=== PATIENT | female | born 1965 | race Caucasian/White ===

== ENCOUNTER → 2019-12-30 12:51 | Outpatient (BNVA) | payer MEDICAID, SELFPAY | PROVIDERS: Family Provider Family Medicine; Visit Provider Nurse Practitioner | DX: F41.1 Generalized anxiety disorder (principal) | CPT/HCPCS: 99213 ==

== ENCOUNTER → 2020-03-01 09:53 | Outpatient (BNVA) | payer MEDICAID, SELFPAY | PROVIDERS: Family Provider Family Medicine; Visit Provider Family Medicine | DX: I10 Essential (primary) hypertension (principal); E11.9 Type 2 diabetes mellitus without complications; E03.9 Hypothyroidism, unspecified; G62.9 Polyneuropathy, unspecified; R23.2 Flushing; R60.9 Edema, unspecified | CPT/HCPCS: 80053; 80061; 82044; 82607; 84443; 85025 ==

== ENCOUNTER → 2020-03-31 07:42 | Outpatient (BNVA) | payer MEDICAID, SELFPAY | PROVIDERS: Family Provider Family Medicine; Visit Provider Nurse Practitioner | DX: F41.1 Generalized anxiety disorder (principal) | CPT/HCPCS: 99213 ==

== ENCOUNTER → 2020-04-29 11:54 | Outpatient (BNVA) | payer MEDICAID, SELFPAY | PROVIDERS: Family Provider Family Medicine; PCP Family Medicine; Visit Provider Family Medicine | DX: E78.5 Hyperlipidemia, unspecified (principal); Z79.899 Other long term (current) drug therapy | CPT/HCPCS: 80053 ==

== ENCOUNTER → 2020-06-16 14:11 | Outpatient (BNVA) | payer MEDICAID, SELFPAY | PROVIDERS: Family Provider Family Medicine; PCP Family Medicine; Visit Provider Family Medicine | DX: Z13.6 Encounter for screening for cardiovascular disorders (principal); E78.5 Hyperlipidemia, unspecified; R60.9 Edema, unspecified | CPT/HCPCS: 80053; 80061 ==

== ENCOUNTER → 2020-07-12 08:29 | Outpatient (BNVA) | payer MEDICAID, SELFPAY | PROVIDERS: Family Provider Family Medicine; PCP Family Medicine; Visit Provider Nurse Practitioner | DX: F41.1 Generalized anxiety disorder (principal) | CPT/HCPCS: 99214 ==

== ENCOUNTER → 2020-09-27 13:19 | Outpatient (BNVA) | payer MEDICAID, SELFPAY | PROVIDERS: Family Provider Family Medicine; PCP Family Medicine; Visit Provider Family Medicine | DX: E03.9 Hypothyroidism, unspecified (principal) | CPT/HCPCS: 84443 ==

== ENCOUNTER → 2020-09-29 07:41 | Outpatient (BNVA) | payer MEDICAID, SELFPAY | PROVIDERS: Family Provider Family Medicine; PCP Family Medicine; Visit Provider Nurse Practitioner | DX: F41.1 Generalized anxiety disorder (principal) | CPT/HCPCS: 99213 ==

== ENCOUNTER → 2020-11-02 07:48 | Outpatient (BNVA) | payer MEDICAID, SELFPAY | PROVIDERS: Family Provider Family Medicine; PCP Family Medicine; Visit Provider Nurse Practitioner | DX: F41.1 Generalized anxiety disorder (principal) | CPT/HCPCS: 99213 ==

== ENCOUNTER → 2020-12-27 08:17 | Outpatient (BNVA) | payer MEDICAID, SELFPAY | PROVIDERS: Family Provider Family Medicine; PCP Family Medicine; Visit Provider Nurse Practitioner | DX: F41.1 Generalized anxiety disorder (principal); G47.00 Insomnia, unspecified | CPT/HCPCS: 99214 ==

== ENCOUNTER 2021-01-24 13:13 | Outpatient (CLI) | payer MEDICAID, SELFPAY ==
--- NOTE | 2021-01-24 13:21 | MM_ITS ---
WS: [id number] BILATERAL SCREENING DIGITAL MAMMOGRAM WITH CAD HISTORY: SCREENING COMPARISON: 07/07/2019 and 06/10/2018 Bilateral CC and MLO views submitted. Computer aided detection analyzed. Breast composition: There are scattered areas of fibroglandular density. No suspicious masses, microc alcifications or architectural distortion. Benign calcifications in each breast. MM/[place] [id number] IMPRESSION: BI-RADS: 2-Benign FOLLOW UP: 1 Year Follow-up
== END 2021-01-24 13:14 | disposition home or self-care (01) ==
LOC: RADSHAW 13:15
PROVIDERS: PCP Family Medicine; Visit Provider Family Medicine
DX: Z12.31 Encounter for screening mammogram for malignant neoplasm of breast (principal)
CPT/HCPCS: 77067

== ENCOUNTER → 2021-01-31 13:12 | Outpatient (BNVA) | payer MEDICAID, SELFPAY | PROVIDERS: PCP Family Medicine; Visit Provider Family Medicine | DX: I10 Essential (primary) hypertension (principal) | CPT/HCPCS: 80053 ==

== ENCOUNTER → 2021-02-28 08:59 | Outpatient (BNVA) | payer MEDICAID, SELFPAY | PROVIDERS: Family Provider Family Medicine; PCP Family Medicine; Visit Provider Nurse Practitioner | DX: F41.1 Generalized anxiety disorder (principal); G47.00 Insomnia, unspecified; F17.290 Nicotine dependence, other tobacco product, uncomplicated | CPT/HCPCS: 99214 ==

== ENCOUNTER → 2021-05-16 07:17 | Outpatient (BNVA) | payer MEDICAID, SELFPAY | PROVIDERS: Family Provider Family Medicine; PCP Family Medicine; Visit Provider Nurse Practitioner | DX: F41.1 Generalized anxiety disorder (principal); G47.00 Insomnia, unspecified; F17.290 Nicotine dependence, other tobacco product, uncomplicated | CPT/HCPCS: 99214 ==

== ENCOUNTER → 2021-06-20 15:14 | Outpatient (BNVA) | payer MEDICAID, SELFPAY | PROVIDERS: Family Provider Family Medicine; PCP Family Medicine; Visit Provider Family Medicine | DX: E03.9 Hypothyroidism, unspecified (principal) | CPT/HCPCS: 84439; 84443 ==

== ENCOUNTER → 2021-07-20 07:25 | Outpatient (BNVA) | payer MEDICAID, SELFPAY | PROVIDERS: Family Provider Family Medicine; PCP Family Medicine; Visit Provider Nurse Practitioner | DX: F41.1 Generalized anxiety disorder (principal); G47.00 Insomnia, unspecified; F17.290 Nicotine dependence, other tobacco product, uncomplicated | CPT/HCPCS: 99214 ==

== ENCOUNTER → 2021-09-28 08:12 | Outpatient (BNVA) | payer MEDICAID, SELFPAY | PROVIDERS: Family Provider Family Medicine; PCP Family Medicine; Visit Provider Nurse Practitioner | DX: F41.1 Generalized anxiety disorder (principal); G47.00 Insomnia, unspecified; F17.290 Nicotine dependence, other tobacco product, uncomplicated | CPT/HCPCS: 99214 ==

== ENCOUNTER → 2021-12-14 07:36 | Outpatient (BNVA) | payer MEDICAID, SELFPAY | PROVIDERS: Family Provider Family Medicine; PCP Family Medicine; Visit Provider Nurse Practitioner | DX: F41.1 Generalized anxiety disorder (principal); G47.00 Insomnia, unspecified; F17.290 Nicotine dependence, other tobacco product, uncomplicated | CPT/HCPCS: 99214 ==

== ENCOUNTER → 2021-12-16 13:46 | Outpatient (BNVA) | payer MEDICAID, SELFPAY | PROVIDERS: Family Provider Family Medicine; PCP Family Medicine; Visit Provider Family Medicine | DX: I10 Essential (primary) hypertension (principal); E78.5 Hyperlipidemia, unspecified; E03.9 Hypothyroidism, unspecified | CPT/HCPCS: 80053; 80061; 82043; 84443; 85025 ==

== ENCOUNTER → 2022-02-28 07:28 | Outpatient (BNVA) | payer MEDICAID, SELFPAY | PROVIDERS: Family Provider Family Medicine; PCP Family Medicine; Visit Provider Nurse Practitioner | DX: F41.1 Generalized anxiety disorder (principal); G47.00 Insomnia, unspecified; F17.290 Nicotine dependence, other tobacco product, uncomplicated | CPT/HCPCS: 99214 ==

== ENCOUNTER 2022-03-16 11:41 | Outpatient (CLI) | payer MEDICAID, SELFPAY ==
--- NOTE | 2022-03-16 11:46 | MM_ITS ---
WS: [id number] BILATERAL SCREENING DIGITAL BREAST TOMOSYNTHESIS MAMMOGRAM WITH CAD HISTORY: SCREENING COMPARISON: 01/24/2021 and 07/07/2019 Bilateral CC and MLO views with tomosynthesis and synthetic mammography submitted. Computer aided det ection analyzed. Breast composition: There are scattered areas of fibroglandular density. No suspicious masses, microc alcifications or architectural distortion. Bilateral calcifications in each breast are benign. MM/[place] [id number] IMPRESSION: BI-RADS: 2-Benign FOLLOW UP: 1 Year Follow-up
== END 2022-03-16 11:42 | disposition home or self-care (01) ==
PROVIDERS: Family Provider Family Medicine; PCP Family Medicine; Visit Provider Family Medicine
DX: Z12.31 Encounter for screening mammogram for malignant neoplasm of breast (principal)
CPT/HCPCS: 77063; 77067

== ENCOUNTER → 2022-08-07 12:13 | Outpatient (BNVA) | payer MEDICAID, SELFPAY | PROVIDERS: Family Provider Family Medicine; PCP Family Medicine; Visit Provider Family Medicine | DX: Z23 Encounter for immunization (principal); E03.9 Hypothyroidism, unspecified; F09 Unspecified mental disorder due to known physiological condition | CPT/HCPCS: 82607; 84443 ==

== ENCOUNTER 2022-09-26 11:47 | Outpatient (CLI) | payer MEDICAID, SELFPAY ==
--- NOTE | 2022-09-26 12:00 | CT_ITS ---
WS: [id number] CT HEAD TECHNIQUE: Noncontrast CT of the head obtained from the skullbase to the vertex. CLINICAL INFORMATION: cognitive dysfunction COMPARISON: None. DLP: 1005.[address] scans at [facility] use at least one of these dose optimization techniques: automated e xposure control; mA and/or kV adjustment per patient size (includes targeted exams where dose is matc hed to clinical indication); or iterative reconstruction. FINDINGS: No evidence of intracranial hemorrhage or mass effect. Ventricular system and basal cisterns are frazier nt. Minimal small vessel changes with mild parenchymal volume loss. No extra-axial fluid collections. No evidence of mass or mass effect. Paranasal sinuses and mastoid air cells are well aerated. .Normal visualized soft tissues. CT/CT head wo con* [id number] IMPRESSION: 1. No evidence of intracranial hemorrhage or mass effect. 2. Minimal small vessel changes. Mild parenchymal volume loss. 3. No acute intracranial findings.
== END 2022-09-26 11:48 | disposition home or self-care (01) ==
LOC: RAD 11:47
PROVIDERS: PCP Family Medicine; Visit Provider Family Medicine
DX: F09 Unspecified mental disorder due to known physiological condition (principal)
CPT/HCPCS: 70450

== ENCOUNTER → 2022-10-09 13:11 | Outpatient (BNVA) | payer MEDICAID, SELFPAY | PROVIDERS: PCP Family Medicine; Visit Provider Podiatrist Foot & Ankle Surgery | DX: M79.671 Pain in right foot (principal); M79.89 Other specified soft tissue disorders | CPT/HCPCS: 73600; 73630; 99214 ==

== ENCOUNTER 2022-11-09 12:54 | Outpatient (CLI) | payer MEDICAID, SELFPAY ==
--- NOTE | 2022-11-09 13:00 | MR_ITS ---
WS: [id number] MRI RIGHT ANKLE without CONTRAST. COMPARISON: Radiographs 10/09/2022 Multiplanar, multisequence imaging is performed without contrast. There are extensive fluid collections noted surrounding the ankle. Fluid collections surround the ten dons and within the tendon sheaths of the ankle including the extensor and flexor tendon sheaths and the peroneus tendon sheath. Lobulated fluid collection extends over a length of 6.2 cm along the exte nsor tendon sheath predominantly surrounding the extensor digitorum tendons. Abrupt termination of th e fluid at the level of the cuneiforms. There is a more complex fluid collection along the medial ankle surrounding the flexor hallucis longu s muscle and tendon sheath. This is contiguous along the medial ankle with a smaller amount of fluid extending along the tibialis posterior tendon and the flexor digitorum longus tendon. Small amount of fluid within the peroneus tendon sheath. Subchondral cystic changes are noted along the subtalar joint involving both the talus and the calcan eus. Bone infarct in the distal tibia measures 1.4 x 2.2 cm. Small amount of edema involving the fat pad superficial to the calcaneus. MR/MR ankle RT wo con* [id number] IMPRESSION: 1. There are extensive fluid collections within the tendon sheath surrounding the ankle including the extensor and flexor tendon sheaths and also the peroneu s tendon sheath. Some of these rapidly terminate and some are complex fluid col lections. Most likely due to stenosing tenosynovitis. Etiology may be due to pr ior trauma or infection, synovial chondromatosis or rheumatoid arthritis. 2. Edema and degenerative subchondral cystic changes involving the subtalar joanne int. 3. Distal tibial bone infarct.
--- NOTE | 2022-11-09 13:45 | MR_ITS ---
WS: [id number] MRI RIGHT FOOT without CONTRAST. COMPARISON: Radiographs 10/09/2022 Multiplanar, multisequence imaging is performed without contrast. There is a large amount of fluid within the extensor tendon sheath at the level of the ankle extendin g into the midfoot. Fluid is distending the extensor sheath with the tendons being displaced into the posterior fluid. This collection is incompletely visualized as the ankle is not included in this exa mination. There is a separate fluid collection which may be contiguous with the larger fluid collecti on into the extensor tendon sheath. The tendons most likely involved include extensor digitorum longu s tendons. There is a small amount of fluid surrounding the flexor hallucis and flexor digitorum longus tendons along the plantar surface of the foot at the level of the cuneiforms. Fluid terminates at the level o f the proximal metatarsals. No fractures or marrow edema. No tendon tears or retraction. MR/MR foot RT wo con* [id number] IMPRESSION: 1. Incompletely visualized fluid within the extensor tendon sheath at the leve l of the ankle. Most consistent with stenosing tenosynovitis. For additional in formation please see the MRI ankle report. 2. Additional small amount of fluid surrounding the flexor hallucis and flexor digitorum longus tendons along the plantar surface of the foot at the level of the cuneiforms. Also consistent with tenosynovitis. 3. Consider posttraumatic, post infectious, synovial chondromatosis or rheumat oid arthritis as possible etiologies.
== END 2022-11-09 12:55 | disposition home or self-care (01) ==
LOC: RAD 12:56
PROVIDERS: PCP Family Medicine; Visit Provider Podiatrist Foot & Ankle Surgery
DX: M79.89 Other specified soft tissue disorders (principal)
CPT/HCPCS: 73718; 73721

== ENCOUNTER 2022-12-11 15:36 | Outpatient (CLI) | payer MEDICAID, SELFPAY | END 2022-12-11 15:37 | disposition home or self-care (01) | LOC: SPT 15:36 | PROVIDERS: PCP Family Medicine; Visit Provider Podiatrist Foot & Ankle Surgery | DX: Z46.89 Encounter for fitting and adjustment of other specified devices (principal); M79.89 Other specified soft tissue disorders; M76.821 Posterior tibial tendinitis, right leg | CPT/HCPCS: 97760; 99214; L1902 ==

== ENCOUNTER → 2023-01-11 14:57 | Outpatient (BNVA) | payer MEDICAID, SELFPAY | PROVIDERS: PCP Family Medicine; Visit Provider Family Medicine | DX: I10 Essential (primary) hypertension (principal); E03.9 Hypothyroidism, unspecified; Z01.89 Encounter for other specified special examinations | CPT/HCPCS: 80053; 80061; 82043; 83036; 83880; 84443; 85025 ==

== ENCOUNTER → 2023-01-22 13:43 | Outpatient (BNVA) | payer MEDICAID, SELFPAY | PROVIDERS: PCP Family Medicine; Visit Provider Podiatrist Foot & Ankle Surgery | DX: M79.89 Other specified soft tissue disorders (principal); M76.821 Posterior tibial tendinitis, right leg; L60.3 Nail dystrophy | CPT/HCPCS: 99213 ==

== ENCOUNTER → 2023-03-15 13:26 | Outpatient (BNVA) | payer MEDICAID, SELFPAY | PROVIDERS: PCP Family Medicine; Visit Provider Family Medicine | DX: E03.9 Hypothyroidism, unspecified (principal); R60.0 Localized edema | CPT/HCPCS: 80048; 84436; 84443; 84480 ==

== ENCOUNTER 2023-04-24 11:47 | Outpatient (CLI) | payer MEDICAID, SELFPAY ==
--- NOTE | 2023-04-24 11:52 | MM_ITS ---
WS: [id number] BILATERAL 3D TOMOSYNTHESIS DIGITAL SCREENING MAMMOGRAPHY WITH CAD CLINICAL INFORMATION: SCREENING HISTORY: Screening mammogram. No current complaints. COMPARISON: 2021 TECHNIQUE: Bilateral CC and MLO views. FINDINGS: Scattered fibroglandular densities bilaterally. No suspicious focal mass, asymmetry, calcifications, or architectural distortion. No evidence of malignancy. Incidental punctate and lucent centered calci fications. MM/[place] [id number] IMPRESSION: BI-RADS: 2-Benign FOLLOW UP: 1 Year Follow-up Recommend return to annual screening mammography.
== END 2023-04-24 11:48 | disposition home or self-care (01) ==
LOC: RAD 11:49
PROVIDERS: PCP Family Medicine; Visit Provider Family Medicine
DX: Z12.31 Encounter for screening mammogram for malignant neoplasm of breast (principal); M76.821 Posterior tibial tendinitis, right leg; M79.89 Other specified soft tissue disorders; L60.3 Nail dystrophy
CPT/HCPCS: 77063; 77067; 99213

== ENCOUNTER → 2023-05-15 09:26 | Outpatient (BNVA) | payer MEDICAID, SELFPAY | PROVIDERS: PCP Family Medicine; Visit Provider Family Medicine | DX: R79.89 Other specified abnormal findings of blood chemistry (principal) | CPT/HCPCS: 80048; 84146; 84439; 84443; 84480 ==

== ENCOUNTER 2023-09-17 10:38 | Observation (INO) | payer MEDICAID, SELFPAY ==
[2023-09-17] VITALS (7 sets, daily range): BP systolic 163–176; BP diastolic 68–98; PULSE 80–89; RESP 16; TEMP 36.5; O2SAT 94–97; BMI 35.4
--- NOTE | 2023-09-17 10:50 | W.ED.BACK ---
Documented by User: SHERYL Valdez 09/18/23 09:07 HPI - Back Pain/Injury General: Chief Complaint: Back Pain/Injury Stated Complaint: lower back pain Time Seen by Provider: 09/17/23 10:39 Source: patient Mode of arrival: wheelchair Limitations: no limitations History of Present Illness: Patient is a 57-year-old female who presents to the ED today with a complaint of back pain and weakness. Patient states she has a history of sciatica but that this is completely different . She also has a history of some pathology regarding her right foot and ankle that she sees Dr. Griffin for. She states sometimes it will swell after being on her feet for too long. She also reports a history of fibromyalgia. She states on Sunday they were in [place] and did a fair amount of walking. She states by Sunday she noticed profound weakness in her arms and legs (describes them as heavy and tired) and was having pain at the bottom of her neck/upper back. She describes the pain in her neck/back as [id number] . She states that she was not able to carry her luggage out to her car and family had to help her. She states she is having to walk with a walker as she gets pain down both of her legs to about her knee and feels like they are going to buckle. Patient denies any numbness, tingling, loss of sensation to the extremities. Patient's sister is here with her and she has had to help care for her since Sunday MD elicited complaint: back pain Associated symptoms: Reports difficulty walking; Deny abdominal pain, chills, dysuria, fatigue, fever(s), nausea, syncope or vomiting Review of Systems Const: Denies: fever(s), chills, body aches, fatigue or malaise Eyes: Denies: change in vision, blurry vision, photophobia, floaters or seeing flashes Card: Denies: chest pain, palpitations, irregular heart rhythm, lightheadedness, syncope or dyspnea on exertion Resp: Denies: dyspnea, productive cough or pain on inspiration GI: Denies: abdominal pain, nausea, vomiting, heartburn or diarrhea : Denies: dysuria Musc: Reports: neck pain, back pain, joint swelling (R ankle/foot-chronic) and muscle weakness; Denies: extremity pain, extremity swelling, joint pain, joint redness, joint warmth or limited range of motion Skin/Breast: Denies: rash Neuro: Reports: weakness in extremities and difficulty walking; Denies: headache(s), numbness in extremities or sensory changes PFSH ED PFSH: Medical History Bipolar 2 disorder Essential hypertension Fibromyalgia Generalized anxiety disorder Hypothyroid Insomnia Psychiatric care Surgical History H/O tubal ligation H/O: hysterectomy History of back surgery History of foot surgery Family History Other CAD (coronary artery disease) Diabetes Hyperlipidemia Hypertension Social History Smoking and tobacco/nicotine status: current every day tobacco/nicotine user (e cigarette) e-cigarettes E-Cigarette Details: vaporizer device 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 Physical Exam Const: COMMON NORMALS: no acute distress, average body habitus, patient oriented x3, no limitations, healthy appearing, alert and well nourished GENERAL APPEARANCE: cooperative ORIENTATION/CONSCIOUSNESS: Yes awake, Yes oriented to person, Yes oriented to place and Yes oriented to time HENMT: COMMON NORMALS: normocephalic and atraumatic HEAD & SCALP: normal to inspection, normocephalic and atraumatic FACE & SINUS: other (chronic R Schumacher's Palsy residual deficits) Eye: COMMON NORMALS: Equal, round and reactive pupils present GENERAL EYE: appearance normal, both eyes and all related structures and normal light reflex PUPIL: Yes Equal, round and reactive pupils present DIRECT OPHTHALMOSCOPY: Yes normal light reflex OTHER: some slight R lid lag which she states is chronic from a Schumacher's Palsy Neck/C-Spine: COMMON NORMALS: full ROM and no lymphadenopathy GENERAL: Yes normal visual inspection CERVICAL SPINE: Yes cervical ROM normal and No step off deformity OTHER: reports pain with forward flexion of her neck-states this causes a pinching sensation and pins and needles to the base of her neck and upper thoracic spine Chest: COMMONS NORMALS: normal inspection of the chest Resp: COMMON NORMALS: normal respiratory effort and clear to auscultation bilaterally AUSCULTATION: clear to auscultation bilaterally Cardio: COMMON NORMALS: regular rate and regular rhythm RATE: regular rate RHYTHM: regular rhythm Back/Pelvis: THORACIC SPINE/UPPER BACK: No thoracic spinal tenderness LUMBAR SPINE/LOWER BACK: No lumbar spinal tenderness and Yes straight leg raise negative bilaterally PELVIS: Yes buttocks normal OTHER: reports certain positions cause pins and needle sensations down her back starting at her lower neck/upper thoracic spine; no bony tenderness palpated Extremity: COMMON NORMALS: full ROM, capillary refill normal and no calf tenderness NARRATIVE EXTREMITY EXAM: bilateral DP/PT pulses felt GENERAL: Yes normal exam except as noted RIGHT LOWER EXTREMITY: Yes foot & digits (chronic swelling around her R ankle/foot) Neuro: ANNE COMA SCALE: document GCS findings [place] coma scale eye opening: Spontaneous Anne coma scale verbal response: Orientated Anne coma scale motor response: Obey commands [place] coma scale total score: 15 COMMON NORMALS: patient oriented x3, moves all extremities and no sensory deficits noted SENSORIUM/ORIENTATION: Yes alert, Yes oriented to person, Yes oriented to place and Yes oriented to time GAIT: Yes Unable to assess gait MOTOR EXAM: Abnormal motor strength present (weakness noted to bilateral UE C6/C7 elbow flexion/extension) DEEP TENDON REFLEXES: Right patellar reflex intensity grade: 2+ and Left patellar reflex intensity grade: 2+ OTHER: patient has weakness to bilateral elbow flexion/extension-this was later re-assessed and seemed to improve; reflexes to upper extremities were difficult to elicit although patient couldn't seem to relax her extremities enough to conduct these-I had to tell her repeatedly to just relax her arm as they felt stiff Skin: COMMON NORMALS: no rashes or lesions noted GENERAL SKIN EXAM: no rashes or lesions noted Course Vital Signs: Vital signs: Vital Signs Temperature 97.7 F 09/17/23 10:46 Pulse Rate 83 09/17/23 17:42 Respiratory Rate 16 09/17/23 10:46 Blood Pressure 174/96 09/17/23 17:42 Pulse Oximetry 94 09/17/23 17:42 Oxygen Delivery Me thod Room Air 09/17/23 16:00 MDM - Back Pain/Injury Medical Decision Making Patient here with a complaint of pain to her neck/back and bilateral upper and lower extremity weakness. She states weakness has limited her from carrying things and ambulating normally. She states she is having to ambulate with a walker as she feels her upper legs (to about her knees) feel weak and feel like they are going to buckle. Patient describes [id number] sensations to her lower neck/upper thoracic spine. She initially had C6/C7 myotome weakness although this seems improved during repeat examination. Patient overall seems very dismissive of her symptoms stating she feels like she just overdid it . Sister that accompanies her seems more worried as she she states her symptoms do not sound like her normal fibromyalgia or sciatica pain. Labs including CRP and CPK are normal. Clinically this doesn't sound like a radiculopathy. No suspicion for ALS/Guillain-Ignacio?/demyelinating process. I spoke to Dr. Barakat regarding patient and my differential including possible transverse myelitis. He went and spoke/assessed patient and agrees she probably will require admission for MR imaging. He will speak to hospitalist and possibly neurology for admission. Medical Records I reviewed the patient's medical records. Labs I reviewed the patient's lab results. 09/17/23 11:24 09/17/23 11:24 Laboratory Results WBC 9.92 10^3/uL (3.29-11.43) 09/17/23 11:24 RBC 4.74 10^6/uL (3.85-5.65) 09/17/23 11:24 Hgb 15.40 g/dL (11.27-16.99) 09/17/23 11:24 Hct 46.8 % (36-47) 09/17/23 11:24 MCV 98.7 fl (85-98) H 09/17/23 11:24 MCH 32.5 pg (27-33) 09/17/23 11:24 MCHC 32.9 g/dL (30-55) 09/17/23 11:24 RDW 13.5 % (12.1-15.1) 09/17/23 11:24 Plt Count 270 10^3/cmm (157-399) 09/17/23 11:24 MPV 8.4 fL (7.4-10.4) 09/17/23 11:24 Neut % (Auto) 59.6 % 09/17/23 11:24 Lymph % (Auto) 24.2 % 09/17/23 11:24 [place] % (Auto) 12.0 % 09/17/23 11:24 Eos % (Auto) 2.3 % 09/17/23 11:24 Baso % (Auto) 1.2 % 09/17/23 11:24 Neut # (Auto) 5.91 10^3/uL (1.8-7.7) 09/17/23 11:24 Lymph # (Auto) 2.4 10^3/uL (0.8-4.8) 09/17/23 11:24 [place] # (Auto) 1.2 10^3/uL (0.2-0.9) H 09/17/23 11:24 Eos # (Auto) 0.2 10^3/uL (0.0-0.8) 09/17/23 11:24 Baso # (Auto) 0.1 10^3/uL (0.0-0.1) 09/17/23 11:24 Nucleated RBC % (auto) 0 % 09/17/23 11:24 Nucleated RBCs # 0.0 /100WBC 09/17/23 11:24 Sodium 138 mmol/L (136-145) 09/17/23 11:24 Potassium 3.9 mmol/L (3.5-5.1) 09/17/23 11:24 Chloride 101 mmol/L (98-107) 09/17/23 11:24 Carbon Dioxide 29 mmol/L (22-29) 09/17/23 11:24 Anion Gap 11.9 (5-19) 09/17/23 11:24 BUN 19 mg/dL (6-20) 09/17/23 11:24 Creatinine 0.6 mg/dL (0.5-0.9) 09/17/23 11:24 GFR Calculation 102.7 mL/min (90-130) 09/17/23 11:24 Glucose 93 mg/dL (65-115) 09/17/23 11:24 Calculated Osmolality 288 mOsm/kg (285-295) 09/17/23 11:24 Calcium 10.6 mg/dL (8.5-10.5) H 09/17/23 11:24 Total Bilirubin 0.2 mg/dL (0.15-1.2) 09/17/23 11:24 AST 24 U/L (0-32) 09/17/23 11:24 ALT 36 U/L (0-33) H 09/17/23 11:24 Alkaline Phosphatase 101 U/L (35-105) 09/17/23 11:24 Creatine Kinase 128 U/L (26-192) 09/17/23 11:24 C-Reactive Protein 3.0 mg/L (0.0-4.9) 09/17/23 11:24 Total Protein 7.2 g/dL (6.6-8.7) 09/17/23 11:24 Albumin 4.5 g/dL (3.5-5.2) 09/17/23 11:24 Globulin 2.7 g/dL (1.3-4.6) 09/17/23 11:24 No radiology studies performed this visit Discharge Plan Discharge Patient Disposition: Placed in Observation Admit Provider: Yoana Hawkins Clinical Impression: Upper back pain, Weakness of both lower extremities, Fibromyalgia Discharge Diet: Usual diet Discharge Activity: Increase activity as tolerated Coding Level of Care Code ED Civil Celebrant for Chg Fwd Documented by User: Venkata Barakat MD 09/22/23 19:42 HPI - Back Pain/Injury General: Chief Complaint: Back Pain/Injury Stated Complaint: lower back pain Time Seen by Provider: 09/17/23 10:39 PFSH ED PFSH: Medical History Bipolar 2 disorder Essential hypertension Fibromyalgia Generalized anxiety disorder Hypothyroid Insomnia Psychiatric care Surgical History H/O tubal ligation H/O: hysterectomy History of back surgery History of foot surgery Family History Other CAD (coronary artery disease) Diabetes Hyperlipidemia Hypertension Social History Smoking and tobacco/nicotine status: current every day tobacco/nicotine user (e cigarette) e-cigarettes E-Cigarette Details: vaporizer device 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 Physical Exam Neuro: ANNE COMA SCALE: document GCS findings [place] coma scale total score: 15 Course Vital Signs: Vital signs: Vital Signs Temperature 97.7 F 09/17/23 10:46 Pulse Rate 83 09/17/23 17:42 Respiratory Rate 16 09/17/23 10:46 Blood Pressure 174/96 09/17/23 17:42 Pulse Oximetry 94 09/17/23 17:42 Oxygen Delivery Me thod Room Air 09/17/23 16:00 MDM - Back Pain/Injury Labs 09/17/23 11:24 09/17/23 11:24 Laboratory Results WBC 9.92 10^3/uL (3.29-11.43) 09/17/23 11:24 RBC 4.74 10^6/uL (3.85-5.65) 09/17/23 11:24 Hgb 15.40 g/dL (11.27-16.99) 09/17/23 11:24 Hct 46.8 % (36-47) 09/17/23 11:24 MCV 98.7 fl (85-98) H 09/17/23 11:24 MCH 32.5 pg (27-33) 09/17/23 11:24 MCHC 32.9 g/dL (30-55) 09/17/23 11:24 RDW 13.5 % (12.1-15.1) 09/17/23 11:24 Plt Count 270 10^3/cmm (157-399) 09/17/23 11:24 MPV 8.4 fL (7.4-10.4) 09/17/23 11:24 Neut % (Auto) 59.6 % 09/17/23 11:24 Lymph % (Auto) 24.2 % 09/17/23 11:24 [place] % (Auto) 12.0 % 09/17/23 11:24 Eos % (Auto) 2.3 % 09/17/23 11:24 Baso % (Auto) 1.2 % 09/17/23 11:24 Neut # (Auto) 5.91 10^3/uL (1.8-7.7) 09/17/23 11:24 Lymph # (Auto) 2.4 10^3/uL (0.8-4.8) 09/17/23 11:24 [place] # (Auto) 1.2 10^3/uL (0.2-0.9) H 09/17/23 11:24 Eos # (Auto) 0.2 10^3/uL (0.0-0.8) 09/17/23 11:24 Baso # (Auto) 0.1 10^3/uL (0.0-0.1) 09/17/23 11:24 Nucleated RBC % (auto) 0 % 09/17/23 11:24 Nucleated RBCs # 0.0 /100WBC 09/17/23 11:24 Sodium 138 mmol/L (136-145) 09/17/23 11:24 Potassium 3.9 mmol/L (3.5-5.1) 09/17/23 11:24 Chloride 101 mmol/L (98-107) 09/17/23 11:24 Carbon Dioxide 29 mmol/L (22-29) 09/17/23 11:24 Anion Gap 11.9 (5-19) 09/17/23 11:24 BUN 19 mg/dL (6-20) 09/17/23 11:24 Creatinine 0.6 mg/dL (0.5-0.9) 09/17/23 11:24 GFR Calculation 102.7 mL/min (90-130) 09/17/23 11:24 Glucose 93 mg/dL (65-115) 09/17/23 11:24 Calculated Osmolality 288 mOsm/kg (285-295) 09/17/23 11:24 Calcium 10.6 mg/dL (8.5-10.5) H 09/17/23 11:24 Total Bilirubin 0.2 mg/dL (0.15-1.2) 09/17/23 11:24 AST 24 U/L (0-32) 09/17/23 11:24 ALT 36 U/L (0-33) H 09/17/23 11:24 Alkaline Phosphatase 101 U/L (35-105) 09/17/23 11:24 Creatine Kinase 128 U/L (26-192) 09/17/23 11:24 C-Reactive Protein 3.0 mg/L (0.0-4.9) 09/17/23 11:24 Total Protein 7.2 g/dL (6.6-8.7) 09/17/23 11:24 Albumin 4.5 g/dL (3.5-5.2) 09/17/23 11:24 Globulin 2.7 g/dL (1.3-4.6) 09/17/23 11:24 Discharge Plan Discharge Patient Disposition: Placed in Observation Admit Provider: Yoana Hawkins Clinical Impression: Upper back pain, Weakness of both lower extremities, Fibromyalgia Discharge Diet: Usual diet Discharge Activity: Increase activity as tolerated Coding Level of Care Code ED Civil Celebrant for [place]
[2023-09-17 11:52] LABS: Basophils # 0.1 10^3/uL (0.0-0.1); Basophils % 1.2 %; Eosinophils # 0.2 10^3/uL (0.0-0.8); Eosinophils % 2.3 %; Hematocrit 46.8 % (36-47); Lymphocytes # 2.4 10^3/uL (0.8-4.8); Lymphocytes % 24.2 %; Mean Corpuscular HGB Conc 32.9 g/dL (30-55); Mean Corpuscular Hemoglobin 32.5 pg (27-33); Mean Corpuscular Volume 98.7 fl (85-98); Mean Platelet Volume 8.4 fL (7.4-10.4); Monocytes # 1.2 10^3/uL (0.2-0.9); Neutrophils # 5.91 10^3/uL (1.8-7.7); Neutrophils % 59.6 %; Nucleated Red Blood Cells % 0 %; Platelet Count 270 10^3/cmm (157-399); Red Blood Count 4.74 10^6/uL (3.85-5.65); Red Cell Distribution Width 13.5 % (12.1-15.1); White Blood Count 9.92 10^3/uL (3.29-11.43)
[2023-09-17] MEDS: dexamethasone 4 mg/mL INJ 8 MG IVP (11:52)
[2023-09-17] MEDS: orphenadrine 30 mg/mL Inj 2 mL 60 MG IVP (11:52)
[2023-09-17] MEDS: ketorolac 30 mg/mL INJ IVP (11:52)
[2023-09-17 12:05] LABS: Alanine Aminotransferase 36 U/L (0-33); Albumin Level 4.5 g/dL (3.5-5.2); Alkaline Phosphatase 101 U/L (35-105); Anion Gap 11.9 (5-19); Aspartate Amino Transferase 24 U/L (0-32); Blood Urea Nitrogen 19 mg/dL (6-20); Calcium 10.6 mg/dL (8.5-10.5); Carbon Dioxide 29 mmol/L (22-29); Chloride 101 mmol/L (98-107); Creatine Phosphokinase 128 U/L (26-192); Creatinine Clr Calc Pharmacy 109.2728; Globulin 2.7 g/dL (1.3-4.6); Glomerular Filtration Rate 102.7 mL/min (90-130); Glucose 93 mg/dL (65-115); Osmolality Calculated 288 mOsm/kg (285-295); Potassium 3.9 mmol/L (3.5-5.1); Sodium 138 mmol/L (136-145); Total Bilirubin 0.2 mg/dL (0.15-1.2); Total Protein 7.2 g/dL (6.6-8.7)
--- NOTE | 2023-09-17 15:25 | PM.HP ---
Providers/Chief Complaint Admitting Physician: Yoana Hawkins MD Primary Care Provider: Jory Ortiz DO Chief Complaint: lower back pain History of Present Illness Guera Clement is a 57 year old female Review of Systems General: Reports: Other (ROS as per HPI or as otherwise noted here) Medications/Allergies Home Medications Medication Instructions Recorded Confirmed Last Taken Type cholecalciferol (vitamin D3) 250 10,000 unit PO DAILY 12/30/19 09/17/23 09/16/23 History mcg (10,000 unit) capsule Supinator to the right foot #1 ea 12/11/22 09/17/23 Unknown Rx Spectrum AFO to right #1 ea 01/22/23 09/17/23 Unknown Rx atenolol 25 mg tablet 25 mg PO DAILY #90 tabs 08/06/23 09/17/23 09/16/23 Rx donepezil 5 mg tablet (Aricept) 5 mg PO DAILY #90 tabs 08/06/23 09/17/23 09/16/23 Rx furosemide 20 mg tablet (Lasix) 20 mg PO DAILY #90 tabs 08/06/23 09/17/23 09/16/23 Rx hydrochlorothiazide 25 mg tablet 25 mg PO QAM #90 tabs 08/06/23 09/17/23 09/16/23 Rx alprazolam 1 mg tablet 1 mg PO TID PRN anxiety 30 days 08/17/23 09/17/23 Unknown Rx #90 tabs amitriptyline 100 mg tablet 200 mg PO DAILY #60 tabs 08/17/23 09/17/23 09/16/23 Rx lamotrigine 200 mg tablet 400 mg PO .HS #60 tabs 08/17/23 09/17/23 09/16/23 Rx venlafaxine 150 mg 150 mg PO DAILY #30 caps 08/17/23 09/17/23 09/16/23 Rx capsule,extended release 24 hr (Effexor XR) ziprasidone HCl 60 mg capsule 60 mg PO BID #60 caps 08/17/23 09/17/23 09/16/23 Rx (Geodon) atorvastatin 10 mg tablet 10 mg PO DAILY 09/17/23 09/17/23 09/16/23 History docusate sodium 100 mg capsule 100 mg PO DAILY 09/17/23 09/17/23 09/17/23 History (Stool Softener) estradiol 0.5 mg tablet 0.5 mg PO DAILY 09/17/23 09/17/23 09/16/23 History psyllium husk 0.4 gram capsule 0.4 g PO DAILY 09/17/23 09/17/23 09/17/23 History (Metamucil) Allergies Allergy/AdvReac Type Severity Reaction Status Date / Time Penicillins Allergy Severe ADR-Diarrhe Verified 09/17/23 12:19 a PFSH Acute PFSH: Medical History (Updated 09/17/23 @ 15:29 by Yoana Hawkins MD) Bipolar 2 disorder Essential hypertension Fibromyalgia Generalized anxiety disorder Hypothyroid Insomnia Psychiatric care Surgical History H/O tubal ligation H/O: hysterectomy History of back surgery History of foot surgery Family History Other CAD (coronary artery disease) Diabetes Hyperlipidemia Hypertension Social History Smoking and tobacco/nicotine status: current every day tobacco/nicotine user (e cigarette) e-cigarettes E-Cigarette Details: vaporizer device 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 Coding Level of Care Code Acute Code for Chg Fwd Diagnoses
--- NOTE | 2023-09-17 15:51 | P.CONIM_ITS ---
Providers/Reason For Consult Consulting Physician/Specialty*: dr. Powers, ED Reason for Consult*: weakness in limbs Primary Care Provider: Jory Ortiz DO History of Present Illness History of Present Illness Guera Clement is a 57 year old female who was getting groceries today when she developed weakness of all 4 extremities. She was complaining of pain in her back. She has a history of fibromyalgia and she is on a lot of psychotropics including 3 mg of alprazolam, 200 mg of amitriptyline, 400 mg of lamotrigine and 150 mg of venlafaxine. She is normally sedentary. 2 days ago on Sunday she went to an amusement facility with her family and spent all day on her feet. There was rarely an opportunity for her to sit down and she was exhausted. They were out for the full day more than 8 hours and she felt sore all over when she got home. Yesterday she was pretty much bedbound and all of her muscles hurt. She struggles with fibromyalgia anyway and her muscle pain was much more worse. Her back hurt. By today she was feeling weak all over to the point that she could not carry her groceries and her guest services associate persuaded her to come to the ER and was adamant that she needed to be admitted. She is feeling a lot better than she did when she came in earlier today. She got a shot of Decadron after arrival and either the Decadron or the IV fluids and rest have accomplished what she was seeking which was to feel better. Her sister is with her now and they very much want for her to go back home. She is convinced that she just overdid it and that she is already on the mend. She does not have any focal weakness nor did she ever. She has been clearheaded throughout. No focal numbness. Review of Systems Const: Denies: fever(s), change in weight or fatigue Eyes: Denies: change in vision, blurry vision, blind spots, photophobia, eye discomfort, seeing flashes or other (Glaucoma) ENMT: Denies: odynophagia, hoarseness, change in hearing, tinnitus, sinus pain or other (Loss of taste/smell) Card: Denies: chest pain, palpitations, syncope or other (Calf cramps) Resp: Denies: dyspnea, non-productive cough, wheezing or hemoptysis GI: Denies: abdominal pain, nausea, heartburn, diarrhea, constipation or hematochezia : Denies: urinary frequency or urinary incontinence Musc: Denies: neck pain, muscle weakness or other (Muscle pain) Skin/Breast: Denies: rash, new lesions or breast mass Neuro: Reports: numbness in extremities, weakness in extremities, sensory changes, lack of coordination, difficulty walking and other (Sleep Apnea); Denies: headache(s), Slurred speech present or seizure-like activity Psych: Denies: depression, irritability, memory loss, difficulty concentrating or other (Personality changes) Endo: Denies: polyuria, polydipsia, excessive sweating or change in body appearance Enrique/Lymph: Denies: easy bruising, easy bleeding or enlarged lymph nodes Medications/Allergies Home Medications Medication Instructions Recorded Confirmed Last Taken Type cholecalciferol (vitamin D3) 250 10,000 unit PO DAILY 12/30/19 09/17/23 09/16/23 History mcg (10,000 unit) capsule Supinator to the right foot #1 ea 12/11/22 09/17/23 Unknown Rx Spectrum AFO to right #1 ea 01/22/23 09/17/23 Unknown Rx atenolol 25 mg tablet 25 mg PO DAILY #90 tabs 08/06/23 09/17/23 09/16/23 Rx donepezil 5 mg tablet (Aricept) 5 mg PO DAILY #90 tabs 08/06/23 09/17/23 09/16/23 Rx furosemide 20 mg tablet (Lasix) 20 mg PO DAILY #90 tabs 08/06/23 09/17/23 09/16/23 Rx hydrochlorothiazide 25 mg tablet 25 mg PO QAM #90 tabs 08/06/23 09/17/23 09/16/23 Rx alprazolam 1 mg tablet 1 mg PO TID PRN anxiety 30 days 08/17/23 09/17/23 Unknown Rx #90 tabs amitriptyline 100 mg tablet 200 mg PO DAILY #60 tabs 08/17/23 09/17/23 09/16/23 Rx lamotrigine 200 mg tablet 400 mg PO .HS #60 tabs 08/17/23 09/17/23 09/16/23 Rx venlafaxine 150 mg 150 mg PO DAILY #30 caps 08/17/23 09/17/23 09/16/23 Rx capsule,extended release 24 hr (Effexor XR) ziprasidone HCl 60 mg capsule 60 mg PO BID #60 caps 08/17/23 09/17/23 09/16/23 Rx (Geodon) atorvastatin 10 mg tablet 10 mg PO DAILY 09/17/23 09/17/23 09/16/23 History docusate sodium 100 mg capsule 100 mg PO DAILY 09/17/23 09/17/23 09/17/23 History (Stool Softener) estradiol 0.5 mg tablet 0.5 mg PO DAILY 09/17/23 09/17/23 09/16/23 History methylprednisolone 4 mg tablets in See Rx Instructions PO .COMPLEX 09/17/23 Unknown Rx a dose pack (Methylpred DP) #21 ea psyllium husk 0.4 gram capsule 0.4 g PO DAILY 09/17/23 09/17/23 09/17/23 History (Metamucil) Allergies Allergy/AdvReac Type Severity Reaction Status Date / Time Penicillins Allergy Severe ADR-Diarrhe Verified 09/17/23 12:19 a Reviewed with the patient PFSH Acute PFSH: Medical History Bipolar 2 disorder Essential hypertension Fibromyalgia Generalized anxiety disorder Hypothyroid Insomnia Psychiatric care Surgical History H/O tubal ligation H/O: hysterectomy History of back surgery History of foot surgery Family History Other CAD (coronary artery disease) Diabetes Hyperlipidemia Hypertension Social History Smoking and tobacco/nicotine status: current every day tobacco/nicotine user (e cigarette) e-cigarettes E-Cigarette Details: vaporizer device 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 MENTAL STATUS: Orientation was full to 10 of 10 questions of orientation. Speech was fluent without word hesitation. No difficulty following a complex command. The affect was euthymic. She is desperate to go home as it is the first Thanksgiving that she will be with all of her family. Her sister is at the bedside. CRANIAL NERVES: Visual acuity was intact to reading small print. Visual pack were full to confrontation, direct and consensual. Extraocular movements were full without nystagmus. Both slow pursuit and saccadic eye movements were normal. PERRLA. Face was symmetric at rest and with grimace. Facial sensation was intact in all three distributions of the fifth cranial nerve bilaterally to touch. Hearing was intact to soft spoken voice. Tongue and palate were midline at rest and with protrusion of the tongue and elevation of the palate. Shoulders were symmetric at rest and with shoulder shrug. MOTOR: She gave reasonable effort throughout. She is weak in both psoas muscles but describes that she has to pick her legs up to get her socks on because this is a chronic problem. SENSATION: Pin, touch, vibration intact in the four extremities distally. COORDINATION: No tremor. She cannot walk a straight line. [id number] was limited by proximal leg weakness. DEEP TENDON REFLEXES: 2/4 throughout including the ankle jerks. GAIT: The patient was able to walk 10 feet around in the room and turn around and go back. She takes little short steps but she says that she always does that because of her foot problem. HEENT: Normocephalic without dysmorphic features. Conjunctivae were not injected and sclerae were nonicteric. NECK: Carotid upstroke was strong bilaterally without bruits. The thyroid was not enlarged and there were no palpable lymph nodes. CHEST: Clear to auscultation. CARDIOVASCULAR: The heart sounds were normal without murmur or gallop. Regular rate and rhythm. EXTREMITIES: She has a chronically sedentary appearance. Data 09/17/23 11:24 09/17/23 11:24 A&P Assessment and plan (1) Myopathy: Is a very pleasant woman with baseline of fibromyalgia, chronically poorly fitted because of deconditioning owing to her muscle pain who now presents with severe muscle pain and low back pain. She was so weak on arrival that Dr. Barakat was concerned about a neuropathic process. She has improved with fluids and a small dose of steroids and she is passionately interested in going home. Her sister promises to watch over her and bring her back if she gets worse. I think that is a reasonable alternative and I talked with Dr. Barakat and Dr. Briseida wheeler. I will be glad to see the patient if needed in the future but she is well managed by her current physicians. (2) Weakness of both lower extremities: (3) Fibromyalgia: (4) Generalized anxiety disorder: Consult Attestations Medical Necessity Statement: Patient with severe muscle pain and weakness. Time Spent in Patient Care: 60 minutes Coding Level of Care Code Acute Code for [facility] Fwd Diagnoses Myopathy G72.9 Weakness of both lower extremities R29.898 Fibromyalgia M79.7 Generalized anxiety disorder F41.1
--- NOTE | 2023-09-17 16:54 | P.SS_ITS ---
Short Stay Summary Providers Date of Admit/Discharge: 09/17/23 Attending Provider: Yoana Hawkins MD Consults: Dr. Li with neurology Primary Care Provider: Jory Ortiz DO Chief Complaint: lower back pain HPI History of Present Illness Guera Clement is a 57 year old female who presented to the emergency room with chief complaint of inability to get out of bed and weakness. She had spent part of the weekend in [place] and walked more than she is accustomed to. She had started using a walker that she had at home to help her get around because she was so weak. She does have a history of fibromyalgia and also has posterior tibial tendon dysfunction that has been followed by Dr. Griffin. When she went to try to get out of bed today she was unable to walk. She called her sister to bring her to the emergency room because of this as well as pain in her back. She had some tingling paresthesias in her arms and her legs. In the emergency room there was concern for transverse myelitis and request was made for admission for further monitoring and evaluation. She did receive Toradol and dexamethasone in the ER. Neurology was consulted to evaluate. She has not had any recent fevers, acute infection that she is aware of, new skin findings, other similar episodes. No complaint of new GI or symptoms. She has had back pain and neck pain off and on for years, and reports prior surgery. Has had other joint and muscular pains and is known to have fibromyalgia making it difficult to ascertain what might be completely new though feels like the symptoms today were different than what she is experienced before. No recent vision changes. No reported loss of bowel or bladder function. No recent weight loss. Review of Systems Card: Denies: chest pain Resp: Denies: dyspnea Neuro: Denies: dizziness Psych: Reports: memory loss, difficulty concentrating and other (Pt & sister indicates cognitive functioning better after start of aricept) Home Meds/Allergies Home Medications and Allergies Home Medications Medication Instructions Recorded Confirmed Type cholecalciferol (vitamin D3) 250 10,000 unit PO DAILY 12/30/19 09/17/23 History mcg (10,000 unit) capsule atorvastatin 10 mg tablet 10 mg PO DAILY 09/17/23 09/17/23 History docusate sodium 100 mg capsule 100 mg PO DAILY 09/17/23 09/17/23 History (Stool Softener) estradiol 0.5 mg tablet 0.5 mg PO DAILY 09/17/23 09/17/23 History psyllium husk 0.4 gram capsule 0.4 g PO DAILY 09/17/23 09/17/23 History (Metamucil) Allergies Allergy/AdvReac Type Severity Reaction Status Date / Time Penicillins Allergy Severe ADR-Diarrhe Verified 09/17/23 12:19 a PFSH Acute PFSH: Medical History Bipolar 2 disorder Essential hypertension Fibromyalgia Generalized anxiety disorder Hypothyroid Insomnia Psychiatric care Surgical History H/O tubal ligation H/O: hysterectomy History of back surgery History of foot surgery Family History Other CAD (coronary artery disease) Diabetes Hyperlipidemia Hypertension Social History Smoking and tobacco/nicotine status: current every day tobacco/nicotine user (e cigarette) e-cigarettes E-Cigarette Details: vaporizer device 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 Speech is clear. Face symmetric. Somewhat flat affect. Regular rhythm. No tachypnea. Moving all extremities. Strength is equal in the upper extremities. Right ankle is weaker than left but this is not a new finding for her from history available. Reviewed with her several times history and concerns from the ER. Answers to questions were consistent on repeated questioning. Hospital Course Admission Diagnoses Same as above Hospital Course Mrs. Clement was admitted to observation status under hospitalist service with plan for further evaluation including neurology consultation and possible MRI along with autoimmune or infectious work-up as indicated. She had received Toradol and dexamethasone in the emergency room and by the time I saw her she was feeling significantly better and wishing to be discharged home. She had been seen by neurology as well, who had an opportunity to see her walk. Recommendation at this time was Medrol Dosepak, checking a lithium level and outpatient follow-up to primary care provider. Patient is to return to the emergency room should she have recurrent symptoms. Explained that potential spinal cord issues, such as with the emergency room was concerned with, are serious and that earlier identification of problem and treatment can yield better outcomes. Her opinion is that she overdid it this weekend and her inability to get around today was secondary to this. She does not wish to have any further work-up at this time or be monitored overnight in the hospital. Sister was in the room with her and will stay with her today. Both were given an opportunity to ask questions. Patient's CK level was normal as was her CRP. She had minimally elevated ALT only and a calcium [address] above normal range. She already has follow-up appointment scheduled on October 15 with her primary care provider and Dr. Griffin. Recommend that she follow-up with her PCP sooner given need to present to the emergency room/hospital today. Blood pressures were suboptimally controlled in the emergency room but she had not had all of her usual medications today. She has previously tolerated steroids in the past. SSS Data Data Completed and Pending: Laboratory Results WBC 9.92 10^3/uL (3.2 9-11.43) 09/17/23 11:24 RBC 4.74 10^6/uL (3.8 5-5.65) 09/17/23 11:24 Hgb 15.40 g/dL (11.27 -16.99) 09/17/23 11:24 Hct 46.8 % (36-47) 09/17/23 11:24 MCV 98.7 fl (85-98) H 09/17/23 11:24 MCH 32.5 pg (27-33) 09/17/23 11:24 MCHC 32.9 g/dL (30-55) 09/17/23 11:24 RDW 13.5 % (12.1-15.1 ) 09/17/23 11:24 Plt Count 270 10^3/cmm (157 -399) 09/17/23 11:24 MPV 8.4 fL (7.4-10.4) 09/17/23 11:24 Neut % (Auto) 59.6 % 09/17/23 11:24 Lymph % (Auto) 24.2 % 09/17/23 11:24 [place] % (Auto) 12.0 % 09/17/23 11:24 Eos % (Auto) 2.3 % 09/17/23 11:24 Baso % (Auto) 1.2 % 09/17/23 11:24 Neut # (Auto) 5.91 10^3/uL (1.8 -7.7) 09/17/23 11:24 Lymph # (Auto) 2.4 10^3/uL (0.8- 4.8) 09/17/23 11:24 [place] # (Auto) 1.2 10^3/uL (0.2- 0.9) H 09/17/23 11:24 Eos # (Auto) 0.2 10^3/uL (0.0- 0.8) 09/17/23 11:24 Baso # (Auto) 0.1 10^3/uL (0.0- 0.1) 09/17/23 11:24 Nucleated RBC % (a uto) 0 % 09/17/23 11:24 Nucleated RBCs # 0.0 /100WBC 09/17/23 11:24 Sodium 138 mmol/L (136-1 45) 09/17/23 11:24 Potassium 3.9 mmol/L (3.5-5 .1) 09/17/23 11:24 Chloride 101 mmol/L (98-10 7) 09/17/23 11:24 Carbon Dioxide 29 mmol/L (22-29) 09/17/23 11:24 Anion Gap 11.9 (5-19) 09/17/23 11:24 BUN 19 mg/dL (6-20) 09/17/23 11:24 Creatinine 0.6 mg/dL (0.5-0. 9) 09/17/23 11:24 GFR Calculation 102.7 mL/min (90- 130) 09/17/23 11:24 Glucose 93 mg/dL (65-115) 09/17/23 11:24 Calculated Osmolal ity 288 mOsm/kg (285- 295) 09/17/23 11:24 Calcium 10.6 mg/dL (8.5-1 0.5) H 11/20/23 11:24 Total Bilirubin 0.2 mg/dL (0.15-1 .2) 09/17/23 11:24 AST 24 U/L (0-32) 09/17/23 11:24 ALT 36 U/L (0-33) H 09/17/23 11:24 Alkaline Phosphata se 101 U/L (35-105) 09/17/23 11:24 Creatine Kinase 128 U/L (26-192) 09/17/23 11:24 C-Reactive Protein 3.0 mg/L (0.0-4.9 ) 09/17/23 11:24 Total Protein 7.2 g/dL (6.6-8.7 ) 09/17/23 11:24 Albumin 4.5 g/dL (3.5-5.2 ) 09/17/23 11:24 Globulin 2.7 g/dL (1.3-4.6 ) 09/17/23 11:24 Pending at discharge Category Date Time Status Lamotrigine (Lami ctal) Level Timed Lab 09/17/23 16:19 Ordered Diagnoses at Discharge Discharge Diagnosis (1) Weakness of both lower extremities: Status: Acute (2) Upper back pain: Status: Acute (3) Paresthesias: Status: Acute (4) Posterior tibial tendon dysfunction: Status: Chronic Permanent problem details: followed by Dr Griffin, has AFO (5) Fibromyalgia: Status: Chronic (6) Neuropathy: Status: Acute (7) Essential hypertension: Status: Chronic (8) Dyslipidemia: Status: Chronic (9) Generalized anxiety disorder: Status: Chronic (10) Bipolar 2 disorder: Status: Chronic (11) Cognitive dysfunction: Status: Acute Discharge Plan Discharge Patient Disposition: Home Condition: Stable Prescriptions: New methylprednisolone [Methylpred DP] 4 mg tablets,dose pack See Rx Instructions .ROUTE .COMPLEX Qty: 21 0RF Rx Instructions: take by mouth as per package directions until complete Continued cholecalciferol (vitamin D3) 10,000 unit capsule 10,000 unit PO DAILY (DME) Spectrum AFO to right See Rx Instructions .Route .MEDSUPPLY Qty: 1 0RF Rx Instructions: As directed by JAKE&O alprazolam 1 mg tablet 1 mg PO TID PRN (Reason: anxiety) 30 Days Qty: 90 2RF ziprasidone HCl [Geodon] 60 mg capsule 60 mg PO BID Qty: 60 2RF Rx Instructions: give with food (meal/snack) lamotrigine 200 mg tablet 400 mg PO .HS Qty: 60 2RF venlafaxine [Effexor XR] 150 mg capsule,extended release 24hr 150 mg PO DAILY Qty: 30 2RF amitriptyline 100 mg tablet 200 mg PO DAILY Qty: 60 2RF (DME) Supinator to the right foot See Rx Instructions .Route .MEDSUPPLY Qty: 1 0RF Rx Instructions: As directed atenolol 25 mg tablet 25 mg PO DAILY Qty: 90 1RF donepezil [Aricept] 5 mg tablet 5 mg PO DAILY Qty: 90 1RF furosemide [Lasix] 20 mg tablet 20 mg PO DAILY Qty: 90 1RF Rx Instructions: Take at noon hydrochlorothiazide 25 mg tablet 25 mg PO QAM Qty: 90 0RF atorvastatin 10 mg tablet 10 mg PO DAILY estradiol 0.5 mg tablet 0.5 mg PO DAILY Stool Softener 100 mg Capsule 100 mg PO DAILY Metamucil 0.4 gram Capsule 0.4 g PO DAILY Discharge Orders: Discharge Order (Routine); Ordered 09/17/23 Ordered By: Yoana Hawkins Referrals: Lukas Griffin DPM [Physician] - 10/15/23 1:00 pm (already scheduled) Jory Ortiz DO [Primary Care Provider] - 7-10 days (has apt scheduled on 10/15 already; this is for ER/hospital followup) Discharge Diet: Usual diet Discharge Activity: Increase activity as tolerated Patient Instructions: Weakness (GEN), Opioid Safety Assessment: Weakness bilateral upper and lower extremities with parasthesias Concern from ED was for possible transverse myelitis Patient feeling better and declines further evaluation Plan of Treatment: Medrol dose michael prescribed Follow up with PCP To return if symptoms recur Lamictal level ordered and pending at discharge as per recommendation from Dr Li Goals: Return Home Attestations Medical Necessity Statement*: Anticipated stay less than 2 midnights had patient opted to continue evaluation in the hospital setting Time Spent in Patient Care*: greater than 30 min (80 minutes in one encounter) Quality Metrics Clinical Quality Measures: [ No reported AMI, CVA or VTE this stay ] and Moderate Time for a total of 70 minutes, includes reviewing past or interval history, examining/interviewing patient, placing orders, counseling patient/family/other support, communicating with other healthcare providers and documenting encounter Diagnoses Weakness of both lower extremities R29.898 Upper back pain M54.9 Paresthesias R20.2 Posterior tibial tendon dysfunction M76.829 Fibromyalgia M79.7 Neuropathy G62.9 Essential hypertension I10 Dyslipidemia E78.5 Generalized anxiety disorder F41.1 Bipolar 2 disorder F31.81 Cognitive dysfunction F09
[2023-09-22 22:04] LABS: Lamotrigine (Lamictal) Level 7.5 mcg/mL (2.5-15.0)
== END 2023-09-17 17:46 | disposition home or self-care (01) ==
LOC: ER 15:05 → MEDSURG 16:41 → ER IP 17:31
PROVIDERS: Admitting Provider Hospitalist; Emergency Provider Physician Assistant; PCP Family Medicine; Visit Provider Hospitalist
DX: R29.898 Other symptoms and signs involving the musculoskeletal system (principal); M54.9 Dorsalgia, unspecified; R20.2 Paresthesia of skin; M76.829 Posterior tibial tendinitis, unspecified leg; M79.7 Fibromyalgia; G62.9 Polyneuropathy, unspecified; I10 Essential (primary) hypertension; E78.5 Hyperlipidemia, unspecified; F41.1 Generalized anxiety disorder; F31.81 Bipolar II disorder; F09 Unspecified mental disorder due to known physiological condition; F17.290 Nicotine dependence, other tobacco product, uncomplicated; E03.9 Hypothyroidism, unspecified
CPT/HCPCS: 80053; 80175; 82550; 85025; 86140; 96374; 96375; 99285; G0378; J1100; J1885; J2360

== ENCOUNTER → 2023-09-24 10:24 | Outpatient (BNVA) | payer MEDICAID, SELFPAY | PROVIDERS: PCP Family Medicine; Visit Provider Family Medicine | DX: E03.9 Hypothyroidism, unspecified (principal) | CPT/HCPCS: 84443 ==

== ENCOUNTER 2023-10-05 13:29 | Inpatient (IN) | payer MEDICAID, SELFPAY ==
[2023-10-05 13:31] VITALS: BP 128/80; PULSE 68; RESP 16; TEMP 36.4; O2SAT 95; BMI 35.9
--- NOTE | 2023-10-05 13:52 | ED_ITS ---
HPI - Back Pain/Injury General: Chief Complaint: Back Pain/Injury Stated Complaint: abd pain/lower back Time Seen by Provider: 10/05/23 13:36 Source: patient Mode of arrival: wheelchair Limitations: no limitations History of Present Illness: Patient is a 57-year-old female presents to ED today with a complaint of lower back pain as well as bilateral lower extremity weakness. Patient was seen here in the emergency department on 09/17 by myself along with Dr. Barakat. She had similar symptoms at that time but also had some upper extremity/upper back/neck involvement. There was some concern based on her history for transverse myelitis. Patient during her emergency department stay had significant improvement and was even consulted on by Dr. Li as well as hospitalist Dr. Hawkins. She was subsequently discharged. Patient states she was ambulatory without difficulty at that time. Patient states she followed up with her primary care provider Dr. Ortiz on 09/24 who ordered her an outpatient MRI of her lumbar spine. This is scheduled for 10/23. Patient states over the past 3 days she has noticed significant worsening to the weakness of her legs causing her to fall and not be able to ambulate even with the help of her walker. She reports that she feels like her bilateral legs are going to go to sleep . She has not noticed any color/temp changes to the extremities. No swelling/calf pains. Denies bowel/bladder incontinence/retention. MD elicited complaint: back pain Onset (ago): day(s) Severity: moderate Similar Symptoms Previously: Yes Location: lumbar spine Radiation: left upper leg, right upper leg, left leg below the knee and right leg below the knee Exacerbating factors: walking Relieving factors: none Associated symptoms: Reports difficulty walking; Deny chills, fatigue or fever(s) Work related injury: No Review of Systems Const: Denies: fever(s), chills, body aches, fatigue or malaise Card: Denies: chest pain Resp: Denies: dyspnea Musc: Reports: back pain and muscle weakness; Denies: neck pain, extremity pain, extremity swelling, joint pain, joint swelling, joint redness, joint warmth or limited range of motion Neuro: Reports: weakness in extremities (bilateral LEs), sensory changes and difficulty walking; Denies: headache(s) PFSH ED PFSH: Medical History Bipolar 2 disorder Psychiatric care Insomnia Hypothyroid Essential hypertension Fibromyalgia Generalized anxiety disorder Surgical History History of back surgery H/O: hysterectomy H/O tubal ligation History of foot surgery Family History Other CAD (coronary artery disease) Diabetes Hyperlipidemia Hypertension Social History Smoking and tobacco/nicotine status: current every day tobacco/nicotine user (e cigarette) e-cigarettes E-Cigarette Details: vaporizer device 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 Physical Exam Const: COMMON NORMALS: no acute distress, patient oriented x3, no limitations, alert and well nourished GENERAL APPEARANCE: cooperative ORIENTATION/CONSCIOUSNESS: Yes awake, Yes oriented to person, Yes oriented to place and Yes oriented to time HENMT: COMMON NORMALS: normocephalic and atraumatic HEAD & SCALP: normal to inspection, normocephalic and atraumatic Neck/C-Spine: COMMON NORMALS: full ROM, no lymphadenopathy, supple and no meningeal signs GENERAL: Yes normal visual inspection CERVICAL SPINE: Yes cervical ROM normal, No pain with cervical ROM, No Cervical spine tenderness and No Paracervical muscle tenderness GI: COMMON NORMALS: non-tender and no masses Back/Pelvis: COMMON NORMALS: thoracic and lumbar spine normal to inspection and thoraco-lumbar ROM normal LUMBAR SPINE/LOWER BACK: Yes straight leg raise negative bilaterally PELVIS: Yes buttocks normal and No sciatic notch tenderness SACRUM: no tenderness COCCYX: no tenderness Extremity: COMMON NORMALS: normal to inspection, full ROM, capillary refill normal, no joint enlargement, no clubbing, cyanosis or edema, no calf tenderness and no pedal edema Neuro: COMMON NORMALS: patient oriented x3 and moves all extremities SENSORIUM/ORIENTATION: Yes alert, Yes oriented to person, Yes oriented to place and Yes oriented to time MENINGEAL SIGNS: Yes no meningeal signs GAIT: Yes Unable to assess gait MOTOR EXAM: Abnormal motor strength present (bilateral LEs with decreased strength to hip flexion/extension) bilateral proximal 4 / 5 flexion and extension Skin: COMMON NORMALS: no rashes or lesions noted GENERAL SKIN EXAM: no rashes or lesions noted Course Consultations: Consultation #1: Dr. Do-recommends MRI imaging, he will admit-hospitalist to consult for medical management, plan will be (based on MRI results) for possible OR Sunday Consultation #2: Dr. Crook-graciously will consult on patient while in hospital Vital Signs: Vital signs: Vital Signs Temperature 97.6 F 10/05/23 13:31 Pulse Rate 68 10/05/23 13:31 Respiratory Rate 16 10/05/23 13:31 Blood Pressure 128/80 10/05/23 13:31 Pulse Oximetry 95 10/05/23 13:31 MDM - Back Pain/Injury Medical Decision Making Patient here with complaints of lower extremity bilateral weakness associated with lower back pain. She states weakness has caused her to fall multiple times at home-once she falls she cannot get up on her own. She states she cannot even ambulate with the help of her walker any longer. On exam she has weakness to bilateral hip flexion/extension but remainder of myotomes are normal. On her CT scan she has significant anterolisthesis by 7.4 mm as well as disc unroofing at L3/L4 with disc encroachment on the ventral thecal sac/subarticular recess. She also has pedicle screw migration that now extends through the superior endplate of the disc space. Given her symptoms and CT findings I discussed with Dr. Do who recommends MRI imaging of lumbar spine w/o contrast and recommends admission to hospitalist and he will consult. Surprisingly enough during her ambulation trial later in her visit after steroids/toradol she was able to ambulate here. Family still concerned as she lives alone and again has fallen several times related to this. Medical Records I reviewed the patient's medical records. All radiology interpretation(s) finalized by discharge ED provider radiology interpretation(s): IMPRESSION: 1. Status post posterior lumbar fusion at L4-5. 2. New severe degenerative disc disease and loss of height at L3-4 with L3 anterolisthesis by 7.4 mm. 3. Change in orientation of the L4 pedicle screws. The LEFT pedicle screw now extends through the superior endplate into the disc space. 4. Severe LEFT foraminal stenosis due to combination of disc, facet and osteophyte disease at L3-4. Anterolisthesis of L3 is also contributing to the stenosis. 5. L3-4: Moderate central and bilateral subarticular recess stenosis. 6. L2-3: Mild central, bilateral subarticular recess and moderate LEFT foraminal stenosis. 7. Large prior laminectomy defect at L4-5. 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
--- NOTE | 2023-10-05 14:08 | CT_ITS ---
WS: [id number] CT LUMBAR SPINE, noncontrast. HISTORY: bilateral leg weakness/falls TECHNIQUE: Contiguous 2.0 mm axial imaging are performed. Sagittal and coronal reformats are submitte d and reviewed. All CT scans at [facility] use at least one of these dose optimization techni ques: automated exposure control; mA and/or kV adjustment per patient size (includes targeted exams w here dose is matched to clinical indication); or iterative reconstruction. IV contrast: None DLP: 1177.51 mGy.cm COMPARISON: Radiograph lumbar spine 02/08/2017 Prior posterior lumbar fusion at L4-5. The most recent radiograph for comparison is dated 02/08/2017. Since that examination there has been progression of the anterolisthesis of L3 by 7.4 mm. Loss of the disc space height with subsidence at L3-4. Marked sclerosis and loss of the normal endplates of L3 a nd L4. 2 mm anterolisthesis of L4. Interbody spacer at L4-5 is maintained. There has been a change in position of the pedicle screws at L4. The LEFT pedicular screw now extends through the superior endplate into the disc. L1-2: Very mild annular disc bulging encroaching upon the ventral thecal sac. L2-3: Diffuse annular disc bulging encroaching upon the ventral thecal sac. Shallow LEFT foraminal di sc protrusion. Mild central, bilateral subarticular recess and moderate LEFT foraminal stenosis. L3-4: Unroofing of the disc. Disc encroachment upon the ventral thecal sac and the subarticular reces ses. Greater encroachment on the LEFT. Severe LEFT and mild RIGHT foraminal stenosis. Moderate centra l and bilateral subarticular recess stenosis. Marked facet joint arthritis. L4-5: Large posterior laminectomy defect. Central disc protrusion with no significant stenosis. L5-S1: Mild disc bulging. No stenosis. Hyperdense cortical nodules are noted within each renal cortex. These may be small hemorrhagic cyst. IMPRESSION: 1. Status post posterior lumbar fusion at L4-5. 2. New severe degenerative disc disease and loss of height at L3-4 with L3 anterolisthesis by 7.4 mm. 3. Change in orientation of the L4 pedicle screws. The LEFT pedicle screw now extends through the sup erior endplate into the disc space. 4. Severe LEFT foraminal stenosis due to combination of disc, facet and osteophyte disease at L3-4. A nterolisthesis of L3 is also contributing to the stenosis. 5. L3-4: Moderate central and bilateral subarticular recess stenosis. 6. L2-3: Mild central, bilateral subarticular recess and moderate LEFT foraminal stenosis. 7. Large prior laminectomy defect at L4-5.
[2023-10-05] MEDS: dexamethasone 10 mg/mL INJ 8 MG IV (15:43)
[2023-10-05] MEDS: ketorolac 60 mg/2 mL INJ 30 MG IVP (15:45)
--- NOTE | 2023-10-05 16:38 | P.CONIM_ITS ---
Providers/Reason For Consult Consulting Physician/Specialty*: orthopedic spine Reason for Consult*: back pain Primary Care Provider: Jory Ortiz DO History of Present Illness History of Present Illness Guera Clement is a 57 year old female with a past medical history of low back pain, history of low back surgery, history of fibromyalgia, history of obesity, who presents to [facility] for acute on chronic low back pain, difficulty ambulating. Patient tells me that roughly 15 years ago, she had bilateral lower extremity sciatica, with lower extremity pain and difficulty at times ambulating, she had low back surgery since then she has been doing okay. She lives at home by herself, no recent falls, recent injuries, no recent car accidents. She tells me that roughly on the 17 of September, she was with family in [facility], she came home and she unloaded her groceries, the very next day, she started noticing severe low back pain, back pain radiating to bilateral knees, with pain in both her thighs, a burning sensation, at times of numbness sensation, the pain did not really go past the knees, but she had weakness in bilateral thighs, extension flexion, difficulty ambulating, she presented here to [facility], there was concerns for myopathy, seen by neurology, thought to be more musculoskeletal in nature, she was sent home after steroid treatments, pain control, she tells me that she is supposed to have an MRI sometime next week, but she continues to have trouble ambulating, she is now using a wheeled walker, she really does not complain of any pain or any weakness in her feet or in her calves, the pain and the numbness primarily starts in the lower back, roughly L4-L5 level, radiates to by both thighs, with a burning and numbness sensation in the weakness in both eyes she tells me, her family at bedside does tell me that she is fallen about 3 times in the last few weeks, no significant trauma no loss of consciousness no head trauma, denies any fevers, chills, no urinary continence no bowel incontinence no saddle anesthesia no perianal anesthesia, no focal weakness, no spinal tenderness she has had neck problems in the past, she tells me that she has had chiropractic adjustments, and at times sometimes she gets neck pain that radiates to both shoulders down both arms, in the emergency room she was able to ambulate to the bathroom, she is currently sitting up in the gurney, she tells that she prefers to sit up, when she lies down she has worsening of her low back pain Review of Systems Const: Denies: fever(s) or chills Eyes: Denies: change in vision Card: Denies: chest pain Resp: Denies: dyspnea GI: Denies: abdominal pain : Denies: flank pain, difficulty voiding or dysuria Musc: Reports: back pain, extremity pain and joint pain Skin/Breast: Denies: rash or pruritus Neuro: Reports: weakness in extremities, sensory changes, difficulty walking and frequent falls; Denies: headache(s), dizziness, vertigo, confusion, Slurred speech present or restless legs Psych: Denies: anxiety Endo: Denies: polyuria Enrique/Lymph: Denies: easy bruising Medications/Allergies Home Medications Medication Instructions Recorded Confirmed Last Taken Type cholecalciferol (vitamin D3) 250 10,000 unit PO DAILY 12/30/19 10/05/23 10/05/23 History mcg (10,000 unit) capsule Supinator to the right foot #1 ea 12/11/22 10/05/23 Unknown Rx Spectrum AFO to right #1 ea 01/22/23 10/05/23 Unknown Rx atenolol 25 mg tablet 25 mg PO DAILY #90 tabs 08/06/23 10/05/23 10/05/23 Rx donepezil 5 mg tablet (Aricept) 5 mg PO DAILY #90 tabs 08/06/23 10/05/23 10/05/23 Rx hydrochlorothiazide 25 mg tablet 25 mg PO QAM #90 tabs 08/06/23 10/05/23 10/05/23 Rx alprazolam 1 mg tablet 1 mg PO TID PRN anxiety 30 days 08/17/23 10/05/23 10/05/23 Rx #90 tabs amitriptyline 100 mg tablet 200 mg (2 x 100 mg) PO DAILY #60 08/17/23 10/05/23 10/05/23 Rx tabs venlafaxine 150 mg 150 mg PO DAILY #30 caps 08/17/23 10/05/23 10/04/23 Rx capsule,extended release 24 hr (Effexor XR) ziprasidone HCl 60 mg capsule 60 mg PO BID #60 caps 08/17/23 10/05/23 10/05/23 Rx (Geodon) atorvastatin 10 mg tablet 10 mg PO DAILY 09/17/23 10/05/23 10/05/23 History docusate sodium 100 mg capsule 100 mg PO DAILY 09/17/23 10/05/23 10/05/23 History (Stool Softener) estradiol 0.5 mg tablet 0.5 mg PO DAILY 09/17/23 10/05/23 10/05/23 History psyllium husk 0.4 gram capsule 0.4 g PO DAILY 09/17/23 10/05/23 10/05/23 History (Metamucil) baclofen 10 mg tablet 10 mg PO Q6H PRN Muscle Spasm 10/05/23 10/05/23 Unknown History furosemide 20 mg tablet (Lasix) 20 mg PO DAILY 10/05/23 10/05/23 10/05/23 History lamotrigine 200 mg tablet 400 mg PO BEDTIME 10/05/23 10/05/23 10/04/23 History Allergies Allergy/AdvReac Type Severity Reaction Status Date / Time Penicillins Allergy Severe ADR-Diarrhe Verified 09/24/23 09:32 a PFSH Acute PFSH: Medical History Bipolar 2 disorder Psychiatric care Insomnia Hypothyroid Essential hypertension Fibromyalgia Generalized anxiety disorder Surgical History History of back surgery H/O: hysterectomy H/O tubal ligation History of foot surgery Family History Other CAD (coronary artery disease) Diabetes Hyperlipidemia Hypertension Social History Smoking and tobacco/nicotine status: current every day tobacco/nicotine user (e cigarette) e-cigarettes E-Cigarette Details: vaporizer device 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 Vitals/I&O/Wt Last Vital Signs Temp 97.6 F 10/05/23 13:31 Pulse 68 10/05/23 13:31 Resp 16 10/05/23 13:31 BP 128/80 10/05/23 13:31 Pulse Ox 95 10/05/23 13:31 Weight last 48 hrs Weight 92.079 kg Physical Exam Const: COMMON NORMALS: no acute distress and patient oriented x3 HENMT: COMMON NORMALS: normocephalic HEAD & SCALP: normocephalic Eye: COMMON NORMALS: Equal, round and reactive pupils present and EOMs intact bilaterally PUPIL: Yes Equal, round and reactive pupils present Neck/C-Spine: COMMON NORMALS: no JVD Lymph: LYMPHATIC: no lymphadenopathy noted Resp: COMMON NORMALS: normal respiratory effort, No retractions, No use of accessory muscles and clear to auscultation bilaterally AUSCULTATION: clear to auscultation bilaterally Cardio: COMMON NORMALS: no JVD, regular rate, regular rhythm, S1 normal heart sound present and S2 normal heart sound present RATE: regular rate RHYTHM: regular rhythm HEART SOUNDS: S1 normal heart sound present and S2 normal heart sound present GI: COMMON NORMALS: Normal to inspection, nondistended, normoactive bowel sounds present and non-tender Extremity: COMMON NORMALS: no calf tenderness and no pedal edema Neuro: COMMON NORMALS: patient oriented x3, CN's II-XII intact bilaterally, moves all extremities and no sensory deficits noted OTHER: Bilateral foot: strength 5/5, good flexion and extension, inversion and eversion Bilateral lower extremity calf:strength 5/5, good flexion and extension bilateral lower extremity hip:4/5, good flexion and extension, sensation bilateral lower extemity -bilateral knee reflex , present diminis hed -bilateral ankle jerk, present, diminish ed Psych: COMMON NORMALS: mental status grossly normal A&P Assessment and plan (1) Anterolisthesis of lumbar spine: (2) 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 Status post posterior lumbar fusion at L4-5. 2. New severe degenerative disc disease and loss of height at L3-4 with L3 anterolisthesis by 7.4 mm. 3. Change in orientation of the L4 pedicle screws. The LEFT pedicle screw now extends through the superior endplate into the disc space. 4. Severe LEFT foraminal stenosis due to combination of disc, facet and osteophyte disease at L3-4. Anterolisthesis of L3 is also contributing to the stenosis. 5. L3-4: Moderate central and bilateral subarticular recess stenosis. 6. L2-3: Mild central, bilateral subarticular recess and moderate LEFT foraminal stenosis. 7. Large prior laminectomy defect at L4-5. Plan, ? MRI of the back ordered, ? Dr. Do primary, ? Dilaudid IV push 0.5 mg every 4 hours as needed for back pain, ? PT OT, ? Decadron 6 mg IV push every 24 hours?ESR, CRP, Pro-Maynor, ? Will await surgical evaluation, ? Check TSH, -Continue psychotropic medications, Prozac, Elavil, Aricept, Lamictal, Effexor, Geodon ? Check hemoglobin A1c ,?monitor blood pressures, ? Full code, ? 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
[2023-10-05 17:13] LABS: Basophils # 0.1 10^3/uL (0.0-0.1); Eosinophils # 0.3 10^3/uL (0.0-0.8); Eosinophils % 2.9 %; Hematocrit 41.9 % (36-47); Lymphocytes # 2.1 10^3/uL (0.8-4.8); Lymphocytes % 21.2 %; Mean Corpuscular HGB Conc 32.7 g/dL (30-55); Mean Corpuscular Hemoglobin 32.3 pg (27-33); Mean Corpuscular Volume 98.8 fl (85-98); Mean Platelet Volume 8.8 fL (7.4-10.4); Monocytes # 0.8 10^3/uL (0.2-0.9); Monocytes % 8.2 %; Neutrophils # 6.59 10^3/uL (1.8-7.7); Neutrophils % 65.4 %; Nucleated Red Blood Cells % 0 %; Platelet Count 275 10^3/cmm (157-399); Red Blood Count 4.24 10^6/uL (3.85-5.65); Red Cell Distribution Width 14.2 % (12.1-15.1); White Blood Count 10.07 10^3/uL (3.29-11.43)
[2023-10-05 17:17] LABS: Erythrocyte Sedimentation Rate 4 mm/hr (0-15)
[2023-10-05 17:28] LABS: Alanine Aminotransferase 33 U/L (0-33); Albumin Level 3.9 g/dL (3.5-5.2); Alkaline Phosphatase 86 U/L (35-105); Anion Gap 15.7 (5-19); Aspartate Amino Transferase 22 U/L (0-32); Blood Urea Nitrogen 29 mg/dL (6-20); C Reactive Protein 4.5 mg/L (0.0-4.9); Calcium 9.8 mg/dL (8.5-10.5); Carbon Dioxide 25 mmol/L (22-29); Chloride 99 mmol/L (98-107); Globulin 2.4 g/dL (1.3-4.6); Glomerular Filtration Rate 85.9 mL/min (90-130); Glucose 122 mg/dL (65-115); Osmolality Calculated 289 mOsm/kg (285-295); Potassium 3.7 mmol/L (3.5-5.1); Sodium 136 mmol/L (136-145); Total Bilirubin 0.2 mg/dL (0.15-1.2); Total Protein 6.3 g/dL (6.6-8.7)
[2023-10-05 17:35] LABS: Procalcitonin 0.02 ng/mL (0-0.5)
[2023-10-05 17:54] VITALS: BMI 35.9
[2023-10-05 18:16] VITALS: BP 126/81; PULSE 75; RESP 18; TEMP 36.6; O2SAT 95
--- NOTE | 2023-10-05 19:35 | PC.NURSE ---
This nurse walks in patient during rounding, and the room is filled with smoke and a sweet smelling odor. This nurse asks patient if she has vapes, and she confirms that she does. Two vape pens locked in Pyxis under home medications.
[2023-10-05 20:00] VITALS: BP 125/83; PULSE 75; RESP 18; TEMP 36.6; O2SAT 95
[2023-10-05 21:00] LABS: Estmated Average Glucose 123; Hemoglobin A1C 5.9 % (4.0-6.0)
[2023-10-05] MEDS: pantoprazole 40 mg SDV IVP (21:45)
[2023-10-05 21:48] VITALS: RESP 18
[2023-10-05] MEDS: HYDROmorphone 1 mg/mL INJ 1 mL 0.5 MG IVP (21:48)
[2023-10-05 22:22] LABS: Add Urine Microscopic? NO; Charge for UA Resulting for Rev
[2023-10-05 22:29] LABS: Bilirubin Urine Neg (Negative); Blood Urine Neg (Negative); Glucose Urine UA Norm (Normal); Ketones Urine Negative (Negative); Leukocyte Esterase Urine Negative (Negative); Nitrate Urine Negative (Negative); Protein Urine Neg (Negative); Specific Gravity, Urine 1.015 (1.005-1.030); Urine Appearance Clear (CLEAR); Urine Color Yellow (Yellow); Urobilinogen Urine Norm (Negative); pH Urine 6 (5-7)
[2023-10-05] MEDS: lamoTRIgine 100 mg Tablet 400 MG PO (22:48)
[2023-10-05] MEDS: atorvastatin 40 mg Tablet PO (22:48)
[2023-10-05] MEDS: ziprasidone hcl 20 mg Capsule 60 MG PO (23:31)
[2023-10-05] MEDS: baclofen 10 mg Tablet PO (23:32)
[2023-10-05] MEDS: nicotine 21 mg Patch 1 PATCH TRANSDERMA (23:32)
[2023-10-05] MEDS: amitriptyline 25 mg Tablet 200 MG PO (23:32)
[2023-10-06] VITALS (13 sets, daily range): BP systolic 117–138; BP diastolic 66–84; PULSE 63–85; RESP 15–18; TEMP 36.4–36.9; O2SAT 91–96
[2023-10-06] MEDS: HYDROmorphone 1 mg/mL INJ 1 mL 0.5 MG IVP ×2 (02:20→08:18)
[2023-10-06] MEDS: ALPRAZolam 0.5 mg Tablet 1 MG PO ×2 (02:21→17:49)
[2023-10-06 06:18] LABS: Basophils # 0.1 10^3/uL (0.0-0.1); Basophils % 0.4 %; Eosinophils # 0.1 10^3/uL (0.0-0.8); Eosinophils % 0.8 %; Hematocrit 41.9 % (36-47); Lymphocytes # 1.8 10^3/uL (0.8-4.8); Lymphocytes % 11.9 %; Mean Corpuscular HGB Conc 33.4 g/dL (30-55); Mean Corpuscular Hemoglobin 32.3 pg (27-33); Mean Corpuscular Volume 96.8 fl (85-98); Mean Platelet Volume 9.9 fL (7.4-10.4); Monocytes # 0.9 10^3/uL (0.2-0.9); Monocytes % 5.9 %; Neutrophils % 79.9 %; Nucleated Red Blood Cells % 0 %; Platelet Count 264 10^3/cmm (157-399); Red Blood Count 4.33 10^6/uL (3.85-5.65); Red Cell Distribution Width 13.9 % (12.1-15.1); White Blood Count 15.01 10^3/uL (3.29-11.43)
[2023-10-06] MEDS: hydroCHLOROthiazide 25 mg Tablet PO (06:20)
[2023-10-06 06:53] LABS: Alanine Aminotransferase 34 U/L (0-33); Albumin Level 4.1 g/dL (3.5-5.2); Alkaline Phosphatase 88 U/L (35-105); Anion Gap 17.3 (5-19); Aspartate Amino Transferase 21 U/L (0-32); Blood Urea Nitrogen 23 mg/dL (6-20); Calcium 10.1 mg/dL (8.5-10.5); Carbon Dioxide 25 mmol/L (22-29); Chloride 99 mmol/L (98-107); Globulin 2.5 g/dL (1.3-4.6); Glomerular Filtration Rate 102.7 mL/min (90-130); Glucose 120 mg/dL (65-115); Magnesium 2.2 mg/dL (1.7-2.3); Osmolality Calculated 289 mOsm/kg (285-295); Phosphorus 2.9 mg/dL (2.5-4.5); Potassium 4.3 mmol/L (3.5-5.1); Sodium 137 mmol/L (136-145); Total Bilirubin 0.2 mg/dL (0.15-1.2); Total Protein 6.6 g/dL (6.6-8.7)
--- NOTE | 2023-10-06 07:00 | MRR_ITS ---
PROCEDURE INFORMATION: Exam: MR Lumbar Spine Without Contrast Exam date and time: 10/06/2023 8:53 AM Age: 57 years old Clinical indication: Weakness; Prior surgery; Surgery date: 6+ months; Surgery type: L4-5 fusion; Additional info: Abnormal CT; Bilateral leg weakness, cannot ambulate TECHNIQUE: Imaging protocol: Magnetic resonance imaging of the lumbar spine without contrast. COMPARISON: CT lumbar spine wo con* [id number] 10/05/2023 2:15 PM FINDINGS: Bones/joints: On the survey images there is grade 1 to grade 2 anterolisthesis of C7 on T1 with a superimposed central disc protrusion abutting the anterior cord. There is grade 1 to grade 2 anterolisthesis of L3 on L4. There is a mild to moderate chronic appearing L4 compression deformity. The patient is status post posterior spinal fusion at L4 and L5. Bilateral transpedicular screws are seen at L4 and L5. There is advanced degenerative disc disease at L3-L4 and mild additional multilevel degenerative disc disease. Spinal cord: Visualized cord, conus medullaris and cauda equina are unremarkable without compression. L1-L2: There is mild diffuse disc bulging without significant spinal canal or neural foraminal stenosis. L2-L3: There is a small broad-based central disc protrusion which partially effaces the anterior thecal sac. There is mild spinal canal stenosis secondary to the disc protrusion, ligamentum flavum hypertrophy, and prominent posterior epidural fat. The right neural foramen appears patent. There is mild left neural foraminal stenosis secondary to foraminal disc bulging and facet hypertrophy. L3-L4: There is moderate to severe spinal canal stenosis secondary to anterolisthesis of L3 on L4 as well as diffuse disc osteophyte bulging and ligamentum flavum/facet hypertrophy. There is moderate bilateral neural foraminal stenosis secondary to foraminal disc bulging and facet hypertrophy. L4-L5: There is no significant spinal canal or neural foraminal stenosis. L5-S1: There is mild diffuse disc bulging without significant spinal canal stenosis. The left neural foramen appears patent. There is mild right neural foraminal stenosis secondary to foraminal disc bulging and facet hypertrophy. Soft tissues: Unremarkable. MR/MR lumbar spine wo con* [id number] IMPRESSION: 1. Status post posterior spinal fusion at L4-L5. 2. Grade 1 to grade 2 anterolisthesis of L3 on L4. There is moderate to severe spinal canal stenosis at L3-L4. Please see above for specific findings at each level. 3. Chronic appearing L4 compression deformity. 4. Grade 1 to grade 2 anterolisthesis of C7 on T1 noted on the survey images with a superimposed C7-T1 central disc protrusion abutting the anterior cord. Dedicated cervical spine imaging should be considered if not done previously.
[2023-10-06] MEDS: dexamethasone 10 mg/mL INJ 6 MG IVP (08:19)
[2023-10-06] MEDS: venlafaxine ER (24HR) 150 mg Capsule PO (09:35)
[2023-10-06] MEDS: ziprasidone hcl 20 mg Capsule 60 MG PO ×2 (09:35→18:06)
[2023-10-06] MEDS: atenolol 50 mg Tablet 25 MG PO (09:36)
[2023-10-06] MEDS: donepezil 5 MG Tablet PO (09:36)
[2023-10-06] MEDS: FUROsemide 20 mg Tablet PO (09:36)
[2023-10-06] MEDS: docusate sodium 100 mg Capsule PO (09:36)
[2023-10-06] MEDS: nicotine 21 mg Patch 1 PATCH TRANSDERMA (09:37)
[2023-10-06] MEDS: cholecalciferol (vitamin D3) 5,000 unit Tablet 10000 UNIT PO (09:37)
--- NOTE | 2023-10-06 12:58 | PC.NURSE ---
Pt caught vaping. Vape taken and put with patient's belongings in Pyxis.
[2023-10-06] MEDS: HYDROmorphone 1 mg/mL INJ 1 mL IVP ×3 (13:04→22:46)
--- NOTE | 2023-10-06 13:38 | P.PN_ITS ---
Subjective 2 Subjective: Patient was seen this morning, she sitting up in a chair, she tells me that she continues to have low back pain, that Dilaudid seems to help, but the medication seems to wear off Vitals/I&O/Wt Last Vital Signs Temp 97.8 F 10/06/23 12:00 Pulse 68 10/06/23 12:00 Resp 18 10/06/23 13:04 BP 122/68 10/06/23 12:00 Pulse Ox 95 10/06/23 13:04 O2 Del Method Room Air 10/06/23 04:00 10/05/23 10/06/23 10/06/23 22:59 06:59 14:59 Intake Total 1380 / 1380 Output Total 900 / 900 Balance -900 / -900 1380 / 1380 Weight last 48 hrs Weight 97.551 kg Weight 92.079 kg Weight 92.079 kg Physical Exam 2 Const: COMMON NORMALS: no acute distress and patient oriented x3 Resp: COMMON NORMALS: normal respiratory effort, No retractions, No use of accessory muscles and clear to auscultation bilaterally AUSCULTATION: clear to auscultation bilaterally Cardio: COMMON NORMALS: regular rate, regular rhythm, S1 normal heart sound present and S2 normal heart sound present RATE: regular rate RHYTHM: r egular rhythm HEART SOUNDS: S1 normal heart sound present and S2 normal heart sound present GI: COMMON NORMALS: Normal to inspection, nondistended, normoactive bowel sounds present and non-tender Extremity: COMMON NORMALS: no pedal edema Neuro: COMMON NORMALS: patient oriented x3 Psych: COMMON NORMALS: mental status grossly normal Data 10/06/23 05:19 10/06/23 05:19 A&P Assessment and plan (1) Anterolisthesis of lumbar spine: (2) 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 Status post posterior spinal fusion at L4-L5. 2. Grade 1 to grade 2 anterolisthesis of L3 on L4. There is moderate to severe spinal canal stenosis at L3-L4. Please see above for specific findings at each level. 3. Chronic appearing L4 compression deformity. 4. Grade 1 to grade 2 anterolisthesis of C7 on T1 noted on the survey images with a superimposed C7-T1 central disc protrusion abutting the anterior cord. Dedicated cervical spine imaging should be considered if not done previously. IMPRESSION: 1. Status post posterior lumbar fusion at L4-5. 2. New severe degenerative disc disease and loss of height at L3-4 with L3 anterolisthesis by 7.4 mm. 3. Change in orientation of the L4 pedicle screws. The LEFT pedicle screw now extends through the superior endplate into the disc space. 4. Severe LEFT foraminal stenosis due to combination of disc, facet and osteophyte disease at L3-4. Anterolisthesis of L3 is also contributing to the stenosis. 5. L3-4: Moderate central and bilateral subarticular recess stenosis. 6. L2-3: Mild central, bilateral subarticular recess and moderate LEFT foraminal stenosis. 7. Large prior laminectomy defect at L4-5. Plan, ? Dr. Do primary, ? Dilaudid IV push 1 mg every 4 hours as needed for back pain, ? PT OT, ? Decadron 6 mg IV push every 24 hours ?ESR, CRP, Pro-Maynor WNL ? Will await surgical evaluation, ? Check TSH, -Continue psychotropic medications, Prozac, Elavil, Aricept, Lamictal, Effexor, Geodon ? Check hemoglobin A1c 5.9 ,?monitor blood pressures, ? Full code, ? 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
[2023-10-06] MEDS: enoxaparin 40 mg/0.4 mL Syringe SUBCUT (18:06)
[2023-10-06] MEDS: lamoTRIgine 100 mg Tablet 400 MG PO (21:08)
[2023-10-06] MEDS: atorvastatin 40 mg Tablet PO (21:08)
[2023-10-06] MEDS: amitriptyline 25 mg Tablet 200 MG PO (21:08)
[2023-10-06] MEDS: pantoprazole 40 mg SDV IVP (21:08)
[2023-10-06] MEDS: baclofen 10 mg Tablet PO (21:19)
[2023-10-07] VITALS (22 sets, daily range): BP systolic 108–157; BP diastolic 65–97; PULSE 67–81; RESP 15–221; TEMP 36.2–36.6; O2SAT 84–98
--- NOTE | 2023-10-07 | XR_ITS ---
WS: [id number] Exam: XR lumbar spine 2-3V* [id number] Date/Time of Exam: 10/07/2023 12:00 AM Reason For Exam: JASSON PICS AP and lateral C-arm images of the lumbar spine demonstrate posterior fusion hardware extending from L2-S1. A spacer noted at L4-5. Screws bridge the bilateral SI joints. Images obtained for intraoperat felicitas purposes.
[2023-10-07 03:18] LABS: Basophils # 0.1 10^3/uL (0.0-0.1); Basophils % 0.4 %; Eosinophils # 0.1 10^3/uL (0.0-0.8); Eosinophils % 0.4 %; Hematocrit 42.5 % (36-47); Lymphocytes # 2.5 10^3/uL (0.8-4.8); Lymphocytes % 15.7 %; Mean Corpuscular HGB Conc 33.4 g/dL (30-55); Mean Corpuscular Hemoglobin 32.7 pg (27-33); Mean Corpuscular Volume 97.9 fl (85-98); Mean Platelet Volume 8.9 fL (7.4-10.4); Monocytes # 1.7 10^3/uL (0.2-0.9); Monocytes % 10.5 %; Neutrophils # 11.58 10^3/uL (1.8-7.7); Neutrophils % 72.1 %; Nucleated Red Blood Cells % 0 %; Platelet Count 285 10^3/cmm (157-399); Red Blood Count 4.34 10^6/uL (3.85-5.65); White Blood Count 16.06 10^3/uL (3.29-11.43)
[2023-10-07] MEDS: HYDROmorphone 1 mg/mL INJ 1 mL IVP ×3 (03:35→19:38)
[2023-10-07 03:45] LABS: Alanine Aminotransferase 37 U/L (0-33); Albumin Level 4.3 g/dL (3.5-5.2); Alkaline Phosphatase 91 U/L (35-105); Aspartate Amino Transferase 23 U/L (0-32); Blood Urea Nitrogen 22 mg/dL (6-20); Calcium 10.5 mg/dL (8.5-10.5); Carbon Dioxide 27 mmol/L (22-29); Chloride 97 mmol/L (98-107); Globulin 2.7 g/dL (1.3-4.6); Glomerular Filtration Rate 85.9 mL/min (90-130); Glucose 93 mg/dL (65-115); Osmolality Calculated 281 mOsm/kg (285-295); Phosphorus 2.3 mg/dL (2.5-4.5); Sodium 134 mmol/L (136-145); Total Bilirubin 0.2 mg/dL (0.15-1.2)
[2023-10-07] MEDS: hydroCHLOROthiazide 25 mg Tablet PO (05:10)
--- NOTE | 2023-10-07 06:56 | W.PM.OPSUD ---
Surgery/Procedure H&P Update DATE OF PROCEDURE: October 07, 2023 DATE H&P PERFORMED: 10/06/23 H&P UPDATE INFORMATION: I have reviewed H&P completed within last 30 days, I have examined patient prior to procedure and No changes to prior documentation PREOP DIAGNOSIS: Lumbar stenosis with neurogenic claudication; L3-4 spondylolisthesis PLANNED PROCEDURE: Operation Date: 10/07/23 07:30 Proposed Procedures p L2-pelvis(Not Applicable) - Nehemias Do DO
[2023-10-07] MEDS: sodium chloride 0.9% 1,000 ML 30 ML IV (06:57)
--- NOTE | 2023-10-07 07:04 | ANES.PREANE2 ---
Pre-Anesthetic Assessment Height/Weight: Height 1.6 m Weight 95.209 kg Temp Pulse Resp BP Pulse Ox O2 Del Method 97.4 F L 69 18 120/71 95 Room Air 10/07/23 06:29 10/07/23 06:29 10/07/23 06:29 10/07/23 06:29 10/07/23 06:29 10/07/23 06:29 Preop Diagnosis: Lumbar stenosis with neurogenic claudication; L3-4 spondylolisthesis Operation Date: 10/07/23 07:30 Proposed Procedures p L2-pelvis(Not Applicable) - Nehemias Do, Familial anesthetic complications: none Was Beta Gigi taken within 24 hours: Yes Was Clonidine taken within 24 hours: N/A Last intake: Intake Last Liquid Date 10/06/23 Last Liquid Time 23:30 Last Solid Date 10/06/23 Last Solid Time 21:00 Social No alcohol and No tobacco Exam alert, oriented x 3, clear to auscultation bilaterally and regular rate & rhythm Airway Submandibular: within normal limits Cervical ROM: within normal limits Mallampati: Class II Dentition: chipped CV/HEM Hypertension Metabolic Hyperlipidemia, Morbid Obesity and Thyroid Disease [facility] [place] Fibromyalgia, Lower Back Pain and Osteoarthritis/DJD Neuropsych Anxiety, Depression and Neuropathy Anesthetic Plan ASA status: 3E Anesthesia: General Other: A.line and blood transfusion discussed Medications/Allergies Home Medications Medication Instructions Recorded Confirmed Last Taken Type cholecalciferol (vitamin D3) 250 10,000 unit PO DAILY 12/30/19 10/05/23 10/05/23 History mcg (10,000 unit) capsule Supinator to the right foot #1 ea 12/11/22 10/05/23 Unknown Rx Spectrum AFO to right #1 ea 01/22/23 10/05/23 Unknown Rx atenolol 25 mg tablet 25 mg PO DAILY #90 tabs 08/06/23 10/05/23 10/05/23 Rx donepezil 5 mg tablet (Aricept) 5 mg PO DAILY #90 tabs 08/06/23 10/05/23 10/05/23 Rx hydrochlorothiazide 25 mg tablet 25 mg PO QAM #90 tabs 08/06/23 10/05/23 10/05/23 Rx alprazolam 1 mg tablet 1 mg PO TID PRN anxiety 30 days 08/17/23 10/05/2310/05/23 Rx #90 tabs amitriptyline 100 mg tablet 200 mg (2 x 100 mg) PO DAILY #60 08/17/23 10/05/23 10/05/23 Rx tabs venlafaxine 150 mg 150 mg PO DAILY #30 caps 08/17/23 10/05/23 10/04/23 Rx capsule,extended release 24 hr (Effexor XR) ziprasidone HCl 60 mg capsule 60 mg PO BID #60 caps 08/17/23 10/05/23 10/05/23 Rx (Geodon) atorvastatin 10 mg tablet 10 mg PO DAILY 09/17/23 10/05/23 10/05/23 History docusate sodium 100 mg capsule 100 mg PO DAILY 09/17/23 10/05/23 10/05/23 History (Stool Softener) estradiol 0.5 mg tablet 0.5 mg PO DAILY 09/17/23 10/05/23 10/05/23 History psyllium husk 0.4 gram capsule 0.4 g PO DAILY 09/17/23 10/05/23 10/05/23 History (Metamucil) baclofen 10 mg tablet 10 mg PO Q6H PRN Muscle Spasm 10/05/23 10/05/23 Unknown History furosemide 20 mg tablet (Lasix) 20 mg PO DAILY 10/05/23 10/05/23 10/05/23 History lamotrigine 200 mg tablet 400 mg PO BEDTIME 10/05/23 10/05/23 10/04/23 History Allergies Allergy/AdvReac Type Severity Reaction Status Date / Time Penicillins Allergy Severe ADR-Diarrhe Verified 09/24/23 09:32 a Current Medications Generic Name Dose Route Start Last Admin Trade Name Freq PRN Reason Stop Dose Admin Alprazolam 1 mg 10/05/23 18:00 10/06/23 17:49 Alprazolam 0.5 Mg Tablet PO 1 mg TID PRN Administration anxiety Amitriptyline HCl 200 mg 10/05/23 23:00 10/06/23 21:08 Amitriptyline 25 Mg Tablet PO 200 mg BEDTIME MOSES Administration Atenolol 25 mg 10/06/23 09:00 10/06/23 09:36 Atenolol 50 Mg Tablet PO 25 mg DAILY MOSES Administration Atorvastatin Calcium 40 mg 10/05/23 21:00 10/06/23 21:08 Atorvastatin 40 Mg Tablet PO 40 mg BEDTIME MOSES Administration Baclofen 10 mg 10/05/23 17:55 10/06/23 21:19 Baclofen 10 Mg Tablet PO 10 mg Q6H PRN Administration Muscle Spasm Dexamethasone 6 mg 10/06/23 08:00 10/06/23 08:19 Dexamethasone 10 Mg/Ml Inj IVP 6 mg Q24H MOSES Administration Docusate Sodium 100 mg 10/06/23 09:00 10/06/23 09:36 Docusate Sodium 100 Mg Capsule PO 100 mg DAILY MOSES Administration Donepezil HCl 5 mg 10/06/23 09:00 10/06/23 09:36 Donepezil 5 Mg Tablet PO 5 mg DAILY MOSES Administration Enoxaparin Sodium 40 mg 10/05/23 17:55 10/06/23 18:06 Enoxaparin 40 Mg/0.4 Ml Syringe SUBCUT 40 mg Q24H MOSES Administration Furosemide 20 mg 10/06/23 09:00 10/06/23 09:36 Furosemide 20 Mg Tablet PO 20 mg DAILY MOSES Administration Hydrochlorothiazide 25 mg 10/06/23 06:00 10/07/23 05:10 Hydrochlorothiazide 25 Mg Tablet PO 25 mg QAM MOSES Administration Hydromorphone HCl 1 mg 10/06/23 12:34 10/07/23 03:35 Hydromorphone 1 Mg/Ml Inj 1 Ml IVP 1 mg Q4H PRN Administration PAIN Sodium Chloride 1,000 mls @ 30 mls/hr 10/07/23 06:45 10/07/23 06:57 Sodium Chloride 0.9% IV 10/08/23 06:44 30 mls/hr .Q24H MOSES Administration Lamotrigine 400 mg 10/05/23 21:00 10/06/23 21:08 Lamotrigine 100 Mg Tablet PO 400 mg BEDTIME MOSES Administration Nicotine 1 patch 10/05/23 22:27 10/06/23 09:37 Nicotine 21 Mg Patch TRANSDERMA 1 patch DAILY MOSES Administration Pantoprazole Sodium 40 mg 10/05/23 17:55 10/06/23 21:08 Pantoprazole 40 Mg Sdv IVP 40 mg Q24H MOSES Administration Venlafaxine HCl 150 mg 10/06/23 09:00 12/09/23 09:35 Venlafaxine Er (24hr) 150 Mg Capsule PO 150 mg DAILY MOSES Administration Vitamin D 10,000 unit 10/06/23 09:00 10/06/23 09:37 Cholecalciferol (Vitamin D3) 5,000 Unit Tablet PO 10,000 unit DAILY MOSES Administration Ziprasidone 60 mg 10/05/23 23:00 10/06/23 18:06 Ziprasidone Hcl 20 Mg Capsule PO 60 mg BID MOSES Administration PFSH Anesthesia Medical History Bipolar 2 disorder Psychiatric care Insomnia Hypothyroid Essential hypertension Fibromyalgia Generalized anxiety disorder Surgical History History of back surgery H/O: hysterectomy H/O tubal ligation History of foot surgery Family History Other CAD (coronary artery disease) Diabetes Hyperlipidemia Hypertension Social History Smoking and tobacco/nicotine status: current every day tobacco/nicotine user (e cigarette) e-cigarettes E-Cigarette Details: vaporizer device 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 Data Anesthesia 10/07/23 02:40 10/07/23 02:40 Short CBC 10/05/23 10/06/23 10/07/23 Range/Units 16:47 05:19 02:40 WBC 10.07 15.01 H 16.06 H (3.29-11.43) 10^3/uL Hgb 13.70 14.00 14.20 (11.27-16.99) g/dL Hct 41.9 41.9 42.5 (36-47) % MCV 98.8 H 96.8 97.9 (85-98) fl Plt Count 275 264 285 (157-399) 10^3/cmm Neut % (Auto) 65.4 79.9 72.1 % Neut # (Auto) 6.59 12.00 H 11.58 H (1.8-7.7) 10^3/uL BMP 10/05/23 10/06/23 10/07/23 16:47 05:19 02:40 Sodium 136 137 134 L Potassium 3.7 4.3 4.0 Chloride 99 99 97 L Carbon Dioxide 25 25 27 BUN 29 H 23 H 22 H Creatinine 0.7 0.6 0.7 Glucose 122 H 120 H 93 Calcium 9.8 10.1 10.5 Liver Function 10/05/23 10/06/23 10/07/23 Range/Units 16:47 05:19 02:40 Total Bilirubin 0.2 0.2 0.2 (0.15-1.2) mg/dL AST 22 21 23 (0-32) U/L ALT 33 34 H 37 H (0-33) U/L Alkaline Phosphatase 86 88 91 (35-105) U/L Albumin 3.9 4.1 4.3 (3.5-5.2) g/dL Urine 10/05/23 Range/Units 22:06 Urine Color Yellow (Yellow) Urine Appearance Clear (CLEAR) Urine pH 6 (5-7) Ur Specific [place] 1.015 (1.005-1.030) Urine Protein Neg (Negative) Urine Glucose (UA) Norm (Normal) Urine Ketones Negative (Negative) Urine Nitrate Negative (Negative) Urine Bilirubin Neg (Negative) Ur Leukocyte Esterase Negative (Negative) Coags 10/05/23 16:47 ESR 4 C-Reactive Protein 4.5 Cardiac Studies: No Data to Display
[2023-10-07] MEDS: ceFAZolin 2,000 MG in sodium chloride 0.9% (plus) 50 ML 100 MG IV ×3 (07:09→22:24)
[2023-10-07] MEDS: vancomycin 1,000 MG SDV 1000 MG XX (10:42)
[2023-10-07] MEDS: lidocaine-epi 1% 20 mL INJ 10 ML INJECTION (10:45)
[2023-10-07] MEDS: heparin, porcine 1,000 unit/mL INJ 10 mL 10000 UNIT HE (10:49)
--- NOTE | 2023-10-07 10:51 | PC.OT ---
Patient is in surgery this morning so no treatment provided on today's date.
--- NOTE | 2023-10-07 11:23 | PM.OP ---
Operative Report Date of procedure: October 07, 2023 Pre-op diagnosis: L3-4 spondylolisthesis; lumbar stenosis with neurogenic claudication Post-op diagnosis: same Procedure done: 1.? Posterior fusion L2-pelvis 3.? Instrumentation L2-S1 4.? Lumbopelvic instrumentation 5. open right Sacral iliac fusion 6. open left sacral iliac fusion 7. L2/3 laminectomy with partial facetectomies and diskectomy 8. L3/4 laminectomy with partial facetectomies 9. removal of deep hardware from the spine 10. use of computer navigation / stereotactic spine 11. use of autograft from same incision 12. allograft 13. Bone marrow aspirate from right iliac crest Surgeon: Nehemias Do, Estimated blood loss (mL): 300 Procedure: 1.? Posterior fusion L2-pelvis 3.? Instrumentation L2-S1 4.? Lumbopelvic instrumentation 5. open right Sacral iliac fusion 6. open left sacral iliac fusion 7. L2/3 laminectomy with partial facetectomies and diskectomy 8. L3/4 laminectomy with partial facetectomies 9. removal of deep hardware from the spine 10. use of computer navigation / stereotactic spine 11. use of autograft from same incision 12. allograft 13. Bone marrow aspirate from right iliac crest Patient is brought to the operative suite.? After undergoing anesthesia, the patient had neuro monitoring attached.? Patient was then placed in the prone position on the Duglas table.? All areas of impingement were well-padded.? Patient was then prepped and draped in the normal sterile fashion.? Skin incision was then made over the L2 to the sacrum.? Subperiosteal dissection was made out to the transverse processes ofL2 bilaterally? L3 bilaterally L4 bilaterally L5 bilaterally and sacral ala bilaterally.? The previous hardware is at L4-5 the screws were identified. The caps were removed and then the rods were removed. I did remove 1 screw on the left side. However the remaining screws were left in. The [employer]-OP bone marrow aspirate kit was used to aspirate bone marrow aspirate.? This was done by using the sharp probe to open up the bone.? Aspiration was performed and then the blunt probe was then used to dissect down to through the bone tunnel.? An aspirating well drawn back a millimeter approximately 10 cc of bone marrow aspirate was used.? Admixed with the allograft and autograft bone that will be used. Next tension was brought to placing the fiducial for the computer navigation.? 2 pins were placed into the right iliac crest.? The fiducial was attached.? The C-arm was brought in and information from the C arm was then linked to the computer used for placing the screws.? Next attention was brought to placing the pedicle screws.? This was done by using the gearshift probe.? The probe was used to identify the pedicle.? Then the pedicle feeler was used followed by placement of screw.? This was done atL2 bilaterally L3 bilaterally L4 bilaterally, L5 bilaterally and S1 bilaterally. Next attension was brought to placing the iliac screws.? This was done using the sacral ala iliac technique.? The gearshift probe linked to computer navigation was then placed through the sacral ala into the sacroiliac joint into the iliac crest.? Next the pedicle feeler was used followed by the computer navigated tap.? And then the screw was passed a 80 mm screw was placed on the right side and a 60 mm screw was placed on the left side.? Both the screws were 9.5 mm in diameter. Next attension was brought to performing the open and sacral iliac fusion.? This was done by again using the gearshift probe linked to computer navigation.? Followed by pedicle feeler followed by placing a wire and then the drill drilled over the wire and then bone graft was packed into the sacroiliac joint and into the drill hole.? And the sacroiliac screw was then placed.? This technique was done on both the right and left side. Next attention was brought to performing the laminectomy of L2.? This was done using the high-speed bur Kerrisons and curettes.? Once the lamina was removed and then attention was brought to performing a partial facetectomy on the contralateral side.? This was done again using the high-speed bur curettes and Kerrisons.? The ligamentum flavum was taken down bilaterally from L2 to L3.? Attention was then brought to the facet on the ipsilateral side.? The facet was taken down.? The L3 nerve was decompressed as it passed around the L3 pedicle.? The laminectomy was done for purposes of decompressing the nerve.? The L2 nerve was identified as it traversed through the L2/3 foramen.? The L3 nerve was traced around the L3 pedicles bilateral.? The scar tissue was pulled off the dura.? There was found to be in good repair. Next attention was brought to performing the laminectomy of L3.? This was done using the high-speed bur Kerrisons and curettes.? Once the lamina was removed and then attention was brought to performing a partial facetectomy on the contralateral side.? This was done again using the high-speed bur curettes and Kerrisons.? The ligamentum flavum was taken down bilaterally from L3 to L4.? Attention was then brought to the facet on the ipsilateral side.? The facet was taken down.? The L4 nerve was decompressed as it passed around the L4 pedicle the best it could be done up until scar tissue..? The laminectomy was done for purposes of decompressing the nerve.? The L3 nerve was identified as it traversed through the L3/4 foramen.? The facet joint joints were taken down completely bilaterally. In order to improve space for the nerve for the reduction. The L4 nerve was traced around the L4 pedicles bilateral.? The scar tissue was pulled off the dura.? There was found to be in good repair. Attention was then brought to attaching the rods to the screws placed in theL 2 bilaterally?L3 bilaterally L4 bilaterally L5 bilaterally and S1 bilaterally.? This was then attached to the sacroiliac screw providing the lumbopelvic fixation.? The L3-4 and L4-5 levels were reduced and distracted. Caps were torqued into position. Locking the construct in place. Wound was copiously irrigated and then attention was brought to decorticating the facets and transverse processes laterally.? Bone that was taken down from the lamina was used along with osteoamp fibers and sponges were packed into the lateral gutters along the facet joints.? This was done bilaterally. Wound was then closed in a layered fashion starting with the thoracolumbar fascia.? 0-vicryl was used the sub cutaneous tissue was closed with 2-0 vicryl and skin with 4-0 monocryl.? Glue was then used to seal the skin and a steril dressing was applied.? Patient was then placed in the supine position. The endotracheal tube was removed and patient was transferred to the PACU in stable condition.
--- NOTE | 2023-10-07 13:08 | PC.NURSE ---
patient returned to room on patient bed from surgery.
[2023-10-07] MEDS: oxyCODONE-APAP 5-325 mg Tablet PO ×3 (13:23→22:23)
[2023-10-07] MEDS: cholecalciferol (vitamin D3) 5,000 unit Tablet 10000 UNIT PO (13:55)
[2023-10-07] MEDS: dexamethasone 10 mg/mL INJ 6 MG IVP (13:55)
[2023-10-07] MEDS: ALPRAZolam 0.5 mg Tablet 1 MG PO ×2 (13:55→22:03)
[2023-10-07] MEDS: donepezil 5 MG Tablet PO (13:55)
[2023-10-07] MEDS: venlafaxine ER (24HR) 150 mg Capsule PO (13:55)
[2023-10-07] MEDS: docusate sodium 100 mg Capsule PO ×2 (13:56→17:24)
[2023-10-07] MEDS: FUROsemide 20 mg Tablet PO (13:56)
[2023-10-07] MEDS: atenolol 50 mg Tablet 25 MG PO (13:56)
[2023-10-07] MEDS: lactated ringers 1,000 ML 90 ML IV (13:57)
--- NOTE | 2023-10-07 14:58 | P.PN_ITS ---
Subjective 2 Subjective: Patient was seen this morning, seen postoperatively, is in pain, is awaiting on her Dilaudid, wondering if she can have anything to eat no acute events overnight Vitals/I&O/Wt Last Vital Signs Temp 97.2 F L 10/07/23 12:35 Pulse 72 10/07/23 13:50 Resp 18 10/07/23 14:28 BP 127/79 10/07/23 13:50 Pulse Ox 95 10/07/23 13:50 O2 Del Method Room Air 10/07/23 13:50 O2 Flow Rate 6 10/07/23 12:15 10/06/23 10/07/23 10/07/23 22:59 06:59 14:59 Intake Total 480 / 1860 2150 / 2150 Output Total 355 / 355 Balance 480 / 1860 1795 / 1795 Weight last 48 hrs Weight 95.209 kg Weight 97.551 kg Weight 92.079 kg Physical Exam 2 Const: COMMON NORMALS: no acute distress and patient oriented x3 Resp: COMMON NORMALS: normal respiratory effort, No retractions, No use of accessory muscles and clear to auscultation bilaterally AUSCULTATION: clear to auscultation bilaterally Cardio: COMMON NORMALS: regular rate, regular rhythm, S1 normal heart sound present and S2 normal heart sound present RATE: regular rate RHYTHM: r egular rhythm HEART SOUNDS: S1 normal heart sound present and S2 normal heart sound present GI: COMMON NORMALS: Normal to inspection, nondistended, normoactive bowel sounds present and non-tender Extremity: COMMON NORMALS: no pedal edema Neuro: COMMON NORMALS: patient oriented x3 Psych: COMMON NORMALS: mental status grossly normal Urinary Catheter Management: Alcaraz: Cath Placed During This Visit: yes Urinary Catheter Date of Insertion: 10/07/23 Urinary Catheter Time of Insertion: 07:30 Data 10/07/23 02:40 10/07/23 02:40 A&P Assessment and plan (1) Anterolisthesis of lumbar spine: (2) 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 Status post posterior spinal fusion at L4-L5. 2. Grade 1 to grade 2 anterolisthesis of L3 on L4. There is moderate to severe spinal canal stenosis at L3-L4. Please see above for specific findings at each level. 3. Chronic appearing L4 compression deformity. 4. Grade 1 to grade 2 anterolisthesis of C7 on T1 noted on the survey images with a superimposed C7-T1 central disc protrusion abutting the anterior cord. Dedicated cervical spine imaging should be considered if not done previously. IMPRESSION: 1. Status post posterior lumbar fusion at L4-5. 2. New severe degenerative disc disease and loss of height at L3-4 with L3 anterolisthesis by 7.4 mm. 3. Change in orientation of the L4 pedicle screws. The LEFT pedicle screw now extends through the superior endplate into the disc space. 4. Severe LEFT foraminal stenosis due to combination of disc, facet and osteophyte disease at L3-4. Anterolisthesis of L3 is also contributing to the stenosis. 5. L3-4: Moderate central and bilateral subarticular recess stenosis. 6. L2-3: Mild central, bilateral subarticular recess and moderate LEFT foraminal stenosis. 7. Large prior laminectomy defect at L4-5. ? Status post surgical invention postop day 0 Estimated blood loss (mL): 300 Procedure: 1.? Posterior fusion L2-pelvis 3.? Instrumentation L2-S1 4.? Lumbopelvic instrumentation 5. open right Sacral iliac fusion 6. open left sacral iliac fusion 7. L2/3 laminectomy with partial facetectomies and diskectomy 8. L3/4 laminectomy with partial facetectomies 9. removal of deep hardware from the spine 10. use of computer navigation / stereotactic spine 11. use of autograft from same incision 12. allograft 13. Bone marrow aspirate from right iliac crest Plan, ? Dr. Do primary, ? Dilaudid IV push 1 mg every 4 hours as needed for back pain, ? PT OT, ?ESR, CRP, Pro-Maynor WNL -Continue psychotropic medications, Prozac, Elavil, Aricept, Lamictal, Effexor, Geodon ? Check hemoglobin A1c 5.9 ,?monitor blood pressures, ? Full code, ? 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
[2023-10-07] MEDS: ketorolac 30 mg/mL INJ IVP ×2 (15:21→21:55)
[2023-10-07] MEDS: ziprasidone hcl 20 mg Capsule 60 MG PO (17:23)
[2023-10-07] MEDS: oxyCODONE 10 mg ER (12 HR) Tablet PO (17:24)
[2023-10-07] MEDS: amitriptyline 25 mg Tablet 200 MG PO (21:55)
[2023-10-07] MEDS: pantoprazole 40 mg SDV IVP (21:55)
[2023-10-07] MEDS: lamoTRIgine 100 mg Tablet 400 MG PO (21:55)
[2023-10-07] MEDS: atorvastatin 40 mg Tablet PO (21:55)
[2023-10-07] MEDS: baclofen 10 mg Tablet PO (21:56)
[2023-10-08] VITALS (10 sets, daily range): BP systolic 100–137; BP diastolic 66–80; PULSE 73–80; RESP 16–19; TEMP 36.6–37; O2SAT 92–96
[2023-10-08] MEDS: HYDROmorphone 1 mg/mL INJ 1 mL IVP ×2 (00:03→04:25)
[2023-10-08] MEDS: oxyCODONE-APAP 5-325 mg Tablet PO ×4 (02:21→18:44)
[2023-10-08] MEDS: lactated ringers 1,000 ML 90 ML IV (02:23)
--- NOTE | 2023-10-08 02:47 | PC.NURSE ---
This nurse walked into patient's room and patient was found to be vaping, this nurse educated patient that she cannot vape in the hospital due to oxygen safety. Patient handed this nurse the vape pen and stated she does not have anymore with her. Vape pen placed in [facility].
--- NOTE | 2023-10-08 04:37 | PC.NURSE ---
Patient became confused tonight, was screaming nurse, I need help . This nurse entered room and patient was sitting on side of bed and appeared anxious. Patient stated she tried to get up because her butt was going numb and then she couldn't find her call light. Patient has been obsessively asking about what time she can have her meds and is very forgetful, repeatedly asking about meds even right after being told what time she can have them.
[2023-10-08 05:24] LABS: Basophils # 0.1 10^3/uL (0.0-0.1); Basophils % 0.3 %; Eosinophils % 0.1 %; Hematocrit 27.7 % (36-47); Lymphocytes # 1.8 10^3/uL (0.8-4.8); Mean Corpuscular HGB Conc 33.6 g/dL (30-55); Mean Corpuscular Hemoglobin 32.1 pg (27-33); Mean Corpuscular Volume 95.5 fl (85-98); Mean Platelet Volume 8.9 fL (7.4-10.4); Monocytes % 12.3 %; Neutrophils # 12.07 10^3/uL (1.8-7.7); Neutrophils % 74.9 %; Nucleated Red Blood Cells % 0 %; Platelet Count 199 10^3/cmm (157-399); Red Cell Distribution Width 13.5 % (12.1-15.1); White Blood Count 16.13 10^3/uL (3.29-11.43)
[2023-10-08 05:48] LABS: Alanine Aminotransferase 52 U/L (0-33); Albumin Level 3.5 g/dL (3.5-5.2); Alkaline Phosphatase 70 U/L (35-105); Anion Gap 12.7 (5-19); Aspartate Amino Transferase 83 U/L (0-32); Blood Urea Nitrogen 18 mg/dL (6-20); Carbon Dioxide 25 mmol/L (22-29); Chloride 91 mmol/L (98-107); Globulin 1.7 g/dL (1.3-4.6); Glomerular Filtration Rate 102.7 mL/min (90-130); Glucose 107 mg/dL (65-115); Magnesium 1.8 mg/dL (1.7-2.3); Osmolality Calculated 260 mOsm/kg (285-295); Phosphorus 2.3 mg/dL (2.5-4.5); Potassium 4.7 mmol/L (3.5-5.1); Sodium 124 mmol/L (136-145); Total Bilirubin 0.3 mg/dL (0.15-1.2); Total Protein 5.2 g/dL (6.6-8.7)
--- NOTE | 2023-10-08 06:03 | PC.NURSE ---
Patient's silverlon dressing was saturated with blood, new silverlon and drain sponges applied.
[2023-10-08] MEDS: ceFAZolin 2,000 MG in sodium chloride 0.9% (plus) 50 ML 100 MG IV (06:12)
[2023-10-08] MEDS: hydroCHLOROthiazide 25 mg Tablet PO (06:14)
--- NOTE | 2023-10-08 07:11 | P.PN_ITS ---
Subjective 2 Subjective: POD 1 Patient up in the chair. Had some bloody drainage from the incisional site. Had some confusion through the night. Patient states that that is normal for her. She denies any chest pain, shortness of breath, headaches. Vitals/I&O/Wt Last Vital Signs Temp 98.1 F 10/08/23 04:00 Pulse 80 10/08/23 04:00 Resp 16 10/08/23 04:25 BP 133/70 10/08/23 04:00 Pulse Ox 95 10/08/23 04:00 O2 Del Method Room Air 10/07/23 20:15 O2 Flow Rate 6 10/07/23 12:15 10/07/23 10/08/23 10/08/23 22:59 06:59 14:59 Intake Total 890 / 3040 1580 / 4620 Output Total 1000 / 1355 2400 / 3755 Balance -110 / 1685 -820 / 865 Weight last 48 hrs Weight 207 lb 1.6 oz Weight 209 lb 14.4 oz Physical Exam 2 Narrative: Patient presents alert and oriented x3 with a good general appearance normal mood and affect. Normal coordination normal stability. Mild tenderness around the incisional site with the incision appear to be healing nicely. No signs of erythema or drainage. No signs of infection. Patient denies any fevers or chills. 4/5 motor strength right lower extremity with slightly weaker on the left compared to the right which was baseline for her coming in prior to surgery. With negative straight leg raise bilaterally. Calves are supple no medial thigh tenderness. Pulses are 2+ at the dorsalis pedis and posterior tibial region. Good capillary refill throughout normal sensation light touch both lower extremities. Urinary Catheter Management: Alcaraz: Cath Placed During This Visit: yes, but has since been removed by the nurse Reason for Continuing Indwelling Catheter: Decision to DC Catheter Urinary Catheter Date of Insertion: 10/07/23 Urinary Catheter Time of Insertion: 07:30 Date Urinary Catheter Removed: 10/08/23 Time Urinary Catheter Discontinued: 06:15 Data 10/08/23 05:02 10/08/23 05:02 A&P Assessment and plan (1) Acute blood loss as cause of postoperative anemia: Physical therapy to evaluate and mobilize the patient. implementation services analyst consult for placement. Continue Hemovac drain today due to the 500 mL output. Continue SCDs for DVT prophylaxis as she is high risk of bleeding. Continue incentive spirometry for pulmonary toilet. (2) Status post lumbar spinal fusion: Attestations 2 Medical Necessity Statement*: Await discharge for better pain control medical management. Coding Level of Care Code Acute Code for Chg Fwd Diagnoses Acute blood loss as cause of postoperative anemia D62 Status post lumbar spinal fusion Z98.1
[2023-10-08] MEDS: ziprasidone hcl 20 mg Capsule 60 MG PO ×2 (08:41→17:46)
[2023-10-08] MEDS: donepezil 5 MG Tablet PO (08:41)
[2023-10-08] MEDS: ALPRAZolam 0.5 mg Tablet 1 MG PO ×2 (08:41→20:15)
[2023-10-08] MEDS: cholecalciferol (vitamin D3) 5,000 unit Tablet 10000 UNIT PO (08:41)
[2023-10-08] MEDS: oxyCODONE 10 mg ER (12 HR) Tablet PO ×2 (08:41→17:46)
[2023-10-08] MEDS: venlafaxine ER (24HR) 150 mg Capsule PO (08:42)
[2023-10-08] MEDS: atenolol 50 mg Tablet 25 MG PO (08:42)
[2023-10-08] MEDS: docusate sodium 100 mg Capsule PO ×2 (08:42→17:46)
[2023-10-08] MEDS: FUROsemide 20 mg Tablet PO (08:42)
--- NOTE | 2023-10-08 13:27 | ANE.PACU2 ---
Inpatient post-anesthesia follow up: Airway intact: Yes Vital signs: Temperature 97.9 F Pulse Rate 75 Respiratory Rate 16 Blood Pressure 100/66 Pulse Oximetry 96 Oxygen Delivery Me thod Room Air Oxygen Flow Rate 6 Fraction of Inspir ed Oxygen Hydration adequate: Yes Nausea and vomiting: No Pain level: 3 Mental status: Baseline
[2023-10-08] MEDS: sodium chloride 0.9% 1,000 ML 65 ML IV (14:13)
[2023-10-08 14:17] LABS: Urine Random Sodium < 10 mmol/L
[2023-10-08] MEDS: enoxaparin 40 mg/0.4 mL Syringe SUBCUT (17:46)
[2023-10-08] MEDS: pantoprazole 40 mg SDV IVP (20:14)
[2023-10-08] MEDS: atorvastatin 40 mg Tablet PO (20:15)
[2023-10-08] MEDS: amitriptyline 25 mg Tablet 200 MG PO (20:15)
[2023-10-08] MEDS: lamoTRIgine 100 mg Tablet 400 MG PO (20:15)
--- NOTE | 2023-10-08 22:29 | P.PN_ITS ---
Subjective 2 Subjective: At the time that the patient was seen, she was sitting on the bed, with her sister and [id number] who live the furthest away from her visiting. The patient complained that she she could not move her legs. Furthermore she was hypoxic to 84% on room air, and was placed on 1 L NC. She denied any fever, chills, CP, palpitations, shortness of breath, abdominal pain, nausea, vomiting. She hopes to be discharged the next day; however, I informed her that she was hyponatremic. She stated that she has not been eating because she did not like the food, and that she has been drinking a lot of chocolate milk because that is what she could tolerate. She was encouraged to eat, because it would help her hyponatremia especially if her hyponatremia was due to SIADH. She was adamant about being discharged home, because she was convinced that she had enough family members who could help her move around despite orthopedic surgeries recommendations of no bending lifting or twisting her back. Patient and her family members who were visiting were also requesting for an explanation of the surgical procedure that was done on her. Vitals/I&O/Wt Last Vital Signs Temp 98 F 10/08/23 20:00 Pulse 74 10/08/23 20:00 Resp 18 10/08/23 20:00 BP 137/80 10/08/23 20:00 Pulse Ox 94 10/08/23 20:00 O2 Del Method Room Air 10/08/23 12:00 O2 Flow Rate 6 10/07/23 12:15 10/08/23 10/08/23 10/08/23 06:59 14:59 22:59 Intake Total 1580 / 7620 2159 / 2159 240 / 2399 Output Total 2400 / 3755 750 / 750 100 / 850 Balance -820 / 3865 1409 / 1409 140 / 1549 Weight last 48 hrs Weight 93.939 kg Weight 95.209 kg Physical Exam 2 Const: GENERAL APPEARANCE: cooperative and comfortable O RIENTATION/CONSCIOUSNESS: Yes awake, Yes oriented to person, Yes oriented to place and Yes oriented to time HENMT: COMMON NORMALS: normocephalic, atraumatic and external ears normal H EAD & SCALP: normocephalic and atraumatic EXTERNAL EAR: Yes external ears normal MOUTH: Normal oral and palatal mucosa present THROAT: posterior oropharynx normal Eye: COMMON NORMALS: Equal, round and reactive pupils present and conjunctivae normal CONJUNCTIVA: Yes conjunctivae normal PUPIL: Yes Equal, round and reactive pupils present EOM: No EOM abnormal Neck/C-Spine: COMMON NORMALS: Thyroid normal GENERAL: Yes normal visual inspection and Yes trachea midline THYROID: Thyroid normal CAROTIDS: No bruit Lymph: LYMPHATIC: No lymphadenopathy Resp: COMMON NORMALS: clear to auscultation bilaterally AUSCULTATION: clear to auscultation bilaterally, no crackles, no rales and no rhonchi Cardio: BRUITS: no carotid bruits PERIPHERAL PULSES: radial pulses present and popliteal pulses present OTHER: Regular rate and rhythm, 1-2/6 systolic murmurs in all heart valves, GI: OTHER: Bowel sounds positive, nontender, nondistended, no rigidity, no guarding, no rebound tenderness. Extremity: NARRATIVE EXTREMITY EXAM: No clubbing, no cyanosis no pedal edema Neuro: SENSORIUM/ORIENTATION: Yes oriented to person, Yes oriented to place and Yes oriented to time Psych: COMMON NORMALS: speech normal APPEARANCE: Yes grossly normal A TTITUDE: Yes calm and Yes Other attitude/behavior findings present (Psych) (Loquacious) ACTIVITY/MOTOR BEHAVIOR: Yes appropriate eye contact SPEECH: Yes normal speech MOOD & AFFECT: Yes euthymic mood A TTENTION/CONCENTRATION: Yes attention grossly intact MEMORY/COGNITION: Yes memory grossly intact Urinary Catheter Management: Tavarez: Cath Placed During This Visit: yes, but has since been removed by the nurse Reason for Continuing Indwelling Catheter: Decision to DC Catheter Urinary Catheter Date of Insertion: 10/07/23 Urinary Catheter Time of Insertion: 07:30 Date Urinary Catheter Removed: 10/08/23 Time Urinary Catheter Discontinued: 06:15 Data 10/10/23 04:23 10/10/23 04:23 A&P Assessment and plan (1) Generalized anxiety disorder: (2) Bipolar 2 disorder: (3) Essential hypertension: (4) Dyslipidemia: (5) Lumbar stenosis with neurogenic claudication: Plan Ms. Clement is a 57yo woman w/ Bipolar II d/o, Generalized Anxiety d/o, Fibromyalgia, HTN, HLD, and a hx of L4-L5 posterior spinal fusion, who presented to the ED on 10/05/2023 with complaints of 3 days of worsening lower back pain and b/l lower extremity weakness. In the ED, based on findings of the CT L- spine, the orthopedic surgeon on-call, Dr. Do, was consulted, who recommended an MRI of the spine. The patient was admitted, and on admission, the MRI showed grade 1-2 anterolisthesis of L3 on L4 with moderate to severe spinal canal stenosis at L3-L4. Chronic appearing L4 compression deformity, and grade 1-2 anterior listhesis of C7 on T1 with a superimposed C7-T1 central disc protrusion abutting the anterior cord. The patient is s/p removal of former hardware from the spine, w/ L2-pelvis fusion, L2/3 laminectomy w/ partial facetectomies and diskectomy, L3/L4 laminectomy w/ partial facetectomies for L3-L4 spondylolisthesis & lumbar stenosis with neurogenic claudication on 10/07/2023. Internal medicine was consulted for medical management. #Lumbar stenosis with neurogenic claudication s/p L2-pelvis fusion - Orthopedic surgery managing. I asked the patient's nurses to let the orthopedic surgeon know that the patient was asking about the procedures involved in her surgery whenever he rounded. - Home Baclofen continued #Acute hypoxic respiratory failure: Wean 1L as tolerated. #Leukocytosis: At this time, it could be post procedural. Per chart review, she also got some Decadron prior to the surgery, which could also explain the leukocytosis. Will contact continue to monitor. - She also has a tavarez catheter still in place. #Hyponatremia: Ordered a UA w/ urine studies Tee, Urine Osm, serum Osm. - Held po lasix. #Tranaminitis: Again, unclear etiology. Continue to monitor. #HTN #HLD - Atenolol and Atorvastatin #Bipolar II d/o #Generalized Anxiety d/o #Fibromyalgia - Home Venlafaxine, Lamotrigine, Ziprasidone continued. #Hx of transverse myelitis Attestations 2 Medical Necessity Statement*: Patient is acutely hyponatremic with no clear indication about why she is hyponatremic. Coding Level of Care Code 20016 Diagnoses Generalized anxiety disorder F41.1 Bipolar 2 disorder F31.81 Essential hypertension I10 Dyslipidemia E78.5 Lumbar stenosis with neurogenic claudication M48.062
--- NOTE | 2023-10-08 23:47 | PC.NURSE ---
This nurse walked into patients room and witnessed ELOISA Bacon assisting patient to the floor. Patient was slowly lowered to the floor and stated that she was walking back from the bathroom and her legs gave out on her. Vital signs stable no new complaints of pain, no signs of injury. Patient is complaining of the same left leg weakness that she has had since after surgery, Physician aware. Both legs have full ROM and sensation in legs and feet. Patient is able to wiggle toes and push back and forth with both feet. Dr. Abdullahi notified of assisted fall and no new orders at this time.
[2023-10-09] VITALS (10 sets, daily range): BP systolic 107–131; BP diastolic 62–78; PULSE 75–86; RESP 15–18; TEMP 36.6–36.8; O2SAT 92–94
--- NOTE | 2023-10-09 03:07 | PC.NURSE ---
This nurse and RIP MACHINE OPERATOR Chan Mace assisted patient to bedside commode. Patient was struggling to stand up on her own with weakness more in her left leg. When this nurse and Chan went to assist patient off of the commode patient was unable to bear any wait on either leg. This nurse had charge nurse Jamila Blanco assist with getting the patient back into bed. Patient is still able to wiggle toes and lift up both legs and has sensation to both legs and feet. This nurse notified Tobias SAUCEDO of patient's increased weakness and he stated he would be in to examine her in the morning. No new orders at this time.
[2023-10-09] MEDS: oxyCODONE-APAP 5-325 mg Tablet PO ×4 (04:40→20:01)
[2023-10-09] MEDS: hydroCHLOROthiazide 25 mg Tablet PO (05:13)
--- NOTE | 2023-10-09 06:48 | P.PN_ITS ---
Subjective 2 Subjective: Patient is sitting up in bed states she had weakness in her left leg through the night. She denies any increased back pain. Denies loss of bowel or bladder control. Vitals/I&O/Wt Last Vital Signs Temp 98.3 F 10/09/23 04:00 Pulse 83 10/09/23 04:00 Resp 16 10/09/23 04:40 BP 124/75 10/09/23 04:00 Pulse Ox 92 10/09/23 04:00 O2 Del Method Room Air 10/08/23 12:00 O2 Flow Rate 6 10/07/23 12:15 10/08/23 10/08/23 10/09/23 14:59 22:59 06:59 Intake Total 2159 / 2159 720 / 2879 1000 / 3879 Output Total 750 / 750 100 / 850 200 / 1050 Balance 1409 / 1409 620 / 2029 800 / 2829 Weight last 48 hrs Weight 230 lb 6.4 oz Weight 207 lb 1.6 oz Physical Exam 2 Narrative: Patient presents alert and oriented x3 with a good general appearance normal mood and affect. Normal coordination normal stability. Mild tenderness around the incisional site with the incision appear to be clean and dry with Hemovac drain intact. No signs of erythema or drainage. No signs of infection. Patient denies any fevers or chills. 4/5 motor strength both lower extremities with more weakness on the left compared to the right with negative straight leg raise bilaterally. Calves are supple no medial thigh tenderness. Pulses are 2+ at the dorsalis pedis and posterior tibial region. Good capillary refill throughout normal sensation light touch both lower extremities. Urinary Catheter Management: Alcaraz: Cath Placed During This Visit: yes, but has since been removed by the nurse Reason for Continuing Indwelling Catheter: Decision to DC Catheter Urinary Catheter Date of Insertion: 10/07/23 Urinary Catheter Time of Insertion: 07:30 Date Urinary Catheter Removed: 10/08/23 Time Urinary Catheter Discontinued: 06:15 Data 10/08/23 05:02 10/08/23 05:02 A&P Assessment and plan (1) Status post lumbar spinal fusion: Physical therapy to work with mobilization. Patient describes weakness in the left lower extremity which she had difficulties with with prior to surgical intervention. She has a bedside commode. Patient has improved in the past with Decadron and will try another dose to see if that helps improve her symptoms. Continue incentive spirometry for pulmonary toilet. Will list child welfare social worker for placement. Discontinue Hemovac drain. Change dressing with Silverlon. (2) Acute blood loss as cause of postoperative anemia: Attestations 2 Medical Necessity Statement*: Await placement Coding Level of Care Code Acute Code for Chg Fwd Diagnoses Status post lumbar spinal fusion Z98.1 Acute blood loss as cause of postoperative anemia D62
[2023-10-09] MEDS: atenolol 50 mg Tablet 25 MG PO (08:16)
[2023-10-09] MEDS: ziprasidone hcl 20 mg Capsule 60 MG PO ×2 (08:17→17:34)
[2023-10-09] MEDS: donepezil 5 MG Tablet PO (08:17)
[2023-10-09] MEDS: oxyCODONE 10 mg ER (12 HR) Tablet PO ×2 (08:17→17:34)
[2023-10-09] MEDS: dexamethasone 10 mg/mL INJ IVP (08:17)
[2023-10-09] MEDS: venlafaxine ER (24HR) 150 mg Capsule PO (08:17)
[2023-10-09] MEDS: cholecalciferol (vitamin D3) 5,000 unit Tablet 10000 UNIT PO (08:17)
[2023-10-09] MEDS: ketorolac 30 mg/mL INJ IVP ×2 (08:26→15:11)
[2023-10-09] MEDS: docusate sodium 100 mg Capsule PO ×2 (08:28→17:34)
--- NOTE | 2023-10-09 08:44 | PC.NURSE ---
dc hemovac dc hemovac which had 50ml, pt tolerated it well.
[2023-10-09 14:48] LABS: Osmolality Serum 258 mOsm/kg (278-305)
[2023-10-09 15:20] LABS: Basophils % 0.3 %; Hematocrit 26.3 % (36-47); Lymphocytes % 6.4 %; Mean Corpuscular HGB Conc 33.8 g/dL (30-55); Mean Corpuscular Hemoglobin 32.6 pg (27-33); Mean Corpuscular Volume 96.3 fl (85-98); Mean Platelet Volume 9.3 fL (7.4-10.4); Monocytes # 1.3 10^3/uL (0.2-0.9); Monocytes % 8.3 %; Neutrophils # 12.47 10^3/uL (1.8-7.7); Neutrophils % 82.6 %; Nucleated Red Blood Cells % 0.1 %; Platelet Count 192 10^3/cmm (157-399); Red Blood Count 2.73 10^6/uL (3.85-5.65); Red Cell Distribution Width 13.9 % (12.1-15.1); White Blood Count 15.09 10^3/uL (3.29-11.43)
[2023-10-09 15:37] LABS: Alanine Aminotransferase 43 U/L (0-33); Albumin Level 3.3 g/dL (3.5-5.2); Alkaline Phosphatase 75 U/L (35-105); Anion Gap 11.5 (5-19); Aspartate Amino Transferase 44 U/L (0-32); Blood Urea Nitrogen 24 mg/dL (6-20); Calcium 9.2 mg/dL (8.5-10.5); Carbon Dioxide 25 mmol/L (22-29); Chloride 95 mmol/L (98-107); Globulin 2.4 g/dL (1.3-4.6); Glomerular Filtration Rate 102.7 mL/min (90-130); Glucose 118 mg/dL (65-115); Magnesium 1.9 mg/dL (1.7-2.3); Osmolality Calculated 269 mOsm/kg (285-295); Potassium 4.5 mmol/L (3.5-5.1); Sodium 127 mmol/L (136-145); Total Bilirubin 0.2 mg/dL (0.15-1.2); Total Protein 5.7 g/dL (6.6-8.7)
[2023-10-09] MEDS: enoxaparin 40 mg/0.4 mL Syringe SUBCUT (17:34)
[2023-10-09] MEDS: ALPRAZolam 0.5 mg Tablet 1 MG PO (17:42)
[2023-10-09] MEDS: amitriptyline 25 mg Tablet 200 MG PO (20:01)
[2023-10-09] MEDS: atorvastatin 40 mg Tablet PO (20:02)
[2023-10-09] MEDS: pantoprazole 40 mg SDV IVP (20:02)
[2023-10-09] MEDS: lamoTRIgine 100 mg Tablet 400 MG PO (20:02)
--- NOTE | 2023-10-09 21:33 | P.PN_ITS ---
Subjective 2 Subjective: The patient had a good day today and worked with PT. Her drains were removed by the Orthopedic surgery team today. Per nurse Alcaraz catheter was removed the day after surgery. I watched her get out of bed to urinate on her bedside commode. She has b/l 2+ pitting edema on her leg. Vitals/I&O/Wt Last Vital Signs Temp 98.0 F 10/09/23 20:00 Pulse 75 10/09/23 20:00 Resp 16 10/09/23 20:01 BP 125/78 10/09/23 20:00 Pulse Ox 93 10/09/23 20:00 O2 Del Method Room Air 10/09/23 20:00 O2 Flow Rate 6 10/07/23 12:15 10/09/23 10/09/23 10/09/23 06:59 14:59 22:59 Intake Total 1000 / 3879 480 / 480 1200 / 1680 Output Total 200 / 1050 500 / 500 Balance 800 / 2829 480 / 480 700 / 1180 Weight last 48 hrs Weight 104.508 kg Weight 93.939 kg Physical Exam 2 Const: GENERAL APPEARANCE: cooperative and comfortable NUTRITIONAL APPEARANCE: obese ORIENTATION/CONSCIOUSNESS: Yes awake, Yes oriented to person, Yes oriented to place and Yes oriented to time HENMT: COMMON NORMALS: normocephalic, atraumatic and external ears normal H EAD & SCALP: normocephalic and atraumatic EXTERNAL EAR: Yes external ears normal MOUTH: Normal oral and palatal mucosa present THROAT: posterior oropharynx normal Eye: COMMON NORMALS: Equal, round and reactive pupils present and conjunctivae normal CONJUNCTIVA: Yes conjunctivae normal PUPIL: Yes Equal, round and reactive pupils present EOM: No EOM abnormal Neck/C-Spine: COMMON NORMALS: Thyroid normal GENERAL: Yes normal visual inspection and Yes trachea midline THYROID: Thyroid normal CAROTIDS: No bruit Lymph: LYMPHATIC: No lymphadenopathy Resp: COMMON NORMALS: clear to auscultation bilaterally AUSCULTATION: clear to auscultation bilaterally, no crackles, no rales, no rhonchi and no wheezes Cardio: OTHER: Regular rate and rhythm with 2/6 systolic murmurs in all 4 valves. No gallops, rubs or clicks. GI: OTHER: BS positive, nontender, nondistended, no hepatosplenomegaly. Extremity: NARRATIVE EXTREMITY EXAM: 2+ bilateral pitting edema, but no clubb ing or cyanosis noted. Neuro: SENSORIUM/ORIENTATION: Yes oriented to person, Yes oriented to place and Yes oriented to time CRANIAL NERVES: Yes CN normal except as noted S PEECH: speech normal SENSORY EXAM: No sensory level loss detected MOTOR EXAM: 5/5 motor strength present throughout and Abnormal muscle tone present Psych: COMMON NORMALS: speech normal APPEARANCE: Yes grossly normal A TTITUDE: Yes calm and Yes engaged ACTIVITY/MOTOR BEHAVIOR: Yes appropriate eye contact SPEECH: Yes normal speech MOOD & AFFECT: Yes euthymic mood Urinary Catheter Management: Alcaraz: Cath Placed During This Visit: yes, but has since been removed by the nurse Reason for Continuing Indwelling Catheter: Decision to DC Catheter Urinary Catheter Date of Insertion: 10/07/23 Urinary Catheter Time of Insertion: 07:30 Date Urinary Catheter Removed: 10/08/23 Time Urinary Catheter Discontinued: 06:15 Data 10/10/23 04:23 10/10/23 04:23 A&P Assessment and plan (1) Generalized anxiety disorder: (2) Bipolar 2 disorder: (3) Essential hypertension: (4) Dyslipidemia: (5) Fibromyalgia: (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 Clement is a 57yo woman w/ Bipolar II d/o, Generalized Anxiety d/o, Fibromyalgia, HTN, HLD, and a hx of L4-L5 posterior spinal fusion, who presented to the ED on 10/05/2023 with complaints of 3 days of worsening lower back pain and b/l lower extremity weakness. In the ED, based on findings of the CT L- spine, the orthopedic surgeon on-call, Dr. Do, was consulted, who recommended an MRI of the spine. The patient was admitted, and on admission, the MRI showed grade 1-2 anterolisthesis of L3 on L4 with moderate to severe spinal canal stenosis at L3-L4. Chronic appearing L4 compression deformity, and grade 1-2 anterior listhesis of C7 on T1 with a superimposed C7-T1 central disc protrusion abutting the anterior cord. The patient is s/p removal of former hardware from the spine, w/ L2-pelvis fusion, L2/3 laminectomy w/ partial facetectomies and diskectomy, L3/L4 laminectomy w/ partial facetectomies for L3-L4 spondylolisthesis & lumbar stenosis with neurogenic claudication on 10/07/2023. Internal medicine was consulted for medical management. #Lumbar stenosis with neurogenic claudication s/p L2-pelvis fusion - Orthopedic surgery managing. Drains removed on 10/09/2023 - Home Baclofen continued #Acute hypoxic respiratory failure: Wean 1L as tolerated. #Leukocytosis: At this time, it could be post procedural. Per chart review, she also got some Decadron prior to the surgery, which could also explain the leukocytosis. UA negative. Will continue to monitor, but get a CXR. #Hypotonic Hyponatremia: - Held po lasix. Gave a dose of Lasix 40mg IVP x 1 #Chronic venous stasis: Patient on Lasix and HCTZ at home, which may not help her hyponatremia. Lasix 40mg IVP x 1. #Tranaminitis: Again, unclear etiology. Continue to monitor. #HTN #HLD - Atenolol and Atorvastatin #Bipolar II d/o #Generalized Anxiety d/o #Fibromyalgia - Home Venlafaxine, Lamotrigine, Ziprasidone continued. #Hx of transverse myelitis DVT ppx: Lovenox Attestations 2 Medical Necessity Statement*: Still hospitalized for Hyponatremia and pedal edema. 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
[2023-10-10] VITALS (8 sets, daily range): BP systolic 99–143; BP diastolic 56–74; PULSE 71–87; RESP 15–18; TEMP 36.5–36.7; O2SAT 92–96
[2023-10-10] MEDS: FUROsemide 10 mg/mL SDV 4mL 40 MG IVP ×2 (00:08→22:03)
[2023-10-10 01:36] LABS: Add Urine Microscopic? NO; Charge for UA Resulting for Rev
[2023-10-10 01:38] LABS: Bilirubin Urine Neg (Negative); Blood Urine Neg (Negative); Glucose Urine UA Norm (Normal); Ketones Urine Negative (Negative); Leukocyte Esterase Urine Negative (Negative); Nitrate Urine Negative (Negative); Protein Urine Neg (Negative); Specific Gravity, Urine 1.005 (1.005-1.030); Urine Appearance Clear (CLEAR); Urine Color Colorless (Yellow); Urobilinogen Urine Neg (Negative); pH Urine 7 (5-7)
[2023-10-10 04:40] LABS: Basophils # 0.1 10^3/uL (0.0-0.1); Basophils % 0.4 %; Eosinophils # 0.1 10^3/uL (0.0-0.8); Eosinophils % 0.4 %; Hematocrit 28.1 % (36-47); Lymphocytes % 12.7 %; Mean Corpuscular HGB Conc 33.8 g/dL (30-55); Mean Corpuscular Hemoglobin 32.5 pg (27-33); Mean Corpuscular Volume 96.2 fl (85-98); Mean Platelet Volume 9.2 fL (7.4-10.4); Monocytes # 1.7 10^3/uL (0.2-0.9); Monocytes % 10.6 %; Neutrophils # 11.18 10^3/uL (1.8-7.7); Neutrophils % 71.5 %; Nucleated Red Blood Cells % 0.2 %; Platelet Count 230 10^3/cmm (157-399); Red Blood Count 2.92 10^6/uL (3.85-5.65); Red Cell Distribution Width 13.7 % (12.1-15.1); White Blood Count 15.62 10^3/uL (3.29-11.43)
[2023-10-10] MEDS: hydroCHLOROthiazide 25 mg Tablet PO (05:06)
[2023-10-10 05:09] LABS: Alanine Aminotransferase 39 U/L (0-33); Albumin Level 3.6 g/dL (3.5-5.2); Alkaline Phosphatase 86 U/L (35-105); Anion Gap 12.7 (5-19); Aspartate Amino Transferase 42 U/L (0-32); Blood Urea Nitrogen 18 mg/dL (6-20); Calcium 9.7 mg/dL (8.5-10.5); Carbon Dioxide 30 mmol/L (22-29); Chloride 97 mmol/L (98-107); Globulin 2.6 g/dL (1.3-4.6); Glomerular Filtration Rate 102.7 mL/min (90-130); Glucose 96 mg/dL (65-115); Magnesium 2.3 mg/dL (1.7-2.3); Osmolality Calculated 284 mOsm/kg (285-295); Phosphorus 1.9 mg/dL (2.5-4.5); Potassium 3.7 mmol/L (3.5-5.1); Sodium 136 mmol/L (136-145); Total Bilirubin 0.3 mg/dL (0.15-1.2); Total Protein 6.2 g/dL (6.6-8.7)
--- NOTE | 2023-10-10 06:00 | XRR_ITS ---
PROCEDURE INFORMATION: Exam: XR Chest Exam date and time: 10/10/2023 6:38 AM Age: 57 years old Clinical indication: Other: Leukocytosis; Additional info: Unexplained leukocytosis TECHNIQUE: Imaging protocol: Radiologic exam of the chest. Views: 1 view. COMPARISON: CR XR KUB [id number] 06/22/2018 7:44 AM FINDINGS: Lungs: Unremarkable. No consolidation. Pleural spaces: Unremarkable. No pleural effusion. No pneumothorax. Heart/Mediastinum: Unremarkable. No cardiomegaly. Bones/joints: Unremarkable. XR/XR chest 1V portable [id number] IMPRESSION: No acute findings.
--- NOTE | 2023-10-10 07:40 | P.PN_ITS ---
Subjective 2 Subjective: POD 3 Patient reports having a much better day. She was up mobilizing with physical therapy getting up to the bedside commode. Has noticed some improvement of her left lower extremity weakness. Denies chest pain, shortness of breath, headaches. Vitals/I&O/Wt Last Vital Signs Temp 97.9 F 10/10/23 07:17 Pulse 79 10/10/23 07:17 Resp 17 10/10/23 07:17 BP 117/71 10/10/23 07:17 Pulse Ox 92 10/10/23 07:17 O2 Del Method Room Air 10/10/23 07:17 O2 Flow Rate 6 10/07/23 12:15 10/09/23 10/10/23 10/10/23 22:59 06:59 14:59 Intake Total 1440 / 1920 Output Total 800 / 800 2700 / 3500 600 / 600 Balance 640 / 1120 -2700 / -1580 -600 / -600 Weight last 48 hrs Weight 223 lb 9 oz Weight 230 lb 6.4 oz Physical Exam 2 Narrative: Patient presents alert and oriented x3 with a good general appearance normal mood and affect. Normal coordination normal stability. Mild tenderness around the incisional site with the incision appear to be clean and dry. No signs of erythema or drainage. No signs of infection. Patient denies any fevers or chills. 5/5 motor strength both lower extremities with negative straight leg raise bilaterally. Calves are supple no medial thigh tenderness. Pulses are 2+ at the dorsalis pedis and posterior tibial region. Good capillary refill throughout normal sensation light touch both lower extremities. Urinary Catheter Management: Alcaraz: Cath Placed During This Visit: yes, but has since been removed by the nurse Reason for Continuing Indwelling Catheter: Decision to DC Catheter Urinary Catheter Date of Insertion: 10/07/23 Urinary Catheter Time of Insertion: 07:30 Date Urinary Catheter Removed: 10/08/23 Time Urinary Catheter Discontinued: 06:15 Data 10/10/23 04:23 10/10/23 04:23 A&P Assessment and plan (1) Status post lumbar spinal fusion: Continue to work with physical therapy for mobilization. donor services technician has been consulted for placement and the potential of a swing bed which would be ideal to help further rehab her condition. Continue incentive spirometry for pulmonary toilet. She is high risk of bleeding so continue SCD for DVT prophylaxis. Ready for discharge when placement found. Will see her back in the office in 1 to 2 weeks for a wound check. Encouraged nurses to change her dressing with Silverlon application. Discussed no bending lifting or twisting. Continue mobilization with a walker. (2) Acute blood loss as cause of postoperative anemia: Attestations 2 Medical Necessity Statement*: Ready for discharge when placement found Coding Level of Care Code Acute Code for Chg Fwd Diagnoses Status post lumbar spinal fusion Z98.1 Acute blood loss as cause of postoperative anemia D62
[2023-10-10] MEDS: ziprasidone hcl 20 mg Capsule 60 MG PO ×2 (08:35→17:48)
[2023-10-10] MEDS: oxyCODONE 10 mg ER (12 HR) Tablet PO ×2 (08:35→17:48)
[2023-10-10] MEDS: donepezil 5 MG Tablet PO (08:35)
[2023-10-10] MEDS: cholecalciferol (vitamin D3) 5,000 unit Tablet 10000 UNIT PO (08:35)
[2023-10-10] MEDS: atenolol 50 mg Tablet 25 MG PO (08:36)
[2023-10-10] MEDS: docusate sodium 100 mg Capsule PO ×2 (08:36→17:48)
[2023-10-10] MEDS: venlafaxine ER (24HR) 150 mg Capsule PO (08:36)
[2023-10-10] MEDS: ALPRAZolam 0.5 mg Tablet 1 MG PO (10:49)
[2023-10-10] MEDS: oxyCODONE-APAP 5-325 mg Tablet PO (10:49)
[2023-10-10 15:20] LABS: Osmolality Urine 170 mOsm/kg (50-1200)
--- NOTE | 2023-10-10 16:02 | PC.SOCIAL ---
IMM updated, signed and dated and copy given to patient
[2023-10-10] MEDS: magnesium hydroxide 30 mL UDC PO (17:48)
[2023-10-10] MEDS: enoxaparin 40 mg/0.4 mL Syringe SUBCUT (17:49)
--- NOTE | 2023-10-10 20:01 | P.PN_ITS ---
Subjective 2 Subjective: The patient stated that she did well today b/c she was able to use the walker to walk to the bathroom & brush her teeth. The patient is upset about being fluid restricted after she was given Lasix this AM. She apparently drinks 7-8 bottles of Coca-Cola, copious amounts of water, and copious amount of chocolate milkshakes. The patient was informed that she should to cut down on the amount that she is drinking, because it is contributing to her edema. I also informed the patient, that we will no longer restrict her fluid intake, because she is an adult, but it would be important for her to monitor the amount that she is drinking. Patient has also agreed to go to senior care b/c her family cannot take care of her. Per my discussion w/ the Orthopedic surgery staff, they also spoke with the patient about going to a swing bed. Vitals/I&O/Wt Last Vital Signs Temp 97.8 F 10/10/23 15:52 Pulse 71 10/10/23 15:52 Resp 17 10/10/23 15:52 BP 99/56 10/10/23 15:52 Pulse Ox 94 10/10/23 15:52 O2 Del Method Room Air 10/10/23 15:52 O2 Flow Rate 6 10/07/23 12:15 10/10/23 10/10/23 10/10/23 06:59 14:59 22:59 Intake Total 680 / 680 120 / 800 Output Total 2700 / 3500 600 / 600 300 / 900 Balance -2700 / -1580 80 / 80 -180 / -100 Weight last 48 hrs Weight 101.406 kg Weight 104.508 kg Physical Exam 2 Const: GENERAL APPEARANCE: cooperative and comfortable NUTRITIONAL APPEARANCE: obese ORIENTATION/CONSCIOUSNESS: Yes awake, Yes oriented to person, Yes oriented to place and Yes oriented to time HENMT: COMMON NORMALS: normocephalic, atraumatic and external ears normal H EAD & SCALP: normocephalic and atraumatic EXTERNAL EAR: Yes external ears normal MOUTH: Normal oral and palatal mucosa present THROAT: posterior oropharynx normal Eye: COMMON NORMALS: Equal, round and reactive pupils present and conjunctivae normal CONJUNCTIVA: Yes conjunctivae normal PUPIL: Yes Equal, round and reactive pupils present EOM: No EOM abnormal Neck/C-Spine: COMMON NORMALS: Thyroid normal GENERAL: Yes normal visual inspection and Yes trachea midline THYROID: Thyroid normal CAROTIDS: No bruit Lymph: LYMPHATIC: No lymphadenopathy Resp: COMMON NORMALS: clear to auscultation bilaterally AUSCULTATION: clear to auscultation bilaterally, no crackles, no rales, no rhonchi and no wheezes Cardio: HEART SOUNDS: no click and no gallops BRUITS: no carotid bruits PERIPHERAL PULSES: radial pulses present and popliteal pulses present OTHER: Regular rate and rhythm with 2/6 systolic murmurs in all 4 valves. No gallops, rubs or clicks. GI: OTHER: BS positive, nontender, nondistended, no hepatosplenomegaly. Extremity: NARRATIVE EXTREMITY EXAM: 2+ bilateral pitting edema, but no clubb ing or cyanosis noted. Neuro: SENSORIUM/ORIENTATION: Yes oriented to person, Yes oriented to place and Yes oriented to time CRANIAL NERVES: Yes CN normal except as noted S PEECH: speech normal SENSORY EXAM: No sensory level loss detected MOTOR EXAM: 5/5 motor strength present throughout and Abnormal muscle tone present Psych: COMMON NORMALS: speech normal APPEARANCE: Yes grossly normal A TTITUDE: Yes calm, Yes engaged and Yes Other attitude/behavior findings present (Psych) (Loquacious) ACTIVITY/MOTOR BEHAVIOR: Yes appropriate eye contact SPEECH: Yes normal speech MOOD & AFFECT: Yes euthymic mood A TTENTION/CONCENTRATION: Yes attention grossly intact MEMORY/COGNITION: Yes memory grossly intact Urinary Catheter Management: Alcaraz: Cath Placed During This Visit: yes, but has since been removed by the nurse Reason for Continuing Indwelling Catheter: Decision to DC Catheter Urinary Catheter Date of Insertion: 10/07/23 Urinary Catheter Time of Insertion: 07:30 Date Urinary Catheter Removed: 10/08/23 Time Urinary Catheter Discontinued: 06:15 Data 10/11/23 05:24 10/11/23 05:24 A&P Assessment and plan (1) Generalized anxiety disorder: (2) Bipolar 2 disorder: (3) Essential hypertension: (4) Dyslipidemia: (5) Fibromyalgia: (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 Clement is a 57yo woman w/ Bipolar II d/o, Generalized Anxiety d/o, Fibromyalgia, HTN, HLD, and a hx of L4-L5 posterior spinal fusion, who presented to the ED on 10/05/2023 with complaints of 3 days of worsening lower back pain and b/l lower extremity weakness. In the ED, based on findings of the CT L- spine, the orthopedic surgeon on-call, Dr. Do, was consulted, who recommended an MRI of the spine. The patient was admitted, and on admission, the MRI showed grade 1-2 anterolisthesis of L3 on L4 with moderate to severe spinal canal stenosis at L3-L4. Chronic appearing L4 compression deformity, and grade 1-2 anterior listhesis of C7 on T1 with a superimposed C7-T1 central disc protrusion abutting the anterior cord. The patient is s/p removal of former hardware from the spine, w/ L2-pelvis fusion, L2/3 laminectomy w/ partial facetectomies and diskectomy, L3/L4 laminectomy w/ partial facetectomies for L3-L4 spondylolisthesis & lumbar stenosis with neurogenic claudication on 10/07/2023. Internal medicine was consulted for medical management. #Lumbar stenosis with neurogenic claudication s/p L2-pelvis fusion - Orthopedic surgery managing. Drains removed on 10/09/2023 - Home Baclofen continued #Acute hypoxic respiratory failure: She is on room air since 10/09/2023. #Leukocytosis: At this time, it could be post procedural. Per chart review, she also got some Decadron prior to the surgery, which could also explain the leukocytosis. UA negative. CXR is clear #Hypotonic Hyponatremia: - Held po lasix. Give another dose of Lasix 40mg IVP x 1 with acetazolamide #Chronic venous stasis: Patient on Lasix and HCTZ at home, which may not help her hyponatremia. Lasix 40mg IVP x 1 and acetazolamide. #Contraction alkalosis: #Tranaminitis: Again, unclear etiology. Continue to monitor. #HTN #HLD - Atenolol and Atorvastatin #Bipolar II d/o #Generalized Anxiety d/o #Fibromyalgia - Home Venlafaxine, Lamotrigine, Ziprasidone continued. #Hx of transverse myelitis: when I asked the patient about this history of transverse myelitis, She said, what's that? DVT ppx: Lovenox Attestations 2 Medical Necessity Statement*: Patient remains hospitalized for diuresis. 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
[2023-10-10] MEDS: amitriptyline 25 mg Tablet 200 MG PO (21:13)
[2023-10-10] MEDS: lamoTRIgine 100 mg Tablet 400 MG PO (21:13)
[2023-10-10] MEDS: atorvastatin 40 mg Tablet PO (21:14)
[2023-10-10] MEDS: baclofen 10 mg Tablet PO (21:35)
[2023-10-10] MEDS: acetaZOLAMIDE 250 mg Tablet 500 MG PO (21:35)
[2023-10-10] MEDS: pantoprazole 40 mg SDV IVP (22:03)
[2023-10-11] VITALS (7 sets, daily range): BP systolic 104–119; BP diastolic 66–70; PULSE 67–73; RESP 15–19; TEMP 36.4–36.7; O2SAT 93–95
[2023-10-11 05:33] LABS: Basophils # 0.1 10^3/uL (0.0-0.1); Basophils % 0.7 %; Eosinophils # 0.2 10^3/uL (0.0-0.8); Eosinophils % 1.4 %; Hematocrit 27.7 % (36-47); Lymphocytes # 1.7 10^3/uL (0.8-4.8); Lymphocytes % 13.6 %; Mean Corpuscular HGB Conc 33.2 g/dL (30-55); Mean Corpuscular Hemoglobin 32.5 pg (27-33); Mean Corpuscular Volume 97.9 fl (85-98); Mean Platelet Volume 9.3 fL (7.4-10.4); Monocytes # 1.3 10^3/uL (0.2-0.9); Monocytes % 10.7 %; Neutrophils % 69.1 %; Nucleated Red Blood Cells # 0.1 /100WBC; Nucleated Red Blood Cells % 0.5 %; Platelet Count 262 10^3/cmm (157-399); Red Blood Count 2.83 10^6/uL (3.85-5.65); Red Cell Distribution Width 14.4 % (12.1-15.1); White Blood Count 12.57 10^3/uL (3.29-11.43)
[2023-10-11 06:04] LABS: Alanine Aminotransferase 44 U/L (0-33); Albumin Level 3.4 g/dL (3.5-5.2); Alkaline Phosphatase 79 U/L (35-105); Anion Gap 13.8 (5-19); Aspartate Amino Transferase 34 U/L (0-32); Blood Urea Nitrogen 23 mg/dL (6-20); Calcium 9.5 mg/dL (8.5-10.5); Carbon Dioxide 26 mmol/L (22-29); Chloride 100 mmol/L (98-107); Globulin 2.7 g/dL (1.3-4.6); Glomerular Filtration Rate 85.9 mL/min (90-130); Glucose 101 mg/dL (65-115); Osmolality Calculated 288 mOsm/kg (285-295); Sodium 137 mmol/L (136-145); Total Bilirubin 0.3 mg/dL (0.15-1.2); Total Protein 6.1 g/dL (6.6-8.7)
[2023-10-11 06:05] LABS: Magnesium 2.3 mg/dL (1.7-2.3); Phosphorus 2.4 mg/dL (2.5-4.5)
[2023-10-11 06:23] LABS: Potassium 2.8 mmol/L (3.5-5.1)
--- NOTE | 2023-10-11 07:30 | P.PN_ITS ---
Subjective 2 Subjective: POD 4 Patient very somnolent this morning appears overmedicated. Vitals/I&O/Wt Last Vital Signs Temp 97.6 F 10/11/23 03:41 Pulse 72 10/11/23 03:41 Resp 15 10/11/23 03:41 BP 119/70 10/11/23 03:41 Pulse Ox 93 10/11/23 03:41 O2 Del Method Room Air 10/11/23 03:41 O2 Flow Rate 6 10/07/23 12:15 10/10/23 10/11/23 10/11/23 22:59 06:59 14:59 Intake Total 120 / 800 740 / 1540 Output Total 2600 / 3200 1500 / 4700 Balance -2480 / -2400 -760 / -3160 Weight last 48 hrs Weight 219 lb 3 oz Weight 223 lb 9 oz Physical Exam 2 Narrative: Patient presents very somnolent this morning appears overmedicated. Mild tenderness around the incisional site with the incision appear to be healing nicely. No signs of erythema or drainage. No signs of infection. Patient denies any fevers or chills. 4/5 motor strength both lower extremities with negative straight leg raise bilaterally. Calves are supple no medial thigh tenderness. Pulses are 2+ at the dorsalis pedis and posterior tibial region. Good capillary refill throughout normal sensation light touch both lower extremities. Urinary Catheter Management: Alcaraz: Cath Placed During This Visit: yes, but has since been removed by the nurse Reason for Continuing Indwelling Catheter: Decision to DC Catheter Urinary Catheter Date of Insertion: 10/07/23 Urinary Catheter Time of Insertion: 07:30 Date Urinary Catheter Removed: 10/08/23 Time Urinary Catheter Discontinued: 06:15 Data 10/11/23 05:24 10/11/23 05:24 A&P Assessment and plan (1) Status post lumbar spinal fusion: Based on the fact patient appears very overmedicated will discontinue narcotics except for oxycodone. Discontinue Dilaudid, morphine, OxyContin. I also discontinued baclofen. If she needs something for spasms would recommend Robaxin. Encouraged incentive spirometry for pulmonary toilet. High risk of bleeding continue with SCDs for DVT prophylaxis. When the patient wakes up and becomes less overmedicated she is okay from orthopedic standpoint to discharge to a swing bed for increased rehab. Will see her back in the office in 2 weeks time for wound check. Attestations 2 Medical Necessity Statement*: Defer to the hospitalist team Coding Level of Care Code Acute Code for Chg Fwd Diagnoses Status post lumbar spinal fusion Z98.1
[2023-10-11] MEDS: lidocaine 1% 5 ML in potassium chloride premix 100 ML 26.25 ML IV (07:44)
[2023-10-11] MEDS: oxyCODONE-APAP 5-325 mg Tablet PO ×2 (08:17→12:32)
[2023-10-11] MEDS: acetaZOLAMIDE 250 mg Tablet 500 MG PO (08:18)
[2023-10-11] MEDS: venlafaxine ER (24HR) 150 mg Capsule PO (08:18)
[2023-10-11] MEDS: donepezil 5 MG Tablet PO (08:18)
[2023-10-11] MEDS: docusate sodium 100 mg Capsule PO (08:19)
[2023-10-11] MEDS: phosphorus 250 mg Tablet 500 MG PO ×2 (08:19→10:09)
[2023-10-11] MEDS: cholecalciferol (vitamin D3) 5,000 unit Tablet 10000 UNIT PO (08:19)
[2023-10-11] MEDS: atenolol 50 mg Tablet 25 MG PO (08:20)
[2023-10-11] MEDS: ziprasidone hcl 20 mg Capsule 60 MG PO (08:26)
--- NOTE | 2023-10-11 08:43 | PC.NURSE ---
patient drank chocolate milk for breakfast, ml
--- NOTE | 2023-10-11 09:34 | PC.NURSE ---
patient drank 500 ml water
[2023-10-11] MEDS: potassium chloride ER 20 mEq Tablet 40 MEQ PO (10:09)
[2023-10-11] MEDS: FUROsemide 10 mg/mL SDV 4mL 40 MG IVP (10:10)
--- NOTE | 2023-10-11 11:50 | PC.NURSE ---
Patient drank 600 ml from water pitcher
--- NOTE | 2023-10-11 13:15 | USCV_ITS ---
Guera Clement Age: 57 Gender: F : 1965 Exam Date: 10/11/2023 13:54 Ordering Phys: Evie Hancock MD Technologist: Cory De La Garza [place] [facility] [place]: lt leg pain and swelling PROCEDURES: The venous duplex Doppler examination of both lower extremities was performed in the standard fashion. The following venous structures were evaluated: common femoral vein, profunda vein, proximal portion of the greater saphenous vein, superficial femoral vein, and the popliteal vein. In addition, the posterior tibial and peroneal trunk were evaluated. FINDINGS: lt leg dvt in lt perineal trunk, rt leg is normal CONCLUSIONS DVT LEFT Peroneal trunk No DVT RIGHT lower extremity Prelim to provider at time of exam by dye range tender Brandon Arechiga MD (Electronically Signed) Final Date: 11 October 2023 15:38 S
--- NOTE | 2023-10-11 13:16 | P.PN_ITS ---
Subjective 2 Subjective: The patient stated that she did well today b/c she was able to use the walker to walk to the bathroom & brush her teeth. The patient is upset about being fluid restricted after she was given Lasix this AM. She apparently drinks 7-8 bottles of Coca-Cola, copious amounts of water, and copious amount of chocolate milkshakes. The patient was informed that she should to cut down on the amount that she is drinking, because it is contributing to her edema. I also informed the patient, that we will no longer restrict her fluid intake, because she is an adult, but it would be important for her to monitor the amount that she is drinking. Patient has also agreed to go to [facility] b/c her family cannot take care of her. Per my discussion w/ the Orthopedic surgery staff, they also spoke with the patient about going to a swing bed. Vitals/I&O/Wt Last Vital Signs Temp 97.6 F 10/11/23 11:39 Pulse 67 10/11/23 11:39 Resp 19 H 10/11/23 12:32 BP 104/66 10/11/23 11:39 Pulse Ox 95 10/11/23 11:39 O2 Del Method Room Air 10/11/23 11:39 O2 Flow Rate 6 10/07/23 12:15 10/10/23 10/11/23 10/11/23 22:59 06:59 14:59 Intake Total 120 / 800 740 / 1540 1740 / 1740 Output Total 2600 / 3200 1500 / 4700 2400 / 2400 Balance -2480 / -2400 -760 / -3160 -660 / -660 Weight last 48 hrs Weight 99.422 kg Weight 101.406 kg Physical Exam 2 Const: GENERAL APPEARANCE: cooperative and comfortable NUTRITIONAL APPEARANCE: obese ORIENTATION/CONSCIOUSNESS: Yes awake, Yes oriented to person, Yes oriented to place and Yes oriented to time HENMT: COMMON NORMALS: normocephalic, atraumatic and external ears normal H EAD & SCALP: normocephalic and atraumatic EXTERNAL EAR: Yes external ears normal MOUTH: Normal oral and palatal mucosa present THROAT: posterior oropharynx normal Eye: COMMON NORMALS: Equal, round and reactive pupils present and conjunctivae normal CONJUNCTIVA: Yes conjunctivae normal PUPIL: Yes Equal, round and reactive pupils present EOM: No EOM abnormal Neck/C-Spine: COMMON NORMALS: Thyroid normal GENERAL: Yes normal visual inspection and Yes trachea midline THYROID: Thyroid normal CAROTIDS: No bruit Lymph: LYMPHATIC: No lymphadenopathy Resp: COMMON NORMALS: clear to auscultation bilaterally AUSCULTATION: clear to auscultation bilaterally, no crackles, no rales, no rhonchi and no wheezes Cardio: COMMON NORMALS: regular rate, regular rhythm, S1 normal heart sound present and S2 normal heart sound present RATE: regular rate RHYTHM: r egular rhythm HEART SOUNDS: S1 normal heart sound present, S2 normal heart sound present, no click and no gallops BRUITS: no carotid bruits P ERIPHERAL PULSES: radial pulses present and popliteal pulses present GI: OTHER: BS positive, nontender, nondistended, no hepatosplenomegaly. Extremity: NARRATIVE EXTREMITY EXAM: 2+ bilateral pitting edema, but no clubb ing or cyanosis noted. Neuro: SENSORIUM/ORIENTATION: Yes oriented to person, Yes oriented to place and Yes oriented to time CRANIAL NERVES: Yes CN normal except as noted S PEECH: speech normal SENSORY EXAM: No sensory level loss detected MOTOR EXAM: 5/5 motor strength present throughout and Abnormal muscle tone present Psych: COMMON NORMALS: speech normal APPEARANCE: Yes grossly normal A TTITUDE: Yes calm, Yes engaged and Yes Other attitude/behavior findings present (Psych) (Loquacious) ACTIVITY/MOTOR BEHAVIOR: Yes appropriate eye contact SPEECH: Yes normal speech MOOD & AFFECT: Yes euthymic mood A TTENTION/CONCENTRATION: Yes attention grossly intact MEMORY/COGNITION: Yes memory grossly intact Urinary Catheter Management: Alcaraz: Cath Placed During This Visit: yes, but has since been removed by the nurse Reason for Continuing Indwelling Catheter: Decision to DC Catheter Urinary Catheter Date of Insertion: 10/07/23 Urinary Catheter Time of Insertion: 07:30 Date Urinary Catheter Removed: 10/08/23 Time Urinary Catheter Discontinued: 06:15 Data 10/11/23 05:24 10/11/23 13:24 A&P Assessment and plan (1) Generalized anxiety disorder: (2) Bipolar 2 disorder: (3) Essential hypertension: (4) Dyslipidemia: (5) Fibromyalgia: (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 Clement is a 57yo woman w/ Bipolar II d/o, Generalized Anxiety d/o, Fibromyalgia, HTN, HLD, and a hx of L4-L5 posterior spinal fusion, who presented to the ED on 10/05/2023 with complaints of 3 days of worsening lower back pain and b/l lower extremity weakness. In the ED, based on findings of the CT L- spine, the orthopedic surgeon on-call, Dr. Do, was consulted, who recommended an MRI of the spine. The patient was admitted, and on admission, the MRI showed grade 1-2 anterolisthesis of L3 on L4 with moderate to severe spinal canal stenosis at L3-L4. Chronic appearing L4 compression deformity, and grade 1-2 anterior listhesis of C7 on T1 with a superimposed C7-T1 central disc protrusion abutting the anterior cord. The patient is s/p removal of former hardware from the spine, w/ L2-pelvis fusion, L2/3 laminectomy w/ partial facetectomies and diskectomy, L3/L4 laminectomy w/ partial facetectomies for L3-L4 spondylolisthesis & lumbar stenosis with neurogenic claudication on 10/07/2023. Internal medicine was consulted for medical management. Postop, the Orthopedic Surgery service managed her pain medicine regimen. Post-op the patient had a leukocytosis that developed hyponatremia with vol. overload. Her leukocytosis was deemed inflammatory, and started to downtrend by discharge. Her UA was negative and her CXR also showed no acute cardiopulmonary abnormalities. Her hyponatremia was deemed to be due to the large quantity of fluids (7-8 cans of [place], at leas 4 chocolate milkshakes, in addition to at least a 1L jug of water) that she consumes, to the point that one could be worried about psychogenic a psychogenic component to her hyponatremia. She was fixated on her sodium levels. She became upset that the nursing staff advised her to restrict her fluid intake. She was advised by me to stop consuming the quantity of fluid that she was consuming. She was diuresed with Lasix and acetazolamide given development of contraction alkalosis. At home, she was on Lasix 20 mg p.o. daily and HCTZ 25 mg p.o. daily. Her hydrochlorothiazide was discontinued. She will be discharged with Lasix 40 mg p.o and Spironolactone. #Lumbar stenosis with neurogenic claudication s/p L2-pelvis fusion - Orthopedic surgery managing. Drains removed on 10/09/2023 #Acute hypoxic respiratory failure: On room air since 10/09/2023. #Leukocytosis: At this time, it could be post procedural. Per chart review, she also got some Decadron prior to the surgery, which could also explain the leukocytosis. UA negative. CXR is clear #Hypotonic Hyponatremia: - Held po lasix. Give another dose of Lasix 40mg IVP x 1 with acetazolamide #Chronic venous stasis: Patient on Lasix and HCTZ at home, which may not help her hyponatremia. Lasix 40mg IVP x 1 and acetazolamide. #Contraction alkalosis: #Tranaminitis: Again, unclear etiology. Continue to monitor. #HTN #HLD - Atenolol and Atorvastatin #Bipolar II d/o #Generalized Anxiety d/o #Fibromyalgia - Home Venlafaxine, Lamotrigine, Ziprasidone continued. #Hx of transverse myelitis: when I asked the patient about this history of transverse myelitis, She said, what's that? 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
[2023-10-11 13:50] LABS: Anion Gap 13.2 (5-19); Blood Urea Nitrogen 25 mg/dL (6-20); Calcium 9.5 mg/dL (8.5-10.5); Carbon Dioxide 27 mmol/L (22-29); Chloride 100 mmol/L (98-107); Glomerular Filtration Rate 56.9 mL/min (90-130); Glucose 123 mg/dL (65-115); Osmolality Calculated 290 mOsm/kg (285-295); Potassium 3.2 mmol/L (3.5-5.1); Sodium 137 mmol/L (136-145)
[2023-10-11] MEDS: potassium chloride oral liq 20 mEq/15 mL UDC 60 MEQ PO (13:50)
--- NOTE | 2023-10-11 14:06 | P.DS_ITS ---
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 Clement is a 57yo woman w/ Bipolar II d/o, Generalized Anxiety d/o, Fibromyalgia, HTN, HLD, and a hx of L4-L5 posterior spinal fusion, who presented to the ED on 10/05/2023 with complaints of 3 days of worsening lower back pain and b/l lower extremity weakness. In the ED, based on findings of the CT L- spine, the orthopedic surgeon on-call, Dr. Do, was consulted, who recommended an MRI of the spine. The patient was admitted, and on admission, the MRI showed grade 1-2 anterolisthesis of L3 on L4 with moderate to severe spinal canal stenosis at L3-L4. Chronic appearing L4 compression deformity, and grade 1-2 anterior listhesis of C7 on T1 with a superimposed C7-T1 central disc protrusion abutting the anterior cord. The patient is s/p removal of former hardware from the spine, w/ L2-pelvis fusion, L2/3 laminectomy w/ partial facetectomies and diskectomy, L3/L4 laminectomy w/ partial facetectomies for L3-L4 spondylolisthesis & lumbar stenosis with neurogenic claudication on 10/07/2023. Internal medicine was consulted for medical management. Postop, the Orthopedic Surgery service managed her pain medicine regimen. Post-op the patient had a leukocytosis that developed hyponatremia with vol. overload. Her leukocytosis was deemed inflammatory, and started to downtrend by discharge. Her UA was negative and her CXR also showed no acute cardiopulmonary abnormalities. Her hyponatremia was deemed to be due to the large quantity of fluids (7-8 cans of [place], at leas 4 chocolate milkshakes, in addition to at least a 1L jug of water) that she consumes, to the point that one could be worried about psychogenic a psychogenic component to her hyponatremia. She was fixated on her sodium levels. She became upset that the nursing staff advised her to restrict her fluid intake. She was advised by me to stop consuming the quantity of fluid that she was consuming. She was diuresed with Lasix and acetazolamide given development of contraction alkalosis. At home, she was on Lasix 20 mg p.o. daily and HCTZ 25 mg p.o. daily. Her hydrochlorothiazide was discontinued. She will be discharged with Lasix 40 mg p.o and Spironolactone. On the day of discharge, the patient the patient complained of a L >R lower extremity. A STAT bilateral lower extremity US was obtained that showed a thrombus in the Left peroneal artery. This was also communicated with her orthopedic surgery team, who is in agreement with starting the patient on Apixaban BID. #New Provoked L. Peroneal artery DVT: Start Apixaban 10mg po BID x 7 days then 5mg po BID. #Lumbar stenosis with neurogenic claudication s/p L2-pelvis fusion - Orthopedic surgery managing. Drains removed on 10/09/2023 #Acute hypoxic respiratory failure: On room air since 10/09/2023. #Leukocytosis #Hypotonic Hyponatremia #Chronic venous stasis #Contraction alkalosis #Tranaminitis:Unclear etiology. Follow up with the PCP outpatien. #HTN #HLD - Atenolol and Atorvastatin #Bipolar II d/o #Generalized Anxiety d/o #Fibromyalgia - Home Venlafaxine, Lamotrigine, Ziprasidone continued. Physical Exam Const: GENERAL APPEARANCE: cooperative and comfortable NUTRITIONAL APPEARANCE: obese ORIENTATION/CONSCIOUSNESS: Yes awake, Yes oriented to person, Yes oriented to place and Yes oriented to time HENMT: COMMON NORMALS: normocephalic, atraumatic and external ears normal HEAD & SCALP: normocephalic and atraumatic EXTERNAL EAR: Yes external ears normal MOUTH: Normal oral and palatal mucosa present THROAT: posterior oropharynx normal Eye: COMMON NORMALS: Equal, round and reactive pupils present and conjunctivae normal CONJUNCTIVA: Yes conjunctivae normal PUPIL: Yes Equal, round and reactive pupils present EOM: No EOM abnormal Neck/C-Spine: COMMON NORMALS: Thyroid normal GENERAL: Yes normal visual inspection and Yes trachea midline THYROID: Thyroid normal CAROTIDS: No bruit Lymph: LYMPHATIC: No lymphadenopathy Resp: OTHER: CTAB, with no wheezes rales or rhonchi. Cardio: OTHER: Regular rate and rhythm with 2/6 systolic murmurs in all 4 valves. No gallops, rubs or clicks. GI: OTHER: 2+ bilateral pitting edema, but no clubb ing or cyanosis noted. Extremity: NARRATIVE EXTREMITY EXAM: b/l 2+ pitting edema to the upper tibia, but the Left leg is bigger than the Right leg. Neuro: SENSORIUM/ORIENTATION: Yes oriented to person, Yes oriented to place and Yes oriented to time CRANIAL NERVES: Yes CN normal except as noted SPEECH: speech normal MOTOR EXAM: 5/5 motor strength present throughout and Normal motor muscle tone present throughout Psych: APPEARANCE: Yes grossly normal ATTITUDE: Yes aggressive ACTIVITY/MOTOR BEHAVIOR: Yes appropriate eye contact SPEECH: Yes excessive and Yes rapid MOOD & AFFECT: Yes irritable Skin: NARRATIVE SKIN EXAM: Her back had gauze covering her surgical incision. Urinary Catheter Management: [place]: Cath Placed During This Visit: yes, but has since been removed by the nurse Reason for Continuing Indwelling Catheter: Decision to DC Catheter Urinary Catheter Date of Insertion: 10/07/23 Urinary Catheter Time of Insertion: 07:30 Date Urinary Catheter Removed: 10/08/23 Time Urinary Catheter Discontinued: 06:15 Discharge Data Studies Completed and Pending Completed Studies During Hospitalization Category Date Time Status CT lumbar spine wo con* [id number] Stat Cat Scan 10/05/23 14:08 Completed CXRP [XR chest 1V portable [id number]] Routine Exams 10/10/23 06:00 Completed XR lumbar spine 2-3V* [id number] Routine Exams 10/07/23 Completed MR lumbar spine wo con* [id number] Stat MRI 10/06/23 07:00 Completed Pending at discharge Category Date Time Status CBC Auto Diff [Complete Blood Count w/Auto] AM LABS Lab 10/12/23 04:00 Ordered CMP [Comprehensive Metabolic Panel] AM LABS Lab 10/12/23 04:00 Ordered US venous duplex lower extremity bilat [CV venous Ultrasound 10/11/23 13:15 [place] [id number]] Stat Radiology Impressions Lumbar Spine MRI 10/06/23 07:00 IMPRESSION: 1. Status post posterior spinal fusion at L4-L5. 2. Grade 1 to grade 2 anterolisthesis of L3 on L4. There is moderate to severe spinal canal stenosis at L3-L4. Please see above for specific findings at each level. 3. Chronic appearing L4 compression deformity. 4. Grade 1 to grade 2 anterolisthesis of C7 on T1 noted on the survey images with a superimposed C7-T1 central disc protrusion abutting the anterior cord. Dedicated cervical spine imaging should be considered if not done previously. Chest X-Ray 10/10/23 06:00 IMPRESSION: No acute findings. Laboratory Results WBC 12.57 10^3/uL (3.29-11.43) H 10/11/23 05:24 RBC 2.83 10^6/uL (3.85-5.65) L 10/11/23 05:24 Hgb 9.20 g/dL (11.27-16.99) L 10/11/23 05:24 Hct 27.7 % (36-47) L 10/11/23 05:24 MCV 97.9 fl (85-98) 10/11/23 05:24 MCH 32.5 pg (27-33) 10/11/23 05:24 MCHC 33.2 g/dL (30-55) 10/11/23 05:24 RDW 14.4 % (12.1-15.1) 10/11/23 05:24 Plt Count 262 10^3/cmm (157-399) 10/11/23 05:24 MPV 9.3 fL (7.4-10.4) 10/11/23 05:24 Neut % (Auto) 69.1 % 10/11/23 05:24 Lymph % (Auto) 13.6 % 10/11/23 05:24 [place] % (Auto) 10.7 % 10/11/23 05:24 Eos % (Auto) 1.4 % 10/11/23 05:24 Baso % (Auto) 0.7 % 10/11/23 05:24 Neut # (Auto) 8.70 10^3/uL (1.8-7.7) H 10/11/23 05:24 Lymph # (Auto) 1.7 10^3/uL (0.8-4.8) 10/11/23 05:24 [place] # (Auto) 1.3 10^3/uL (0.2-0.9) H 10/11/23 05:24 Eos # (Auto) 0.2 10^3/uL (0.0-0.8) 10/11/23 05:24 Baso # (Auto) 0.1 10^3/uL (0.0-0.1) 10/11/23 05:24 Nucleated RBC % (auto) 0.5 % 10/11/23 05:24 Nucleated RBCs # 0.1 /100WBC 10/11/23 05:24 ESR 4 mm/hr (0-15) 10/05/23 16:47 Sodium 137 mmol/L (136-145) 10/11/23 13:24 Potassium 3.2 mmol/L (3.5-5.1) L 10/11/23 13:24 Chloride 100 mmol/L (98-107) 10/11/23 13:24 Carbon Dioxide 27 mmol/L (22-29) 10/11/23 13:24 Anion Gap 13.2 (5-19) 10/11/23 13:24 BUN 25 mg/dL (6-20) H 10/11/23 13:24 Creatinine 1.0 mg/dL (0.5-0.9) H 10/11/23 13:24 GFR Calculation 56.9 mL/min (90-130) L 10/11/23 13:24 Glucose 123 mg/dL (65-115) H 10/11/23 13:24 Estimat Average Glucose 123 10/05/23 16:47 Hemoglobin A1c 5.9 % (4.0-6.0) 10/05/23 16:47 Serum Osmolality 258 mOsm/kg (278-305) L 10/08/23 05:02 Calculated Osmolality 290 mOsm/kg (285-295) 10/11/23 13:24 Calcium 9.5 mg/dL (8.5-10.5) 10/11/23 13:24 Phosphorus 2.4 mg/dL (2.5-4.5) L 10/11/23 05:24 Magnesium 2.3 mg/dL (1.7-2.3) 10/11/23 05:24 Total Bilirubin 0.3 mg/dL (0.15-1.2) 10/11/23 05:24 AST 34 U/L (0-32) H 10/11/23 05:24 ALT 44 U/L (0-33) H 10/11/23 05:24 Alkaline Phosphatase 79 U/L (35-105) 10/11/23 05:24 C-Reactive Protein 4.5 mg/L (0.0-4.9) 10/05/23 16:47 Total Protein 6.1 g/dL (6.6-8.7) L 10/11/23 05:24 Albumin 3.4 g/dL (3.5-5.2) L 10/11/23 05:24 Globulin 2.7 g/dL (1.3-4.6) 10/11/23 05:24 Procalcitonin 0.02 ng/mL (0-0.5) 10/05/23 16:47 TSH 1.30 uIU/mL (0.27-4.20) 10/05/23 16:47 Urine Color Colorless (Yellow) 10/10/23 00:47 Urine Appearance Clear (CLEAR) 10/10/23 00:47 Urine pH 7 (5-7) 10/10/23 00:47 Ur Specific [place] 1.005 (1.005-1.030) 10/10/23 00:47 Urine Protein Neg (Negative) 10/10/23 00:47 Urine Glucose (UA) Norm (Normal) 10/10/23 00:47 Urine Ketones Negative (Negative) 10/10/23 00:47 Urine Blood Neg (Negative) 10/10/23 00:47 Urine Nitrate Negative (Negative) 10/10/23 00:47 Urine Bilirubin Neg (Negative) 10/10/23 00:47 Urine Urobilinogen Neg mg/dL (Negative) 10/10/23 00:47 Ur Leukocyte Esterase Negative (Negative) 10/10/23 00:47 Urine Osmolality 170 mOsm/kg (50-1200) 10/08/23 12:55 Ur Random Sodium < 10 mmol/L 10/08/23 12:55 Blood Type A Positive 10/07/23 07:09 Rho(D) Type Rh positive 10/07/23 07:09 Antibody Screen Negative 10/07/23 07:09 Crossmatch See Detail 10/07/23 07:09 Vitals Last Vital Signs Temp 97.6 F 10/11/23 11:39 Pulse 67 10/11/23 11:39 Resp 19 H 10/11/23 12:32 BP 104/66 10/11/23 11:39 Pulse Ox 95 10/11/23 11:39 O2 Del Method Room Air 10/11/23 11:39 O2 Flow Rate 6 10/07/23 12:15 Discharge Plan Discharge Patient Disposition: Xfer SNF Condition: Stable Prescriptions: New Lasix 40 mg tablet 20 mg PO DAILY Qty: 30 0RF spironolactone 25 mg tablet 12.5 mg PO DAILY Qty: 14 0RF Eliquis DVT-PE Treat 30D Start 5 mg (74 tabs) tablets,dose pack 10 mg PO BID Qty: 74 0RF Rx Instructions: Take 10mg twice a day for 7 days, then continue to take 5 mg twice a day afterwards. Continued cholecalciferol (vitamin D3) 10,000 unit capsule 10,000 unit PO DAILY (DME) Spectrum AFO to right See Rx Instructions .Route .MEDSUPPLY Qty: 1 0RF Rx Instructions: As directed by JAKE&O alprazolam 1 mg tablet 1 mg PO TID PRN (Reason: anxiety) 30 Days Qty: 90 2RF ziprasidone HCl [Geodon] 60 mg capsule 60 mg PO BID Qty: 60 2RF Rx Instructions: give with food (meal/snack) venlafaxine [Effexor XR] 150 mg capsule,extended release 24hr 150 mg PO DAILY Qty: 30 2RF amitriptyline 100 mg tablet 200 mg PO DAILY Qty: 60 2RF (DME) Supinator to the right foot See Rx Instructions .Route .MEDSUPPLY Qty: 1 0RF Rx Instructions: As directed atenolol 25 mg tablet 25 mg PO DAILY Qty: 90 1RF donepezil [Aricept] 5 mg tablet 5 mg PO DAILY Qty: 90 1RF atorvastatin 10 mg tablet 10 mg PO DAILY estradiol 0.5 mg tablet 0.5 mg PO DAILY docusate sodium [Stool Softener] 100 mg Capsule 100 mg PO DAILY psyllium husk [Metamucil] 0.4 gram Capsule 0.4 g PO DAILY lamotrigine 200 mg tablet 400 mg PO BEDTIME baclofen 10 mg tablet 10 mg PO Q6H PRN (Reason: Muscle Spasm) Discontinued hydrochlorothiazide 25 mg tablet 25 mg PO QAM Qty: 90 0RF furosemide [Lasix] 20 mg tablet 20 mg PO DAILY Rx Instructions: Take at noon Discharge Orders: Discharge Order (Routine); Ordered 10/11/23 Ordered By: Tobias Mariee Referrals: Jory Ortiz DO [Primary Care Provider] - Zoltan Sidhu DO [Physician] - 10/16/23 1:00 pm Discharge Diet: Advance as tolerated Discharge Activity: Limit activity as instructed Patient Instructions: Opioid Safety Activity Restrictions/Additional Instructions: Thank you for choosing [facility] for your care! The following is a list of instructions, from your provider, to follow upon your discharge to ensure you have the optimal recovery from your recent injury or surgery. Follow-up care is a perez part of your treatment and safety. Be sure to make and go to all appointments and call your doctor if you are having problems. If you do not already have a follow-up appointment made, call Dr. Do's] office in the next 1-3 days to make follow up appointment for [1-2] weeks at [phone]. It is also a good idea to know your test results and keep a list of the medicines you take. Medications will be prescribed for you at your provider's discretion. These medications are to be used as instructed; if they are taken more often that prescribed they will not be refilled early and in most cases will not be refilled at all. > When a refill is needed, you should contact [facility] 2-3 business days before your prescription runs out. Medications will NOT be refilled by senior management consultant providers after hours! > Many pain medications contain Tylenol (Acetaminophen). Do not consume more than 4,000 mg of Tylenol per day in total with any combination of medications. > Pain medications can cause constipation. Please use an over the counter stool softener as directed, while taking pain medications. Consult your local pharmacist with questions or recommendations on stool softeners. If constipation persists, contact our office or your primary care provider. > While under our care, you are not to receive pain medications or other controlled substances from any other provider unless our office is notified and approves. Any attempts to do so will result in refusal to prescribe any further pain medications and possible dismissal from our practice. ? Walking is essential for the healing process after surgery. We would like you to slowly advance your walking. This should be done on relatively flat clear ground (inside or out) or can be done on a treadmill. Remember this goal does not have to happen all at once, slowly increase your distance and duration. This can be broken into more more than one walk per day as tolerated. Patients who walk as directed after surgery rarely require Physical Therapy. In the unlikely event this issue arises your provider will direct hospital staff to make the appropriate arrangements. ? No lifting over 5 pounds {a gallon of milk) or bending/twisting until further notice. Each of these activities places an unnecessary amount of stress onto the body and can impede the delicate healing process. > Instead of bending at the waist, keep your back straight and bend at the knees. > Instead of twisting your torso, keep your back straight and turn your entire body with your feet. ? You may sleep in any position which makes you comfortable. Many patients find comfort sleeping in a reclining chair. It is not abnormal to have difficulty sleeping for the first several weeks following your surgery. We recommend trying Benadry! or Tylenol PM as directed to help with your sleeping difficulties. Both medications are over the counter and available without prescription. ? NO SMOKING!!! Smoking dramatically increases the probability of developing postoperative wound infections. ? Common complaints after lumbar and/or thoracic spine surgery include, but are not limited to: numbness and/or tingling in the legs, pain around the incision and surrounding tissues, muscle spasms, or stiffness of the middle to low back. Contact our office if these symptoms persist or if an acute change occurs. ? No driving for the first 3-5days, and not while taking narcotics until seen at your follow-up appointment and cleared. There are no restrictions for riding on short trips, however if you take a longer trip, arrangements should be made to make regular stops to get out of the vehicle and stretch . ? Swelling is an unfortunate event that will take place with any surgery and is the primary source of your postoperative discomfort. While walking and regular approved activities helps control inflammation, there are additional steps you can take to minimize swelling. > Place ice over the surgical site and surrounding tissue for twenty minutes, followed by applying a low/medium heat (heating pad) for an additional twenty minutes every 1-2 hours as needed for painrelief. > You may use of over the counter anti-inflammatory medications (Ibuprofen, Motrin, Aleve, Advil, etc) as directed on the package label. These types of medicines will significantly reduce the amount of discomfort you experience after surgery from swelling. It should be noted that if you have and allergy to any of these medications, or a history of ulcers or kidney disease you should consult you primary care provider prior to starting these medications. 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
[2023-10-11] MEDS: oxyCODONE-APAP 5-325 mg Tablet 1 TAB PO (14:28)
[2023-10-11] MEDS: apixaban 5 mg Tablet 10 MG PO (14:46)
== END 2023-10-11 15:31 | DRG 453 ==
LOC: ER 16:27 → MEDSURG 16:42
PROVIDERS: Family Medicine; Internal Medicine; Admitting Provider Orthopaedic Surgery; Emergency Provider Physician Assistant; PCP Family Medicine; Visit Provider Orthopaedic Surgery
PROC: 0SG107J Fusion of 2 or more Lumbar Vertebral Joints with Autologous Tissue Substitute, Posterior Approach, Anterior Column, Open Approach (ICD-10-PCS; principal; 2023-10-07 07:00)
PROC: 0SG107J Fusion of 2 or more Lumbar Vertebral Joints with Autologous Tissue Substitute, Posterior Approach, Anterior Column, Open Approach (ICD-10-PCS; CPT 63005; 2023-10-07 07:00)
DX: M48.062 Spinal stenosis, lumbar region with neurogenic claudication (principal); J96.01 Acute respiratory failure with hypoxia; F31.81 Bipolar II disorder; E87.1 Hypo-osmolality and hyponatremia; E87.3 Alkalosis; I82.452 Acute embolism and thrombosis of left peroneal vein; D62 Acute posthemorrhagic anemia; M43.16 Spondylolisthesis, lumbar region; M51.26 Other intervertebral disc displacement, lumbar region; F41.1 Generalized anxiety disorder; I10 Essential (primary) hypertension; E78.5 Hyperlipidemia, unspecified; M79.7 Fibromyalgia; E87.70 Fluid overload, unspecified; D72.829 Elevated white blood cell count, unspecified; I87.8 Other specified disorders of veins; Z79.890 Hormone replacement therapy; F17.290 Nicotine dependence, other tobacco product, uncomplicated; M50.23 Other cervical disc displacement, cervicothoracic region; G89.29 Other chronic pain; M51.17 Intervertebral disc disorders with radiculopathy, lumbosacral region; R29.6 Repeated falls; Z98.1 Arthrodesis status
CPT/HCPCS: 36415; 51702; 71045; 72100; 72131; 72148; 76000; 80048; 80053; 81003; 83036; 83735; 83930; 83935; 84100; 84145; 84300; 84443; 85025; 85651; 86140; 86850; 86900; 86920; 93970; 96372; 96374; 96375; 97110; 97116; 97162; 97165; 97530; 97535; 99285; A9281; C1713; C1762; C9113; J0131; J0330; J0690; J1100; J1170; J1644; J1650; J1885; J1940; J2405; J2704; J3010; J3370; J3480; J3490; J7030; J7120; P9047

== ENCOUNTER → 2023-10-31 09:22 | Outpatient (BNVA) | payer MEDICAID, SELFPAY | PROVIDERS: PCP Family Medicine; Visit Provider Physician Assistant | DX: Z98.1 Arthrodesis status (principal); M54.41 Lumbago with sciatica, right side; M54.42 Lumbago with sciatica, left side; G89.29 Other chronic pain | CPT/HCPCS: 72100; 99024 ==

== ENCOUNTER → 2023-11-29 14:28 | Outpatient (BNVA) | payer MEDICAID, SELFPAY | PROVIDERS: PCP Family Medicine; Visit Provider Orthopaedic Surgery | DX: Z98.1 Arthrodesis status; Z47.89 Encounter for other orthopedic aftercare; M79.605 Pain in left leg; M79.89 Other specified soft tissue disorders; G89.18 Other acute postprocedural pain; Z79.01 Long term (current) use of anticoagulants | CPT/HCPCS: 72100; 99024; 99214 ==

== ENCOUNTER 2023-11-30 12:49 | Outpatient (CLI) | payer MEDICAID, SELFPAY ==
--- NOTE | 2023-11-30 13:30 | USCV_ITS ---
Guera Clement Age: 57 Gender: F : 1965 Exam Date: 11/30/2023 13:30 Ordering Phys: Nehemias Do DO Technologist: CT Exam Location: [facility] [place] Indication: swelling,lt PROCEDURES: Venous duplex imaging was performed in only the left lower extremity. On the left side, the common femoral, superficial femoral, profunda femoral, popliteal, posterior tibial, greater saphenous veins, and the peroneal trunk were identified and interrogated in the standard fashion. FINDINGS: Normal 2-D Doppler and augmentation and compressibility throughout the lower extremity venous structures. Additional imaging through the proximal calf veins also reveals no thrombus. Limited evaluation of the greater saphenous vein is patent with no thrombus. CONCLUSIONS No DVT left lower extremity. Dr. Kanchan Figueredo DO (Electronically Signed) Final Date: 30 November 2023 15:35 S
== END 2023-11-30 12:50 | disposition home or self-care (01) ==
LOC: RAD 12:49
PROVIDERS: PCP Family Medicine; Visit Provider Orthopaedic Surgery
DX: G89.18 Other acute postprocedural pain (principal); M79.662 Pain in left lower leg; M79.89 Other specified soft tissue disorders
CPT/HCPCS: 93971

== ENCOUNTER → 2023-12-20 15:13 | Outpatient (BNVA) | payer MEDICAID, SELFPAY | PROVIDERS: PCP Family Medicine; Visit Provider Family Medicine | DX: Z13.6 Encounter for screening for cardiovascular disorders (principal); R60.0 Localized edema | CPT/HCPCS: 80053 ==

== ENCOUNTER 2023-12-21 10:49 | Outpatient (CLI) | payer MEDICAID, SELFPAY ==
--- NOTE | 2023-12-21 15:30 | CT_ITS ---
WS: [id number] CT LUMBAR SPINE TECHNIQUE: Noncontrast CT of the lumbar spine with coronal and sagittal reformatted images. CLINICAL INFORMATION: back pain COMPARISON: None. DLP: 860.[address] scans at [facility] use at least one of these dose optimization techniques: automated e xposure control; mA and/or kV adjustment per patient size (includes targeted exams where dose is matc hed to clinical indication); or iterative reconstruction. FINDINGS: Mild lumbar curve. No acute compression. Pedicle screw fixation L2-S1 with sacroiliac fixation screws . Dorsal interconnecting rods appear intact. No evidence of screw loosening. Laminectomy defects L2-L 5. Spinal canal is patent. Seroma in the subcutaneous soft tissues along the incision. Interbody fusi on graft L4-5 with minimal evidence of bony bridging beyond the confines of the graft. Disc space reagan rowing worse at L2-L3 and L3-L4. Slight anterolisthesis L4 on L5 appears stable. Improved anterolisth esis L3 on L4. L1-L2: Slight retrolisthesis L1 on L2. Mild central canal stenosis. Mild disc bulge with a shallow ce ntral protrusion. Mild bilateral foraminal narrowing. Mild facet arthropathy. L2-L3: Slight retrolisthesis. Laminectomy defects. Mild facet arthropathy. Mild LEFT greater than RIG HT bony foraminal narrowing. L3-L4: Laminectomy defects. Disc space narrowing with endplate degenerative changes. Mild LEFT and no significant RIGHT foraminal narrowing. L4-L5: Laminectomy defects. Spinal canal and foramen are patent. L5-S1: Shallow central disc bulging. Spinal canal and foramen are patent. Moderate facet arthropathy. Slight effacement of the ventral thecal sac. Adrenal glands are normal. Lobulated kidneys bilaterally with nonspecific increased attenuation RIGHT renal lesion measuring 2.8 cm anteriorly. Neoplasm not excluded. Recommend further evaluation with u ltrasound or contrast-enhanced CT abdomen pelvis. Smaller increased attenuation lesions bilaterally l ikely small hemorrhagic or proteinaceous cysts. No prior renal imaging. IMPRESSION: 1. Pedicle screw fixation L2-S1 with bilateral sacroiliac fixation screws. No evidence of hardware l oosening. 2. Interconnecting rods appear intact. 3. Wide laminectomy defects in the lumbar spine. 4. Mild central canal stenosis L1-2 with a small central disc protrusion and moderate facet arthropa thy. 5. Subcutaneous fluid collection likely seroma along the dorsal incision site. 6. Indeterminant 2.8 cm solid-appearing anterior RIGHT renal lesion recommend further evaluation wit h ultrasound or contrast-enhanced CT abdomen pelvis. Renal neoplasm not excluded. Smaller bilateral i ncreased attenuation lesions likely hemorrhagic or proteinaceous cysts but technically indeterminate.
== END 2023-12-21 10:50 | disposition home or self-care (01) ==
LOC: RAD 10:49
PROVIDERS: PCP Family Medicine; Visit Provider Orthopaedic Surgery
DX: Z98.1 Arthrodesis status (principal)
CPT/HCPCS: 72131

== ENCOUNTER → 2023-12-28 11:16 | Outpatient (BNVA) | payer MEDICAID, SELFPAY | PROVIDERS: PCP Family Medicine; Visit Provider Orthopaedic Surgery | DX: Z98.1 Arthrodesis status (principal) | CPT/HCPCS: 99024 ==

== ENCOUNTER → 2024-01-14 13:59 | Outpatient (BNVA) | payer MEDICAID, SELFPAY | PROVIDERS: PCP Family Medicine; Visit Provider Family Medicine | DX: R60.0 Localized edema (principal) | CPT/HCPCS: 80053 ==

== ENCOUNTER 2024-01-21 14:52 | Outpatient (CLI) | payer MEDICAID, SELFPAY ==
--- NOTE | 2024-01-21 15:00 | US_ITS ---
WS: [id number] ULTRASOUND RENAL TECHNIQUE: Ultrasound examination of both kidneys. CLINICAL INFORMATION: New right renal lesion COMPARISON: None. FINDINGS: Technically difficult study. RIGHT: RIGHT kidney is poorly visualized. Previously described RIGHT renal lesion seen on the lumbar spine C T not able to be visualized on this study Right kidney measures: 10.4 cm x 5.8 cm x 5.9 cm. LEFT: Small hemorrhagic or complex cysts upper pole LEFT kidney measuring 1 to 2 cm. Left kidney is normal in size and appearance. Echogenicity: Normal. Cortical thickness: 1.0 cm; Normal. Hydronephrosis: None. Perinephric fluid: None. Left kidney measures: 11.7 cm x 4.7 cm x 5.5 cm. Normal visualized aorta. IMPRESSION: Limited and technically difficult study due to inability to lie down and body habitus. 1. RIGHT kidney is not well visualized. Masslike lesion in the RIGHT kidney seen on the prior lumbar spine CT is not able to be visualized. Recommend further evaluation with contrast-enhanced CT abdome n pelvis. Neoplasm is not excluded based on the prior imaging appearance. 2. No hydronephrosis in the LEFT kidney. Small hemorrhagic or complex cysts upper pole LEFT kidney m easuring 1 to 2 cm. 3. Normal bladder.
== END 2024-01-21 14:53 | disposition home or self-care (01) ==
LOC: RAD 14:52
PROVIDERS: PCP Family Medicine; Visit Provider Family Medicine
DX: N28.9 Disorder of kidney and ureter, unspecified (principal); N28.1 Cyst of kidney, acquired
CPT/HCPCS: 76770

== ENCOUNTER → 2024-02-07 13:35 | Outpatient (BNVA) | payer MEDICAID, SELFPAY | PROVIDERS: PCP Family Medicine; Visit Provider Orthopaedic Surgery | DX: M48.062 Spinal stenosis, lumbar region with neurogenic claudication (principal); Z98.1 Arthrodesis status | CPT/HCPCS: 72100; 99213 ==

== ENCOUNTER 2024-02-11 12:40 | Outpatient (CLI) | payer MEDICAID, SELFPAY ==
--- NOTE | 2024-02-11 14:00 | CTR_ITS ---
PROCEDURE INFORMATION: Exam: CT Abdomen And Pelvis With Contrast Exam date and time: 02/11/2024 2:15 PM Age: 58 years old Clinical indication: Abnormal findings; Abnormal radiologic finding of the abdomen; Radiologic exam and body structure: CT L spine; Prior surgery; Surgery date: 6+ months; Surgery type: Ls pine; Patient HX: 6. Indeterminant 2.8 cm solid-appearing anterior right renal lesion recommend further evaluation. With ultrasound or contrast-enhanced CT abdomen pelvis. Renal neoplasm not excluded. Smaller. Bilateral increased attenuation lesions likely hemorrhagic or proteinaceous cysts but technically. Indeterminate. CT 12/21/23; Additional info: Renal mass, right TECHNIQUE: Imaging protocol: Computed tomography of the abdomen and pelvis with contrast. Radiation optimization: All CT scans at this facility use at least one of these dose optimization techniques: automated exposure control; mA and/or kV adjustment per patient size (includes targeted exams where dose is matched to clinical indication); or iterative reconstruction. Contrast material: OMNI 350; Contrast volume: 100 ml; Contrast route: INTRAVENOUS (IV); COMPARISON: CR XR KUB [id number] 06/22/2018 7:44 AM RADIATION DOSE METRICS: Total DLP (mGy-cm): 808.77 FINDINGS: Liver: Normal. No mass. Gallbladder and bile ducts: Normal. No calcified stones. No ductal dilation. Pancreas: Normal. No ductal dilation. Spleen: Normal. No splenomegaly. Adrenal glands: Normal. No mass. Kidneys and ureters: The 3.6 cm oval area of slightly diminished attenuation in the right upper pole does not enhance when compared to the recent CT of the lumbar spine on 12/21/2023. Ideally today's study would have contained unenhanced, immediate enhanced, and delayed contrast-enhanced images all of the right kidney. That was not done. Based on the limited information available this is probably a cyst. Ultrasound is recommended. Stomach and bowel: Unremarkable. No obstruction. No mucosal thickening. Appendix: No evidence of appendicitis. Intraperitoneal space: Unremarkable. No free air. No significant fluid collection. Vasculature: Unremarkable. No abdominal aortic aneurysm. Lymph nodes: Unremarkable. No enlarged lymph nodes. Urinary bladder: Unremarkable as visualized. Reproductive: Unremarkable as visualized. Bones/joints: Extensive prior lumbar surgery with pedicle screws and rods. Soft tissues: Unremarkable. Other findings: There are additional small cysts scattered bilaterally. CT/CT abdomen pelvis w con* [id number] IMPRESSION: The previously described renal lesion is probably a simple cyst. However this is based on limited information as detailed above. Consider ultrasound for confirmation.
[2024-02-11] MEDS: iohexol 350 mg/mL 500 mL Btl (per mL) PO (14:04)
[2024-02-11] MEDS: iohexol 350 mg/mL 500 mL Btl (per mL) IV (14:25)
== END 2024-02-11 12:41 | disposition home or self-care (01) ==
LOC: RAD 12:41
PROVIDERS: PCP Family Medicine; Visit Provider Family Medicine
DX: N28.89 Other specified disorders of kidney and ureter (principal)
CPT/HCPCS: 74177; Q9967

== ENCOUNTER → 2024-03-20 13:58 | Outpatient (BNVA) | payer MEDICAID, SELFPAY | PROVIDERS: PCP Family Medicine; Visit Provider Family Medicine | DX: R60.0 Localized edema (principal); R06.02 Shortness of breath; I10 Essential (primary) hypertension | CPT/HCPCS: 80048; 83880 ==

== ENCOUNTER 2024-03-27 13:50 | Outpatient (CLI) | payer MEDICAID, SELFPAY ==
--- NOTE | 2024-03-27 14:00 | CT_ITS ---
WS: [id number] CT ABDOMEN AND PELVIS WITH AND WITHOUT CONTRAST HISTORY: Indeterminate RIGHT renal mass. TECHNIQUE: Unenhanced 3 mm axial imaging first performed through the abdomen. Post contrast imaging t hrough the abdomen and pelvis. Oral contrast has not been provided. Sagittal and coronal reformats a re submitted. All CT scans at [place] use at least one of these dose optimization techniqu es: automated exposure control; mA and/or kV adjustment per patient size (includes targeted exams whe re dose is matched to clinical indication); or iterative reconstruction. CONTRAST: Omnipaque 350; 95 mL IV. DLP: 2929.05 mGy.cm COMPARISON: Renal ultrasound 01/21/2024, CT 02/11/2024 CT is performed as per renal mass protocol. RIGHT kidney: Normal size. The well-circumscribed mass in the medial RIGHT kidney which is indetermin ate as previously identified. This mass measures 3.5 x 2.5 cm. Noncontrast Hounsfield units are eleva tasha. On the early postcontrast and delayed postcontrast imaging there is no significant enhancement o f this mass. This is consistent with a complex cyst. This may be a hemorrhagic cyst. There are additi onal similar cortical cysts which are much smaller throughout the kidney. Some of these cannot be justo racterized. Some of these are also of increased attenuation which are probably additional complex/hem orrhagic cysts. There is no obstruction of the kidney. LEFT kidney: Normal size kidney. There are several cortical hyperdense cysts on the noncontrast exam. These do not enhance on the postcontrast imaging. Some of these are subcentimeter and too small to c haracterize completely. No obstruction. Lung bases are clear. RIGHT posterior Bochdalek hernia. Heart size is normal. Negative liver and spleen. Gallbladder is contracted which is probably due to nonfasting state. No ad renal mass. Normal pancreas. No pancreatic duct or bile duct dilatation. Mild atherosclerosis abdominal aorta. Mesenteric arteries are normally enhancing. Stomach is not distended. No small bowel obstruction. Moderate tortuosity of the colon with chronic c onstipation. No free fluid or adenopathy. Prior hysterectomy. Negative urinary bladder. Posterior lumbar fusion hardware. Laminectomy defects in the lumbar spine. CT/CT abdomen pelvis wo/w [id number] IMPRESSION: 1. RIGHT renal mass which has been recently described is evaluated by multipha se CT. This is a hyperdense cyst which does not enhance. This is consistent wit h a cyst with proteinaceous content. No solid component. 2. There are additional bilateral renal hypodense nodules and subcentimeter in determinate nodules. These are too small to characterize by imaging at this maranda e. No obstruction of the kidney. 3. Diffuse constipation. 4. No ascites or adenopathy.
[2024-03-27] MEDS: iohexol 300 mg/mL 100 mL Btl IV (14:55)
== END 2024-03-27 13:51 | disposition home or self-care (01) ==
LOC: RAD 13:50
PROVIDERS: PCP Family Medicine; Visit Provider Family Medicine
DX: N28.89 Other specified disorders of kidney and ureter (principal)
CPT/HCPCS: 74178; Q9967

== ENCOUNTER → 2024-05-15 12:59 | Outpatient (BNVA) | payer MEDICAID, SELFPAY | PROVIDERS: PCP Family Medicine Adult Medicine; Visit Provider Orthopaedic Surgery | DX: Z98.1 Arthrodesis status (principal) | CPT/HCPCS: 72100; 99214 ==

== ENCOUNTER 2024-06-02 06:00 | Outpatient (CLI) | payer MEDICAID, SELFPAY ==
--- NOTE | 2024-06-02 13:00 | MR_ITS ---
WS: [id number] MRI LUMBAR SPINE NONCONTRAST TECHNIQUE: Sagittal T1, T2 and STIR imaging. Axial T1 and T2 imaging. CLINICAL INFORMATION: lower back pain COMPARISON: MRI 10/06/[address] 12/21/2023 FINDINGS: Mild lumbar curve. No acute compression. Disc bulging worse at L1-2 appears progressed since the prio r MRI. Pedicle screw fixation L2-S1 with sacroiliac fixation screws. L1-L2: Shallow central protrusion. Mild to moderate central canal stenosis. Moderate facet arthropath y. Mild LEFT greater than RIGHT foraminal narrowing. L2-L3: Pedicle screw fixation. Mild LEFT bony foraminal narrowing. Spinal canal is patent. L3-L4: Pedicle screw fixation. Spinal canal and foramen are patent. Laminectomy defects. L4-L5: Slight anterolisthesis. Pedicle screw fixation. Laminectomy defects. Spinal canal and foramen are patent. L5-S1: No significant disc bulging. Moderate facet arthropathy. Spinal canal and foramen are patent. Visualized pelvic bony structures: Normal. Paravertebral soft tissues: Normal. Incidental seroma along the incision site. Partially visualized RIGHT renal cysts. Partially visualiz ed LEFT renal cyst. MR/MR lumbar spine wo con* [id number] IMPRESSION: 1. Central disc protrusion L1-2 progressed since the prior MRI with mild to mo derate central canal stenosis. Mild LEFT foraminal narrowing. 2. Pedicle screw fixation L2-S1 with bilateral sacroiliac fixation screws. 3. Decompressive laminectomy defects L3-L4 and L4-L5 4. Incidental seroma along the incision site.
--- NOTE | 2024-06-02 13:45 | MR_ITS ---
WS: [id number] MRI CERVICAL SPINE NONCONTRAST TECHNIQUE: Sagittal T1, T2 and STIR imaging. Axial T2, gradient, and fiesta imaging. CLINICAL INFORMATION: cervical pain COMPARISON: None. FINDINGS: Straightening of the normal cervical lordosis. Grade 1 anterolisthesis C7 on T1. Moderate central can al stenosis at C7-T1 with indentation and flattening of the cervical cord. Evidence of myelomalacia w ith atrophy in the cervical cord at this level. Tiny syrinx in the cervical cord at the C5 and C6 lev els. C2-C3: Moderate facet arthropathy. Mild RIGHT bony foraminal narrowing. C3-C4: Disc osteophyte complex with endplate ridging. Moderate facet arthropathy. Moderate LEFT great er than RIGHT bony foraminal narrowing. Moderate facet arthropathy. LEFT facet synovitis. C4-C5: Disc osteophytic ridging. Moderate facet arthropathy. Mild to moderate bilateral bony foramina l narrowing. C5-C6: Disc osteophyte complex with endplate ridging. Spinal canal is patent. Moderate RIGHT greater than LEFT bony foraminal narrowing. C6-C7: Disc osteophyte complex eccentric to the LEFT. Moderate bilateral bony foraminal narrowing. Sp inal canal is patent. C7-T1: Grade 1 anterolisthesis with moderate central canal stenosis. Impingement on the cervical cord with myelomalacia. Moderate LEFT greater than RIGHT bony foraminal narrowing with moderate facet art hropathy. Visualized brain stem structures: Normal. Prevertebral soft tissues: Normal. Small vessel changes in the rema. MR/MR cervical spin wo con* [id number] IMPRESSION: 1. Straightening of the normal cervical lordosis. 2. Grade 1 anterolisthesis C7 on T1 with indentation on the cervical cord with moderate central canal stenosis. Associated myelomalacia with atrophy. 3. Tiny syrinx in the cervical cord at C5-C6 and C6-C7. 4. Multilevel moderate bony foraminal narrowing described above worse at LEFT C3-C4 bilateral C5-C6 bilateral C6-C7 and bilateral C7-T1. 5. LEFT C3-4 facet synovitis with para-articular edema..
== END 2024-06-02 06:01 | disposition home or self-care (01) ==
LOC: RAD 07-06 15:24
PROVIDERS: PCP Family Medicine Adult Medicine; Visit Provider Orthopaedic Surgery
DX: Z98.1 Arthrodesis status (principal); M47.892 Other spondylosis, cervical region; M99.61 Osseous and subluxation stenosis of intervertebral foramina of cervical region; M25.78 Osteophyte, vertebrae; M43.12 Spondylolisthesis, cervical region; M65.9 Synovitis and tenosynovitis, unspecified; M48.061 Spinal stenosis, lumbar region without neurogenic claudication; M47.896 Other spondylosis, lumbar region; M43.26 Fusion of spine, lumbar region; M47.898 Other spondylosis, sacral and sacrococcygeal region; M51.26 Other intervertebral disc displacement, lumbar region; M96.1 Postlaminectomy syndrome, not elsewhere classified
CPT/HCPCS: 72141; 72148

== ENCOUNTER → 2024-06-05 08:56 | Outpatient (BNVA) | payer MEDICAID, SELFPAY | PROVIDERS: PCP Family Medicine Adult Medicine; Visit Provider Orthopaedic Surgery | DX: Z09 Encounter for follow-up examination after completed treatment for conditions other than malignant neoplasm (principal); M48.00 Spinal stenosis, site unspecified | CPT/HCPCS: 36415; 80053; 81003; 81015; 85025; 99214 ==

== ENCOUNTER 2024-06-13 15:28 | Outpatient (CLI) | payer MEDICAID, SELFPAY ==
--- NOTE | 2024-06-13 15:35 | MM_ITS ---
WS: [id number] BILATERAL 3D TOMOSYNTHESIS DIGITAL SCREENING MAMMOGRAPHY WITH CAD CLINICAL INFORMATION: SCREEN HISTORY: Screening mammogram. No current complaints. COMPARISON: 2022 TECHNIQUE: Bilateral CC and MLO views. FINDINGS: Scattered fibroglandular densities bilaterally. No suspicious focal mass, asymmetry, calcifications, or architectural distortion. No evidence of malignancy. Incidental punctate and lucent centered calci fications. MM/[place] [id number] IMPRESSION: BI-RADS: 2-Benign FOLLOW UP: 1 Year Follow-up Recommend return to annual screening mammography.
== END 2024-06-13 15:29 | disposition home or self-care (01) ==
LOC: RAD 15:29
PROVIDERS: PCP Family Medicine Adult Medicine; Visit Provider Nurse Practitioner Family
DX: Z12.31 Encounter for screening mammogram for malignant neoplasm of breast (principal); R92.323 Mammographic fibroglandular density, bilateral breasts; R92.1 Mammographic calcification found on diagnostic imaging of breast
CPT/HCPCS: 77063; 77067

== ENCOUNTER → 2024-06-25 09:24 | Outpatient (BNVA) | payer MEDICAID, SELFPAY | PROVIDERS: PCP Family Medicine Adult Medicine; Visit Provider Family Medicine | DX: Z01.818 Encounter for other preprocedural examination (principal) | CPT/HCPCS: 81003; 87086; 93005 ==

== ENCOUNTER → 2024-07-01 12:16 | Outpatient (BNVA) | payer MEDICAID, SELFPAY | PROVIDERS: PCP Family Medicine Adult Medicine; Visit Provider Family Medicine | DX: Z01.818 Encounter for other preprocedural examination (principal) | CPT/HCPCS: 81000 ==

== ENCOUNTER 2024-07-02 14:17 | Inpatient (IN) | payer MEDICAID, SELFPAY ==
[2024-07-02] VITALS (19 sets, daily range): BP systolic 112–142; BP diastolic 68–77; PULSE 63–76; RESP 15–18; TEMP 36.1–36.9; O2SAT 91–100; BMI 38.0
[2024-07-02] MEDS: sodium chloride 0.9% 1,000 ML 30 ML IV (09:23)
--- NOTE | 2024-07-02 09:47 | ANES.PREANE2 ---
Pre-Anesthetic Assessment Height/Weight: Height 1.6 m Weight 97.522 kg Temp Pulse Resp BP Pulse Ox O2 Del Method 97.5 F L 76 16 137/68 96 Room Air 07/02/24 09:11 07/02/24 09:11 07/02/24 09:11 07/02/24 09:11 07/02/24 09:11 07/02/24 09:11 Preop Diagnosis: Lumbar stenosis with neurogenic claudication Operation Date: 07/02/24 10:30 Proposed Procedures p Spinal Fusion PSF(Not Applicable) - Nehemias Do, DO Familial anesthetic complications: None Was Beta Gigi taken within 24 hours: Yes Was Clonidine taken within 24 hours: N/A Last intake: Intake Last Liquid Date 07/01/24 Last Liquid Time 21:00 Last Solid Date 07/01/24 Last Solid Time 18:00 Social Tobacco and No alcohol Exam alert, oriented x 3, clear to auscultation bilaterally and regular rate & rhythm Airway Mallampati: Class I Dentition: chipped Pulmonary Asthma CV/HEM Hypertension Metabolic Hyperlipidemia and Thyroid Disease [facility]/skel Fibromyalgia Anesthetic Plan ASA status: 3 Anesthesia: General Risk of > 500 ml blood loss (7ml/kg in children): Yes, adequate IV access and fluids planned Medications/Allergies Home Medications Medication Instructions Recorded Confirmed Last Taken Type cholecalciferol (vitamin D3) 250 10,000 unit PO DAILY 12/30/19 07/01/24 07/01/24 History mcg (10,000 unit) capsule Supinator to the right foot #1 ea 12/11/22 06/05/24 Unknown Rx Spectrum AFO to right #1 ea 01/22/23 06/05/24 Unknown Rx psyllium husk 0.4 gram capsule 0.4 g PO DAILY 09/17/23 07/01/24 07/01/24 History (Metamucil) baclofen 10 mg tablet 10 mg PO Q6H PRN Muscle Spasm 10/05/23 07/01/24 Unknown History atenolol 25 mg tablet 25 mg PO DAILY #90 tabs 02/19/24 07/02/24 07/02/24 Rx Walker with wheels and seat #1 ea 03/10/24 06/05/24 Unknown Rx spironolactone 25 mg tablet 25 mg PO BID #180 tabs 03/23/24 07/01/24 07/01/24 Rx alprazolam 1 mg tablet (Xanax) 1 mg PO BID #60 tabs 05/09/24 07/01/24 06/30/24 Rx venlafaxine 150 mg 150 mg PO DAILY #30 caps 05/09/24 07/01/24 07/01/24 Rx capsule,extended release 24 hr (Effexor XR) ziprasidone HCl 60 mg capsule 60 mg PO BID #60 caps 05/09/24 07/01/24 07/01/24 Rx (Geodon) atorvastatin 10 mg tablet 10 mg PO DAILY #90 tabs 05/22/24 07/01/24 06/30/24 Rx oxycodone 5 mg tablet 5 mg PO Q4H PRN pain 30 days #120 06/16/24 07/02/24 07/02/24 Rx tabs estradiol 0.5 mg tablet 0.5 mg PO DAILY #90 tabs 06/19/24 07/01/24 07/01/24 Rx furosemide 40 mg tablet 40 mg PO QAM #90 tabs 06/19/24 07/01/24 07/01/24 Rx sulfamethoxazole 800 1 tab PO BID 5 days #10 tabs 06/27/24 07/02/24 07/02/24 Rx mg-trimethoprim 160 mg tablet (Bactrim DS) amitriptyline 100 mg tablet 200 mg PO DAILY 07/01/24 07/01/24 06/30/24 History lamotrigine 200 mg tablet 400 mg PO BEDTIME 07/01/24 07/01/24 06/30/24 History (Lamictal) Allergies Allergy/AdvReac Type Severity Reaction Status Date / Time Penicillins Allergy Severe ADR-Diarrhe Verified 07/01/24 13:02 a Current Medications Generic Name Dose Route Start Last Admin Trade Name Freq PRN Reason Stop Dose Admin Sodium Chloride 1,000 mls @ 30 mls/hr 07/02/24 09:00 07/02/24 09:23 Sodium Chloride 0.9% IV 07/03/24 08:59 30 mls/hr .Q24H MOSES Administration PFSH Anesthesia Medical History Fibromyalgia Sensation disturbance of skin Renal cyst Bipolar 2 disorder Psychiatric care Hypothyroid Essential hypertension Generalized anxiety disorder Surgical History History of back surgery H/O: hysterectomy H/O tubal ligation History of foot surgery Family History Other CAD (coronary artery disease) Diabetes Hyperlipidemia Hypertension Social History Smoking and tobacco/nicotine status: current every day tobacco/nicotine user (vapes) e-cigarettes E-Cigarette Details: vaporizer device 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
--- NOTE | 2024-07-02 10:09 | W.PM.OPSUD ---
Surgery/Procedure H&P Update DATE OF PROCEDURE: July 02, 2024 DATE H&P PERFORMED: 06/25/24 H&P UPDATE INFORMATION: I have reviewed H&P completed within last 30 days, I have examined patient prior to procedure and No changes to prior documentation PREOP DIAGNOSIS: Lumbar stenosis with neurogenic claudication PLANNED PROCEDURE: Operation Date: 07/02/24 10:30 Proposed Procedures p Spinal Fusion PSF(Not Applicable) - Nehemias Do DO
[2024-07-02 10:38] LABS: Anion Gap 18.3 (5-19); Blood Urea Nitrogen 13 mg/dL (6-20); Calcium 10.2 mg/dL (8.5-10.5); Carbon Dioxide 22 mmol/L (22-29); Chloride 102 mmol/L (98-107); Glomerular Filtration Rate 73.4 mL/min (90-130); Glucose 114 mg/dL (65-115); Osmolality Calculated 287 mOsm/kg (285-295); Potassium 4.3 mmol/L (3.5-5.1); Sodium 138 mmol/L (136-145)
[2024-07-02] MEDS: ceFAZolin 2,000 mg SDV 2000 MG IVP ×2 (11:51→18:00)
[2024-07-02] MEDS: vancomycin 1,000 MG SDV 1000 MG XX (12:45)
[2024-07-02] MEDS: lidocaine-epi 1% 20 mL INJ INJECTION (12:46)
--- NOTE | 2024-07-02 15:48 | PM.OP ---
Operative Report Date of procedure: July 02, 2024 Pre-op diagnosis: Proximal junctional kyphosis Lumbar stenosis with neurogenic claudication Post-op diagnosis: same Procedure done: 1. T10-L3 posterior spine fusion 2. T10 L3 posterior spine instrumentation 3. L1/L2 laminectomy with facetectomies 4. Use of computer navigation/stereotactic for the spine 5. Use of allograft 6. Use of autograft from same incision 7. Hardware removal from lumbar spine Surgeon: Nehemias Do DO Estimated blood loss (mL): 100 Procedure: 1. T10-L3 posterior spine fusion 2. T10 L3 posterior spine instrumentation 3. L1/L2 laminectomy with facetectomies 4. Use of computer navigation/stereotactic for the spine 5. Use of allograft 6. Use of autograft from same incision 7. Hardware removal from lumbar spine Patient brought to the operative suite after undergoing anesthesia patient was placed in the prone position. All areas impingement well-padded. Patient's prepped draped normal sterile fashion. Skin incision is made from T10 down to the L3 level. The L2 and 3 screws were identified. Transverse processes were dissected out. At L3 and L2 bilaterally. As well as from L1 bilaterally T12 bilaterally T11 bilaterally and T10 bilaterally. Next tension was brought to placing a spinous process clamp on L1. Once this is placed within the C-arm was brought in and spun around the patient all information from the serum was then loaded the computer for use for placing the computer navigated screws. Pedicle screws were then placed at L1 bilaterally, T12 bilaterally T11 bilaterally, T10 bilaterally. This was done by using computer navigation. This was done by using high-speed bur followed by using the gearshift probe linked to computer navigation followed by placing the screw after feeling with the pedicle feeler. Next tension was brought to removing the L2 screw.. This was done by moving the screw caps at L2 and L3 bilaterally. The rods were then pulled up and screws removed from L2. Next tension was brought to doing a laminectomy at L1-2. This is done by taking down the spinous process with a rongeur. And then bringing the microscope using high-speed bur to take down the lamina as well as medial aspect of facet joints. The ligamentum flavum was taken down from L1-L2 after using the [place]. There was scar tissue which peeled off the dura. The L1 nerve was traced out the L1-2 foramen. The L2 nerve was traced around the L to pedicle. Next the connector was placed bilaterally. This point was then attached to the kt right above the L3 pedicle screw. And then attached to the kt that connected T10 to the connector. This was done bilaterally. Caps were then placed and torqued into position. Lamina and transverse processes were decorticated from T10 down to L3. And then bone graft was packed in the lateral gutters from T10 down to L3 this is both allograft and autograft. Vancomycin powder was placed deep drain was placed wound was closed in layered fashion with 0 Vicryl 2-0 Vicryl and Monocryl suture. Sterile dressings were applied patient is transferred to the PACU in stable condition.
[2024-07-02] MEDS: fentaNYL 50 mcg/mL INJ 2mL IVP ×2 (16:40→16:50)
[2024-07-02] MEDS: HYDROmorphone 1 mg/mL INJ 1 mL 0.5 MG IVP (16:55)
[2024-07-02] MEDS: ALPRAZolam 0.5 mg Tablet 1 MG PO (17:59)
[2024-07-02] MEDS: sulfamethoxazole-trimeth DS 160-800 mg Tablet 1 TAB PO (17:59)
[2024-07-02] MEDS: spironolactone 25 mg Tablet PO (17:59)
[2024-07-02] MEDS: docusate sodium 100 mg Capsule PO (18:00)
[2024-07-02] MEDS: ziprasidone hcl 60 mg Capsule PO (18:00)
[2024-07-02] MEDS: lactated ringers 1,000 ML 90 ML IV (18:01)
[2024-07-02] MEDS: morphine 4 mg/mL SDV 1 mL 2 MG IVP (18:06)
[2024-07-02] MEDS: ketorolac 30 mg/mL INJ IVP (19:06)
[2024-07-02] MEDS: oxyCODONE-APAP 10-325 mg Tablet PO (20:30)
[2024-07-02] MEDS: lamoTRIgine 100 mg Tablet 400 MG PO (20:30)
[2024-07-02] MEDS: lanolin oint 7 gm 1 APPLIC TOPICAL (21:16)
[2024-07-02] MEDS: morphine ER (12 HR) 15 mg Tablet PO (23:55)
[2024-07-03] VITALS (8 sets, daily range): BP systolic 101–141; BP diastolic 54–82; PULSE 67–86; RESP 17–20; TEMP 36.5–36.6; O2SAT 95–96
[2024-07-03] MEDS: oxyCODONE-APAP 10-325 mg Tablet PO ×3 (02:04→12:14)
[2024-07-03] MEDS: ceFAZolin 2,000 mg SDV 2000 MG IVP ×2 (02:54→12:14)
[2024-07-03] MEDS: lactated ringers 1,000 ML 90 ML IV ×2 (04:20→15:27)
[2024-07-03] MEDS: FUROsemide 40 mg Tablet PO (06:48)
[2024-07-03] MEDS: amitriptyline 25 mg Tablet 200 MG PO (08:44)
[2024-07-03] MEDS: psyllium powder Pkt 0.4 PACKET PO (08:44)
[2024-07-03] MEDS: docusate sodium 100 mg Capsule PO ×2 (08:45→17:52)
[2024-07-03] MEDS: atenolol 50 mg Tablet 25 MG PO (08:45)
[2024-07-03] MEDS: spironolactone 25 mg Tablet PO ×2 (08:45→17:52)
[2024-07-03] MEDS: venlafaxine ER (24HR) 150 mg Capsule PO (08:45)
[2024-07-03] MEDS: ziprasidone hcl 60 mg Capsule PO ×2 (08:45→17:52)
[2024-07-03] MEDS: morphine ER (12 HR) 15 mg Tablet PO ×2 (08:45→17:52)
[2024-07-03] MEDS: atorvastatin 40 mg Tablet 20 MG PO (08:45)
[2024-07-03] MEDS: estradiol 1 mg Tablet 0.5 MG PO (08:46)
[2024-07-03] MEDS: cholecalciferol (vitamin D3) 5,000 unit Tablet 10000 UNIT PO (08:46)
[2024-07-03] MEDS: sulfamethoxazole-trimeth DS 160-800 mg Tablet 1 TAB PO ×2 (08:46→17:52)
[2024-07-03] MEDS: ALPRAZolam 0.5 mg Tablet 1 MG PO ×2 (08:46→17:52)
--- NOTE | 2024-07-03 09:10 | P.PN_ITS ---
Subjective 2 Subjective: Patient was up ambulating did well with ambulation. He is complaining of pain. Patient was on enlargement pain meds before surgery. Left leg pain is significant proved. Vitals/I&O/Wt Last Vital Signs Temp 97.7 F 07/03/24 07:38 Pulse 86 07/03/24 07:38 Resp 17 07/03/24 07:38 BP 115/72 07/03/24 07:38 Pulse Ox 95 07/03/24 07:38 O2 Del Method Room Air 07/03/24 07:38 O2 Flow Rate 8 07/02/24 16:30 07/02/24 07/03/24 07/03/24 22:59 06:59 14:59 Intake Total 1300 / 1300 2508.5 / 3808.5 480 / 480 Output Total 1005 / 1005 1895 / 2900 Balance 295 / 295 613.5 / 908.5 480 / 480 Weight last 48 hrs Weight 242 lb 11.2 oz Weight 215 lb Weight 215 lb Physical Exam 2 Narrative: Patient is sitting up in chair resting on her back ice complaining of severe pain. Urinary Catheter Management: [place]: Cath Placed During This Visit: yes, but has since been removed by the nurse Reason for Continuing Indwelling Catheter: Decision to DC Catheter Urinary Catheter Date of Insertion: 07/02/24 Urinary Catheter Time of Insertion: 12:16 Date Urinary Catheter Removed: 07/03/24 Time Urinary Catheter Discontinued: 06:50 Data 07/02/24 10:00 A&P Assessment and plan (1) Status post lumbar spinal fusion: Patient is postop day #1 T10 L3 fusion. Will try to increase her pain meds. Up physical therapy DC Hemovac drain Attestations 2 Medical Necessity Statement*: Pain control Coding Level of Care Code Acute Code for Chg Fwd Diagnoses Status post lumbar spinal fusion Z98.1
--- NOTE | 2024-07-03 10:06 | PC.CHAP ---
Pastoral Care Encounter/Spiritual Assessment Type of Contact [] Declined baking powder mixer visit [] Patient/Family/Request visit [] Outpatient visit [] Follow-up visit [] Physician referral [] Code/Alert [x] Routine visit [] Staff referral [] Actively dying [] Patient sleeping [] Family support [] [] Out of room [] Palliative care [] [] Receiving care in room [] Pre-surgical visit [] Trauma [] Long length of stay [] ICU visit [] Other: Relational/Emotional Strength [x] Patient feels connected with others/family/visitors/staff [] Distress [] Loneliness/isolation [] Abandonment Spirituality of Patient [x] Person of Essie [] Attends Yazdanism of their Essie [x] Believes in Prayer [] Reads Bible or Rastafari materials [] There are Spiritual issues to be addressed Pet Sitting Interventions [x] Prayer [x] Active listening [] Non-anxious presence [x] Spiritual/emotional support [] Crisis/trauma care [] Spiritual counseling [] Bereavement support [] Provided bereavement packet [] Provided Bible/devotional materials [] Provided toy/stuffed animal, coloring book to patient or family member [] Provided Communion [] Anointing/[place] [] Salvation [x] Completed spiritual assessment [] Other: Impact on Illness or Injury [] Angry [] Fearful [] Anxious [] Often cries [] Exhaustion [] Unable to work [] Unable to attend jew [] Unable to walk/stand [] Unable to read [] Unable to drive [] Unable to eat/drink [] Unable to sleep [] Unable to be with family [] Patient intubated [] Other: Summary Time spent with patient 5 min
[2024-07-03] MEDS: oxyCODONE IR 30 mg Tablet PO ×2 (15:27→20:42)
[2024-07-03] MEDS: lamoTRIgine 100 mg Tablet 400 MG PO (20:42)
[2024-07-03] MEDS: baclofen 10 mg Tablet PO (20:42)
[2024-07-04] VITALS: BP 115/70; PULSE 72; RESP 17; TEMP 36.6; O2SAT 95
[2024-07-04 04:32] VITALS: BP 116/74; PULSE 72; RESP 17; TEMP 36.7; O2SAT 98
[2024-07-04 04:48] VITALS: RESP 18
[2024-07-04] MEDS: oxyCODONE IR 30 mg Tablet PO ×2 (04:48→13:49)
[2024-07-04] MEDS: FUROsemide 40 mg Tablet PO (05:14)
[2024-07-04 07:23] VITALS: BP 135/72; PULSE 77; RESP 20; TEMP 36.8; O2SAT 97
[2024-07-04] MEDS: atorvastatin 40 mg Tablet 20 MG PO (08:57)
[2024-07-04] MEDS: morphine ER (12 HR) 15 mg Tablet PO (08:57)
[2024-07-04] MEDS: atenolol 50 mg Tablet 25 MG PO (08:57)
[2024-07-04] MEDS: estradiol 1 mg Tablet 0.5 MG PO (08:57)
[2024-07-04] MEDS: docusate sodium 100 mg Capsule PO (08:57)
[2024-07-04] MEDS: ziprasidone hcl 60 mg Capsule PO (08:58)
[2024-07-04] MEDS: cholecalciferol (vitamin D3) 5,000 unit Tablet 10000 UNIT PO (08:58)
[2024-07-04] MEDS: ALPRAZolam 0.5 mg Tablet 1 MG PO (08:58)
[2024-07-04] MEDS: venlafaxine ER (24HR) 150 mg Capsule PO (08:58)
[2024-07-04] MEDS: sulfamethoxazole-trimeth DS 160-800 mg Tablet 1 TAB PO (08:58)
[2024-07-04] MEDS: spironolactone 25 mg Tablet PO (08:58)
[2024-07-04] MEDS: amitriptyline 25 mg Tablet 200 MG PO (08:58)
[2024-07-04] MEDS: psyllium powder Pkt 0.4 PACKET PO (08:59)
--- NOTE | 2024-07-04 09:35 | P.DS_ITS ---
Discharge Providers Date of Admission: 07/02/24 14:17 Date of Discharge: July 04, 2024 Attending Provider at Admission: Nehemias Do DO Attending Provider at Discharge: Nehemias Do DO Primary Care Provider: Clifford Rush MD Diagnoses at Discharge Discharge Diagnosis (1) Status post lumbar spinal fusion: Status: Acute Permanent problem details: Fusion L2-S1 10/07/2023 Dr. Do Reason for Visit Reason for Visit: M48.062 Physical Exam Narrative: Patient's pain is much better controlled leg pain is improved. Urinary Catheter Management: [place]: Cath Placed During This Visit: yes, but has since been removed by the nurse Reason for Continuing Indwelling Catheter: Decision to DC Catheter Urinary Catheter Date of Insertion: 07/02/24 Urinary Catheter Time of Insertion: 12:16 Date Urinary Catheter Removed: 07/03/24 Time Urinary Catheter Discontinued: 06:50 Discharge Data Studies Completed and Pending Pending at discharge Category Date Time Status C-arm Fluoroscopy [id number] Routine Exams 07/02/24 08:51 Taken Laboratory Results Sodium 138 mmol/L (136-145) 07/02/24 10:00 Potassium 4.3 mmol/L (3.5-5.1) 07/02/24 10:00 Chloride 102 mmol/L (98-107) 07/02/24 10:00 Carbon Dioxide 22 mmol/L (22-29) 07/02/24 10:00 Anion Gap 18.3 (5-19) 07/02/24 10:00 BUN 13 mg/dL (6-20) 07/02/24 10:00 Creatinine 0.8 mg/dL (0.5-0.9) 07/02/24 10:00 GFR Calculation 73.4 mL/min (90-130) L 07/02/24 10:00 Glucose 114 mg/dL (65-115) 07/02/24 10:00 Calculated Osmolality 287 mOsm/kg (285-295) 07/02/24 10:00 Calcium 10.2 mg/dL (8.5-10.5) 07/02/24 10:00 Blood Type A Positive 07/02/24 09:30 Rho(D) Type Rh positive 07/02/24 09:30 Antibody Screen Negative 07/02/24 09:30 Vitals Last Vital Signs Temp 98.3 F 07/04/24 07:23 Pulse 77 07/04/24 07:23 Resp 20 H 07/04/24 07:23 BP 135/72 07/04/24 07:23 Pulse Ox 97 07/04/24 07:23 O2 Del Method Room Air 07/04/24 07:23 O2 Flow Rate 8 07/02/24 16:30 Discharge Plan Discharge Patient Disposition: Home Condition: Stable Prescriptions: New oxycodone 30 mg tablet 30 mg PO Q6H PRN (Reason: pain) 30 Days Qty: 120 0RF Continued cholecalciferol (vitamin D3) 10,000 unit capsule 10,000 unit PO DAILY (DME) Spectrum AFO to right See Rx Instructions .Route .MEDSUPPLY Qty: 1 0RF Rx Instructions: As directed by JAKE&O ziprasidone HCl [Geodon] 60 mg capsule 60 mg PO BID Qty: 60 2RF Rx Instructions: give with food (meal/snack) venlafaxine [Effexor XR] 150 mg capsule,extended release 24hr 150 mg PO DAILY Qty: 30 2RF (DME) Supinator to the right foot See Rx Instructions .Route .MEDSUPPLY Qty: 1 0RF Rx Instructions: As directed atenolol 25 mg tablet 25 mg PO DAILY Qty: 90 1RF (DME) Walker with wheels and seat See Rx Instructions .Route .MEDSUPPLY Qty: 1 0RF Rx Instructions: As directed spironolactone 25 mg tablet 25 mg PO BID Qty: 180 0RF Rx Instructions: Am and noon atorvastatin 10 mg tablet 10 mg PO DAILY Qty: 90 0RF estradiol 0.5 mg tablet 0.5 mg PO DAILY Qty: 90 0RF furosemide 40 mg tablet 40 mg PO QAM Qty: 90 0RF sulfamethoxazole-trimethoprim [Bactrim DS] 800-160 mg tablet 1 tab PO BID 5 Days Qty: 10 0RF (DME) Bone Growth Stimulator See Rx Instructions .Route .MEDSUPPLY Qty: 1 0RF Rx Instructions: As directed psyllium husk [Metamucil] 0.4 gram Capsule 0.4 g PO DAILY baclofen 10 mg tablet 10 mg PO Q6H PRN (Reason: Muscle Spasm) Lamictal 200 mg tablet 400 mg PO BEDTIME amitriptyline 100 mg tablet 200 mg PO DAILY Rx Instructions: TAKE TWO TABLETS BY MOUTH ONCE DAILY Discontinued alprazolam [Xanax] 1 mg tablet 1 mg PO BID Qty: 60 2RF oxycodone 5 mg tablet 5 mg PO Q4H PRN (Reason: pain) 30 Days Qty: 120 0RF Rx Instructions: 1 to 2 tab Q4 prn Discharge Orders: Discharge Order (Routine); Ordered 07/04/24 Ordered By: Nehemias Do Other Ambulatory Orders: Physical Therapy Eval and Treat Outpatient (Order) Timeframe: 3 Days Facility: [facility] - Location: Physical Therapy Ordered By: Nehemias Do Referrals: [facility] Outpatient Therapy [Outside] Discharge Diet: Advance as tolerated Discharge Activity: Limit activity as instructed Patient Instructions: Acute Wound Care (DC), Opioid Safety, Post Anesthesia Care Activity Restrictions/Additional Instructions: Okay to restart alprazolam when you get home Thank you for [facility] for your care! The following is a list of instructions, from your provider, to follow upon your discharge to ensure you have the optimal recovery from your recent injury orsurgery. Follow-up care is a perez part of your treatment and safety. Be sure to make and go to all appointments, and call your doctor if you are having problems. If you do not already have a follow-up appointment made, call Dr. Do office in the next 1-3 days to make follow up appointment for 1 weeks at [phone]. It is also a good idea to know your test results and keep a list of the medicines you take. Medications will be prescribed for you at your provider's discretion. These medications are to be used as instructed; if they are taken more often that prescribed they will not be refilled early and in most cases will not be refilled at all. > When a refill is needed,you should contact [facility] 2-3 business days before your prescription runs out. Medications will NOT be refilled by online marketing director providers after hours! > Many pain medications contain Tylenol (Acetaminophen). Do not consume more than 4,000 mg of Tylenol per day in total with any combination ofmedications. > Pain medications can cause constipation. Please use an over the counter stool softener as directed, while taking pain medications. Consulty our local pharmacist with questions or recommendations on stool softeners. If constipation persists, contact our office or your primary care provider. > While under our care,you are not to receive pain medications or other controlled substances from any other provider unless our office is notified and approves. Any attempts to do so will result in refusal to prescribe any further pain medications and possible dismissal from our practice. ? Keep dressing on we will change in the clinic in 1 week ? Showering is permitted, however we ask that you do not take a bath, sit in a whirlpool / Jacuzzi, or go swimming for 1 month. For only the first 2 days after surgery, lt wilt be necessary for you to cover your wound/dressing with plastic and tape to keep it dry. ? Walking is essential for the healing process after surgery. We would like you to slowly advance your walking. This should be done on relatively flat clear ground (inside or out) or can be done on a treadmill. Remember this goal does not have to happen all at once, slowly increase your distance and duration. This can be broken into more more than one walk per day as tolerated. Patients who walk as directed after surgery rarely require Physical Therapy. In the unlikely event this issue arises your provider will direct hospital staff to make the appropriate arrangements. ? No lifting over 5 pounds {a gallon of milk) or bending/twisting until further notice. Each of these activities places an unnecessary amount of stress onto the body and can impede the delicate healing process. > Instead of bending at the waist, keep your back straight and bend at the knees. > Instead of twisting your torso, keep your back straight and turn your entire body with your feet. ? You may sleep in any position which makes you comfortable. Many patients find comfort sleeping in a reclining chair. It is not abnormal to have difficulty sleeping for the first several weeks following your surgery. We recommend trying Benadry! or Tylenol PM as directed to help with your sleeping difficulties. Both medications are over the counter and available withoutprescription. ? NO SMOKING!!! Smoking dramatically increases the probability of developing postoperative wound infections. ? Common complaints after lumbar and/or thoracic spine surgery include, but are not limited to: numbness and/or tingling in the legs, pain around the incision and surrounding tissues, muscle spasms, or stiffness of the middle to low back. Contact our office if these symptoms persist or if an acute change occurs. ? No driving for the first 3-5days, and not while taking narcotics [] until seen at your follow-up appointment and cleared. There are no restrictions for riding on short trips, however if you take a longer trip, arrangements should be made to make regular stops to get out of the vehicle and stretch . ? Swelling is an unfortunate event that will take place with any surgery and is the primary source of your postoperative discomfort. While walking and regular approved activities helps control inflammation, there are additional steps you can take to minimizeswelling. > Place ice over the surgical site and surrounding tissue for twenty minutes, followed by applying a low/medium heat (heating pad) for an additional twenty minutes every 1-2 hours as needed for painrelief. > You may use of over the counter anti-inflammatory medications (Ibuprofen, Motrin, Aleve, Advil, etc) as directed on the package label. These types of medicines wm significantly reduce the amount of discomfort you experience after surgery from swelling. It should be noted that if you have and allergy to any of these medications, or a history of ulcers or kidney disease you should consult you primary care provider prior to starting these medications. Discharge Attestations Time Spent in Discharge Care*: less than 30 min Quality Metrics Clinical Quality Measures [ No reported AMI, CVA or VTE this stay] Coding Level of Care Code Acute Code for Chg Fwd Diagnoses Status post lumbar spinal fusion Z98.1
--- NOTE | 2024-07-04 10:01 | PC.CHAP ---
Pastoral Care Encounter/Spiritual Assessment Type of Contact [] Declined manager continuous improvement visit [] Patient/Family/Request visit [] Outpatient visit [] Follow-up visit [] Physician referral [] Code/Alert [] Routine visit [] Staff referral [] Actively dying [] Patient sleeping [] Family support [] [] Out of room [] Palliative care [] [] Receiving care in room [] Pre-surgical visit [] Trauma [] Long length of stay [] ICU visit [] Other: Relational/Emotional Strength [] Patient feels connected with others/family/visitors/staff [] Distress [] Loneliness/isolation [] Abandonment Spirituality of Patient [] Person of Essie [] Attends Cheondoism of their Essie [] Believes in Prayer [] Reads Bible or Yarsanism materials [] There are Spiritual issues to be addressed Rn Family Practice Interventions [] Prayer [] Active listening [] Non-anxious presence [] Spiritual/emotional support [] Crisis/trauma care [] Spiritual counseling [] Bereavement support [] Provided bereavement packet [] Provided Bible/devotional materials [] Provided toy/stuffed animal, coloring book to patient or family member [] Provided Communion [] Anointing/[place] [] Salvation [] Completed spiritual assessment [] Other: Impact on Illness or Injury [] Angry [] Fearful [] Anxious [] Often cries [] Exhaustion [] Unable to work [] Unable to attend yarsani [] Unable to walk/stand [] Unable to read [] Unable to drive [] Unable to eat/drink [] Unable to sleep [] Unable to be with family [] Patient intubated [] Other: Summary Time spent with patient Pastoral Care Encounter/Spiritual Assessment Type of Contact [] Declined manager continuous improvement visit [] Patient/Family/Request visit [] Outpatient visit [] Follow-up visit [] Physician referral [] Code/Alert [x] Routine visit [] Staff referral [] Actively dying [] Patient sleeping [] Family support [] [] Out of room [] Palliative care [] [x] Receiving care in room [] Pre-surgical visit [] Trauma [] Long length of stay [] ICU visit [] Other: Relational/Emotional Strength [] Patient feels connected with others/family/visitors/staff [] Distress [] Loneliness/isolation [] Abandonment Spirituality of Patient [] Person of Essie [] Attends Cheondoism of their Essie [] Believes in Prayer [] Reads Bible or Yarsanism materials [] There are Spiritual issues to be addressed Rn Family Practice Interventions [] Prayer [] Active listening [] Non-anxious presence [] Spiritual/emotional support [] Crisis/trauma care [] Spiritual counseling [] Bereavement support [] Provided bereavement packet [] Provided Bible/devotional materials [] Provided toy/stuffed animal, coloring book to patient or family member [] Provided Communion [] Anointing/[place] [] Salvation [] Completed spiritual assessment [] Other: Impact on Illness or Injury [] Angry [] Fearful [] Anxious [] Often cries [] Exhaustion [] Unable to work [] Unable to attend yarsani [] Unable to walk/stand [] Unable to read [] Unable to drive [] Unable to eat/drink [] Unable to sleep [] Unable to be with family [] Patient intubated [] Other: Summary Time spent with patient
--- NOTE | 2024-07-04 11:08 | PC.NURSE ---
D/C pending meds to bed and ride home.
[2024-07-04 11:53] VITALS: BP 136/76; PULSE 82; RESP 20; TEMP 36.8; O2SAT 97
[2024-07-04 13:49] VITALS: RESP 18; O2SAT 98
--- NOTE | 2024-07-04 15:33 | PC.NURSE ---
Patient educated by Pam Luna and this nurse on oxycodone RX dosage and strength for discharge. Provided education on what steps to take if pain becomes uncontrolled. Narcan provided by Pam Luna and education provided by her. Patient verbalized understanding and denies further questions and concerns.
== END 2024-07-04 15:09 | disposition home or self-care (01) | DRG 457 ==
LOC: MEDSURG 07-03 09:35
PROVIDERS: Anesthesiology; Admitting Provider Orthopaedic Surgery; PCP Family Medicine Adult Medicine; Visit Provider Orthopaedic Surgery
PROC: 0RG7071 Fusion of 2 to 7 Thoracic Vertebral Joints with Autologous Tissue Substitute, Posterior Approach, Posterior Column, Open Approach (ICD-10-PCS; principal; 2024-07-02 10:30)
DX: M48.062 Spinal stenosis, lumbar region with neurogenic claudication (principal); F31.81 Bipolar II disorder; Z79.890 Hormone replacement therapy; Z98.1 Arthrodesis status; M79.7 Fibromyalgia; E03.9 Hypothyroidism, unspecified; I10 Essential (primary) hypertension; F41.1 Generalized anxiety disorder; Z90.710 Acquired absence of both cervix and uterus; Z88.0 Allergy status to penicillin; F17.290 Nicotine dependence, other tobacco product, uncomplicated
CPT/HCPCS: 36415; 51702; 72100; 76000; 80048; 86850; 86900; 97110; 97116; 97161; 97530; C1713; C9359; J0131; J0330; J0690; J1100; J1170; J1885; J2250; J2270; J2405; J2704; J3010; J3370; J3490; J7030; J7120; J8499

== ENCOUNTER → 2024-07-17 12:47 | Outpatient (BNVA) | payer SELFPAY | PROVIDERS: PCP Family Medicine Adult Medicine; Visit Provider Orthopaedic Surgery | DX: Z98.1 Arthrodesis status (principal) | CPT/HCPCS: 99024 ==

== ENCOUNTER 2024-07-20 14:01 | Emergency (ER) | payer MEDICAID, SELFPAY ==
[2024-07-20 14:07] VITALS: BP 151/93; PULSE 110; RESP 18; TEMP 36.7; O2SAT 97
--- NOTE | 2024-07-20 14:14 | W.ED.BACK ---
HPI - Back Pain/Injury General: Chief Complaint: Back Pain/Injury Stated Complaint: out of pain meds Time Seen by Provider: 07/20/24 14:05 History of Present Illness: 58-year-old female presents emergency room by ambulance because she ran out of her pain medications. She says he had to move the prescriptions and for some reason could not pick them up on Sunday. She is very tearful. She says at some point she had a fall and thinks she may have reinjured her back. No saddle numbness, no urinary retention or incontinence, no focal motor deficit, no sensory deficit. no recent fever. no cough. no shortness of breath. no chest pain. no abdominal pain. no nausea or vomiting. no dysuria. no altered mental status. no edema. Related Data Home Medications Medication Instructions Recorded Confirmed cholecalciferol (vitamin D3) 250 10,000 unit PO DAILY 12/30/19 07/17/24 mcg (10,000 unit) capsule psyllium husk 0.4 gram capsule 0.4 g PO DAILY 09/17/23 07/17/24 (Metamucil) baclofen 10 mg tablet 10 mg PO Q6H PRN Muscle Spasm 10/05/23 07/17/24 amitriptyline 100 mg tablet 200 mg PO DAILY 07/01/24 07/17/24 lamotrigine 200 mg tablet 400 mg PO BEDTIME 07/01/24 07/17/24 (Lamictal) Previous Rx's Medication Instructions Recorded Supinator to the right foot #1 ea 12/11/22 Spectrum AFO to right #1 ea 01/22/23 atenolol 25 mg tablet 25 mg PO DAILY #90 tabs 02/19/24 Walker with wheels and seat #1 ea 03/10/24 spironolactone 25 mg tablet 25 mg PO BID #180 tabs 03/23/24 venlafaxine 150 mg 150 mg PO DAILY #30 caps 05/09/24 capsule,extended release 24 hr (Effexor XR) ziprasidone HCl 60 mg capsule 60 mg PO BID #60 caps 05/09/24 (Geodon) atorvastatin 10 mg tablet 10 mg PO DAILY #90 tabs 05/22/24 estradiol 0.5 mg tablet 0.5 mg PO DAILY #90 tabs 06/19/24 furosemide 40 mg tablet 40 mg PO QAM #90 tabs 06/19/24 sulfamethoxazole 800 1 tab PO BID 5 days #10 tabs 06/27/24 mg-trimethoprim 160 mg tablet (Bactrim DS) Bone Growth Stimulator #1 ea 07/02/24 oxycodone 30 mg tablet 30 mg PO BID PRN pain 30 days #60 07/16/24 tabs Allergies Allergy/AdvReac Type Severity Reaction Status Date / Time Penicillins Allergy Severe ADR-Diarrhe Verified 07/17/24 14:33 a Review of Systems Narrative: Constitutional symptoms: Negative except as documented in HPI. Skin symptoms: Negative except as documented in HPI. Eye symptoms: Negative except as documented in HPI. ENMT symptoms: Negative except as documented in HPI. Respiratory symptoms: Negative except as documented in HPI. Cardiovascular symptoms: Negative except as documented in HPI. Gastrointestinal symptoms: Negative except as documented in HPI. Genitourinary symptoms: Negative except as documented in HPI. Musculoskeletal symptoms: Negative except as documented in HPI. Neurologic symptoms: Negative except as documented in HPI. Psychiatric symptoms: Negative except as documented in HPI. Endocrine symptoms: Negative except as documented in HPI. 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 Head: Normocephalic Neck: Trachea midline Eye: Extraocular movements are intact. Ears, nose, mouth and throat: Oral mucosa moist Respiratory: Respirations are non-labored Musculoskeletal: Normal ROM Back: no step off, no focal tenderness, some paraspinal muscle tenderness Neurological: Alert and oriented to person, place, time, and situation, No focal neurological deficit observed. Psychiatric: Cooperative, patient is very tearful Course Vital Signs: Vital signs: Vital Signs Temperature 98.1 F 07/20/24 14:07 Pulse Rate 101 H 07/20/24 14:15 Respiratory Rate 16 07/20/24 14:15 Blood Pressure 151/93 07/20/24 14:15 Pulse Oximetry 95 07/20/24 14:15 Oxygen Delivery Me thod Room Air 07/20/24 14:15 MDM - Back Pain/Injury Medical Decision Making CT of the lumbar spine: Degenerative and postop changes. Nothing acute. This was reviewed and interpreted by myself the emergency room physician. Assessment and plan: Low back pain ? 1 [place] here and 1 for home. She needs to get her prescription picked up tomorrow. - Discharged home - Discussed plan with patient. Answered any questions. - Evaluation and treatment of this problem were appropriate in the emergency setting. Labs Radiology Impressions Lumbar Spine CT 07/20/24 14:15 IMPRESSION: There are degenerative and postoperative changes in the thoracic and lumbosacral spine as described above. All radiology interpretation(s) finalized by discharge Discharge Plan Discharge Patient Disposition: Home Clinical Impression: Post-operative pain Condition: Stable Prescriptions: No Action cholecalciferol (vitamin D3) 10,000 unit capsule 10,000 unit PO DAILY (DME) Spectrum AFO to right See Rx Instructions .Route .MEDSUPPLY Qty: 1 0RF Rx Instructions: As directed by JAKE&O ziprasidone HCl [Geodon] 60 mg capsule 60 mg PO BID Qty: 60 2RF Rx Instructions: give with food (meal/snack) venlafaxine [Effexor XR] 150 mg capsule,extended release 24hr 150 mg PO DAILY Qty: 30 2RF (DME) Supinator to the right foot See Rx Instructions .Route .MEDSUPPLY Qty: 1 0RF Rx Instructions: As directed atenolol 25 mg tablet 25 mg PO DAILY Qty: 90 1RF (DME) Walker with wheels and seat See Rx Instructions .Route .MEDSUPPLY Qty: 1 0RF Rx Instructions: As directed spironolactone 25 mg tablet 25 mg PO BID Qty: 180 0RF Rx Instructions: Am and noon atorvastatin 10 mg tablet 10 mg PO DAILY Qty: 90 0RF estradiol 0.5 mg tablet 0.5 mg PO DAILY Qty: 90 0RF furosemide 40 mg tablet 40 mg PO QAM Qty: 90 0RF sulfamethoxazole-trimethoprim [Bactrim DS] 800-160 mg tablet 1 tab PO BID 5 Days Qty: 10 0RF (DME) Bone Growth Stimulator See Rx Instructions .Route .MEDSUPPLY Qty: 1 0RF Rx Instructions: As directed oxycodone 30 mg tablet 30 mg PO BID PRN (Reason: pain) 30 Days Qty: 60 0RF psyllium husk [Metamucil] 0.4 gram Capsule 0.4 g PO DAILY baclofen 10 mg tablet 10 mg PO Q6H PRN (Reason: Muscle Spasm) Lamictal 200 mg tablet 400 mg PO BEDTIME amitriptyline 100 mg tablet 200 mg PO DAILY Rx Instructions: TAKE TWO TABLETS BY MOUTH ONCE DAILY Discharge Orders: Discharge ED (Routine); Ordered 07/20/24 Ordered By: Estephania Palumbo Referrals: Clifford Rush MD [Primary Care Provider] - Discharge Diet: Usual diet Discharge Activity: Increase activity as tolerated Patient Instructions: Opioid Safety, Pain Management Activity Restrictions/Additional Instructions: Thank you for choosing [facility] for your healthcare needs today. Please realize this is an emergency room and that we are providing you with a medical screening exam and this may not be complete and all inclusive of all the testing and or work up that you may need to determine your ailment or severity of your illness. You have been screened and evaluated and felt safe for discharge. Health conditions do change or evolve sometimes and as such it is important that you follow up with your Primary Doctor to be re checked, 3-5 days is a general good time frame for follow up. You are always welcome to return to the ED for re assessment if your symptoms are worsening or you have new concerns Coding Level of Care Code ED Food Inspector for [place]
[2024-07-20 14:15] VITALS: BP 151/93; PULSE 101; RESP 16; O2SAT 95
--- NOTE | 2024-07-20 14:15 | CTR_ITS ---
PROCEDURE INFORMATION: Exam: CT Lumbar Spine Without Contrast Exam date and time: 07/20/2024 2:32 PM Age: 58 years old Clinical indication: Injury or trauma; Fall; Blunt trauma (contusions or hematomas); Prior surgery; Surgery date: 3-7 days post-operative; Surgery type: Back; Additional info: S/P surgery. Fall, back pain TECHNIQUE: Imaging protocol: Computed tomography of the lumbar spine without contrast. Radiation optimization: All CT scans at this facility use at least one of these dose optimization techniques: automated exposure control; mA and/or kV adjustment per patient size (includes targeted exams where dose is matched to clinical indication); or iterative reconstruction. COMPARISON: MR lumbar spine wo con* [id number] 06/02/2024 1:55 PM RADIATION DOSE METRICS: Total DLP (mGy-cm): 1334.8 FINDINGS: Bones/joints: Status post T10 through S2 fusion. There are bilateral pedicle screws at the T10, T11, T12, L1, L3, L4, L5, S1, and S2 levels with intervening stabilization bars in place. Flocculated osseous density about the posterior fusion changes is consistent with bone grafting. There has been interbody fusion at the L3-L4 and L4-L5 levels. No significant [place] ossification is seen about the interbody bone graft sites. There are degenerative changes throughout the visualized spine including marginal osteophyte formations, endplate degenerative changes, and facet arthropathy. Multilevel disc space narrowing. Grade 1 anterolisthesis of L1 on L2 and of L4 on L5. Grade 1 retrolisthesis of L2 on L3. There are degenerative changes throughout the visualized spine including marginal osteophyte formations, endplate degenerative changes, and facet arthropathy. Multilevel disc space narrowing. Artifact in the sacral region precludes optimal evaluation. There has been fusion across the sacroiliac joints. Soft tissues: There are postoperative changes in the posterior paravertebral and subcutaneous soft tissues of the lower thoracic and lumbosacral spine. CT/CT lumbar spine wo con* [id number] IMPRESSION: There are degenerative and postoperative changes in the thoracic and lumbosacral spine as described above.
[2024-07-20] MEDS: HYDROcodone-acetaminophen 10-325 mg Tablet 2 TAB PO (14:28)
--- NOTE | 2024-07-20 14:29 | PC.NURSE ---
PATIENT GIVEN 1 HYDRO, SECOND ONE FOR HOME USE UPON DISCHARGE.
[2024-07-20 16:59] VITALS: BP 138/92; PULSE 90; O2SAT 95
== END 2024-07-20 17:00 | disposition home or self-care (01) ==
PROVIDERS: Emergency Provider Emergency Medicine; PCP Family Medicine Adult Medicine
DX: G89.18 Other acute postprocedural pain (principal); I10 Essential (primary) hypertension
CPT/HCPCS: 72131; 99284

== ENCOUNTER 2024-07-27 06:45 | Emergency (ER) | payer MEDICAID, SELFPAY ==
[2024-07-27 07:17] VITALS: BP 138/76; PULSE 78; RESP 18; TEMP 36.7; O2SAT 98; BMI 38.0
--- NOTE | 2024-07-27 08:54 | CTR_ITS ---
PROCEDURE INFORMATION: Exam: CT Head Without Contrast Exam date and time: 07/27/2024 9:13 AM Age: 58 years old Clinical indication: Injury or trauma; Fall; Blunt trauma (contusions or hematomas); Additional info: Fall, head lac TECHNIQUE: Imaging protocol: Computed tomography of the head without contrast. Radiation optimization: All CT scans at this facility use at least one of these dose optimization techniques: automated exposure control; mA and/or kV adjustment per patient size (includes targeted exams where dose is matched to clinical indication); or iterative reconstruction. COMPARISON: CT head wo con* [id number] 09/26/2022 12:01 PM RADIATION DOSE METRICS: Total DLP (mGy-cm): 1103.18 FINDINGS: Brain: Normal. No hemorrhage. Unremarkable white matter. No mass effect. Cerebral ventricles: No ventriculomegaly. Paranasal sinuses: Visualized sinuses are unremarkable. No fluid levels. Mastoid air cells: Visualized mastoid air cells are well aerated. Bones: Unremarkable. No acute fracture. Soft tissues: Left forehead subgaleal hematoma. CT/CT head wo con* [id number] IMPRESSION: No intracranial posttraumatic changes.
[2024-07-27 09:20] VITALS: BP 129/72; PULSE 73; O2SAT 97
[2024-07-27] MEDS: lidocaine-epi 1% 20 mL INJ INJECTION (10:54)
[2024-07-27 11:29] VITALS: RESP 17; O2SAT 96
[2024-07-27] MEDS: oxyCODONE-APAP 10-325 mg Tablet 2 TAB PO (11:29)
--- NOTE | 2024-07-27 11:31 | ED_ITS ---
HPI - Wound/Laceration General: Chief Complaint: Wound/Laceration Stated Complaint: head lac Time Seen by Provider: 07/27/24 08:37 History of Present Illness: This patient is a 58-year-old presenting with a laceration over her left eyebrow. She fell at home last night. She says that she got up at around 5 AM to go to the bathroom. She uses a walker after having back surgery a few weeks ago. She said her hand slipped off the walker and she fell striking her face against a television table. She denies loss of consciousness. She is not on any blood thinners. She does have a history of chronic pain and takes 30 mg of oxycodone at home. She says that it is really not helping her postoperative pain. She also takes Xanax and baclofen and took a dose about an hour prior to my seeing her this morning. She was slurring her speech a little bit. Her sister says that seems normal for her after she is taken most medications. Related Data Home Medications Medication Instructions Recorded Confirmed cholecalciferol (vitamin D3) 250 10,000 unit PO DAILY 12/30/19 07/17/24 mcg (10,000 unit) capsule psyllium husk 0.4 gram capsule 0.4 g PO DAILY 09/17/23 07/17/24 (Metamucil) baclofen 10 mg tablet 10 mg PO Q6H PRN Muscle Spasm 10/05/23 07/17/24 amitriptyline 100 mg tablet 200 mg PO DAILY 07/01/24 07/17/24 lamotrigine 200 mg tablet 400 mg PO BEDTIME 07/01/24 07/17/24 (Lamictal) Previous Rx's Medication Instructions Recorded Supinator to the right foot #1 ea 12/11/22 Spectrum AFO to right #1 ea 01/22/23 atenolol 25 mg tablet 25 mg PO DAILY #90 tabs 02/19/24 Walker with wheels and seat #1 ea 03/10/24 spironolactone 25 mg tablet 25 mg PO BID #180 tabs 03/23/24 venlafaxine 150 mg 150 mg PO DAILY #30 caps 05/09/24 capsule,extended release 24 hr (Effexor XR) ziprasidone HCl 60 mg capsule 60 mg PO BID #60 caps 05/09/24 (Geodon) atorvastatin 10 mg tablet 10 mg PO DAILY #90 tabs 05/22/24 estradiol 0.5 mg tablet 0.5 mg PO DAILY #90 tabs 06/19/24 furosemide 40 mg tablet 40 mg PO QAM #90 tabs 06/19/24 sulfamethoxazole 800 1 tab PO BID 5 days #10 tabs 06/27/24 mg-trimethoprim 160 mg tablet (Bactrim DS) Bone Growth Stimulator #1 ea 07/02/24 oxycodone 30 mg tablet 30 mg PO BID PRN pain 30 days #60 07/16/24 tabs Allergies Allergy/AdvReac Type Severity Reaction Status Date / Time Penicillins Allergy Severe ADR-Diarrhe Verified 07/17/24 14:33 a PFS ED PFSH: Medical History Fibromyalgia Sensation disturbance of skin Renal cyst Bipolar 2 disorder Psychiatric care Hypothyroid Essential hypertension Generalized anxiety disorder Surgical History History of back surgery H/O: hysterectomy H/O tubal ligation History of foot surgery Family History Other CAD (coronary artery disease) Diabetes Hyperlipidemia Hypertension Social History Smoking and tobacco/nicotine status: never used tobacco/nicotine 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 It is approximately 2 cm in length. There is dried blood. Eye: GENERAL EYE: appearance normal, both eyes and all related structures Neck/C-Spine: COMMON NORMALS: supple, no meningeal signs and no JVD Chest: COMMONS NORMALS: normal inspection of the chest Resp: COMMON NORMALS: normal respiratory effort, No use of accessory muscles and clear to auscultation bilaterally AUSCULTATION: clear to auscultation bilaterally Cardio: COMMON NORMALS: no JVD, regular rate, regular rhythm and No murmurs present (Cardio) RATE: regular rate RHYTHM: regular rhythm GI: COMMON NORMALS: Normal to inspection, nondistended, normoactive bowel sounds present, Soft to palpation and non-tender INSPECTION: Yes normal to inspection AUSCULTATION: Yes normoactive bowel sounds PALPATION: Yes Soft to palpation Back/Pelvis: OTHER: Incision along her thoracic and lumbar spine is healing nicely. No sign of local infection. Extremity: COMMON NORMALS: normal to inspection Neuro: COMMON NORMALS: patient oriented x3, moves all extremities, no focal motor deficits and no sensory deficits noted SENSORIUM/ORIENTATION: Yes alert MENINGEAL SIGNS: Yes no meningeal signs Psych: COMMON NORMALS: mental status grossly normal, cooperative and normal affect Skin: COMMON NORMALS: no rashes or lesions noted and turgor normal GENERAL SKIN EXAM: no rashes or lesions noted and turgor normal Procedures Laceration Laceration 1: Site: face Side (If applicable): left Size (cm): 2 Description: linear Depth: simple, single layer (Into the subcutaneous tissue but not muscle) Local Anesthetic: lidocaine 1% and with epi Amount of anesthesia used (mL): 3 Pre-repair: wound explored, irrigated extensively and deep structures intact Skin layer closed with: nylon Size (cm): 6-0 Number of sutures: 6 Technique: running Subcutaneous layer closed with: vicryl Size: 4-0 Number of sutures: 2 Technique: other (Varied) Course Vital Signs: Vital signs: Vital Signs Temperature 98.1 F 07/27/24 07:17 Pulse Rate 72 07/27/24 11:34 Respiratory Rate 17 07/27/24 11:29 Blood Pressure 133/80 07/27/24 11:34 Pulse Oximetry 99 07/27/24 11:34 Oxygen Delivery Me thod Room Air 07/27/24 09:20 MDM - Wound/Laceration Medical Decision Making Fall with some slurred speech which is likely due to medications however CT scan of the head was done. This was unremarkable. Laceration was repaired. See note for the procedure. She was given some pain medication as she was overdue for dose. She was able to ambulate at her baseline and was discharged home. Lab Data Radiology Impressions Head CT 07/27/24 08:54 IMPRESSION: No intracranial posttraumatic changes. All radiology interpretation(s) finalized by discharge Discharge Plan Discharge Patient Disposition: Home Clinical Impression: Laceration, Post-op pain, Fall Condition: Stable Prescriptions: No Action cholecalciferol (vitamin D3) 10,000 unit capsule 10,000 unit PO DAILY (DME) Spectrum AFO to right See Rx Instructions .Route .MEDSUPPLY Qty: 1 0RF Rx Instructions: As directed by JAKE&O ziprasidone HCl [Geodon] 60 mg capsule 60 mg PO BID Qty: 60 2RF Rx Instructions: give with food (meal/snack) venlafaxine [Effexor XR] 150 mg capsule,extended release 24hr 150 mg PO DAILY Qty: 30 2RF (DME) Supinator to the right foot See Rx Instructions .Route .MEDSUPPLY Qty: 1 0RF Rx Instructions: As directed atenolol 25 mg tablet 25 mg PO DAILY Qty: 90 1RF (DME) Walker with wheels and seat See Rx Instructions .Route .MEDSUPPLY Qty: 1 0RF Rx Instructions: As directed spironolactone 25 mg tablet 25 mg PO BID Qty: 180 0RF Rx Instructions: Am and noon atorvastatin 10 mg tablet 10 mg PO DAILY Qty: 90 0RF estradiol 0.5 mg tablet 0.5 mg PO DAILY Qty: 90 0RF furosemide 40 mg tablet 40 mg PO QAM Qty: 90 0RF sulfamethoxazole-trimethoprim [Bactrim DS] 800-160 mg tablet 1 tab PO BID 5 Days Qty: 10 0RF (DME) Bone Growth Stimulator See Rx Instructions .Route .MEDSUPPLY Qty: 1 0RF Rx Instructions: As directed oxycodone 30 mg tablet 30 mg PO BID PRN (Reason: pain) 30 Days Qty: 60 0RF psyllium husk [Metamucil] 0.4 gram Capsule 0.4 g PO DAILY baclofen 10 mg tablet 10 mg PO Q6H PRN (Reason: Muscle Spasm) Lamictal 200 mg tablet 400 mg PO BEDTIME amitriptyline 100 mg tablet 200 mg PO DAILY Rx Instructions: TAKE TWO TABLETS BY MOUTH ONCE DAILY Discharge Orders: Discharge ED (Routine); Ordered 07/27/24 Ordered By: Evette Rae Referrals: Garrett Boswell MD [Primary Care Provider] - Discharge Diet: Usual diet Discharge Activity: Limit activity as instructed Patient Instructions: Opioid Safety, Pain Management Activity Restrictions/Additional Instructions: Follow up with Dr. Do for back pain. Sutures out in 5 days. Use caution taking pain medicine, muscle relaxers and Xanax together and these can cause balance problems and falls. 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
[2024-07-27 11:34] VITALS: BP 133/80; PULSE 72; O2SAT 99
== END 2024-07-27 11:36 | disposition home or self-care (01) ==
PROVIDERS: Emergency Provider Emergency Medicine; PCP Family Medicine
DX: S01.112A Laceration without foreign body of left eyelid and periocular area, initial encounter (principal); I10 Essential (primary) hypertension; G89.18 Other acute postprocedural pain; W18.39XA Other fall on same level, initial encounter
CPT/HCPCS: 12051; 70450; 99284

== ENCOUNTER 2024-08-01 11:07 | Emergency (ER) | payer MEDICAID, SELFPAY ==
[2024-08-01 11:22] VITALS: BP 121/72; PULSE 66; RESP 18; TEMP 36.6; O2SAT 98
--- NOTE | 2024-08-01 11:24 | W.ED.RECABL ---
HPI - Recheck/Abnormal Lab/Rx General: Chief Complaint: Wound/Laceration Stated Complaint: Needs stitches removed Time Seen by Provider: 08/01/24 11:11 Source: patient Mode of arrival: ambulatory Limitations: no limitations History of Present Illness: Patient is a 58-year-old female here for suture removal to her left forehead/eyebrow area. Sutures were placed here in the emergency department on 07/27. She feels like they are healing well and no issues at this time. She is requesting some information for rehab facilities as she wants to get off of her opiate pain medication. She has already went to [facility] to start paperwork but states they have a wait list. MD complaint: suture/staple removal Initial visit (ago): day(s) Initial visit for: laceration Returns today for: staple/stitch removal Symptoms since prior visit: no new symptoms Associated symptoms: none Related Data Home Medications Medication Instructions Recorded Confirmed cholecalciferol (vitamin D3) 250 10,000 unit PO DAILY 12/30/19 07/17/24 mcg (10,000 unit) capsule psyllium husk 0.4 gram capsule 0.4 g PO DAILY 09/17/23 07/17/24 (Metamucil) baclofen 10 mg tablet 10 mg PO Q6H PRN Muscle Spasm 10/05/23 07/17/24 amitriptyline 100 mg tablet 200 mg PO DAILY 07/01/24 07/17/24 lamotrigine 200 mg tablet 400 mg PO BEDTIME 07/01/24 07/17/24 (Lamictal) Previous Rx's Medication Instructions Recorded Supinator to the right foot #1 ea 12/11/22 Spectrum AFO to right #1 ea 01/22/23 atenolol 25 mg tablet 25 mg PO DAILY #90 tabs 02/19/24 Walker with wheels and seat #1 ea 03/10/24 spironolactone 25 mg tablet 25 mg PO BID #180 tabs 03/23/24 venlafaxine 150 mg 150 mg PO DAILY #30 caps 05/09/24 capsule,extended release 24 hr (Effexor XR) ziprasidone HCl 60 mg capsule 60 mg PO BID #60 caps 05/09/24 (Geodon) atorvastatin 10 mg tablet 10 mg PO DAILY #90 tabs 05/22/24 estradiol 0.5 mg tablet 0.5 mg PO DAILY #90 tabs 06/19/24 furosemide 40 mg tablet 40 mg PO QAM #90 tabs 06/19/24 sulfamethoxazole 800 1 tab PO BID 5 days #10 tabs 06/27/24 mg-trimethoprim 160 mg tablet (Bactrim DS) Bone Growth Stimulator #1 ea 07/02/24 oxycodone 30 mg tablet 30 mg PO BID PRN pain 30 days #60 07/16/24 tabs Allergies Allergy/AdvReac Type Severity Reaction Status Date / Time Penicillins Allergy Severe ADR-Diarrhe Verified 08/01/24 11:29 a Review of Systems Const: Denies: fever(s) Eyes: Denies: change in vision ENMT: Denies: sinus pain GI: Denies: nausea or vomiting Musc: Denies: neck pain Neuro: Denies: headache(s) PFSH ED PFSH: Medical History Fibromyalgia Sensation disturbance of skin Renal cyst Bipolar 2 disorder Psychiatric care Hypothyroid Essential hypertension Generalized anxiety disorder Surgical History History of back surgery H/O: hysterectomy H/O tubal ligation History of foot surgery Family History Other CAD (coronary artery disease) Diabetes Hyperlipidemia Hypertension Social History Smoking and tobacco/nicotine status: never used tobacco/nicotine 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 sutures appear clean/non-infected and wound is well approximated; sutures removed Neuro: COMMON NORMALS: patient oriented x3 SENSORIUM/ORIENTATION: Yes alert Course Vital Signs: Vital signs: Vital Signs Temperature 97.8 F 08/01/24 11:22 Pulse Rate 66 08/01/24 11:22 Respiratory Rate 18 08/01/24 11:22 Blood Pressure 121/72 08/01/24 11:22 Pulse Oximetry 98 08/01/24 11:22 Oxygen Delivery Me thod Room Air 08/01/24 11:22 MDM - Recheck/Abnormal Lab/Rx Medical Decision Making Sutures removed. Good cosmetic outcome and repair of laceration. She was given address/phone number for [facility] to help if she is wishing to discontinue her opiates. Differential Diagnosis Likely encounter for removal of sutures No radiology studies performed this visit Discharge Plan Discharge Patient Disposition: Home Clinical Impression: Encounter for removal of sutures Condition: Stable Prescriptions: No Action cholecalciferol (vitamin D3) 10,000 unit capsule 10,000 unit PO DAILY (DME) Spectrum AFO to right See Rx Instructions .Route .MEDSUPPLY Qty: 1 0RF Rx Instructions: As directed by JAKE&O ziprasidone HCl [Geodon] 60 mg capsule 60 mg PO BID Qty: 60 2RF Rx Instructions: give with food (meal/snack) venlafaxine [Effexor XR] 150 mg capsule,extended release 24hr 150 mg PO DAILY Qty: 30 2RF (DME) Supinator to the right foot See Rx Instructions .Route .MEDSUPPLY Qty: 1 0RF Rx Instructions: As directed atenolol 25 mg tablet 25 mg PO DAILY Qty: 90 1RF (DME) Walker with wheels and seat See Rx Instructions .Route .MEDSUPPLY Qty: 1 0RF Rx Instructions: As directed spironolactone 25 mg tablet 25 mg PO BID Qty: 180 0RF Rx Instructions: Am and noon atorvastatin 10 mg tablet 10 mg PO DAILY Qty: 90 0RF estradiol 0.5 mg tablet 0.5 mg PO DAILY Qty: 90 0RF furosemide 40 mg tablet 40 mg PO QAM Qty: 90 0RF sulfamethoxazole-trimethoprim [Bactrim DS] 800-160 mg tablet 1 tab PO BID 5 Days Qty: 10 0RF (DME) Bone Growth Stimulator See Rx Instructions .Route .MEDSUPPLY Qty: 1 0RF Rx Instructions: As directed oxycodone 30 mg tablet 30 mg PO BID PRN (Reason: pain) 30 Days Qty: 60 0RF psyllium husk [Metamucil] 0.4 gram Capsule 0.4 g PO DAILY baclofen 10 mg tablet 10 mg PO Q6H PRN (Reason: Muscle Spasm) Lamictal 200 mg tablet 400 mg PO BEDTIME amitriptyline 100 mg tablet 200 mg PO DAILY Rx Instructions: TAKE TWO TABLETS BY MOUTH ONCE DAILY Discharge Orders: Discharge ED (Routine); Ordered 08/01/24 Ordered By: April Pritchard Referrals: Garrett Boswell MD [Primary Care Provider] - Coding Level of Care Code ED Distribution Agent for [facility]
--- NOTE | 2024-08-01 11:38 | PC.NURSE ---
Information for [facility] and [facility] provided to patient.
[2024-08-01 11:39] VITALS: BP 133/83; PULSE 66; RESP 18; O2SAT 95
== END 2024-08-01 11:40 | disposition home or self-care (01) ==
PROVIDERS: Emergency Provider Physician Assistant; PCP Family Medicine
DX: Z48.02 Encounter for removal of sutures (principal); I10 Essential (primary) hypertension
CPT/HCPCS: 99281

== ENCOUNTER → 2024-08-14 11:03 | Outpatient (BNVA) | payer MEDICAID, SELFPAY | PROVIDERS: PCP Family Medicine; Visit Provider Orthopaedic Surgery | DX: Z98.1 Arthrodesis status (principal) | CPT/HCPCS: 72100; 99024 ==

== ENCOUNTER → 2024-09-18 09:00 | Outpatient (BNVA) | payer MEDICAID, SELFPAY | PROVIDERS: PCP Family Medicine; Visit Provider Orthopaedic Surgery | DX: Z98.1 Arthrodesis status (principal) | CPT/HCPCS: 72100; 99024 ==

== ENCOUNTER 2024-10-08 11:15 | Outpatient (CLI) | payer MEDICAID, SELFPAY ==
--- NOTE | 2024-10-08 11:37 | USCV_ITS ---
Guera Clement Age: 58 Gender: F : 1965 Exam Date: 10/08/2024 11:42 Ordering Phys: Kiana Nagel Technologist: CT Exam Location: [facility] [place] Indication: BP: 140 / 69 HR: 68 Rhythm: Sinus Technical Quality: Adequate MEASUREMENTS (Male / Female) Normal Values 2D ECHO LVOT Diameter 2.0 cm LV Ejection Fraction MOD 4C 61.1 % LV Ejection Fraction MOD 2C 63.8 % LV Ejection Fraction 2C AL 65.5 % LA Diameter 3.1 cm RA Systolic Volume 4C AL 14.1 ml RA Systolic Volume 4C MOD 13.9 ml LA Sys Volume AL 40.6 cm cubed LA Sys Volume Index AL 19.0 cm cubed/m squared Aorta at Sinotubular Diameter 2.0 cm IVC Diameter 2.2 cm M-MODE LA Ao Ratio MM 1.8 AV Cusp Separation MM 1.3 cm DOPPLER AV Peak Velocity 121.0 cm/s LVOT Peak Velocity 115.0 cm/s AV Area Cont Eq vti 2.9 cm squared AV Area Cont Eq pk 3.1 cm squared MV Peak Velocity 71.0 cm/s MV Area PHT 3.5 cm squared Mitral E to A Ratio 1.4 TR Peak Velocity 107.0 cm/s TR Peak Gradient 4.6 mmHg TV Peak E Velocity 59.0 cm/s PV Peak Velocity 119.0 cm/s FINDINGS Left Ventricle Left ventricle is normal in size. LV systolic function is normal with EF of 55 to 60%. No regional wall motion abnormalities are seen. Right Ventricle Normal in size and function Right Atrium Normal in size Left Atrium Normal in size Mitral Valve Structurally normal mitral valve. Mild mitral regurgitation Aortic Valve Structurally normal aortic valve. No significant stenosis or regurgitation. Tricuspid Valve Insufficient TR jet to calculate RVSP Pulmonic Valve Not well visualized Pericardium Normal Aorta Normal in size IVC Grossly normal CONCLUSIONS LV systolic function is normal with EF 55 to 60%. Mild mitral regurgitation. No comparison studies are available. Saurav Flores MD (Electronically Signed) Final Date: 08 October 2024 17:56 S
== END 2024-10-08 11:35 | disposition home or self-care (01) ==
PROVIDERS: PCP Family Medicine; Visit Provider Nurse Practitioner Family
DX: R01.1 Cardiac murmur, unspecified (principal)
CPT/HCPCS: 93306

== ENCOUNTER → 2024-10-16 12:56 | Outpatient (BNVA) | payer MEDICAID, SELFPAY | PROVIDERS: PCP Family Medicine; Visit Provider Orthopaedic Surgery | DX: Z98.1 Arthrodesis status (principal) | CPT/HCPCS: 72100; 99024 ==

== ENCOUNTER → 2024-12-04 14:08 | Outpatient (BNVA) | payer MEDICAID, SELFPAY | PROVIDERS: Visit Provider Orthopaedic Surgery | DX: Z01.818 Encounter for other preprocedural examination (principal); M47.12 Other spondylosis with myelopathy, cervical region; M54.2 Cervicalgia | CPT/HCPCS: 36415; 72050; 80053; 81001; 85025; 99214 ==

== ENCOUNTER 2024-12-06 13:23 | Inpatient (IN) | payer MEDICAID, SELFPAY ==
[2024-12-06] VITALS (11 sets, daily range): BP systolic 131–157; BP diastolic 65–82; PULSE 73–89; RESP 16–18; TEMP 37–37.1; O2SAT 94–99; BMI 27.1; BMI 41.7
--- NOTE | 2024-12-06 13:48 | PC.NURSE ---
pt states unable to walk at all but requesting to be assisted to bathroom door and states she can walk self to bathroom.
--- NOTE | 2024-12-06 14:21 | CTR_ITS ---
PROCEDURE INFORMATION: Exam: CT Lumbar Spine Without Contrast Exam date and time: 12/06/2024 3:01 PM Age: 58 years old Clinical indication: Injury or trauma; Fall; Blunt trauma (contusions or hematomas); Prior surgery; Surgery date: 6+ months; Surgery type: Back; Additional info: Back pain after fall TECHNIQUE: Imaging protocol: Computed tomography of the lumbar spine without contrast. Radiation optimization: All CT scans at this facility use at least one of these dose optimization techniques: automated exposure control; mA and/or kV adjustment per patient size (includes targeted exams where dose is matched to clinical indication); or iterative reconstruction. COMPARISON: CT lumbar spine wo con* [id number] 07/20/2024 2:32 PM RADIATION DOSE METRICS: Total DLP (mGy-cm): 1192.83 FINDINGS: Bones/joints: Demineralization of the visualized bones, limiting sensitivity for nondisplaced fractures. Surgical changes of posterior decompression and instrumentation at T10 pelvis with no hardware fracture. No hardware complications. Ghost tracts at L1 from prior transpedicular screws. Similar retrolisthesis of L2 over L3 and anterolisthesis of L1 over L2. No acute fracture. No compression deformity. Urinary bladder: Over distended bladder. Vasculature: Calcified atheromas of the visualized arteries. Soft tissues: Unremarkable. CT/CT lumbar spine wo con* [id number] IMPRESSION: No acute posttraumatic changes in the lumbar spine.
--- NOTE | 2024-12-06 14:22 | ECG_ITS ---
[email or web address] Test Date: 2024-12-06 Pat Name: Guera Clement Department: Room: 259 Gender: Female Ledger Clerk: : 1965 Requested By: Bc Bacon Order Number: [id number] Reading MD: AMY GRAHAM Measurements Intervals [place] Rate: 78 P: 51 IN: 160 QRS: 32 QRSD: 87 T: 34 QT: 345 QTc: 394 Interpretive Statements SINUS RHYTHM POSSIBLE LEFT ATRIAL ENLARGEMENT [-0.1mV P-WAVE IN V1/V2] LOW QRS VOLTAGE IN PRECORDIAL LEADS [QRS DEFLECTION < 1.0 mV IN CHEST LEADS] Compared to ECG 06/25/2024 09:27:19 Low QRS voltage now present Electronically Signed On 12-07-2024 20:57:21 FIELD SAMPLING TECHNICIAN by AMY GRAHAM [email or web address]
--- NOTE | 2024-12-06 14:22 | CTR_ITS ---
PROCEDURE INFORMATION: Exam: CT Head Without Contrast Exam date and time: 12/06/2024 2:57 PM Age: 58 years old Clinical indication: Injury or trauma; Fall; Blunt trauma (contusions or hematomas) TECHNIQUE: Imaging protocol: Computed tomography of the head without contrast. Radiation optimization: All CT scans at this facility use at least one of these dose optimization techniques: automated exposure control; mA and/or kV adjustment per patient size (includes targeted exams where dose is matched to clinical indication); or iterative reconstruction. COMPARISON: CT head wo con* [id number] 07/27/2024 9:13 AM RADIATION DOSE METRICS: Total DLP (mGy-cm): 1121.9 FINDINGS: Brain: Normal. No hemorrhage. Unremarkable white matter. No mass effect. Cerebral ventricles: No ventriculomegaly. Paranasal sinuses: Visualized sinuses are unremarkable. No fluid levels. Mastoid air cells: Visualized mastoid air cells are well aerated. Bones: Unremarkable. No acute fracture. Soft tissues: Unremarkable. CT/CT head wo con* [id number] IMPRESSION: No acute intracranial posttraumatic changes.
--- NOTE | 2024-12-06 14:23 | CTR_ITS ---
PROCEDURE INFORMATION: Exam: CT Cervical Spine Without Contrast Exam date and time: 12/06/2024 2:57 PM Age: 58 years old Clinical indication: Injury or trauma; Fall; Blunt trauma TECHNIQUE: Imaging protocol: Computed tomography of the cervical spine without contrast. Radiation optimization: All CT scans at this facility use at least one of these dose optimization techniques: automated exposure control; mA and/or kV adjustment per patient size (includes targeted exams where dose is matched to clinical indication); or iterative reconstruction. COMPARISON: MR cervical spin wo con* [id number] 11/13/2024 3:49 PM RADIATION DOSE METRICS: Total DLP (mGy-cm): 342.2 FINDINGS: Bones: The cervical spine demonstrates moderate degenerative changes at multiple levels. Bilateral facet joint arthropathy at C7-T1 with 5 mm anterolisthesis of C7 over T1, unchanged. No acute fracture. No compression deformity. Lungs: Lung apices are normal. Soft tissues: Unremarkable. CT/CT cervical spin wo con* [id number] IMPRESSION: No acute posttraumatic changes in the cervical spine.
--- NOTE | 2024-12-06 14:24 | W.ED.BACK ---
HPI - Back Pain/Injury General: Chief Complaint: Back Pain/Injury Stated Complaint: back pain Time Seen by Provider: 12/06/24 14:18 History of Present Illness: 58-year-old female presents to the emergency room complaining of neck and back pain. She has had a longtime history of neck and back issues she has had 2 surgeries in the last 12 months she is scheduled for surgery in 2 days. She she has a office note she was seen in orthopedic clinic 2 days ago. Kassandra the office note and we double check on the surgery schedule she is scheduled to have a fixation from C5-t2. Last MRI on the chart was from May of last year but she tells me she had an MRI done at an [facility] clinic initially she said it was [facility] in [place] during an ER visit within also mention she had seen some 1 at a neurology clinic in [facility] in [place] and may have had the MRI there.. She is unsure whether or not they got sent to the Ortho clinic here. According to the notes and confirmed by the patient she has not been able to ambulate independently for several months now she has been using a walker and then a wheelchair. According to Dr. Do's note she has not been using wheelchair for some time. Patient confirms that she states she is also been crawling around on the floor at times to get around her home. No urinary retention or fecal incontinence. Associated symptoms: Deny abdominal pain, chills, dysuria, fever(s) or urinary urgency Related Data Home Medications ?Medication ?Instructions ?Recorded ?Confirmed cholecalciferol (vitamin D3) 250 10,000 unit PO DAILY 12/30/19 12/06/24 mcg (10,000 unit) capsule psyllium husk 0.4 gram capsule 0.4 g PO DAILY 09/17/23 12/06/24 (Metamucil) baclofen 10 mg tablet 10 mg PO Q6H PRN Muscle Spasm 10/05/23 12/06/24 estradiol 0.5 mg tablet 0.5 mg PO DAILY 12/05/24 12/06/24 furosemide 40 mg tablet 40 mg PO QAM 12/06/24 12/06/24 spironolactone 25 mg tablet 25 mg PO BID 12/06/24 12/06/24 venlafaxine 75 mg capsule,extended 75 mg PO QAM 12/06/24 12/06/24 release 24 hr Previous Rx's ?Medication ?Instructions ?Recorded atorvastatin 10 mg tablet 10 mg PO DAILY #90 tabs 05/22/24 atenolol 25 mg tablet 25 mg PO DAILY #90 tabs 08/11/24 amitriptyline 100 mg tablet 200 mg (2 x 100 mg) PO DAILY #60 10/30/24 tabs lamotrigine 200 mg tablet 400 mg (2 x 200 mg) PO BEDTIME #60 10/30/24 (Lamictal) tabs ziprasidone HCl 60 mg capsule 60 mg PO BID #60 caps 10/30/24 (Geodon) venlafaxine 150 mg 150 mg PO DAILY #30 caps 11/05/24 capsule,extended release 24 hr (Effexor XR) alprazolam 1 mg tablet (Xanax) 1 mg PO BID #60 tabs 11/06/24 Allergies Allergy/AdvReac Type Severity Reaction Status Date / Time Penicillins Allergy Severe ADR-Diarrhe Verified 12/05/24 13:35 a Review of Systems Const: Denies: fever(s) or chills Card: Denies: chest pain Resp: Denies: dyspnea GI: Denies: abdominal pain : Denies: dysuria, urinary frequency or urinary urgency Musc: Reports: back pain; Denies: neck pain Skin/Breast: Denies: rash PFSH ED PFSH: Medical History Fibromyalgia Sensation disturbance of skin Renal cyst Bipolar 2 disorder Psychiatric care Hypothyroid Essential hypertension Generalized anxiety disorder Surgical History History of back surgery H/O: hysterectomy H/O tubal ligation History of foot surgery Family History Other CAD (coronary artery disease) Diabetes Hyperlipidemia Hypertension Social History Smoking and tobacco/nicotine status: unknown if used tobacco/nicotine 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 Physical Exam Const: GENERAL APPEARANCE: cooperative ORIENTATION/CONSCIOUSNESS: Yes awake, Yes oriented to person, Yes oriented to place and Yes oriented to time HENMT: COMMON NORMALS: normocephalic, atraumatic and hearing grossly normal bilaterally HEAD & SCALP: normocephalic and atraumatic Resp: COMMON NORMALS: normal respiratory effort, No retractions, No use of accessory muscles and clear to auscultation bilaterally AUSCULTATION: clear to auscultation bilaterally Cardio: COMMON NORMALS: regular rate, regular rhythm and No murmurs present (Cardio) RATE: regular rate RHYTHM: regular rhythm GI: COMMON NORMALS: Soft to palpation and No hepatosplenomegaly present AUSCULTATION: Yes normoactive bowel sounds PALPATION: Yes Soft to palpation, No Tenderness to palpation present (GI), No Guarding due to palpation present (GI) and Yes No hepatosplenomegaly present Extremity: COMMON NORMALS: normal to inspection, capillary refill normal, no clubbing, cyanosis or edema, no calf tenderness and no pedal edema Neuro: SENSORIUM/ORIENTATION: Yes oriented to person, Yes oriented to place and Yes oriented to time OTHER: Lower extremities neurovascularly intact, weakness bilaterally Skin: COMMON NORMALS: no rashes or lesions noted GENERAL SKIN EXAM: no rashes or lesions noted Course Vital Signs: Vital signs: Vital Signs Temperature 98.6 F 12/06/24 13:38 Pulse Rate 73 12/06/24 13:38 Respiratory Rate 16 12/06/24 15:53 Blood Pressure 141/78 12/06/24 13:38 Pulse Oximetry 96 12/06/24 15:53 Oxygen Delivery Me thod Room Air 12/06/24 13:38 MDM - Back Pain/Injury Medical Decision Making Reviewing medical records looked at the last Ortho clinic note is also scanned in documents from a neurology consultation at [facility] however it cites getting an MRI but there is no attached MRI I cannot find an MRI on the chart from [facility] we are currently looking to get one from [facility] however I am skeptical if they will have done an MRI there especially in the ER setting. Patient is unable to ambulate. We did get the MRI that was done his thoracic and cervical shows some stenosis at the levels of concern where surgery is planned. Discussed Dr. Do although he is not on-call he asked that we admit the patient to the hospitalist service for pain control given her decreased function. He will see the patient is planning on surgery as previously scheduled. Patient reports not having a big change in symptoms since she was last seen in the office. Medical Records I reviewed the patient's medical records. Labs I reviewed the patient's lab results. 12/06/24 14:35 12/06/24 14:35 Radiology Impressions Lumbar Spine CT 12/06/24 14:21 IMPRESSION: No acute posttraumatic changes in the lumbar spine. Head CT 12/06/24 14:22 IMPRESSION: No acute intracranial posttraumatic changes. Cervical Spine CT 12/06/24 14:23 IMPRESSION: No acute posttraumatic changes in the cervical spine. Laboratory Results WBC 11.20 10^3/uL (3.29-11.43) 12/06/24 14:35 RBC 3.98 10^6/uL (3.85-5.65) 12/06/24 14:35 Hgb 11.70 g/dL (11.27-16.99) 12/06/24 14:35 Hct 37.4 % (36-47) 12/06/24 14:35 MCV 94.0 fl (85-98) 12/06/24 14:35 MCH 29.4 pg (27-33) 12/06/24 14:35 MCHC 31.3 g/dL (30-55) 12/06/24 14:35 RDW 14.4 % (12.1-15.1) 12/06/24 14:35 Plt Count 357 10^3/cmm (157-399) 12/06/24 14:35 MPV 8.6 fL (7.4-10.4) 12/06/24 14:35 Neut % (Auto) 64.0 % 12/06/24 14:35 Lymph % (Auto) 20.3 % 12/06/24 14:35 Boyd % (Auto) 12.2 % 12/06/24 14:35 Eos % (Auto) 2.4 % 12/06/24 14:35 Baso % (Auto) 0.6 % 12/06/24 14:35 Neut # (Auto) 7.16 10^3/uL (1.8-7.7) 12/06/24 14:35 Lymph # (Auto) 2.3 10^3/uL (0.8-4.8) 12/06/24 14:35 Boyd # (Auto) 1.4 10^3/uL (0.2-0.9) H 12/06/24 14:35 Eos # (Auto) 0.3 10^3/uL (0.0-0.8) 12/06/24 14:35 Baso # (Auto) 0.1 10^3/uL (0.0-0.1) 12/06/24 14:35 Nucleated RBC % (auto) 0 % 12/06/24 14:35 Nucleated RBCs # 0.0 /100WBC 12/06/24 14:35 Sodium 142 mmol/L (136-145) 12/06/24 14:35 Potassium 4.0 mmol/L (3.5-5.1) 12/06/24 14:35 Chloride 105 mmol/L (98-107) 12/06/24 14:35 Carbon Dioxide 27 mmol/L (22-29) 12/06/24 14:35 Anion Gap 14.0 (5-19) 12/06/24 14:35 BUN 12 mg/dL (6-20) 12/06/24 14:35 Creatinine 0.7 mg/dL (0.5-0.9) 12/06/24 14:35 GFR Calculation 85.6 mL/min (90-130) L 12/06/24 14:35 Glucose 105 mg/dL (65-115) 12/06/24 14:35 Calculated Osmolality 294 mOsm/kg (285-295) 12/06/24 14:35 Calcium 9.6 mg/dL (8.5-10.5) 12/06/24 14:35 Total Bilirubin 0.3 mg/dL (0.15-1.2) 12/06/24 14:35 AST 28 U/L (0-32) 12/06/24 14:35 ALT 27 U/L (0-33) 12/06/24 14:35 Alkaline Phosphatase 155 U/L (35-105) H 12/06/24 14:35 Total Protein 6.3 g/dL (6.6-8.7) L 12/06/24 14:35 Albumin 3.7 g/dL (3.5-5.2) 12/06/24 14:35 Globulin 2.6 g/dL (1.3-4.6) 12/06/24 14:35 All radiology interpretation(s) finalized by discharge Discharge Plan Discharge Patient Disposition: Admitted As Inpatient Admit Provider: Jared Crook Clinical Impression: Cervical spondylosis with myelopathy, Intractable pain, Essential hypertension Hypothyroid Qualifiers: Hypothyroidism type: acquired Qualified Code(s): E03.9 - Hypothyroidism, unspecified Condition: Stable Coding Level of Care Code ED Software Installer for [employer]
[2024-12-06 14:41] LABS: Basophils # 0.1 10^3/uL (0.0-0.1); Basophils % 0.6 %; Eosinophils # 0.3 10^3/uL (0.0-0.8); Eosinophils % 2.4 %; Hematocrit 37.4 % (36-47); Lymphocytes # 2.3 10^3/uL (0.8-4.8); Lymphocytes % 20.3 %; Mean Corpuscular HGB Conc 31.3 g/dL (30-55); Mean Corpuscular Hemoglobin 29.4 pg (27-33); Mean Platelet Volume 8.6 fL (7.4-10.4); Monocytes # 1.4 10^3/uL (0.2-0.9); Monocytes % 12.2 %; Neutrophils # 7.16 10^3/uL (1.8-7.7); Nucleated Red Blood Cells % 0 %; Platelet Count 357 10^3/cmm (157-399); Red Blood Count 3.98 10^6/uL (3.85-5.65); Red Cell Distribution Width 14.4 % (12.1-15.1)
[2024-12-06 15:01] LABS: Alanine Aminotransferase 27 U/L (0-33); Albumin Level 3.7 g/dL (3.5-5.2); Alkaline Phosphatase 155 U/L (35-105); Aspartate Amino Transferase 28 U/L (0-32); Blood Urea Nitrogen 12 mg/dL (6-20); Calcium 9.6 mg/dL (8.5-10.5); Carbon Dioxide 27 mmol/L (22-29); Chloride 105 mmol/L (98-107); Globulin 2.6 g/dL (1.3-4.6); Glomerular Filtration Rate 85.6 mL/min (90-130); Glucose 105 mg/dL (65-115); Osmolality Calculated 294 mOsm/kg (285-295); Sodium 142 mmol/L (136-145); Total Bilirubin 0.3 mg/dL (0.15-1.2); Total Protein 6.3 g/dL (6.6-8.7)
[2024-12-06] MEDS: ondansetron 2 mg/ML SDV 2 mL 4 MG IVP (15:47)
[2024-12-06] MEDS: dexamethasone 10 mg/mL INJ IVP (15:49)
[2024-12-06] MEDS: orphenadrine 30 mg/mL Inj 2 mL 60 MG IVP (15:50)
[2024-12-06] MEDS: ketorolac 30 mg/mL INJ IVP (15:51)
[2024-12-06] MEDS: morphine 4 mg/mL SDV 1 mL IVP (15:53)
--- NOTE | 2024-12-06 16:31 | PM.HP ---
Providers/Chief Complaint Admitting Physician: Jared Crook MD Primary Care Provider: Sukumar Gilman MD Chief Complaint: back pain History of Present Illness Guera Clement is a 58 year old female with a past medical history of hypertension, fibromyalgia, bipolar disorder, generalized anxiety disorder, who presents [facility] due to weakness, difficulty ambulating, neck pain, low back pain. Patient reports that she has pain in her neck, pain with range of motion of bilateral upper extremities above 90 degree arc, neck pain with range of motion, weakness of bilateral upper extremity, she is also complaining of lower back pain, difficulty ambulating due to severe back pain, pain with range of motion, no urinary continence, no bowel incontinence, no saddle perineal anesthesia, she was seen by Dr. Do as outpatient with plans of surgery on Sunday but due to persistent pain in her neck and her back, pain with range of motion, weakness she came to the emergency room. She tells me that she has severe back pain and weakness that she has been crawling on the floor to ambulate, no urinary continence no bowel incontinence no saddle or perineal anesthesia, no ascending weakness, no fevers, no chills. She has bilateral lower extremity 2+ pitting edema, when asked her about that she tells me she does not have heart failure she had an echocardiogram done and told that she does not have heart failure, she was taken off her lisinopril and her spironolactone, and placed on compression stockings and compression wraps has she was told by Dr. Maryann Casper that her problem is lymphedema, so she has been using lymphedema wraps for the last few weeks, however now her edema is under bilateral lower extremities and she does not understand why, she is frustrated Review of Systems Const: Denies: fever(s) or chills Card: Denies: chest pain Resp: Denies: dyspnea GI: Denies: abdominal pain : Denies: flank pain Musc: Reports: neck pain, back pain, limited range of motion and muscle weakness Neuro: Reports: weakness in extremities and difficulty walking; Denies: headache(s) Medications/Allergies Home Medications ?Medication ?Instructions ?Recorded ?Confirmed ?Last Taken ?Type cholecalciferol (vitamin D3) 250 10,000 unit PO DAILY 12/30/19 12/06/24 12/05/24 History mcg (10,000 unit) capsule psyllium husk 0.4 gram capsule 0.4 g PO DAILY 09/17/23 12/06/24 07/01/24 History (Metamucil) baclofen 10 mg tablet 10 mg PO Q6H PRN Muscle Spasm 10/05/23 12/06/24 12/06/24 History atorvastatin 10 mg tablet 10 mg PO DAILY #90 tabs 05/22/24 12/06/24 12/06/24 Rx atenolol 25 mg tablet 25 mg PO DAILY #90 tabs 08/11/24 12/06/24 12/06/24 Rx amitriptyline 100 mg tablet 200 mg (2 x 100 mg) PO DAILY #60 10/30/24 12/06/24 12/05/24 Rx tabs lamotrigine 200 mg tablet 400 mg (2 x 200 mg) PO BEDTIME #60 10/30/24 12/06/24 12/05/24 Rx (Lamictal) tabs ziprasidone HCl 60 mg capsule 60 mg PO BID #60 caps 10/30/24 12/06/24 12/05/24 Rx (Geodon) venlafaxine 150 mg 150 mg PO DAILY #30 caps 11/05/24 12/06/24 12/05/24 Rx capsule,extended release 24 hr (Effexor XR) alprazolam 1 mg tablet (Xanax) 1 mg PO BID #60 tabs 11/06/24 12/06/24 12/06/24 Rx estradiol 0.5 mg tablet 0.5 mg PO DAILY 12/05/24 12/06/24 12/06/24 History furosemide 40 mg tablet 40 mg PO QAM 12/06/24 12/06/24 Unknown History spironolactone 25 mg tablet 25 mg PO BID 12/06/24 12/06/24 Unknown History venlafaxine 75 mg capsule,extended 75 mg PO QAM 12/06/24 12/06/24 Unknown History release 24 hr Allergies Allergy/AdvReac Type Severity Reaction Status Date / Time Penicillins Allergy Severe ADR-Diarrhe Verified 12/05/24 13:35 a PFSH Acute PFSH: Medical History Fibromyalgia Sensation disturbance of skin Renal cyst Bipolar 2 disorder Psychiatric care Hypothyroid Essential hypertension Generalized anxiety disorder Surgical History History of back surgery H/O: hysterectomy H/O tubal ligation History of foot surgery Family History Other CAD (coronary artery disease) Diabetes Hyperlipidemia Hypertension Social History Smoking and tobacco/nicotine status: unknown if used tobacco/nicotine 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 Vitals/I&O/Wt Last Vital Signs Temp 98.6 F 12/06/24 13:38 Pulse 73 12/06/24 13:38 Resp 16 12/06/24 15:53 BP 141/78 12/06/24 13:38 Pulse Ox 96 12/06/24 15:53 O2 Del Method Room Air 12/06/24 13:38 Weight last 48 hrs Weight 67.132 kg Physical Exam Const: COMMON NORMALS: no acute distress and patient oriented x3 Resp: COMMON NORMALS: normal respiratory effort, No retractions, No use of accessory muscles and clear to auscultation bilaterally AUSCULTATION: clear to auscultation bilaterally Cardio: COMMON NORMALS: no JVD, regular rate, regular rhythm, S1 normal heart sound present and S2 normal heart sound present RATE: regular rate RHYTHM: regular rhythm HEART SOUNDS: S1 normal heart sound present and S2 normal heart sound present GI: COMMON NORMALS: Normal to inspection, nondistended, normoactive bowel sounds present, Soft to palpation and non-tender Extremity: NARRATIVE EXTREMITY EXAM: 2+ pitting edema OTHER: Pain with range of motion of arms and shoulders above 90 degree arc, complains of lower back pain, at the T10 level and a T4, no CVA tenderness Upper extremity strength good 5 out of 5 in my exam, but she is limited given degree of motion due to pain in her neck and stiffness Bilateral lower extremities, strength 5 out of 5, on my examination, limited movement at the hip due to severe low back pain bilaterally Neuro: COMMON NORMALS: patient oriented x3, CN's II-XII intact bilaterally and moves all extremities Psych: COMMON NORMALS: mental status grossly normal Data 12/06/24 14:35 12/06/24 14:35 A&P Assessment and plan (1) Generalized anxiety disorder: (2) Bipolar 2 disorder: (3) Bilateral lower extremity edema: (4) Cognitive dysfunction: (5) Cervical spondylosis with myelopathy: (6) Intractable pain: Plan Intractable neck pain -No evidence of Guillain-Ignacio?, or ascending weakness, no trouble breathing -FINDINGS: Bones: The cervical spine demonstrates moderate degenerative changes at multiple levels. Bilateral facet joint arthropathy at C7-T1 with 5 mm anterolisthesis of C7 over T1, unchanged. No acute fracture. No compression deformity. 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 oD will be consulted for consideration of surgical intervention -Due to intractable pain monitor closely as inpatient -Lovenox for DVT prophylaxis -Full code Bilateral lower extremity edema, 2+ pitting edema -Component could be fluid overload we will give her 40 mg IV push Lasix once Anxiety disorder, fibromyalgia, PDMP PDMP Reviewed: Not Reviewed Attestations Medical Necessity Statement*: Patient requires hospitalization for intractable pain, intractable neck pain, back pain, bilateral extremity edema Diagnoses Generalized anxiety disorder F41.1 Bipolar 2 disorder F31.81 Bilateral lower extremity edema R60.0 Cognitive dysfunction F09 Cervical spondylosis with myelopathy M47.12 Intractable pain R52
[2024-12-06 17:17] LABS: Estmated Average Glucose 114; Hemoglobin A1C 5.6 % (4.0-6.0)
[2024-12-06 17:30] LABS: Chol HDL Ratio 2.87 mg/dL (0.0-4.40); Cholesterol 152 mg/dL (0-200); HDL Cholesterol 53 mg/dL (60-100); LDL Cholesterol Calculated 82 mg/dL (50-129); LDL HDL Ratio 1.55 RATIO (0.00-3.22); NT Pro B Type Natriuretic Pept 106 pg/mL (0-125); Triglycerides 83 mg/dL (0-150)
--- OUTSIDE RECORDS SUMMARY | 2024-12-06 18:32 | XMS_ITS | Encounter Summary ---
Author Organization [facility] Address [address] [place] [address] Care Team Providers Care Retort Press Operator Name Role Phone Garrett Boswell MD Primary Care Provider [phone] Reason for Visit * Reason Comments Medication Review Encounter Details Date Type Department Care Team (Late st Contact Info) Description 11/24/2024 11:40 AM WOOD FUEL PELLETIZER Office Visit [address] [phone] Garrett Boswell MD [address] [place] [phone] History of falling (Primary Dx); Primary hypertension; Bipolar affective disorder, remission status unspecified (CMS/HCC); ELEANOR (generalized anxiety disorder) Social History Tobacco Use Types Packs/Day Years Used Date Smoking Tobacco: Former Cigarettes 1 20 Passive Smoke Exposure: Past Smokeless Tobacco: Never Alcohol Use Standard Drinks/Week Comments No 0 (1 standard drink = 0.6 oz pur e alcohol) Feeling Safe Answer Date Recorded Are you in a relationship wi th someone who hurts you emotionally and/or physically? No 11/18/2024 Comments Unknown Sex and Gender Information Value Date Recorded Sex Assigned at Female 07/13/2024 1:57 PM CDT Legal Sex Female 12:26 AM WOOD FUEL PELLETIZER Gender Identity Female 07/13/2024 1:57 PM CDT Sexual Orientation Straight 07/13/2024 1: 57 PM CDT documented as of this encounter Last Filed Vital Signs Vital Sign Reading Time Taken Comments Blood Pressure 130/80 11/24/2024 11:43 AM WOOD FUEL PELLETIZER Pulse 91 11/24/2024 11:43 AM WOOD FUEL PELLETIZER Temperature 37.9 ??C (100.2 ??F) 11/24/2024 11:43 AM WOOD FUEL PELLETIZER Respiratory Rate 12 11/24/2024 11:4 3 AM WOOD FUEL PELLETIZER Oxygen Saturation 95% 11/24/2024 11: 43 AM WOOD FUEL PELLETIZER Inhaled Oxygen Concentration - - Weight 103.1 kg (227 lb 3.2 oz) 025 11:43 AM WOOD FUEL PELLETIZER Height 160 cm (5' 3 ) 11/24/2024 11:43 AM WOOD FUEL PELLETIZER Body Mass Index 40.25 11/24/2024 11:43 AM WOOD FUEL PELLETIZER documented in this encounter Progress Notes * Garrett Boswell MD - 11/24/2024 11:41 AM CST Chief Complaint Patient presents with Medication Review Patient history provided by patient and sister. SUBJECTIVE: Guera Clement is a 58 y.o. year-old female who presents to the clinic for Medication Review Patient is here for a medication review. Patient also reports she has had about 5 falls since she has been here last. No other acute concerns at this time. Review of Systems: All systems reviewed and negative otherwise as per HPI. Past Medical History: Past Medical, Surgical, & Social History Reviewed. Allergies & Medications Reviewed. Fall Risk ASSESSMENT She has had two or more falls in the past year. TOBACCO/NICOTINE COUNSELING She was counseled to discontinue tobacco/nicotine use. OBJECTIVE: Physical Exam: BP 130/80 Pulse 91 Temp 100.2 ??F (37.9 ??C) (Temporal) Resp 12 Ht 5' 3 (1.6 m) Wt 103.1kg (227 lb 3.2 oz) LMP (LMP Unknown) SpO2 95% BMI 40.25 kg/m?? General: Awake, alert and oriented. Ambulates with rollator walker Skin: No obvious rashes or lesions. Head: Normocephalic, atraumatic without visible lesions. Eyes: Conjunctivae clear. Sclera is non-icteric. EOM intact. Ears: External ears normal. Hearing is grossly intact. Respiratory: Non-labored breathing. No respiratory distresss. Neurological: The patient is awake, alert and oriented with normal speech. Motor function is grossly normal. Psychiatric: Appropriate mood and affect. Good judgement and insight. No visual or auditory hallucinations. ASSESSMENT/PLAN: I have reviewed in detail the patient's available electronic medical record this date including past medical history, present medications, allergies, past surgical history, family history, social history, and review of systems. 1. Primary hypertension Medications reviewed in the clinic today. Stable. Continue current medication regimen as prescribed. 2. History of falling (Primary) Strongly encouraged patient to discontinue using rollator walker. Use standard walker for householdambulation and short distance community ambulation. Can use electric scooter in the stores for shopping. 3. Bipolar affective disorder, remission status unspecified (CMS/[facility]) 4. ELEANOR (generalized anxiety disorder) Medications reviewed in the clinic today. Patient has a history of bipolar affective disorder and has been on venlafaxine for a long time . Reports anxiety has not improved with use of Effexor. Will begin titration off today. Instructed patient to take 75 mg until her next visit in 1 month. Will then decrease to 37.5 mg for1 month and then off. - venlafaxine (EFFEXOR XR) 75 mg Extended Release 24 hour capsule; Take 1 Capsule (75 mg) by mouth daily with breakfast. Dispense: 30 Capsule; Refill: 1 Return precautions provided. Will follow-up in 1 months for her falls/titration off of the Effexor. Sooner if indicated. Patient verbalized understanding agreement plan. Garrett Boswell MD Portions of this note were created using [employer] Dictation software. Attempts were made to correct any mistakes prior to signing this note. There is always a possibility that words were not transcribed correctly. FUEL PELLETIZER documented in this encounter Plan of Treatment Upcoming Encounters Date Type Department Care Team (Late st Contact Info) Description 12/22/2024 11:20 AM WOOD FUEL PELLETIZER Office Visit [facility] [address] [phone] Garrett Boswell MD [address] [phone] documented as of this encounter Visit Diagnoses Diagnosis History of falling- Primary Personal history of fall Primary hypertension Unspecified essential hypertension Bipolar affective disorder, remission status unspecified ([facility]) ELEANOR (generalized anxiety disorder) Generalized anxiety disorder documented in this encounter Care Teams Retort Press Operator Relationship Specialty Start Date End Date Garrett Boswell MD [address] [place] [phone] PCP - General Family Practice 05/16/24 documented as of this encounter
--- OUTSIDE RECORDS SUMMARY | 2024-12-06 18:32 | XMS_ITS | Encounter Summary ---
Author Organization [facility] Address [address] [place] [address] Care Team Providers Care Cable Television Technician Name Role Phone Garrett Boswell MD Primary Care Provider [phone] Reason for Visit * Reason Comments Provider Call Encounter Details Date Type Department Care Team (Late st Contact Info) Description 11/18/[address] [phone] Garrett Boswell MD [address] [phone] Provider Call Social History Tobacco Use Types Packs/Day Years [...] PM CDT Legal Sex Female 12:26 AM FISH HATCHERY WORKER Gender Identity Female 07/13/2024 1:57 PM CDT Sexual Orientation Straight 07/13/2024 1: 57 PM CDT documented as of this encounter Miscellaneous Notes * Telephone Encounter - Garrett Boswell MD - 11/18/2024 11:00 PM CST Spoke with Dr. Mcintosh regarding patient progress. HATCHERY WORKER * Telephone Encounter - Medley, Janell M, LEAD SOFTWARE QA ENGINEER - 11/18/2024 5:08 PM CST Call was transferred to Dr. Boswell. HATCHERY WORKER * Telephone Encounter - Bunny Rollins - 11/18/2024 2:20 PM CST Copied from [facility] #[id number]. Topic: [id number] Call >> Nov 18, 2024 2:16 PM Bunny Anton wrote: Caller is requesting to speak with Clinical Care Team. Caller Name: DR.SHAmuel mcintosh ER - [facility] Callback Number: [phone] Clinician Type: Other healthcare professional not listed above Call Notes: States patient is there now and says advised her to go to the ER. However he doesn't see any notates in the system. Would like to speak with someone to figure out what care patient needs. Is this addressing an immediate patient care need? Yes Transferred to Backline/PAINTER [employer]IP[employer]ARD Line HATCHERY WORKER documented in this encounter Plan of Treatment Upcoming Encounters Date Type Department Care Team (Late st Contact Info) Description 12/22/2024 11:20 AM FISH HATCHERY WORKER Office Visit [address] [phone] Garrett Boswell MD [address] [place] [phone] documented as of this encounter Visit Diagnoses Not on filedocumented in this encounter Care Teams Cable Television Technician Relationship Specialty Start Date End Date Garrett Boswell MD [address] [place] [phone] PCP - General Family Practice 05/16/24 documented as of this encounter
--- OUTSIDE RECORDS SUMMARY | 2024-12-06 18:32 | XMS_ITS | Encounter Summary ---
Author Organization [facility] Address [address] [place] [address] Care Team Providers Care Space Systems Operations Superintendent Name Role Phone Garrett Boswell MD Primary Care Provider [phone] Reason for Visit * Reason Onset Date Comments Information 11/24/2024 Encounter Details Date Type Department Care Team (Late st Contact Info) Description 11/24/2024 Telephone [facility] Neurology - [place] [address] [place] [address] Catia Iverson MD [address] [place] [address] Information Social History Tobacco Use Types Packs/Day Years [...] PM CDT Legal Sex Female 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 Iverson. Dr. Iverson called her last and told her the results of her MRI, and told her she needs to get in contact with her back surgery doctor. I am wondering if we need to come to the appointment on Sunday to see Dr. Iverson. [place] live 100 miles away so if it is not necessary please let us know. Guera Clement Call Back: [phone] RIAL LISTER documented in this encounter Plan of Treatment Upcoming Encounters Date Type Department Care Team (Late st Contact Info) Description 12/22/2024 11:20 AM MATERIAL LISTER Office Visit [facility] [address] [phone] Garrett Boswell MD [address] [phone] documented as of this encounter Visit Diagnoses Not on filedocumented in this encounter Care Teams Space Systems Operations Superintendent Relationship Specialty Start Date End Date Garrett Boswell MD [address] [phone] PCP - General Family Practice 05/16/24 documented as of this encounter
--- OUTSIDE RECORDS SUMMARY | 2024-12-06 18:32 | XMS_ITS | Encounter Summary ---
Author Organization [facility] Address [address] [place] [address] Care Team Providers Care Dairy Worker Name Role Phone Garrett Boswell MD Primary Care Provider [phone] Reason for Visit * Reason Comments Med Refill Encounter Details Date Type Department Care Team (Late st Contact Info) Description 11/24/[address] [facility] Medicine [address] [phone] Garrett Boswell MD [address] [phone] Fibromyalgia; Peripheral edema Social History Tobacco Use Types Packs/Day Years [...] PM CDT Legal Sex Female 12:26 AM CALL TAKER Gender Identity Female 07/13/2024 1:57 PM CDT Sexual Orientation Straight 07/13/2024 1: 57 PM CDT documented as of this encounter Miscellaneous Notes * Telephone Encounter - Tess Harris LPN - 11/25/2024 10:03 AM CALL TAKER The original prescription was discontinued on 11/24/2024 by Garrett Boswell MD for the following reason: Patient choice. Renewing this prescription may not be appropriate. Unable to reach patient via phone at this time. Patient did refill both medications on 11-04-24. Refusing at this time. Medication Refill Request Last Fill Date: Furosemide 40 mg 10-06-24 Quantity: 30 with 1 Baclofen 10 mg 09-11-24 Quantity: 120 with 1 Correct Pharmacy Recent and Future Visits: Recent Visits Date Type Provider Dept 11/24/24 Office Visit Garrett Boswell MD [facility] 11/18/24 Office Visit Garrett Boswell MD [facility] 09/30/24 Office Visit Garrett Boswell MD [facility] 08/18/24 Office Visit Garrett Boswell MD [facility] 07/18/24 Office Visit Garrett Boswell MD [facility] 05/16/24 Office Visit Kiana Nagel FNP [facility] Showing recent visits within past 540 days with a meds authorizing provider and meeting all other requirements Future Appointments Date Type Provider Dept 12/22/24 Appointment Garrett Boswell MD [facility] Showing future appointments within next 365 days with a meds authorizing provider and meeting all other requirements Last Labs: 11-18-24 Tess Harris LPN, 11/25/2024 10:05 AM TAKER documented in this encounter Plan of Treatment Upcoming Encounters Date Type Department Care Team (Late st Contact Info) Description 12/22/2024 11:20 AM CALL TAKER Office Visit [facility] [address] [phone] Garrett Boswell MD [address] [phone] documented as of this encounter Visit Diagnoses Diagnosis Fibromyalgia Mylagia and myositis, unspecified Peripheral edema Edema documented in this encounter Care Teams Dairy Worker Relationship Specialty Start Date End Date Garrett Boswell MD [address] [place] [phone] PCP - General Family Practice 05/16/24 documented as of this encounter
--- OUTSIDE RECORDS SUMMARY | 2024-12-06 18:32 | XMS_ITS | Encounter Summary ---
Author Organization [facility] Address [address] [place] [address] Care Team Providers Care Silverware Buffing Machine Operator Name Role Phone Garrett Boswell MD Primary Care Provider [phone] Encounter Details Date Type Department Care Team (Late st Contact Info) Description 11/21/2024 Results Follow-Up [facility] Neurology - [place] [address] [place] [address] Catia Iverson MD [address] [place] [address] MRI CERVICAL WO CONTRAST Social History Tobacco Use Types Packs/Day Years [...] PM CDT Legal Sex Female 12:26 AM HEALTH AND SAFETY TRAINER Gender Identity Female 07/13/2024 1:57 PM CDT Sexual Orientation Straight 07/13/2024 1: 57 PM CDT documented as of this encounter Miscellaneous Notes * Telephone Encounter - Catia Iverson MD - 11/21/2024 8:21 AM HEALTH AND SAFETY TRAINER Called pt, explained to her the MRI result. Will fax result to dr. Do, at [facility]. Pt had surgery done by him already before. Told pt to call his office and makes appt as as possible TH AND SAFETY TRAINER documented in this encounter Plan of Treatment Upcoming Encounters Date Type Department Care Team (Late st Contact Info) Description 12/22/2024 11:20 AM HEALTH AND SAFETY TRAINER Office Visit [address] [phone] Garrett Boswell MD [address] [phone] documented as of this encounter Visit Diagnoses Not on filedocumented in this encounter Care Teams Silverware Buffing Machine Operator Relationship Specialty Start Date End Date Garrett Boswell MD [address] [place] [phone] PCP - General Family Practice 05/16/24 documented as of this encounter
--- OUTSIDE RECORDS SUMMARY | 2024-12-06 18:32 | XMS_ITS | Encounter Summary ---
Author Organization [facility] Address [address] [facility] Attn: Epic Prelude ADT [place] [address] Care Team Providers Care Refrigerator Cabinetmaker Name Role Phone Garrett Boswell MD Primary Care Provider [phone] Encounter Details Date Type Department Care Team (Latest Contact Info) Description 11/18/2024 Travel Social History Tobacco Use Types Packs/Day Years [...] PM CDT Legal Sex Female 12:26 AM ELECTRONIC INTELLIGENCE OFFICER Gender Identity Female 07/13/2024 1:57 PM CDT Sexual Orientation Straight 07/13/2024 1: 57 PM CDT documented as of this encounter Plan of Treatment Upcoming Encounters Date Type Department Care Team (Late st Contact Info) Description 12/22/2024 11:20 AM ELECTRONIC INTELLIGENCE OFFICER Office Visit [facility] [address] [phone] Garrett Boswell MD [address] [phone] documented as of this encounter Visit Diagnoses Not on filedocumented in this encounter Care Teams Refrigerator Cabinetmaker Relationship Specialty Start Date End Date Garrett Boswell MD [address] [phone] PCP - General Family Practice 05/16/24 documented as of this encounter
--- OUTSIDE RECORDS SUMMARY | 2024-12-06 18:32 | XMS_ITS | Encounter Summary ---
Author Organization [facility] Address [address] [place] [address] Care Team Providers Care Automobile Carpets Molder Name Role Phone Garrett Boswell MD Primary Care Provider [phone] Encounter Details Date Type Department Care Team (Late Contact Info) Description 11/25/2024 External Device Data [facility] ABSTRACTION Provider, Abstract NO ADDRESS ON FILE Social History Tobacco Use Types Packs/Day Years [...] CDT Legal Sex Female 12:26 AM ELECTRONIC SCALE SUBASSEMBLER Gender Identity Female 07/13/2024 1:57 PM CDT Sexual Orientation Straight 07/13/2024 1: 57 PM CDT documented as of this encounter Plan of Treatment Upcoming Encounters Date Type Department Care Team (Late st Contact Info) Description 12/22/2024 11:20 AM ELECTRONIC SCALE SUBASSEMBLER Office Visit [facility] [address] [phone] Garrett Boswell MD [address] [phone] documented as of this encounter Visit Diagnoses Not on filedocumented in this encounter Care Teams Automobile Carpets Molder Relationship Specialty Start Date End Date Garrett Boswell MD [address] [place] [phone] PCP - General Family Practice 05/16/24 documented as of this encounter
--- OUTSIDE RECORDS SUMMARY | 2024-12-06 18:32 | XMS_ITS | Clinical Summary ---
Author Organization [facility] Address [address] [place] [address] Phone Care Team Providers Care Patient Monitor Name Role Phone Salas Munoz MD Primary Care Provider Allergies Active Allergy Reactions Criticality Noted Date Comments Penicillins Diarrhea Low 11/08/2011 Medications pregabalin (LYRICA) 75 mg Oral Cap Take 75 mg by mouth 4 times daily. Active atenolol (TENORMIN) 50 mg Oral tablet Take 50 mg by mouth daily. Active escitalopram (LEXAPRO) 20 mg Oral tablet Take 20 mg by mouth daily. Active conjugated estrogens (PREMARIN) 0.625 mg Oral tablet Take 0.625 mg by mouth daily. Active ALPRAZolam (XANAX) 1 mg Oral tablet Take 1 mg by mouth 3 times daily as needed. Active propylthiouraci l (PTU) 50 mg Oral tablet Take 50 mg by mouth daily. Active furosemide (LASIX) 20 mg Oral tablet Take 20 mg by mouth daily. Active methylPREDNISol one (MEDROL, SHARI,) 4 mg Oral DsPk Take as directed 1 Package None 11/08/2011 Active orphenadrine SR (NORFLEX) 100 mg Oral tablet Take 1 Tab by mouth 2 times daily as needed for Spasm. 30 Tab 0 11/08/2011 Active cyclobenzaprine (FLEXERIL) 10 mg Oral tablet Take 10 mg by mouth 3 times daily as needed. Active HYDROcodone-mario taminophen (NORCO) 5-325 mg Oral tablet Take 1-2 Tabs by mouth every 4 hours as needed for Pain, Mild (For Pain Scale 1-3). 90 Tab 0 12/29/2011 Active Active Problems Problem Noted Date Diagnosed Date S/P lumbar fusion 01/17/2012 Stenosis, spinal, lumbar 11/15/2011 Spondylolisthesis 11/15/2011 Social History Tobacco Use Types Packs/Day Years Used Date Smoking Tobacco: Some Days Cigarettes 0.5 15 Alcohol Use Standard Drinks/Week Comments No 0 (1 standard drink = 0.6 oz pur e alcohol) Comments No Sex and Gender Information Value Date Recorded Sex Assigned at Not on file Legal Sex Female 5:08 AM RECLAMATION FURNACE OPERATOR Gender Identity Not on file Sexual Orientation Not on file Occupation Industry Job Start Date Job End Date Not on file Not on file Not on file Not on file Last Filed Vital Signs Vital Sign Reading Time Taken Comments Blood Pressure 122/70 03/06/2012 2:12 PM CDT Pulse 71 03/06/2012 2:12 PM CDT Temperature 36.4 ??C (97.6 ??F) 03/06/2012 2:12 PM CD T Respiratory Rate 20 03/06/2012 2:12 PM CDT Oxygen Saturation 99% 03/06/2012 2:12 PM CDT Inhaled Oxygen Concentration - - Weight 89.4 kg (197 lb) 03/06/2012 2:12 PM CDT Height 160 cm (5' 3 ) 03/06/2012 2:12 PM CDT Body Mass Index 34.9 03/06/2012 2:12 PM CDT Plan of Treatment Health Maintenance Due Date Last Done Comments DTAP/TDAP/TD VACCINES (1 - Tdap) 1983 HEPATITIS B VACCINES (1 of 3 - 19+ 3-dose series) 1983 CERVICAL CANCER SCREENING 1994 BREAST CANCER SCREENING 2004 COLORECTAL SCREENING 2009 Colorectal Cancer Screening 2009 FIT-DNA Q 3 years 2009 FIT/FOBT Q 1 year 2009 Flex Sig/CT Colonography Q 5 years 2009 ZOSTER VACCINE (1 of 2) 2014 INFLUENZA VACCINE (#1) 2024 PNEUMOCOCCAL VACCINE 0-64 YEARS Aged Out No longer eligible based on patient's age to complete this topic Medical Devices Implanted Type Area Fruit Grower Device Identifier Shelf Expiration Date Model / Serial / Lot Sna - [id number] Implanted:Qty: 1 on 12/28/2011 by Trip Mensah MD at [facility] Cage N/A: Spine Lumbar 11/29/2013 11-1529 / NA / [id number] Description:[employer]/S taxx XD Cartridge Ciro Bent Leroy Ti 5.5x45 3313-045 - Sload #[id number] Implanted:Qty: 2 on 12/29/2011 at [facility] Ciro N/A: Spine Lumbar NEERAJ-SPINE 3313-045 / LOAD #[id number] / NA Closure Top Misa 3301-1 - Sload #[id number] Implanted:Qty: 4 on 12/29/2011 at [facility] Screw N/A: Spine Lumbar NEERAJ-SPINE 3301-1 / LOAD #[id number] / NA Screw Misa Pa 6.5x45mm [id number] - Sload #[id number] Implanted:Qty: 4 on 12/29/2011 at [facility] Screw N/A: Spine Lumbar NEERAJ-SPINE 0969-4931 / LOAD #[id number] / NA Advance Directives For more information, please contact: [phone] * Full Code (Latest Code Status on File) Date Activated Date Inactivated Comments 12/28/2011 1:34 PM 12/29/2011 7:01 PM * Full Code Date Activated Date Inactivated Comments 12/28/2011 11:24 AM 12/28/2011 1:34 PM Care Teams Patient Monitor Relationship Specialty Start Date End Date Salas Munoz MD [address] [place] [phone] PCP - General Family Practice 11/08/11
--- OUTSIDE RECORDS SUMMARY | 2024-12-06 18:32 | XMS_ITS | Encounter Summary ---
Author Organization [facility] Address [address] [place] [address] Care Team Providers Care Security Police Officer Name Role Phone Garrett Boswell MD Primary Care Provider Encounter Details Date Type Department Care Team (Late Contact Info) Description 11/19/2024 External Device Data STL ABSTRACTION Provider, Abstract [...] PM CDT Legal Sex Female 12:26 AM CASTING AGENT Gender Identity Female 07/13/2024 1:57 PM CDT Sexual Orientation Straight 07/13/2024 1: 57 PM CDT documented as of this encounter Plan of Treatment Upcoming Encounters Date Type Department Care Team (Late st Contact Info) Description 12/22/2024 11:20 AM CASTING AGENT Office Visit [facility] [address] [phone] Garrett Boswell MD [address] [phone] documented as of this encounter Visit Diagnoses Not on filedocumented in this encounter Care Teams Security Police Officer Relationship Specialty Start Date End Date Garrett Boswell MD [address] [place] [phone] PCP - General Family Practice 05/16/24 documented as of this encounter
--- OUTSIDE RECORDS SUMMARY | 2024-12-06 18:32 | XMS_ITS | Encounter Summary ---
Author Organization [facility] Address [address] [place] [address] Care Team Providers Care Data Lead Name Role Phone Garrett Boswell MD Primary Care Provider [phone] Encounter Details Date Type Department Care Team (Late Contact Info) Description 11/20/2024 Results Follow-Up [facility] Emergency Medicine [address] [place] [address] Pretty Garces, RN MRSA PCR RAPID SCREEN Social History Tobacco Use Types Packs/Day Years [...] PM CDT Legal Sex Female 12:26 AM HOT PATCHER Gender Identity Female 07/13/2024 1:57 PM CDT Sexual Orientation Straight 07/13/2024 1: 57 PM CDT documented as of this encounter Plan of Treatment Upcoming Encounters Date Type Department Care Team (Late st Contact Info) Description 12/22/2024 11:20 AM HOT PATCHER Office Visit [facility] [address] [phone] Garrett Boswell MD [address] [phone] documented as of this encounter Visit Diagnoses Not on filedocumented in this encounter Care Teams Data Lead Relationship Specialty Start Date End Date Garrett Boswell MD [address] [place] [phone] PCP - General Family Practice 05/16/24 documented as of this encounter
--- OUTSIDE RECORDS SUMMARY | 2024-12-06 18:32 | XMS_ITS | Encounter Summary ---
Author Organization [facility] Address [address] [place] [address] Care Team Providers Care Keyboarding Clerk Name Role Phone Garrett Boswell MD Primary Care Provider [phone] Reason for Visit * Reason Comments Weight Loss Medication Review Encounter Details Date Type Department Care Team (Late st Contact Info) Description 11/18/2024 11:20 AM FLOTATION TANK OPERATOR Office Visit [address] [phone] Garrett Boswell MD [address] [phone] Peripheral edema (Primary Dx); 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; Bilateral lower leg cellulitis; Class 2 severe obesity due to excess calories with serious comorbidity and body mass index (BMI) of 37.0 to 37.9 in adult ([facility]); Encounter for colorectal cancer screening; Bipolar affective disorder, remission status unspecified ([facility]); Myelopathy ([facility]) Social History Tobacco Use Types Packs/Day Years [...] PM CDT Legal Sex Female 12:26 AM FLOTATION TANK OPERATOR Gender Identity Female 07/13/2024 1:57 PM CDT Sexual Orientation Straight 07/13/2024 1: 57 PM CDT documented as of this encounter Last Filed Vital Signs Vital Sign Reading Time Taken Comments Blood Pressure 145/70 11/18/2024 11:29 AM FLOTATION TANK OPERATOR Pulse 91 11/18/2024 11:29 AM FLOTATION TANK OPERATOR Temperature 36.4 ??C (97.6 ??F) 11/18/2024 11:[address] Respiratory Rate 12 11/18/2024 11:29 AM FLOTATION TANK OPERATOR Oxygen Saturation 94% 11/18/2024 11:29 AM FLOTATION TANK OPERATOR Inhaled Oxygen Concentration - - Weight 105.7 kg (233 lb) 11/18/2024 11:29 AM FLOTATION TANK OPERATOR Height 160 cm (5' 3 ) 11/18/2024 11:29 AM FLOTATION TANK OPERATOR Body Mass Index 41.27 11/18/2024 11:29 AM FLOTATION TANK OPERATOR documented in this encounter Progress Notes * Garrett Boswell MD - 11/18/2024 11:26 AM CST Chief Complaint Patient presents with Weight Loss Medication Review Patient history provided by patient. SUBJECTIVE: Guera Clement is a 58 y.o. year-old female who presents to the clinic for Weight Loss and Medication Review Patient is here for a follow up on her weight loss and med review. She reports she is in a lot of pain today and she quit her metformin because she didn't like how it made her feel. Patient reports she would like to go over her medications. She takes several medication prescribed by behavioral health.She would like them to be prescribed by me. She takes lamotrigine, ziprasidone,amitriptyline, venlafaxine, and alprazolam. Her main diagnosis was bipolar type 1 years ago. She takes furosemide but doesn't feel like it is helping. Her brother takes torsemide and wants to know if that would work for her. She has fallen at least four times in the last 3-4 months. No other acute concerns at this time. Review of Systems: All systems reviewed and negative otherwise as per HPI. Past Medical History: Past Medical, Surgical, & Social History Reviewed. Allergies & Medications Reviewed. Fall Risk ASSESSMENT She has had two or more falls in the past year. TOBACCO COUNSELING She was counseled to discontinue tobacco/nicotine use. OBJECTIVE: Physical Exam: BP (!) 145/70 Pulse 91 Temp 97.6 ??F (36.4 ??C) (Temporal) Resp 12 Ht 5' 3 (1.6 m) Wt 105.7 kg (233 lb) LMP (LMP Unknown) SpO2 94% BMI 41.27 kg/m?? Physical Exam Vitals reviewed. Constitutional: General: She is in acute distress. Appearance: She is ill-appearing. She is not toxic-appearing. Comments: Unsteady gait even with rollator walker, forward flexed and antalgic amb and posture. HENT: Head: Normocephalic and atraumatic. Right Ear: External ear normal. Left Ear: External ear normal. Nose: Nose normal. Mouth/Throat: Mouth: Mucous membranes are moist. Eyes: Extraocular Movements: Extraocular movements intact. Conjunctiva/sclera: Conjunctivae normal. Cardiovascular: Rate and Rhythm: Normal rate and regular rhythm. Heart sounds: Normal heart sounds. Pulmonary: Effort: Pulmonary effort is normal. Breath sounds: Normal breath sounds. Abdominal: General: Bowel sounds are normal. Palpations: Abdomen is soft. Musculoskeletal: General: Normal range of motion. Cervical back: Normal range of motion and neck supple. Right lower leg: Edema (3+) present. Left lower leg: Edema (3+) present. Skin: General: Skin is warm. Neurological: General: No focal deficit present. Mental Status: She is alert. Psychiatric: Mood and Affect: Mood normal. Behavior: Behavior normal. ASSESSMENT/PLAN: I have reviewed in detail the patient's available electronic medical record this date including past medical history, present medications, allergies, past surgical history, family history, social history, and review of systems. 1. Peripheral edema (Primary) 2. 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 3. Bilateral lower leg cellulitis No shortness of breath. 3+ bilateral pitting edema to mid thighs Significant increase in swelling over last few days. No improvement with furosemide. Recurrent falls and worsening lower extremity weakness. Recommend eval in ER for acute labs and possible IV diuresis. Patient and her sister are agreeable and will go by personal vehicle to [facility]. 4. Class 2 severe obesity due to excess calories with serious comorbidity and body mass index (BMI)of 37.0 to 37.9 in adult Encouraged lifestyle modifications including healthy food choices and increased physical activity to at least 30 min/day on most days of the week as safely tolerated. 5. Encounter for colorectal cancer screening Risk, benefits, and alternative colon cancer screening options discussed. Patient elects cologuard. Ordered as below. - COLON CANCER SCREEN, STOOL DNA 6. Bipolar affective disorder, remission status unspecified Medications reviewed in the clinic today. Stable. Continue current medication regimen as prescribed. 7. Myelopathy (CMS/HCC) Clinically stable. Continue expectant management. Return precautions provided. Will follow-up in 3 months for peripheral edema. Sooner if indicated. Patient verbalized understanding agreement plan. Garrett Boswell MD Portions of this note were created using [employer] Dictation software. Attempts were made to correct any mistakes prior to signing this note. There is always a possibility that words were not transcribed correctly. ATION TANK OPERATOR documented in this encounter Plan of Treatment Upcoming Encounters Date Type Department Care Team (Late st Contact Info) Description 12/22/2024 11:20 AM FLOTATION TANK OPERATOR Office Visit [address] [phone] Garrett Boswell MD [address] [place] [phone] Scheduled Orders Name Type Priority Associated Diagnoses Orde r Schedule COLON CANCER SCREEN, STOOL DNA Lab Routine Encounter for colorectal cancer screening Expected: 11/18/2024, Expires: 01/13/2025 documented as of this encounter Visit Diagnoses Diagnosis Peripheral edema- Primary Edema 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 Bilateral lower leg cellulitis Cellulitis and abscess of leg, except foot Class 2 severe obesity due to excess calories with serious comorbidity and body mass index (BMI) of 37.0 to 37.9 in adult (CMS/HCC) Encounter for colorectal cancer screening Special screening for malignant neoplasms, colon Bipolar affective disorder, remission status unspecified (CMS/HCC) Myelopathy (CMS/HCC) Unspecified disease of spinal cord documented in this encounter Care Teams Keyboarding Clerk Relationship Specialty Start Date End Date Garrett Boswell MD [address] [place] [phone] PCP - General Family Practice 05/16/24 documented as of this encounter
--- OUTSIDE RECORDS SUMMARY | 2024-12-06 18:33 | XMS_ITS | Encounter Summary ---
Author Organization [facility] Address [address] [place] [address] Care Team Providers Care Petroleum Supply Specialist Name Role Phone Salas Munoz MD Primary Care Provider [phone] Encounter Details Date Type Department Care Team (Latest Contact Info) Description 12/17/2006 Outpatient Historical [facility] Rheumatology- [facility] [address] [place] [phone] Armando Arevalo MD NO ADDRESS ON FILE Rheumatism, Unspecified and Fibrositis (Primary Dx) Social History Tobacco Use Types Packs/Day Years Used Date Smoking Tobacco: Never Assessed Comments Unknown Sex and Gender Information Value Date Recorded Sex Assigned at Not on file Legal Sex Female 5:08 AM SOFTWARE ENGINEERING MANAGER Gender Identity Not on file Sexual Orientation Not on file documented as of this encounter Plan of Treatment Not on file documented as of this encounter Visit Diagnoses Diagnosis Rheumatism, unspecified and fibrositis- Primary documented in this encounter Care Teams Petroleum Supply Specialist Relationship Specialty Start Date End Date Salas Munoz MD [address] [place] [address] PCP - General Family Practice 11/08/11 documented as of this encounter
--- OUTSIDE RECORDS SUMMARY | 2024-12-06 18:33 | XMS_ITS | Clinical Summary ---
Author Organization [facility] Address [address] [facility] Attn: Epic Prelude ADT LATANYA LAU [address] Care Team Providers Care Hone Operator Name Role Phone Garrett Boswell MD Primary Care Provider [phone] Allergies Active Allergy Reactions Criticality Noted Date Comments Penicillins Diarrhea Low 11/08/2011 Medications polyethylene glycol (MIRALAX) 17 gram Powder in Packet Take 1 Packet (17 Grams) by mouth 1 time daily as needed for Constipation. 30 Packet 10/25/20 Active lamoTRIgine (LaMICtal) 200 mg tablet Take 2 Tablets (400 mg) by mouth daily at bedtime. 60 Tablet 10/25/20 23 Active cholecalcifero l, vitamin D3, 1,000 unit Take 2 Tablets (2,000 Units) by mouth daily. 60 Tablet 10/26/20 23 Active amitriptyline (ELAVIL) 100 mg tablet Take 2 Tablets (200 mg) by mouth daily at bedtime. 60 Tablet 10/25/20 23 Active ALPRAZolam (XANAX) 1 mg tabletIndicati ons:Bipolar affective disorder, remission status unspecified (CMS/HCC) Take 1 Tablet (1 mg) by mouth 3 times daily as needed for Anxiety. 90 Tablet 10/25/20 Active acetaminophen (TYLENOL) 325 mg tablet Take 2 Tablets (650 mg) by mouth every 6 hours as needed for Other (See Comment) (See admin instructions) . 120 Tablet 1 10/25/20 Active ziprasidone (GEODON) 60 mg CapsuleIndicat ions:Bipolar affective disorder, remission status unspecified (CMS/HCC) Take 60 mg by mouth 2 times daily with meals. Active albuterol sulfate HFA 90 mcg/actuation aerosol inhaler Take 2 Puffs by inhalation every 6 hours as needed for Wheezing or Shortness of Breath. 8.5 Gram 1 05/16/20 24 Active atenoloL (TENORMIN) 25 mg tabletIndicati ons:Hypertensi on, unspecified type Take 1 Tablet (25 mg) by mouth daily. 100 Tablet 3 08/06/20 24 Active atorvastatin (LIPITOR) 10 mg tabletIndicati ons:Hypertensi on, unspecified type Take 1 Tablet (10 mg) by mouth daily. 100 Tablet 3 08/06/20 24 Active estradioL (ESTRACE) 0.5 mg tabletIndicati ons:Acquired absence of both cervix and uterus Take 1 Tablet (0.5 mg) by mouth daily. 30 Tablet 5 10/14/20 24 Active venlafaxine (EFFEXOR XR) 75 mg Extended Release 24 hour capsuleIndicat ions:Bipolar affective disorder, remission status unspecified (CMS/HCC),ELEANOR (generalized anxiety disorder) Take 1 Capsule (75 mg) by mouth daily with breakfast. 30 Capsule 1 11/24/19 25 Active venlafaxine (EFFEXOR XR) 150 mg Extended Release 24 hour capsule Take 1 Capsule (150 mg) by mouth daily with breakfast. 30 Capsule 10/26/20 23 025 Discontinued conjugated estrogens (PREMARIN) 0.625 mg tablet Take 0.625 mg by mouth daily. 025 Discontinued(Pa tient choice) propylthiourac iL (PTU) 50 mg tablet Take 50 mg by mouth daily. 025 Discontinued(Pa tient choice) Narcan 4 mg/actuation Wilsey, Non-Aerosol 4 mg one time as needed. 08/05/20 24 025 Discontinued(Pa tient choice) baclofen (LIORESAL) 10 mg tabletIndicati ons:Fibromyalg ia TAKE ONE TABLET BY MOUTH EVERY 6 HOURS NEEDED FOR PAIN 120 Tablet 1 09/11/20 24 025 Discontinued(Pa tient choice) metFORMIN (GLUCOPHAGE XR) 500 mg Extended Release 24 hour tabletIndicati ons:Prediabete s Take 1 Tablet (500 mg) by mouth daily with breakfast. Start 1 tablet with breakfast for two weeks, then 1 tablet with breakfast and 1 tablet with dinner. 90 Tablet 09/30/20 24 025 Discontinued(Pa tient choice) spironolactone (ALDACTONE) 25 mg tabletIndicati ons:Hypertensi on, unspecified type Take 1 Tablet (25 mg) by mouth 2 times daily. 180 Tablet 1 10/01/20 24 025 Discontinued(Pa tient choice) furosemide (LASIX) 40 mg tabletIndicati ons:Peripheral edema TAKE ONE TABLET BY MOUTH ONCE DAILY EVERY MORNING 30 Tablet 1 10/06/20 24 025 Discontinued(Pa tient choice) amoxicillin-cl avulanate (AUGMENTIN) 875-125 mg tablet Take 1 Tablet by mouth every 12 hours for 7 days. 14 Tablet 11/18/19 025 doxycycline hyclate (VIBRAMYCIN) 100 mg capsule Take 1 Capsule (100 mg) by mouth 2 times daily for 7 days. 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 11/15/2011 Encounters Date Type Department Care Team Description 11/25/2024 External Device Data [facility] ABSTRACTION Provider, Abstract 11/24/2024 11:40 AM SUPERINTENDENT PRODUCTION Office Visit [address] [phone] Garrett Boswell MD History of falling (Primary Dx); Primary hypertension; Bipolar affective disorder, remission status unspecified ([facility]); ELEANOR (generalized anxiety disorder) 11/24/2024 Telephone [facility] Neurology [address] [place] [phone] Catia Iverson MD Information 11/24/[address] [phone] Garrett Boswell MD Fibromyalgia; Peripheral edema 11/21/2024 Results Follow-Up [address] [place] [phone] Catia Iverson MD MRI CERVICAL WO CONTRAST 11/20/2024 Results Follow-Up [facility] Emergency Medicine [address] [phone] Pretty Garces RN MRSA PCR RAPID SCREEN 11/19/2024 External Device Data [facility] ABSTRACTION Provider, Abstract 11/18/2024 1:49 PM SUPERINTENDENT PRODUCTION - 11/18/2024 4:50 PM [facility] Emergency [facility] Emergency Medicine [address] [phone] Sherlyn Jacinto MD Bilateral lower leg cellulitis (Primary Dx); 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 Discharge Disposition: Home or Self Care 11/18/2024 11:20 AM SUPERINTENDENT PRODUCTION Office Visit [address] [phone] Garrett Boswell MD Peripheral edema (Primary Dx); 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; Bilateral lower leg cellulitis; Class 2 severe obesity due to excess calories with serious comorbidity and body mass index (BMI) of 37.0 to 37.9 in adult ([facility]); Encounter for colorectal cancer screening; Bipolar affective disorder, remission status unspecified ([facility]); Myelopathy ([facility]) 11/18/2024 Telephone [facility] [address] [phone] Garrett Boswell MD Provider Call 11/18/2024 Travel 11/13/2024 2:57 PM SUPERINTENDENT PRODUCTION - 11/13/2024 11:59 PM [employer]PERINTENDENT [employer]ODUCTION Hospital Encounter [facility] MRI [address] [place] [phone] Catia Iverson MD Discharge Disposition: Home or Self Care 11/13/2024 2:57 PM SUPERINTENDENT PRODUCTION - 11/13/2024 11:59 PM SUPERINTENDENT PRODUCTION Hospital Encounter [facility] MRI [address] [place] [phone] Catia Iverson MD Discharge Disposition: Home or Self Care 11/12/2024 External Device Data [facility] ABSTRACTION Provider, Abstract 11/04/2024 External Device Data [facility] ABSTRACTION Provider, Abstract 10/30/2024 11:37 PM SUPERINTENDENT PRODUCTION - 10/30/2024 11:38 PM [employer]INT[employer]ENT [employer]ODUCTION Emergency [facility] Emergency Department [address] [place] [phone] Discharge Disposition: Left without being seen 10/30/2024 Travel 10/27/2024 12:45 PM SUPERINTENDENT PRODUCTION Office Visit [facility] Neurology - [address] [place] [phone] Catia Iverson MD Myelopathy (CMS/HCC) (Primary Dx) 10/14/[address] [phone] Garrett Boswell MD Acquired absence of both cervix and uterus 10/13/[address] [phone] Garrett Boswell MD Patient Communication 10/09/[address] [phone] Garrett Boswell MD Question 10/09/2024 Orders Only [facility] Health Information Management Dawn [address] [place] [phone] Elizabeth Tapia Heart murmur on physical examination 10/06/[address] [phone] Garrett Boswell MD Peripheral edema 10/01/[address] [phone] Garrett Boswell MD Acquired absence of both cervix and uterus; Hypertension, unspecified type 09/30/2024 10:00 AM SUPERINTENDENT PRODUCTION Office Visit [address] [phone] Garrett Boswell MD Prediabetes (Primary Dx); Bipolar affective disorder, remission status unspecified (CMS/HCC); Psychophysiological insomnia 09/12/[address] [phone] Garrett Boswell MD Paperwork ([place]) 09/11/[address] [phone] Garrett Boswell MD Fibromyalgia 09/07/[address] [phone] Garrett Boswell MD Class 2 severe obesity due to excess calories with serious comorbidity and body mass index (BMI) of 37.0 to 37.9 in adult ([facility]) from Last 3 Months Immunizations Immunization Administration Dates Next Due (TDVAX)(7 YRS UP) TETANUS AN D DIPHTHERIA TOXOIDS, ADSORBED (2 LF OF TETANUS TOXOID AND 2 LF OF DIPHTHERIA TOXOID), 0.5ML (PF), IM 09/03/2015 INFLUENZA VACCINE TRIVALENT SPLIT VIRUS, (6 MOS UP), 0.5ML (PF), IM 08/18/2024 Influenza Seasonal Unspecifi ed Formulation IM 09/05/2023,08/07/2022,10/27/2021,2018 Family History Medical History Relation Name Comments Other Brother No Known Problems Daughter No Known Problems Father No Known Problems Mother No Known Problems Sister No Known Problems Son Relation Name Status Comments Brother Daughter Alive Father Mother Sister Alive Son Alive Social History Tobacco Use Types Packs/Day Years Used Date Smoking Tobacco: Former Cigarettes 1 20 Passive Smoke Exposure: Past Smokeless Tobacco: Never Tobacco Cessation:Counseling Given: No Alcohol Use Standard Drinks/Week Comments No 0 (1 standard drink = 0.6 oz pur e alcohol) Feeling Safe Answer Date Recorded Are you in a relationship wi th someone who hurts you emotionally and/or physically? No 11/18/2024 Comments Unknown Sex and Gender Information Value Date Recorded Sex Assigned at Female 07/13/2024 1:57 PM CDT Legal Sex Female 12:26 AM SUPERINTENDENT PRODUCTION Gender Identity Female 07/13/2024 1:57 PM CDT Sexual Orientation Straight 07/13/2024 1: 57 PM CDT Last Filed Vital Signs Vital Sign Reading Time Taken Comments Blood Pressure 130/80 11/24/2024 11:43 AM SUPERINTENDENT PRODUCTION Pulse 91 11/24/2024 11:43 AM SUPERINTENDENT PRODUCTION Temperature 37.9 ??C (100.2 ??F) 11/24/2024 11:43 AM SUPERINTENDENT PRODUCTION Respiratory Rate 12 11/24/2024 11:4 3 AM SUPERINTENDENT PRODUCTION Oxygen Saturation 95% 11/24/2024 11: 43 AM SUPERINTENDENT PRODUCTION Inhaled Oxygen Concentration - - Weight 103.1 kg (227 lb 3.2 oz) 025 11:43 AM SUPERINTENDENT PRODUCTION Height 160 cm (5' 3 ) 11/24/2024 11:43 AM SUPERINTENDENT PRODUCTION Body Mass Index 40.25 11/24/2024 11:43 AM SUPERINTENDENT PRODUCTION Plan of Treatment Upcoming Encounters Date Type Department Care Team (Late st Contact Info) Description 12/22/2024 11:20 AM SUPERINTENDENT PRODUCTION Office Visit [address] [phone] Garrett Boswell MD [address] [phone] Health Maintenance Due Date Last Done Comments HEPATITIS B VACCINES (1 of 3 - 19+ 3-dose series) 1983 Preventative Visit-Managed Medicaid 1983 COLORECTAL SCREENING 2009 FIT-DNA Q 3 years 2009 Flex Sig/CT Colonography Q 5 years 2009 ZOSTER VACCINE (1 of 2) 2014 DTAP/TDAP/TD VACCINES (1 - Tdap) 09/04/2015 09/03/20 15 COVID-19 Vaccine (4 - 2023-2 5 season) 2024 10/27/2021, 03/02/2021, 02/01/2021 Colorectal Cancer Screening 05/17/2025 FIT/FOBT Q 1 year 05/17/2025 05/17/2024 BREAST CANCER SCREENING 06/13/2025 06/13/2024 Pre-Diabetes and Diabetes Screening 09/30/2027 09/30/2024, 05/16/2024 INFLUENZA VACCINE Completed 08/18/2024, , 08/07/2022, Additional history exists Medical Devices Implanted Type Area Customer Service Driver Device Identifier Shelf Expiration Date Model / Serial / Lot Sna - [id number] Implanted:Qty: 1 on 12/28/2011 by Trip Mensah MD Cage N/A: Spine Lumbar 11/29/2013 [id number] / NA / [id number] Description:Spine [employer]/S taxx XD Cartridge Ciro Bent Leroy Ti 5.5x45 [id number] - Sload #[id number] Implanted:Qty: 2 on 12/29/2011 Ciro N/A: Spine Lumbar NEERAJ-SPINE 3313-045 / LOAD #[id number] / NA Closure Top Misa 3301-1 - Sload #[id number] Implanted:Qty: 4 on 12/29/2011 Screw N/A: Spine Lumbar NEERAJ-SPINE 3301-1 / LOAD #[id number] / NA Screw Misa Pa 6.5x45mm [id number] - Sload #[id number] Implanted:Qty: 4 on 12/29/2011 Screw N/A: Spine Lumbar NEERAJ-SPINE [id number] / LOAD #[id number] / NA Procedures Procedure Name Priority Date/Time Associated Diagnosis Comments MRSA PCR RAPID SCREEN Stat 11/18/2024 4:13 PM SUPERINTENDENT PRODUCTION SEDIMENTATION RATE Stat 11/18/2024 2: 50 PM SUPERINTENDENT PRODUCTION CBC WITH DIFFERENTIAL Stat 11/18/2024 2:50 PM SUPERINTENDENT PRODUCTION MAGNESIUM LEVEL Stat 11/18/2024 1:56 PM SUPERINTENDENT PRODUCTION C-REACTIVE PROTEIN Stat 11/18/2024 1: 56 PM SUPERINTENDENT PRODUCTION BRAIN NATRIURETIC PEPTIDE, BNP OR PROBNP Stat 11/18/2024 1:56 PM SUPERINTENDENT PRODUCTION COMPREHENSIVE METABOLIC PANEL Stat 11/18/2024 1:56 PM SUPERINTENDENT PRODUCTION MRI THORACIC W WO CONTRAST Routine 11/13/2024 4:31 PM SUPERINTENDENT PRODUCTION Myelopathy (CMS/HCC) MRI CERVICAL WO CONTRAST Routine 11/13/2024 4:14 PM SUPERINTENDENT PRODUCTION Myelopathy (CMS/HCC) EXTRA TUBE (URINE BEE) Stat 10/30/2024 7:34 PM SUPERINTENDENT PRODUCTION URINALYSIS W/REFLEX MICROSCOPIC Stat 10/30/2024 7:34 PM [employer]PERINTENDENT PRODUCTION COMPREHENSIVE METABOLIC PANEL Stat 10/30/2024 7:14 PM [employer]PERINTENDENT PRODUCTION CBC WITH DIFFERENTIAL Stat 10/30/2024 7:14 PM [employer]PERINTENDENT [employer]ODUCTION ECHO COMPLETE Routine 10/08/2024 Heart murmur on physical examination MICROALBUMIN/CREATININ E RATIO, RANDOM UR Routine 09/30/2024 10:47 AM SUPERINTENDENT PRODUCTION Prediabetes LAMOTRIGINE LEVEL Routine 09/30/2024 10: 45 AM SUPERINTENDENT PRODUCTION Bipolar affective disorder, remission status unspecified (CMS/HCC) HEMOGLOBIN A1C Routine 09/30/2024 10:45 AM SUPERINTENDENT PRODUCTION Prediabetes COMPREHENSIVE METABOLIC PANEL Routine 09/30/2024 10:45 AM SUPERINTENDENT PRODUCTION Prediabetes MAMMO 3D JUDIE SCREEN BILAT W OR WO CAD Routine 06/13/2024 Breast cancer screening by mammogram OCCULT BLOOD IMMUNOASSAY, COLORECTAL SCREEN Routine 05/17/2024 7:40 PM CDT Encounter for colorectal cancer screening from Last 3 Months or Most Recently Relevant to Health Maintenance Results * MRSA PCR RAPID SCREEN (11/18/2024 4:13 PM SUPERINTENDENT PRODUCTION) Pathologist [facility] MRSA PCR RESULT MRSA not detected MRSA not detected 11/19/2024 5:56 PM SUPERINTENDENT PRODUCTION [facility] Surveillance ANTERIOR NARES SWAB / Unknown Collection / Unknown 11/18/2024 4:13 PM SUPERINTENDENT PRODUCTION 11/18/2024 4:19 PM SUPERINTENDENT PRODUCTION Narrative [facility] - 11/19/2024 5:56 PM SUPERINTENDENT PRODUCTION This assay is used to detect Methicillin-Resistant S. aureus (MRSA) colonization of the nares. PLEASE NOTE: ??This test has not been approved to monitor effectiveness of MRSA decolonization. Residual DNA may temporarily be present after successful decolonization. This test was performed using an FDA approved screening methodology. Sherlyn Jacinto MD MICROBIOLOGY - GENERAL ORDERABL ES Final Result [id number] [address] [place] [address] * (ABNORMAL) CBC WITH DIFFERENTIAL (11/18/2024 2:50 PM SUPERINTENDENT PRODUCTION) Only the most recent of2 resultswithin the time period is included. Pathologist [facility] WBC 11.9(H) 4.0 - 10.0 K/uL 11/18/2024 3:00 PM SUPERINTENDENT PRODUCTION [facility] RBC 3.90(L) 3.93 - 5.22 M/uL 11/18/2024 3:00 PM [facility] HEMOGLOBIN 11.6 11.2 - 15.7 g/dL 11/18/2024 3:00 PM [facility] HEMATOCRIT 35.2 34.1 - 44.9 % 11/18/2024 3:00 PM [facility] MCV 90.3 79.4 - 94.8 fL 11/18/2024 3:00 PM [facility] MCH 29.7 25.6 - 32.2 pg 11/18/2024 3:00 PM [facility] MCHC 33.0 32.2 - 35.5 g/dL 11/18/2024 3:00 PM [facility] RDW 14.5 11.0 - 14.5 % 11/18/2024 3:00 PM [facility] RDW-STDEV 47.3 36.9 - 56.9 fL 11/18/2024 3:00 PM [facility] PLATELETS 342(H) 163 - 337 K/uL 11/18/2024 3:00 PM [facility] MPV 8.5(L) 10.0 - 14.8 fL 11/18/2024 3:00 PM [facility] NEUTROPHILS 69 34 - 71 % 11/18/2024 3:00 PM [facility] LYMPHOCYTES 18(L) 19 - 52 % 11/18/2024 3:00 PM [facility] MONOCYTES 9 5 - 13 % 11/18/2024 3:00 PM [facility] EOSINOPHILS 2 1 - 6 % 11/18/2024 3:00 PM [facility] BASOPHILS 1 0 - 1 % 11/18/2024 3:00 PM [facility] IMMATURE GRANULOCYTES 1 % 11/18/2024 3:00 PM [facility] NEUTROPHIL ABSOLUTE 8.14(H) 1.56 - 6.13 K/uL 11/18/2024 3:00 PM [facility] LYMPHOCYTE ABSOLUTE 2.11 1.20 - 3.40 K/uL 11/18/2024 3:00 PM [facility] MONOCYTE ABSOLUTE 1.11(H) 0.24 - 0.36 K/uL 11/18/2024 3:00 PM [facility] EOSINOPHIL ABSOLUTE 0.28 0.04 - 0.36 K/uL 11/18/2024 3:00 PM [employer]PERINTENDENT PRODUCTION [facility] BASOPHILS ABSOLUTE 0.11(H) 0.01 - 0.08 K/uL 11/18/2024 3:00 PM SUPERINTENDENT PRODUCTION [facility] IMMATURE GRANULOCYTES ABSOLUTE 0.10 K/uL 11/18/2024 3:00 PM SUPERINTENDENT PRODUCTION [facility] Blood BLOOD SPECIMEN / Unknown Collection / Unknown 11/18/2024 2:50 PM SUPERINTENDENT PRODUCTION 11/18/2024 2:56 PM SUPERINTENDENT PRODUCTION Sherlyn Jacinto MD HEMATOLOGY ORDERABLES Final Res ult Performing Organization Address [facility]/ZIP Co de Phone Number [facility] CLIA # [id number] [address] [place] [id number] * SEDIMENTATION RATE (11/18/2024 2:50 PM SUPERINTENDENT PRODUCTION) ESR (SEDIMENTATION RATE) 14 0 - 30 mm/Hr 11/18/2024 3:04 PM SUPERINTENDENT PRODUCTION [facility] Blood BLOOD SPECIMEN / Unknown Collection / Unknown 11/18/2024 2:50 PM SUPERINTENDENT PRODUCTION 11/18/2024 2:56 PM SUPERINTENDENT PRODUCTION Narrative [facility] - 11/18/2024 3:04 PM SUPERINTENDENT PRODUCTION Tube Lot: #[id number] Exp Date: 03/28/2026 SR 0125-1 EXP. 05/02/25 SR 0125-2 EXP. 05/02/25 Sherlyn Jacinto MD HEMATOLOGY ORDERABLES Final Res ult Performing Organization Address City/[facility]/ZIP Co de Phone Number [facility] CLIA # [id number] [address] [place] [address] * (ABNORMAL) C-REACTIVE PROTEIN (11/18/2024 1:56 PM SUPERINTENDENT PRODUCTION) CRP 27.2(H) <5.0 mg/L 11/18/2024 2:48 PM [address]PERINTENDENT PRODUCTION [facility] Blood BLOOD SPECIMEN / Unknown Collection / Unknown 11/18/2024 1:56 PM SUPERINTENDENT PRODUCTION 11/18/2024 2:17 PM SUPERINTENDENT PRODUCTION us Sherlyn Jacinto MD CHEMISTRY ORDERABLES Final Resu lt Performing Organization Address City/[facility]/ZIP Co de Phone Number [facility] CLIA # [id number] [address] [place] [address] * BRAIN NATRIURETIC PEPTIDE, BNP OR PROBNP (11/18/2024 1:56 PM SUPERINTENDENT PRODUCTION) PROBNP, N TERMINAL <36 0 - 125 pg/mL 11/18/2024 2:48 PM SUPERINTENDENT PRODUCTION [facility] Comment: INTERPRETIVE COMMENT based on diagnosis: Diagnostic NT pro-BNP cutoffs for Heart Failure in the absence of renal failure is suggested for the following ranges ?? <75 ??years: <125 pg/mL >=75 ??years: <450 pg/mL Exclusionary rule out cut-point for Acute Decompensated Heart Failure(ADHF) All ages: <300 pg/mL Diagnostic NT pro-BNP cutoffs for Acute Decompensated Heart Failure(ADHF) in the absence of renal failure is suggested for the following ages ?? <50 ??years: > 450 ??pg/mL 50-75 years: > 900 ??pg/mL ?? >75 ??years: >1800 pg/mL Blood BLOOD SPECIMEN / Unknown Collection / Unknown 11/18/2024 1:56 PM SUPERINTENDENT PRODUCTION 11/18/2024 2:17 PM SUPERINTENDENT PRODUCTION us Sherlyn Jacinto MD CHEMISTRY ORDERABLES Final Resu lt Performing Organization Address City/[facility]/ZIP Co de Phone Number [facility] CLIA # [id number] [address] [place] [phone] * MAGNESIUM LEVEL (11/18/2024 1:56 PM SUPERINTENDENT PRODUCTION) MAGNESIUM 2.1 1.6 - 2.6 mg/dL 11/18/2024 3:00 PM SUPERINTENDENT PRODUCTION [facility] Blood BLOOD SPECIMEN / Unknown Collection / Unknown 11/18/2024 1:56 PM SUPERINTENDENT PRODUCTION 11/18/2024 2:17 PM SUPERINTENDENT PRODUCTION us Sherlyn Jacinto MD CHEMISTRY ORDERABLES Final Resu lt [id number] [address] [place] [address] * (ABNORMAL) COMPREHENSIVE METABOLIC PANEL (11/18/2024 1:56 PM SUPERINTENDENT PRODUCTION) Only the most recent of3 resultswithin the time period is included. SODIUM 137 136 - 145 mmol/L 11/18/2024 2:48 PM [facility] POTASSIUM 3.5 3.5 - 5.1 mmol/L 11/18/2024 2:48 PM [facility] CHLORIDE 99 98 - 107 mmol/L 11/18/2024 2:48 PM [facility] CO2 27 22 - 29 mmol/L 11/18/2024 2:48 PM [facility] CALCIUM 10.1(H) 8.6 - 10.0 mg/dL 11/18/2024 2:48 PM [facility] BUN 16 6 - 20 mg/dL 11/18/2024 2:48 PM [facility] CREATININE 0.86 0.51 - 0.95 mg/dL 11/18/2024 2:48 PM [facility] GLUCOSE 136(H) 74 - 99 mg/dL 11/18/2024 2:48 PM [facility] TOTAL PROTEIN 7.0 6.6 - 8.7 g/dL 11/18/2024 2:48 PM [facility] ALBUMIN 4.1 3.5 - 5.2 g/dL 11/18/2024 2:48 PM [facility] BILIRUBIN TOTAL 0.2 <=1.2 mg/dL 11/18/2024 2:48 PM [facility] ALKALINE PHOSPHATASE 182(H) 35 - 104 U/L 11/18/2024 2:48 PM [facility] AST 22 10 - 35 U/L 11/18/2024 2:48 PM [employer]PER[employer]ENDENT [employer]ODUCTION [facility] ALT 25 10 - 35 U/L 11/18/2024 2:48 PM [employer]PERINTENDENT PRODUCTION [facility] GFR >60 >=60 mL/min/1.7 3 sq meter 11/18/2024 2:48 PM [facility] Comment:eGFR calculated with 2020 CKD-EPI equation. Vegetarian diet, extremely high or low muscle mass, and may affect results. Cystatin C with Glomerular Filtration Rate is a suitable alternative for these patients. ANION GAP 11(L) 12 - 20 mmol/L 11/18/2024 2:48 PM [employer]PERINTENDENT [employer]ODUCTION [facility] Blood BLOOD SPECIMEN / Unknown Collection / Unknown 11/18/2024 1:56 PM [employer]PER[employer]ENDENT PRODUCTION 11/18/2024 2:17 PM [employer]PERINTENDENT PRODUCTION us Sherlyn Jacinto MD CHEMISTRY ORDERABLES Final Resu lt [facility] CLIA # [id number] [address] [place] [address] * MRI THORACIC W WO CONTRAST (11/13/2024 4:31 PM SUPERINTENDENT PRODUCTION) Anatomical Region Laterality Modality Spine Magnetic Resonan ce 11/13/2024 4:31 PM [employer]PERINTENDENT PRODUCTION Impressions 11/13/2024 7:49 PM [employer]PERINTENDENT [employer]ODUCTION IMPRESSION: Please see below. Exam: MRI THORACIC W WO CONTRAST Date/Time of Exam: 11/13/2024 4:31 PM Reason For Exam: Hx of thoracic spine surgery. Diagnosis: Myelopathy. Technique: MRI of the thoracic spine was performed prior to and following the administration of intravenous contrast. Contrast: GADOBENATE DIMEGLUMINE 529 MG/ML(0.1 MMOL/0.2 ML) INTRAVENOUS SOLUTION Given:20 mL Findings: Motion degraded exam. Normal thoracic kyphosis. There is previous thoracolumbar fusion with pedicle screws seen from T10 to L1. The distal fusion construct is excluded from the [id number]. Vertebral body heights are maintained. Mild fatty degenerative endplate change seen along the inferior endplate of T9. Diffuse disc desiccation multilevel anterior osteophyte formation. Increased T2 signal within the cord at C7-T1. There is also increased T2 signal within the central cord extending from T2 to T6 measuring up to 2 mm, possibly from small syrinx. Symmetric disc bulge at T8-9. Symmetric disc bulge at T10-11. Abutment and flattening of the ventral cord at T10-11. Facets are well aligned. The neural foramen are grossly patent within the lower thoracic spine; however, these are somewhat obscured from metallic susceptibility artifact. Moderate prominence of the posterior epidural fat. No abnormal postcontrast enhancement. It overlies chest and abdomen demonstrate no acute abnormality. Bilateral renal cysts. IMPRESSION: Previous thoracolumbar fusion with posterior hardware seen from T10 to L1. The visualized fusion construct is intact. Persistent symmetric disc bulge at T10-11 with abutment and flattening of the ventral cord at this level. No definite abnormal cord signal. Grade 1 anterolisthesis of C7 on T1 with associated severe narrowing of the spinal canal, cord compression and increased T2 signal, better visualized on same-day cervical spine MRI. Suspected syrinx within the cord from T2 to T6 measuring up to 2 mm. Myelomalacia from previous insult is an additional differential consideration. Narrative Procedure Note Kain Miles, DO - 11/13/2024 IMPRESSION: Please see below. Exam: MRI THORACIC W WO CONTRAST Date/Time of Exam: 11/13/2024 4:31 PM Reason For Exam: Hx of thoracic spine surgery. Diagnosis: Myelopathy. Technique: MRI of the thoracic spine was performed prior to and following the administration of intravenous contrast. Contrast: GADOBENATE DIMEGLUMINE 529 MG/ML(0.1 MMOL/0.2 ML) INTRAVENOUS SOLUTION Given:20 mL Findings: Motion degraded exam. Normal thoracic kyphosis. There is previous thoracolumbar fusion with pedicle screws seen from T10 to L1. The distal fusion construct is excluded from the [id number]. Vertebral body heights are maintained. Mild fatty degenerative endplate change seen along the inferior endplate of T9. Diffuse disc desiccation multilevel anterior osteophyte formation. Increased T2 signal within the cord at C7-T1. There is also increased T2 signal within the central cord extending from T2 to T6 measuring up to 2 mm, possibly from small syrinx. Symmetric disc bulge at T8-9. Symmetric disc bulge at T10-11. Abutment and flattening of the ventral cord at T10-11. Facets are well aligned. The neural foramen are grossly patent within the lower thoracic spine; however, these are somewhat obscured from metallic susceptibility artifact. Moderate prominence of the posterior epidural fat. No abnormal postcontrast enhancement. It overlies chest and abdomen demonstrate no acute abnormality. Bilateral renal cysts. IMPRESSION: Previous thoracolumbar fusion with posterior hardware seen from T10 to L1. The visualized fusion construct is intact. Persistent symmetric disc bulge at T10-11 with abutment and flattening of the ventral cord at this level. No definite abnormal cord signal. Grade 1 anterolisthesis of C7 on T1 with associated severe narrowing of the spinal canal, cord compression and increased T2 signal, better visualized on same-day cervical spine MRI. Suspected syrinx within the cord from T2 to T6 measuring up to 2 mm. Myelomalacia from previous insult is an additional differential consideration. us Catia Iverson MD MR ORDERABLES Final Re sult * MRI CERVICAL WO CONTRAST (11/13/2024 4:14 PM [employer]PERINTENDENT [employer]ODUCTION) Anatomical Region Laterality Modality Spine Magnetic Resonan ce 11/13/2024 4:14 PM SUPERINTENDENT [employer]ODUCTION Impressions 11/13/2024 5:03 PM [employer]PERINT[employer]ENT [employer] IMPRESSION: Please see below. Exam: MRI CERVICAL WO CONTRAST Date/Time of Exam: 11/13/2024 4:14 PM Reason For Exam: myelopathy. Diagnosis: Myelopathy. Technique: MRI of the cervical spine was performed without the administration of intravenous contrast. Findings: Grade 1 anterolisthesis of C7 on T1. Mild retrolisthesis of C4 on C5. Craniocervical junction is well aligned. No acute fracture or aggressive osseous lesion. Mild active degenerative change seen at C4-5. Fatty degenerative endplate change seen from C5 to C7. Visualized intracranial structures demonstrate no acute abnormality. The cervical cord demonstrates increased T2 signal at C7-T1. Flow voids are intact. No prevertebral soft tissue swelling. The paraspinal musculature is unremarkable. C2-3: Symmetric disc bulge and facet arthropathy. Mild right neural foraminal narrowing. C3-4: Symmetric disc bulge and facet arthropathy. Mild bilateral neural foraminal narrowing C4-5: Symmetric disc bulge and facet arthropathy. Moderate narrowing of the spinal canal and bilateral neural foramen. C5-6: Symmetric disc bulge and facet arthropathy. Mild narrowing of the spinal canal. Moderate right and mild left neural foraminal narrowing C6-7: Symmetric disc bulge and facet arthropathy. Moderate narrowing of the spinal canal and bilateral neural foramen. C7-T1: Uncovered disc with severe narrowing of the spinal canal and bilateral neural foramen. IMPRESSION: Grade 1 anterolisthesis of C7 on T1 with severe narrowing the spinal canal and bilateral neural foramina. 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 Multilevel mild to moderate narrowing of the spinal canal and neural foramen throughout the remaining cervical spine. Narrative Procedure Note Kain Miles DO - 11/13/2024 IMPRESSION: Please see below. Exam: MRI CERVICAL WO CONTRAST Date/Time of Exam: 11/13/2024 4:14 PM Reason For Exam: myelopathy. Diagnosis: Myelopathy. Technique: MRI of the cervical spine was performed without the administration of intravenous contrast. Findings: Grade 1 anterolisthesis of C7 on T1. Mild retrolisthesis of C4 on C5. Craniocervical junction is well aligned. No acute fracture or aggressive osseous lesion. Mild active degenerative change seen at C4-5. Fatty degenerative endplate change seen from C5 to C7. Visualized intracranial structures demonstrate no acute abnormality. The cervical cord demonstrates increased T2 signal at C7-T1. Flow voids are intact. No prevertebral soft tissue swelling. The paraspinal musculature is unremarkable. C2-3: Symmetric disc bulge and facet arthropathy. Mild right neural foraminal narrowing. C3-4: Symmetric disc bulge and facet arthropathy. Mild bilateral neural foraminal narrowing C4-5: Symmetric disc bulge and facet arthropathy. Moderate narrowing of the spinal canal and bilateral neural foramen. C5-6: Symmetric disc bulge and facet arthropathy. Mild narrowing of the spinal canal. Moderate right and mild left neural foraminal narrowing C6-7: Symmetric disc bulge and facet arthropathy. Moderate narrowing of the spinal canal and bilateral neural foramen. C7-T1: Uncovered disc with severe narrowing of the spinal canal and bilateral neural foramen. IMPRESSION: Grade 1 anterolisthesis of C7 on T1 with severe narrowing the spinal canal and bilateral neural foramina. 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 Multilevel mild to moderate narrowing of the spinal canal and neural foramen throughout the remaining cervical spine. Catia Iverson MD MR ORDERABLES Final Re sult * EXTRA TUBE (URINE BEE) (10/30/2024 7:34 PM [employer]PER[employer]ODUCTION) Urine URINE SPECIMEN OBTAINED BY CLEAN CATCH PROCEDURE / Unknown Collection / Unknown 10/30/2024 7:34 PM [employer]PERINTENDENT [employer]ODUCTION 10/30/2024 8:00 PM [employer]PERINT[employer]ENT [employer]ODUCTION Protocol Nathan Rebecca LAY URINE ORDERABLES Final Result [facility] CLIA # [id number] [address] [place] [id number] * (ABNORMAL) URINALYSIS WITH REFLEX MICROSCOPIC (10/30/2024 7:34 PM [employer]PERINTENDENT [employer]) COLOR UA Pale Yellow Pale to Dark Yellow 10/30/2024 8:25 PM [facility] CLARITY UA Cloudy(A) Clear 10/30/2024 8:25 PM [facility] SPECIFIC GRAVITY UA 1.014 1.003 - 1.035 10/30/2024 8:25 PM [facility] PH UA 6.5 5.0 - 8.0 10/30/2024 8:25 PM [facility] LEUKOCYTE ESTERASE UA 3+(A) Negative 10/30/2024 8:25 PM [facility] NITRITE UA Positive(A) Negative 10/30/2024 8:25 PM [facility] PROTEIN UA Negative Negative 10/30/2024 8:25 PM [facility] GLUCOSE UA Negative Negative 10/30/2024 8:25 PM [facility] KETONES UA Negative Negative 10/30/2024 8:25 PM [facility] UROBILINOGEN UA <2.0 <2.0 mg/dL 8:25 PM [employer]ENT [employer] [facility] BILIRUBIN UA Negative Negative 10/30/2024 8:25 PM [facility] BLOOD UA Negative Negative 10/30/2024 8:25 PM [facility] WBC UA 51-100(A) 0 - 2 /hpf 10/30/2024 8:25 PM [facility] RBC UA 3-5(A) 0 - 2 /hpf 10/30/2024 8:25 PM [facility] BACTERIA UA 4+(A) Negative /hpf 10/30/2024 8:25 PM [facility] EPITHELIAL CELLS, URINE 0-5 0 - 5 /hpf 10/30/2024 8:25 PM [facility] TRANSITIONAL EPI 0-2 0 - 2 /hpf 10/30/2024 8:25 PM [facility] HYALINE CAST 0-2 None Seen, 0-2 /lpf 10/30/2024 8:25 PM [facility] Urine URINE SPECIMEN OBTAINED BY CLEAN CATCH PROCEDURE / Unknown Collection / Unknown 10/30/2024 7:34 PM [employer]PER[employer]ENT [employer]ODUCTION 10/30/2024 8:00 PM [employer]PERINTENDENT [employer]ODUCTION us Protocol [facility] Rebecca LAY URINE ORDERABLES Final Result Performing Organization Address [facility] Co de Phone Number [facility] CLIA # [id number] [address] [place] [phone] * ECHO COMPLETE - CONTRAST AND STRAIN IF INDICATED (10/08/2024) us Kiana SOLOMON US ORDERABLES Final Result EXTERNAL RADIOLOGY * MICROALBUMIN/CREATININE RATIO, RANDOM UR (09/30/2024 10:47 AM SUPERINTENDENT PRODUCTION) Creatinine, Urine 30 20 - 275 mg/dL [facility] MICROALBUMIN, URINE 0.3 See Note: mg/dL [facility] Comment: Reference Range: Reference Range Not established MICROALBUMIN/CREAT RATIO, UR 10 <30 mg/g creat Effective [facility] Comment: The ADA defines abnormalities in albumin excretion as follows: Albuminuria Category ?Result (mg/g creatinine) Normal to Mildly increased ?? <30 Moderately increased ? 30-299 Severely increased ? > OR = 300 The ADA recommends that at least two of three specimens collected within a 3-6 month period be abnormal before considering a patient to be within a diagnostic category. Test Performed at: [facility] [address] [place], [place] ??[phone] Jermaine Rodriguez MD Urine URINE SPECIMEN OBTAINED BY CLEAN CATCH PROCEDURE / Unknown 09/30/2024 10:47 AM SUPERINTENDENT PRODUCTION 09/30/2024 10:47 AM SUPERINTENDENT PRODUCTION us Garrett Boswell MD URINE ORDERABLES Final Result [facility] [phone] [facility] [address] [place] [address] * LAMOTRIGINE LEVEL (09/30/2024 10:45 AM [employer]PERINTENDENT PRODUCTION) LAMOTRIGINE LEVEL 3.0 2.5 - 15.0 mcg/mL [facility] Comment: This test was developed and its analytical performance characteristics have been determined by [facility] [place], [place]. It has not been cleared or approved by the U.S. Food and Drug Administration. This assay has been validated pursuant to the CLIA regulations and is used for clinical purposes. Test Performed at: [facility] [address] [facility] [place], [place] ?? Kain Naidu M.D.,PhD Blood 09/30/2024 10:4 5 AM [employer]PERINTENDENT [employer]ODUCTION 09/30/2024 10:45 AM SUPERINTENDENT PRODUCTION us Garrett Boswell MD CHEMISTRY ORDERABLES Final Resul t Performing Organization Address [facility] Co de Phone Number [facility] [phone] [facility] [address] [facility] [place] [address] * (ABNORMAL) HEMOGLOBIN A1C (09/30/2024 10:45 AM SUPERINTENDENT PRODUCTION) HEMOGLOBIN A1C 6.0(H) <5.7 % of total Hgb [facility] Comment: For someone without known diabetes, a hemoglobin A1c value between 5.7% and 6.4% is consistent with prediabetes and should be confirmed with a follow-up test. For someone with known diabetes, a value <7% indicates that their diabetes is well controlled. A1c targets should be individualized based on duration of diabetes, age, comorbid conditions, and other considerations. This assay result is consistent with an increased risk of diabetes. Currently, no consensus exists regarding use of hemoglobin A1c for diagnosis of diabetes for children. ESTIMATED AVERAGE GLUCOSE (MG/DL) 126 mg/dL [facility] ESTIMATED AVERAGE GLUCOSE (MMOL/L) 7.0 mmol/L [facility] Comment: Test Performed at: [facility] [address] [place], [place] ??[phone] Jermaine Rodriguez MD Blood 09/30/2024 10:4 5 AM SUPERINTENDENT PRODUCTION 09/30/2024 10:45 AM SUPERINTENDENT PRODUCTION Garrett Boswell MD CHEMISTRY ORDERABLES Final Resul t Performing Organization Address City/[facility]/ZIP Co de Phone Number [facility] [phone] [facility] [address] [place] [address] * MAMMO 3D JUDIE SCREEN BILAT W OR WO CAD (06/13/2024) Anatomical Region Laterality Modality Breast Bilateral Other us Kiana Nagel PHONE SPECIALIST MAMMO ORDERABLES Final Result * OCCULT BLOOD IMMUNOASSAY, COLORECTAL SCREEN (05/17/2024 7:40 PM CDT) FECAL GLOBIN SEE NOTE [facility] Comment: ??FECAL GLOBIN BY IMMUNOCHEMISTRY ?Micro Number: ?[id number] ??Test Status: ? Final ??Specimen Source: ?? Stool ??Specimen Quality: ??Adequate ??Fecal Globin: ?Not Detected Test [facility]formed [facility] [address] [place], [place] ??[phone] Jermaine Rodriguez MD Stool STOOL SPECIMEN / Unknown 05/17/2024 7:40 PM CDT 05/29/2024 2:48 PM CDT Kiana Nagel PHONE SPECIALIST BODY FLUIDS AND STOOLS Final Result [facility] [phone] [facility] [address] [place] [address] from Last 3 Months or Most Recently Relevant to Health Maintenance Insurance [place] Advance Directives For more information, please contact: [phone] * Full Code (Latest Code Status on File) Date Activated Date Inactivated Comments 10/11/2023 6:24 PM 10/25/2023 2:51 PM Care Teams Hone Operator Relationship Specialty Start Date End Date Garrett Boswell MD [address] [place] [phone] PCP - General Family Practice 05/16/24
--- OUTSIDE RECORDS SUMMARY | 2024-12-06 18:33 | XMS_ITS | Encounter Summary ---
Author Organization [facility] Address [address] [place] [address] Care Team Providers Care Furniture Stainer Name Role Phone Garrett Boswell MD Primary Care Provider [phone] Reason for Referral * MRI (Routine) - Closed Specialty Diagnoses / Procedures Referred By Contac t Referred To Contact Radiology Diagnoses Myelopathy (CMS/HCC) Procedures MRI THORACIC W WO CONTRAST Catia Iverson MD [address] [place] [address] Phone: tel: fax: [facility] [address] [place] [address] Phone: tel: fax: Referral ID Status Reason Start Date Expiration Date Visits Re quested Visits Authorized [id number] Closed 10/27/2024 11/27/2025 1 1 EMENT ASSISTANT Reason for Visit * MRI (Routine) - Closed Specialty Diagnoses / Procedures Referred By Contac t Referred To Contact Radiology Diagnoses Myelopathy (CMS/HCC) Procedures MRI THORACIC W WO CONTRAST Catia Iverson MD [address] [place] [address] Phone: tel: fax: [facility] [address] [place] [address] Phone: tel: fax: Referral ID Status Reason Start Date Expiration Date Visits Re quested Visits Authorized [id number] Closed 10/27/2024 11/27/2025 1 1 Encounter Details Date Type Department Care Team (Latest Contact Info) Description 11/13/2024 2:57 PM PLACEMENT ASSISTANT - 11/13/2024 11:59 PM PLACEMENT ASSISTANT Hospital Encounter [facility] [address] [place] [address] Catia Iverson MD [address] [place] [address] Discharge Disposition: Home or Self Care Social History Tobacco Use Types Packs/Day Years Used Date Smoking Tobacco: Former Cigarettes 1 20 Passive Smoke Exposure: Past Smokeless Tobacco: Never Alcohol Use Standard Drinks/Week Comments No 0 (1 standard drink = 0.6 oz pur e alcohol) Feeling Safe Answer Date Recorded Are you in a relationship wi th someone who hurts you emotionally and/or physically? No 10/30/2024 Comments Unknown Sex and Gender Information Value Date Recorded Sex Assigned at Female 07/13/2024 1:57 PM CDT Legal Sex Female 12:26 AM PLACEMENT ASSISTANT Gender Identity Female 07/13/2024 1:57 PM CDT Sexual Orientation Straight 07/13/2024 1: 57 PM CDT documented as of this encounter Medications at Time of Discharge estradioL (ESTRACE) 0.5 mg tabletIndications :Acquired absence of both cervix and uterus Take 1 Tablet (0.5 mg) by mouth daily. 30 Tablet 5 10/14/2024 atenoloL (TENORMIN) 25 mg tabletIndications :Hypertension, unspecified type Take 1 Tablet (25 mg) by mouth daily. 100 Tablet 3 08/06/2024 atorvastatin (LIPITOR) 10 mg tabletIndications :Hypertension, unspecified type Take 1 Tablet (10 mg) by mouth daily. 100 Tablet 3 08/06/2024 ziprasidone (GEODON) 60 mg CapsuleIndication s:Bipolar affective disorder, remission status unspecified (CMS/HCC) Take 60 mg by mouth 2 times daily with meals. albuterol sulfate HFA 90 mcg/actuation aerosol inhaler Take 2 Puffs by inhalation every 6 hours as needed for Wheezing or Shortness of Breath. 8.5 Gram 1 05/16/2024 polyethylene glycol (MIRALAX) 17 gram Powder in Packet Take 1 Packet (17 Grams) by mouth 1 time daily as needed for Constipation. 30 Packet 10/25/2023 lamoTRIgine (LaMICtal) 200 mg tablet Take 2 Tablets (400 mg) by mouth daily at bedtime. 60 Tablet 10/25/2023 cholecalciferol, vitamin D3, 1,000 unit Take 2 Tablets (2,000 Units) by mouth daily. 60 Tablet 10/26/2023 amitriptyline (ELAVIL) 100 mg tablet Take 2 Tablets (200 mg) by mouth daily at bedtime. 60 Tablet 10/25/2023 ALPRAZolam (XANAX) 1 mg tabletIndications :Bipolar affective disorder, remission status unspecified (CMS/HCC) Take 1 Tablet (1 mg) by mouth 3 times daily as needed for Anxiety. 90 Tablet 10/25/2023 acetaminophen (TYLENOL) 325 mg tablet Take 2 Tablets (650 mg) by mouth every 6 hours as needed for Other (See Comment) (See admin instructions). 120 Tablet 1 10/25/2023 furosemide (LASIX) 40 mg tabletIndications :Peripheral edema TAKE ONE TABLET BY MOUTH ONCE DAILY EVERY MORNING 30 Tablet 1 10/06/2024 5 spironolactone (ALDACTONE) 25 mg tabletIndications :Hypertension, unspecified type Take 1 Tablet (25 mg) by mouth 2 times daily. 180 Tablet 1 10/01/2024 5 metFORMIN (GLUCOPHAGE XR) 500 mg Extended Release 24 hour tabletIndications :Prediabetes Take 1 Tablet (500 mg) by mouth daily with breakfast. Start 1 tablet with breakfast for two weeks, then 1 tablet with breakfast and 1 tablet with dinner. 90 Tablet 09/30/2024 5 baclofen (LIORESAL) 10 mg tabletIndications :Fibromyalgia TAKE ONE TABLET BY MOUTH EVERY 6 HOURS NEEDED FOR PAIN 120 Tablet 1 09/11/2024 5 Narcan 4 mg/actuation [place], Non-Aerosol 4 mg one time as needed. 08/05/2024 5 conjugated estrogens (PREMARIN) 0.625 mg tablet Take 0.625 mg by mouth daily. 5 propylthiouraciL (PTU) 50 mg tablet Take 50 mg by mouth daily. 5 venlafaxine (EFFEXOR XR) 150 mg Extended Release 24 hour capsule Take 1 Capsule (150 mg) by mouth daily with breakfast. 30 Capsule 10/26/2023 5 documented as of this encounter Progress Notes * Kell Benitez, RT - 11/13/2024 5:10 PM [facility]- CONTRAST, MEDICATION and FLUSH PROTOCOL [facility] Enter the protocol in the patient's electronic health record using [employer]: .imagingcontrastprotocol Communication Orders: Initiate a peripheral IV, if not already in place, and discontinue IV prior to discharge Enter order if needed: Insert Peripheral IV Medication Orders: Lidocaine 4% (L.M.X.4)- applied topically ONE TIME prior to IV catheter insertion PRN (apply 15 minutes prior to procedure) Sodium chloride 0.9% (normal saline) flush- 10 mLs PRN for saline lock or medication administration Oxygen- For respiratory distress, initiate O2 to maintain saturation greater than 90% CAT SCAN CT IV CONTRAST PROTOCOLS FOR ADULTS Iopamidol Injection 61% (ISOVUE-300)- Double bolus with MD approval Routine exams dosed by weight: <150lbs- 75mL 151lbs to 220lbs- 100mL >220lbs- 125mL CT Angiography: 100mL Runoff and Triphasic Liver Protocols: 150mL Iopamidol Injection 76% (ISOVUE-370) Cardiac- 110mL TAVR- 160mL CT IV CONTRAST PROTOCOLS FOR PEDIATRICS Iopamidol Injection 61% (ISOVUE-300) - Routine exams: 1mL per pound and Pediatric- Head / Face: 1mL per pound up to 50 lbs Pediatric- Routine exams: 1mL per pound up to 75 lbs 75-150 lbs: 75mL 150-220 lbs: 100mL >220 lbs: 125mL CT ORAL CONTRAST PROTOCOLS FOR ADULTS Iohexol 300mg/mL (OMNIPAQUE) for CT scan unless patient has a documented allergy to contrast * 15ml added to 16 oz of clear liquid of patient's choice. Preferred route is oral. May use nasoenteric tube if needed. Administer 16 oz the diluted Omnipaque 300, orally 1st dose 30-60 minutes prior to scan and 2nd dose just before scan. * Barium Sulfate 2% w/v (READI-CAT2) for CT scan when patient has documented contrast allergy Administer 2 doses of 450mL of barium sulfate. First dose 30-60 min prior to exam and 2nd dose justbefore exam. Preferred route is oral. May use nasoenteric tube if needed. Barium Sulfate 0.1% w/v, 0.1% w/w (VOLUMEN) for Enterography and GI Bleed protocols Administer VoLumen- 3 doses of 450 mL. 1st dose must be completed within 20 minutes. 2nd dose must be completed in the next 30 minutes. 3rd dose is given at scan time. Preferred route is oral. May use nasoenteric tube if needed. CT ORAL CONTRAST PROTOCOLS FOR PEDIATRICS Preferred route is oral, may use nasoenteric tube if needed. to 3 months- Barium Sulfate 2%w/v (READI-CAT2) thinned with water to a consistency for typical bottle feeding 3 Months to 3 years- Iohexol 300mg/mL (OMNIPAQUE) 5mL diluted with 16oz clear fluid. 1 dose: 30min prior to exam 4 years to 10 years- Iohexol 300mg/mL (OMNIPAQUE) 8mL diluted with 16oz clear fluid. 1 dose: 30min prior to exam 10 years and up- Iohexol 300mg/mL (OMNIPAQUE) 15mL diluted with 16oz clear fluid. 2 doses: first dose 30min prior to exam and 2nd dose just before scan if tolerated CT CYSTOGRAM Iopamidol 61% Injection ([id number]): 25mL Dilute into 500mL bag of sterile NS administer up to 300mL retrograde via urinary catheter DIAGNOSTIC RADIOLOGY Enter the protocol in the patient's electronic health record using smartphrase: ADULTS PROCEDURE DOSAGE ARTHROGRAMS Plain ISOVUE 300 12mL MRI-(Ankle,Elbow,Hip,Wrist,Knee,Shoulder) ISOVUE 300 5mL / Prohance .2ml CT-(Ankle,Elbow,Hip,Wrist,Knee,Shoulder) ISOVUE 300 20mL BARIUM ENEMAS BARIUM ENEMA AIR CONTRAST LIQUID POLIBAR 1900ml BARIUM ENEMA/ GASTROGRAFIN B.E. LIQUID POLIBAR 800mL + 3200mL of water or GASTROGRAFIN 960mL + 3040mL of water. CYSTOGRAM CYSTOGRAFIN 1500mL ESOPHAGUS BARIUM SWALLOW E-Z-HD Barium Sulfate for Suspension 340g. and/or E-Z-PAQUE Barium Sulfate Oral Suspension 355mL OMNIPAQUE 350 50ml or GASTROGRAFIN 120mL Barium tablet 700mg (if indicated) MODIFIED BARIUM SWALLOW Barium tablet 700mg, Varibar paste 90g/Varibar thin 74g/ Varibar honey 125mL/ Varibar [place] 120mL HYSTEROSALPINGOGRAM ISOVUE 300 30ml IVP'S ISOVUE 300 100ml MYELOGRAMS: CERVICAL ISOVUE-M 300 10mL THORACIC ISOVUE-M 300 10mL LUMBAR ISOVUE-M 200 12mL SMALL BOWEL SERIES E-Z-PAQUE Barium Sulfate for Oral Suspension 710mL or GASTROGRAFIN 240mL LOOPOGRAM ISOVUE 300 60mL NEPHROSTOGRAM ISOVUE 300 60mL RETROGRADE URETHROGRAM Cystografin 300mL UPPER GI Upper GI E-Z-HD Barium Sulfate for Suspension: 340g. and/or E-Z-PAQUE Barium Sulfate for Oral Suspension: 355mL Upper GI Air Contrast Same as above EZ Gas crystals (if indicated) URETHROCYSTOGRAM VOIDING Cystografin 1500mL PORT CONTRAST INJECTION WITH Isovue 300 20mL [facility] PEDIATR[facility] PROCEDURE CONTRAST DOSAGE Upper GI Under Age 5 Liquid E-Z-Paque (Thin Barium) 240mL Omnipaque 180 (hypaque) or 350 50mL Upper GI Above Age 5 EZ HD (Thick Barium) 340g Liquid E-Z Paque (Thin Barium) 240mL EZ Gas Packet 4g Omnipaque 350 (hypaque) 50mL Small Bowel Series Under Age 5 Liquid E-Z Paque (Thin Barium) 240mL Omnipaque 180 (hypaque) 50mL Small Bowel Series Above Age 5 Liquid E-Z Paque (Thin Barium) 480mL Omnipaque 350 50mL Barium Swallow Under Age 5 Liquid E-Z Paque (Thin Barium) 240mL Omnipaque 180 (hypaque) 50mL Barium Swallow Above Age 5 EZ HD (Thick Barium) 340g Liquid E-Z Paque (Thin Barium) 240mL Omnipaque 350 50mL Modified Barium Swallow >1 Varibar Urky80m: 1 to 2 Varibar Thin74 Paste 90g (Video Swallow with Speech) <2 Varibar [id number], [id number], Honey 125mL, Paste 90g IVP Isovue 300 100mL/1mL per lb. Urethrocystogram Voiding Cystografin 500mL Barium Enema Liquid Polibar 400mL+1600 water 2000mL Barium Enema with Hypaque Gastrografin 1 bottle mixed 5 bottle water 720mL Over 5 Gastrografin 480mL+1520 water 2000mL Barium Enema Air Contrast Liquid Polibar 1900mL INTERVENTIONAL RADIOLOGY PROCEDURE DOSAGE IR ARTERIOGRAM VISIPAQUE 320 OR OMNIPAQUE 300 MAX DOSAGE 400mL IR BILIARY ISOVUE 200 MAX DOSAGE 300 mL IR FISTULOGRAM ISOVUE 200 OR VISIPAQUE 320 MAX DOSAGE 400mL IR IVC FILTER ISOVUE 200 OR VISIPAQUE MAX DOSAGE 400 mL IR TUBE PLACEMENT ISOVUE 200 MAX DOSAGE 300 mL IR VENOUS ABDOMINAL VISIPAQUE 320 OR ISOVUE 200 MAX DOSAGE 400 mL IR VENOUS ACCESS ISOVUE 200 MAX DOSAGE 300 mL IR VENOUS UPPER AND LOWER EXTREMITY VISIPAQUE 320 OR ISOVUE 200 MAX DOSAGE 400 mL IR SPINAL INTERVENTION ISOVUE 200 MAX DOSAGE 100mL (FOR BALLOON ONLY) MRI MRI IV CONTRAST PROTOCOLS FOR ADULTS Gadobenate Dimeglumine (MULTIHANCE) (0.1mmol/0.2mL)- Administer 0.1mmol/kg = 0.2mL/kg up to 30mL MAX, intravenously, one time only for routine MRI Gadoxetate (EOVIST) (2.5 mmol/10mL)- Administer 0.025mmol/kg = 0.1mL/kg up to 15mL MAX, intravenously, one time only when requested by radiologist for Liver protocol Gadoteridol (PROHANCE) (0.1mmol/0.2mL)- Administer 0.1mmol/kg = 0.2mL/kg up to 30mL MAX, intravenously, one time only when approved by radiologist for routine MRI MRI IV CONTRAST PROTOCOLS FOR PEDIATRICS Radiologist to determine the need for contrast Term neonates and older: Gadobenate Dimeglumine (MULTIHANCE) (0.1mmol/0.2mL) -Administer 0.1mmol/kg = 0.2mL/kg up 20mL MAX, intravenously, one time only MRI ORAL CONTRAST PROTOCOLS Barium Sulfate 0.1% w/v, 0.1% w/w (VOLUMEN) for Enterography Administer VoLumen- 3 doses of 450 mL. 1st dose must be completed within 20 minutes. 2nd dose must be completed in the next 30 minutes. 3rd dose is given at scan time. Preferred route is oral. May use nasoenteric tube if needed. Use half dose if patient is <100lb NUCLEAR MEDICINE Procedure: Abscess Localization Medications for Procedure: In-111 Leukocytes *Syringes prepped with 2000 units of Heparin added to 10ml of 6% Hetastarch- Approximately 45ml's patient's blood added to the above for labeling Adult Dose: 300-550uCi Pediatric Dose Calculation: .0075mCi/kg Pediatric Minimum: 50uCi Pediatric Maximum: 500uCi Reference: #3 Procedure: Abscess Localization Medications for Procedure: Tc-99m HMPAO Leukocytes *Syringes prepped with 2000 units of Heparin added to 10ml of 6% Hetastarch- Approximately 45ml's patient's blood added to the above for labeling Adult Dose: 15-30mCi Pediatric Dose Calculation: .15mCi/kg Pediatric Minimum: 500uCi Pediatric Maximum: 10.5mCi Reference: #3 Procedure: Abscess Localization Medications for Procedure: Ga-67 Citrate Adult Dose: Ga-67 Citrate Pediatric Dose Calculation: .05mCi/kg Pediatric Minimum: .05mCi/kg Pediatric Maximum: .05mCi/kg Reference: .05mCi/kg Procedure: Arthrogram Medications for Procedure: Tc-99m Sulfur Colloid Adult Dose: 1.0mCi Procedure: Blood Pool ([place]uga/Hepatic Hemangioma/GI Bleed) Medications for Procedure: Tc-99m Ultratag *Syringe prepped with Heparin Lock Flush(concentration of 100 units/ml) volume of ~.1ml used so dose is ~10 units of Heparin for each procedure Adult Dose: 30mCi Pediatric Dose Calculation: .25mCi/kg Pediatric Minimum: 2.5mCi Pediatric Maximum: 17.5mCi Reference: #1 Comments: Used .25mCi/kg for all exams in this category per Nuclear Medicine physicians Procedure: Bone Scan Medications for Procedure: Tc-99m HDP Adult Dose: 20mCi Pediatric Dose Calculation: .25mCi/kg Pediatric Minimum: 1.0mCi Pediatric Maximum: 17.5mCi Reference: #2 Procedure: Bone Scan Medications for Procedure: Tc-99m MDP Adult Dose: 20mCi Pediatric Dose Calculation: .25mCi/kg Pediatric Minimum: 1.0mCi Pediatric Maximum: 17.5mCi Reference: #2 Procedure: Bone Marrow Imaging Medications for Procedure: Tc-99m Sulfur Colloid Adult Dose: 10mCi Pediatric Dose Calculation: .14mCi/kg Pediatric Minimum: 1.0mCi Pediatric Maximum: 10.0mCi Reference: #1 Procedure: Bowel Imaging (Meckel's) Medications for Procedure: Tc-99m Pertechnetate Adult Dose: 10mCi Pediatric Dose Calculation: .05mCi/kg Pediatric Minimum: 250uCi Pediatric Maximum: 3.5mCi Reference: #2 Procedure: Brain (Cerebral flow) Medications for Procedure: Tc-99m Pertechnetate Adult Dose: 20mCi Pediatric Dose Calculation: .28mCi/kg Pediatric Minimum: 4mCi Pediatric Maximum: 20.0mCi Reference: #1 Procedure: Brain (SPECT) Medications for Procedure: Tc-99m HMPAO(Ceretec) Adult Dose: 30mCi Pediatric Dose Calculation: .35mCi/kg Pediatric Minimum: 3mCi Pediatric Maximum: 25.0mCi Reference: #1 Procedure: Brain (DaTscan) Medications for Procedure: Tc-99m Ioflupane (DaTscan) *120 mg Potassium Iodide in 8 Oz. given PO one hour prior to dosing for procedure Adult Dose: 5mCi Procedure: Cisternogram Medications for Procedure: In-111 DTPA Adult Dose: 2mCi Pediatric Dose Calculation: .007mCi/kg Pediatric Minimum: 100uCi Pediatric Maximum: 500uCi Reference: #1 Procedure: Cystogram Medications for Procedure: Tc-99m Sulfur Colloid or MAA Adult Dose: 1.0mCi Procedure: Gastric Empty (Solid) Medications for Procedure: Tc-99m Sulfur Colloid (eggs/oatmeal/formula) Adult Dose: 1.0mCi Pediatric Dose Calculation: NMIS weight based calculation Pediatric Minimum: 250uCi Pediatric Maximum: 1.0mCi Reference: #5 Procedure: Gastro-esophageal Reflux Medications for Procedure: Tc-99m Sulfur Colloid Adult Dose: 1.0mCi Pediatric Dose Calculation: NMIS weight based calculation Pediatric Minimum: 250uCi Pediatric Maximum: 1.0mCi Reference: #5 Procedure: Hepatobiliary With or without EF Medications for Procedure: Tc-99m Mebrofenin *If using CCK (Sincalide) for EF- dose is .02mcg/kg Sincalide prepared using 5 ml Sterile water added to 5 mcg vial of Sincalide Adult Dose: 5.0mCi Pediatric Dose Calculation: .05mCi/kg Pediatric Minimum: 500uCi Pediatric Maximum: 3.5mCi Reference: #2 Procedure: Hepatobiliary With or without EF Medications for Procedure: Tc-99m Mebrofenin *Bilirubin >1.5mg Adult Dose: 8.0mCi Pediatric Dose Calculation: N/A Pediatric Minimum: 1.0mCi * Pediatric Maximum: 1.0mCi * Reference: #2 Procedure: Hepatic Artery Angiography (Sphere Mapping) Medications for Procedure: Tc-99m MAA Adult Dose: 4.0mCi Pediatric Dose Calculation: N/A Procedure: LeVeen Shunt Patency Medications for Procedure: Tc-99m Sulfur Colloid or MAA Adult Dose: 3.0mCi Procedure: Liver/Spleen Imaging Medications for Procedure: Tc-99m Sulfur Colloid Adult Dose: 5.0mCi Pediatric Dose Calculation: .05mCi/kg Pediatric Minimum: 200uCi Pediatric Maximum: 3.5mCi Reference: #1 Procedure: Lymphoscintigraphy (Breast) Medications for Procedure: Tc-99m Sulfur Colloid (filtered) Adult Dose: 250-550uCi Pediatric Dose Calculation: N/A Procedure: Lymphoscintigraphy (Breast) Medications for Procedure: Tc-99m Tilmanocept (Lymphoseek) Adult Dose: 250-550uCi Pediatric Dose Calculation: N/A Procedure: Lymphoscintigraphy (Melanoma) Medications for Procedure: Tc-99m Sulfur Colloid (filtered) Adult Dose: 500uCi Pediatric Dose Calculation: N/A Procedure: Lymphoscintigraphy (Melanoma) Medications for Procedure: Tc-99m Tilmanocept (Lymphoseek) Adult Dose: 500uCi Pediatric Dose Calculation: N/A Procedure: Lymphoscintigraphy (Melanoma/Breast - 24 hr Injection) Medications for Procedure: Tc-99m Sulfur Colloid (filtered) Adult Dose: 1.8mCi Pediatric Dose Calculation: N/A Procedure: Lymphoscintigraphy (Melanoma/Breast - 24 hr Injection) Medications for Procedure: Tc-99m Tilmanocept (Lymphoseek) Adult Dose: 1.8mCi Pediatric Dose Calculation: N/A Procedure: Lymphoscintigraphy (Lymphedema) Medications for Procedure: Tc-99m Tilmanocept (Lymphoseek) *Apply Topical Lidocaine 30 minutes prior to injections using 4% Anesthetic cream to both feet between webbing of 1st and 2nd toes. Tube is 5 grams of 4% lidocaine Adult Dose: 1.0mCi Pediatric Dose Calculation: N/A Comments: Split dose in (2) 1ml syringes ~500uCi/.1ml each Procedure: Metabolic Tumor Imaging Medications for Procedure: FDG-18 Adult Dose: 10-14mCi Pediatric Dose Calculation: .12mCi/kg Pediatric Minimum: 1.0mCi Pediatric Maximum: 8.4mCi Reference: #2 Procedure: Metabolic Tumor Imaging Medications for Procedure: F-18 Na Flouride Adult Dose: 10-15mCi Pediatric Dose Calculation: .06mCi/kg Pediatric Minimum: .5mCi Pediatric Maximum: 4.2mCi Reference: #2 Procedure: Metabolic Tumor Imaging Medications for Procedure: F-18 fluciclovine(Axumin) Adult Dose: 10.0mCi Pediatric Dose Calculation: N/A Procedure: Metabolic Brain Imaging Medications for Procedure: FDG-18 Adult Dose: 6mCi Pediatric Dose Calculation: .10mCi/kg Pediatric Minimum: 1.0mCi Pediatric Maximum: 5.0mCi Reference: #2 Procedure: Myocardial Perfusion Imaging (Same Day Protocol) Medications for Procedure: Tc-99m Tetrofosmin or Sestamibi *Pharmacologic Stress testing using 0.4mg Lexiscan (regadenoson) for all Myocardial Perfusion protocols Adult Dose: 10mCi (Rest) 30mCi(Stress) *8.0mCi(Rest) *24.0mCi(Stress) Pediatric Dose Calculation: .07mCi/kg, .28mCi/kg Pediatric Minimum: ---, --- Pediatric Maximum: 6.0mCi, 24.0mCi Reference: #1 Comments: *Only used during periods of Tc 99m shortages Procedure: Myocardial Perfusion Imaging (2 day protocol) Day 1(Rest) Day 2(Stress) Medications for Procedure: Tc-99m Tetrofosmin or Sestamibi Adult Dose: 20mCi(Rest), 30mCi(Stress) Pediatric Dose Calculation: .07mCi/kg, .28mCi/kg Pediatric Minimum: ---, --- Pediatric Maximum: 6.0mCi, 24.0mCi Reference: #1 Procedure: Myocardial Perfusion Imaging (Same Day Weight Based Dosing) Medications for Procedure: Tc-99m Tetrofosmin or Sestamibi Adult Dose: Up to 220lbs 10mCi (Rest) 30mCi (Stress) 220-285lbs 13mCi (Rest) 39mCi (Stress) 286-351lbs 16mCi (Rest) 48mCi (Stress) 352lbs and > 19mCi (Rest) 57mCi (Stress) Pediatric Dose Calculation: N/A Procedure: Myocardial Perfusion Imaging (Same Day Weight Based Dosing) Medications for Procedure: Tl-201 Thallous Chloride Adult Dose: 3.25mCi Pediatric Dose Calculation: .035mCi/kg Pediatric Maximum: 2.5mCi Reference: #1 Procedure: Myocardial Infarction Imaging Medications for Procedure: Tc-99m Pyrophosphate Adult Dose: 25.0mCi Pediatric Dose Calculation: N/A Procedure: Parathyroid Imaging Medications for Procedure: Tc-99m Sestamibi Adult Dose: 20.0mCi Pediatric Dose Calculation: .28mCi/kg Pediatric Minimum: 2.0mCi Pediatric Maximum: 20.0mCi Reference: #1 Procedure: Pulmonary Perfusion Imaging Medications for Procedure: Tc-99m MAA Adult Dose: 6.0mCi Pediatric Dose Calculation: .03mCi/kg Pediatric Minimum: 400uCi Pediatric Maximum: 2.1mCi Reference: #2 Procedure: Pulmonary Perfusion Imaging (Pumlonary HTN or Right to Left Shunts) Medications for Procedure: Tc-99m MAA Adult Dose: 1-2.5mCi in max of .2ml volume Pediatric Dose Calculation: N/A Procedure: Pulmonary Perfusion Imaging ( Patients - All Trimesters) Medications for Procedure: Tc-99m MAA Adult Dose: 3.0mCi Pediatric Dose Calculation: N/A Procedure: Pulmonary Ventilation Imaging Medications for Procedure: Xe-133 Gas Adult Dose: 10-30mCi Pediatric Dose Calculation: Adult dose Procedure: Pulmonary Ventilation Imaging Medications for Procedure: Tc-99m DTPA Adult Dose: 35mCi Pediatric Dose Calculation: Adult dose Procedure: Renal Imaging (Cortical) Medications for Procedure: Tc-99m DMSA Adult Dose: 5mCi Pediatric Dose Calculation: .05mCi/kg Pediatric Minimum: 500uCi Pediatric Maximum: 3.5mCi Reference: #2 Procedure: Renal Imaging (Function/ Lasix) Medications for Procedure: Tc-99m MAG 3 *(Lasix IV) 0.5 mg/kg in the adult patient using a minimum of 40 mg and a maximum of 80 mg. The dose for infants (0-1yr. old) is 1mg/kg. The dose for a child (1-16yr. old) is 0.5mg/kg, without a minimum Adult Dose: 10mCi Pediatric Dose Calculation: .15mCi/kg Pediatric Minimum: 500uCi Pediatric Maximum: 10.0mCi Reference: #2 Procedure: Thyroid Uptake/Imaging Medications for Procedure: I-123 Sodium Iodide capsules or solution Adult Dose: 200-500uCi Pediatric Dose Calculation: 5uCi/kg Pediatric Minimum: 50uCi Pediatric Maximum: 250uCi Reference: #4 Procedure: Thyroid Uptake/Imaging Medications for Procedure: I-131 Sodium Iodide Solution (uptake only) Adult Dose: 5-10uCi Pediatric Dose Calculation: N/A Procedure: Thyroid Uptake/Imaging Medications for Procedure: Tc-99m Pertechnetate (scan only) Adult Dose: 10mCi Pediatric Dose Calculation: .14mCi/kg Pediatric Minimum: 1.0mCi Pediatric Maximum: 10.0mCi Reference: #1 Procedure: Tumor Localization Imaging Medications for Procedure: Ga-67 Citrate Adult Dose: 10mCi Pediatric Dose Calculation: .14mCi/kg Pediatric Maximum: 10.0mCi Reference: #1 Procedure: Tumor Localization Imaging Medications for Procedure: In-111 Capromab Pendetide(Prostascint) Adult Dose: 6.0mCi Pediatric Dose Calculation: N/A Procedure: Tumor Localization Imaging (MIBG Scans) Medications for Procedure: I-123 Metaiodobenzylguanidine (MIBG) *120 mg Potassium Iodide in 8 Oz. given PO one hour prior to dosing for procedure Adult Dose: 10mCi Pediatric Dose Calculation: .14mCi/kg Pediatric Minimum: 1.0mCi Pediatric Maximum: 10.0mCi Reference: #2 Procedure: Tumor Localization Imaging (MIBG Scans) Medications for Procedure: I-131Metaiodobenzylguanidine (MIBG) *120 mg Potassium Iodide in 8 Oz. given PO one hour prior to dosing for procedure Adult Dose: 1.0mCi Pediatric Dose Calculation: N/A Procedure: Tumor Localization Imaging Medications for Procedure: In-111 Pentetreotide (Octreoscan) Adult Dose: 6.0mCi Pediatric Dose Calculation: .08mCi/kg Pediatric Maximum: 6.0mCi Reference: #1 Procedure: Tumor Localization Imaging Medications for Procedure: I-131 Sodium Iodide Adult Dose: 5.0mCi Pediatric Dose Calculation: N/A Procedure: Tumor Localization Imaging Medications for Procedure: I-123 Sodium Iodide Adult Dose: 1.5-2.0mCi Pediatric Dose Calculation: .028mCi/kg Reference: No reference information Procedure: Venogram (Upper/Lower Extremities) Medications for Procedure: Tc-99m Ultratag *Syringe prepped with Heparin Lock Flush(concentration of 100 units/ml) volume of ~.1ml used so dose is ~10 units of Heparin for each procedure Adult Dose: 30mCi Pediatric Dose Calculation: N/A Procedure: Ventricular Shunt Imaging Medications for Procedure: Tc-99m DTPA Adult Dose: 1.0mCi Pediatric Dose Calculation: N/A References for Pediatric Administration: Nuclear Medicine Procedure Manual, Division of Nuclear Medicine, [facility]; gamma.[facility]/index2.html [place] Consensus Guidelines for Administered Radiopharmaceutical Activities in Children andAdolescents; http://interactive.snm.org/docs/Pediatric dose consensus guidelines Final 2010.pdf ACR-SNM-SPR Practice guideline for the performance of Scintigraphy for inflammation and infection; www/acr.org.guidelines. Revised 2009 9.1 Tori DREA, Yelitza WC, Shayla RD. Nuclear Medicine Diagnosis and Therapy. [employer]1996. Chapter 37, page 930, Table 1. Pediatric weight/dose database file NMIS system: Pediatric Dose = Adult dose (mCi) x Dose Factor Range of Weight (lbs) Dose Factor (%) 0.00-5.00 10 5.01-10.00 10 10.01-15.00 16 15.01-20.00 21 20.01-25.00 25 25.01-30.00 30 30.01-40.00 34 40.01-50.00 41 50.01-60.00 48 60.01-70.00 54 70.01-80.00 61 80.01-90.00 67 90.01-100.00 72 100.01-110.00 78 110.01-120.00 83 120.01-130.00 88 130.01-140.00 94 140.01-142.00 99 142.01-150.00 100 Attention: Any exam, radiopharmaceutical or dosage not included on this list requires physician approval and a written prescription Approved by: Medical Executive Committee and Imaging Services EMENT ASSISTANT documented in this encounter Plan of Treatment Upcoming Encounters Date Type Department Care Team (Late st Contact Info) Description 12/22/2024 11:20 AM PLACEMENT ASSISTANT Office Visit [facility] [address] [phone] Garrett Boswell MD [address] [phone] documented as of this encounter Procedures Procedure Name Priority Date/Time Associated Diagnosis Comments MRI THORACIC W WO CONTRAST Routine 11/13/2024 4:31 PM PLACEMENT ASSISTANT Myelopathy (CMS/[facility]) documented in this encounter Results * MRI THORACIC W WO CONTRAST (11/13/2024 4:31 PM PLACEMENT ASSISTANT) Anatomical Region Laterality Modality Spine Magnetic Resonan ce 11/13/2024 4:31 PM PLACEMENT ASSISTANT Impressions 11/13/2024 7:49 PM PLACEMENT ASSISTANT IMPRESSION: Please see below. Exam: MRI THORACIC [...] distal fusion construct is excluded from the [id number]-[id number]. Vertebral body heights are maintained. Mild fatty [...] additional differential consideration. Narrative Procedure Note Kain Miles DO - [...] distal fusion construct is excluded from the [id number]. Vertebral body heights are maintained. Mild fatty [...] previous insult is an additional differential consideration. Catia Iverson MD MR ORDERABLES Final Re sult documented in this encounter Visit Diagnoses Diagnosis Myelopathy (CMS/HCC) Unspecified disease of spinal cord documented in this encounter Administered Medications Inactive Administered Medications - up to 3 most recent administrations Medication Order MAR Action Action Date Dose Rate Site gadobenate dimeglumine (MULTIHANCE) 529 mg/mL (0.1mmol/0.2mL) injection 20 mL 20 mL, IV, INTRA-PROCEDURE ONCE, 1 dose, Starting on Claudia 11/13/24 at 1609, Until Clauida 11/13/24 at 1631, Routine Contrast Given 11/13/2024 4:31 PM PLACEMENT ASSISTANT 20 mL documented in this encounter Care Teams Furniture Stainer Relationship Specialty Start Date End Date Garrett Boswell MD [address] [place] [phone] PCP - General Family Practice 05/16/24 documented as of this encounter
--- OUTSIDE RECORDS SUMMARY | 2024-12-06 18:33 | XMS_ITS | Encounter Summary ---
Author Organization [facility] Address [address] [place] [address] Care Team Providers Care Water Leak Repairer Name Role Phone Garrett Boswell MD Primary Care Provider [phone] Reason for Referral * MRI (Routine) - Closed Specialty Diagnoses / Procedures Referred By Contac t Referred To Contact Radiology Diagnoses Myelopathy (CMS/HCC) Procedures MRI CERVICAL WO CONTRAST Catia Iverson MD [address] [place] [address] Phone: tel: fax: [facility] [address] [place] [address] Phone: tel: fax: Referral ID Status Reason Start Date Expiration Date Visits Re quested Visits Authorized [id number] Closed 10/27/2024 11/27/2025 1 1 GLAZER Reason for Visit * MRI (Routine) - Closed Specialty Diagnoses / Procedures Referred By Contac t Referred To Contact Radiology Diagnoses Myelopathy (CMS/HCC) Procedures MRI CERVICAL WO CONTRAST Catia Iverson MD [address] [place] [address] Phone: tel: fax: [facility] [address] [place] [address] Phone: tel: fax: Referral ID Status Reason Start Date Expiration Date Visits Re quested Visits Authorized [id number] Closed 10/27/2024 11/27/2025 1 1 Encounter Details Date Type Department Care Team (Latest Contact Info) Description 11/13/2024 2:57 PM PYROGLAZER - 11/13/2024 11:59 PM PYROGLAZER Hospital Encounter [facility] [address] [place] [address] Catia Iverson MD [address] [place] [address] Discharge Disposition: Home or Self [...] PM CDT Legal Sex Female 12:26 AM PYROGLAZER Gender Identity Female 07/13/2024 1:57 PM CDT [...] Tablet 1 09/11/2024 5 Narcan 4 mg/actuation [place], Non-Aerosol 4 mg one time as needed. 08/05/2024 5 conjugated estrogens (PREMARIN) 0.625 mg tablet Take 0.625 mg by mouth daily. 5 propylthiouraciL (PTU) 50 mg tablet Take 50 mg by mouth daily. 5 venlafaxine (EFFEXOR XR) 150 mg Extended Release 24 hour capsule Take 1 Capsule (150 mg) by mouth daily with breakfast. 30 Capsule 10/26/2023 5 documented as of this encounter Plan of Treatment Upcoming Encounters Date Type Department Care Team (Late st Contact Info) Description 12/22/2024 11:20 AM PYROGLAZER Office Visit [facility] [address] [phone] Garrett Boswell MD [address] [phone] documented as of this encounter Procedures Procedure Name Priority Date/Time Associated Diagnosis Comments MRI CERVICAL WO CONTRAST Routine 11/13/2024 4:14 PM PYROGLAZER Myelopathy ([facility]) documented in this encounter Results * MRI CERVICAL WO CONTRAST (11/13/2024 4:14 PM PYROGLAZER) Anatomical Region Laterality Modality Spine Magnetic Resonan ce 11/13/2024 4:14 PM PYROGLAZER Impressions 11/13/2024 5:03 PM PYROGLAZER IMPRESSION: Please see below. Exam: MRI CERVICAL [...] MAR Action Action Date Dose Rate Site sodium chloride flush injection 10 mL 10 mL, IV, EVERY 5 MINUTES PRN, Starting on Claudia 11/13/24 at 1504, Until Sun11/14/24 at 0221, For IV start/maintenance and medication administration, Routine Given 11/13/2024 3:42 PM PYROGLAZER 10 mL documented in this encounter Care Teams Water Leak Repairer Relationship Specialty Start Date End Date Garrett Boswell MD [address] [place] [phone] PCP - General Family Practice 05/16/24 documented as of this encounter
--- OUTSIDE RECORDS SUMMARY | 2024-12-06 18:33 | XMS_ITS | Encounter Summary ---
Author Organization [facility] Address [address] [place] [address] Care Team Providers Care Video Producer Name Role Phone Garrett Boswell MD Primary Care Provider [phone] Encounter Details Date Type Department Care Team (Late Contact Info) Description 11/12/2024 External Device Data [facility] ABSTRACTION Provider, [...] PM CDT Legal Sex Female 12:26 AM MONEY ORDER CLERK Gender Identity Female 07/13/2024 1:57 PM CDT Sexual Orientation Straight 07/13/2024 1: 57 PM CDT documented as of this encounter Plan of Treatment Upcoming Encounters Date Type Department Care Team (Late st Contact Info) Description 12/22/2024 11:20 AM MONEY ORDER CLERK Office Visit [facility] [address] [phone] Garrett Boswell MD [address] [phone] documented as of this encounter Visit Diagnoses Not on filedocumented in this encounter Care Teams Video Producer Relationship Specialty Start Date End Date Garrett Boswell MD [address] [place] [phone] PCP - General Family Practice 05/16/24 documented as of this encounter
[2024-12-06] MEDS: bisacodyl 5 mg Tablet 10 MG PO (21:49)
[2024-12-06] MEDS: ALPRAZolam 0.5 mg Tablet 1 MG PO (21:49)
[2024-12-06] MEDS: ziprasidone hcl 60 mg Capsule PO (21:49)
[2024-12-06] MEDS: lamoTRIgine 100 mg Tablet 400 MG PO (21:50)
[2024-12-06] MEDS: enoxaparin 40 mg/0.4 mL Syringe SUBCUT (21:50)
[2024-12-06] MEDS: pantoprazole 40 mg SDV IVP (21:50)
[2024-12-06] MEDS: morphine 4 mg/mL SDV 1 mL 2 MG IVP (21:51)
[2024-12-06] MEDS: ipratropium-albuterol 3 mL Neb INHALATION (23:27)
[2024-12-06 23:28] LABS: Thyroid Stimulating Hormone 0.29 uIU/mL (0.27-4.20)
[2024-12-07] VITALS (11 sets, daily range): BP systolic 110–152; BP diastolic 63–75; PULSE 73–95; RESP 15–19; TEMP 36.3–36.9; O2SAT 93–96
[2024-12-07] MEDS: morphine 4 mg/mL SDV 1 mL 2 MG IVP ×4 (02:06→23:03)
[2024-12-07 02:43] LABS: Bilirubin Urine Negative (Negative); Blood Urine Negative (Negative); Glucose Urine UA Negative (Normal); Ketones Urine Negative (Negative); Leukocyte Esterase Urine Negative (Negative); Nitrate Urine Negative (Negative); Protein Urine Negative (Negative); Specific Gravity, Urine 1.011 (1.005-1.030); Urine Appearance Clear (CLEAR); Urine Color Yellow (Yellow); Urobilinogen Urine 0.2 mg/dL (Negative); pH Urine 6.5 (5-7)
[2024-12-07 02:47] LABS: Add Urine Microscopic? YES; Bacteria Urine 4+ /hpf; RBC Urine 0-2 /hpf (0-2); Squamous Epithelial Cell Urine 0-5 /hpf (0-5); WBC Urine 0-5 /hpf (0-5)
[2024-12-07] MEDS: dexamethasone 10 mg/mL INJ 6 MG IVP ×2 (03:26→14:15)
--- NOTE | 2024-12-07 06:00 | USR_ITS ---
PROCEDURE INFORMATION: Exam: US Duplex Lower Extremity Veins, Bilateral Exam date and time: 12/07/2024 9:04 AM Age: 58 years old Clinical indication: Edema, localized; Lower extremity, bilateral; Additional info: Edema +3 to ble and hard calfs with redness TECHNIQUE: Imaging protocol: Real-time duplex ultrasound of the bilateral extremities with 2-D sarah scale, color Doppler flow and spectral waveform analysis including responses to compression and other maneuvers (when performed) with image documentation. Complete exam focused on the lower extremity veins. COMPARISON: MR ankle RT wo con* [id number] 11/09/2022 1:57 PM FINDINGS: Right deep veins: Unremarkable. The common femoral, femoral, proximal profunda femoral and popliteal veins are patent without thrombus. Normal Doppler waveforms. Normal compressibility and/or augmentation response. Left deep veins: Unremarkable. The common femoral, femoral, proximal profunda femoral and popliteal veins are patent without thrombus. Normal Doppler waveforms. Normal compressibility and/or augmentation response. Superficial veins: Greater saphenous veins at the saphenofemoral junctions are patent bilaterally without thrombus. Soft tissues: Unremarkable. US/CV venous duplex [facility] [id number] IMPRESSION: No evidence of deep vein thrombosis.
[2024-12-07 06:29] LABS: Basophils % 0.3 %; Hematocrit 33.3 % (36-47); Lymphocytes # 1.4 10^3/uL (0.8-4.8); Lymphocytes % 13.9 %; Mean Corpuscular HGB Conc 31.2 g/dL (30-55); Mean Corpuscular Hemoglobin 29.2 pg (27-33); Mean Corpuscular Volume 93.5 fl (85-98); Mean Platelet Volume 8.8 fL (7.4-10.4); Monocytes # 0.6 10^3/uL (0.2-0.9); Monocytes % 5.4 %; Neutrophils # 8.16 10^3/uL (1.8-7.7); Neutrophils % 79.7 %; Nucleated Red Blood Cells % 0 %; Platelet Count 330 10^3/cmm (157-399); Red Blood Count 3.56 10^6/uL (3.85-5.65); Red Cell Distribution Width 14.2 % (12.1-15.1); White Blood Count 10.23 10^3/uL (3.29-11.43)
[2024-12-07 06:46] LABS: Alanine Aminotransferase 23 U/L (0-33); Albumin Level 3.5 g/dL (3.5-5.2); Alkaline Phosphatase 130 U/L (35-105); Aspartate Amino Transferase 19 U/L (0-32); Blood Urea Nitrogen 15 mg/dL (6-20); Calcium 9.7 mg/dL (8.5-10.5); Carbon Dioxide 25 mmol/L (22-29); Chloride 105 mmol/L (98-107); Creatinine Clr Calc Pharmacy 101.3936; Globulin 2.3 g/dL (1.3-4.6); Glomerular Filtration Rate 85.6 mL/min (90-130); Glucose 140 mg/dL (65-115); Osmolality Calculated 289 mOsm/kg (285-295); Sodium 138 mmol/L (136-145); Total Bilirubin 0.2 mg/dL (0.15-1.2); Total Protein 5.8 g/dL (6.6-8.7)
[2024-12-07] MEDS: bisacodyl 5 mg Tablet 10 MG PO (08:24)
[2024-12-07] MEDS: atorvastatin 40 mg Tablet 10 MG PO (08:24)
[2024-12-07] MEDS: baclofen 10 mg Tablet PO (08:25)
[2024-12-07] MEDS: venlafaxine ER (24HR) 150 mg Capsule PO (08:25)
[2024-12-07] MEDS: ALPRAZolam 0.5 mg Tablet 1 MG PO ×2 (08:25→16:41)
[2024-12-07] MEDS: ziprasidone hcl 60 mg Capsule PO ×2 (08:25→16:39)
[2024-12-07] MEDS: atenolol 50 mg Tablet 25 MG PO (08:25)
[2024-12-07] MEDS: amitriptyline 25 mg Tablet 200 MG PO (08:25)
--- NOTE | 2024-12-07 09:41 | P.PN_ITS ---
Subjective 2 Subjective: Patient was seen this morning, sitting up beside the bed, continues to complain of lower back pain, despite getting steroid therapy, pain medications, and complains of neck pain, continues to complain of lower extremity edema has lymphedema wraps on and she is frustrated about her edema and her persistent pain, discussed pain control, Conrad, she tells me that there is plans on surgery for her tomorrow as she was scheduled for surgery by Dr. Do tomorrow morning, we will keep her n.p.o. midnight Vitals/I&O/Wt Last Vital Signs Temp 97.6 F 12/07/24 08:00 Pulse 81 12/07/24 08:00 Resp 15 12/07/24 08:00 BP 129/73 12/07/24 08:00 Pulse Ox 94 12/07/24 08:00 O2 Del Method Room Air 12/07/24 08:00 12/06/24 12/07/24 12/07/24 22:59 06:59 14:59 Intake Total 620 / 620 720 / 720 Balance 620 / 620 720 / 720 Weight last 48 hrs Weight 106.957 kg Weight 106.912 kg Weight 106.005 kg Weight 67.132 kg Physical Exam 2 Const: COMMON NORMALS: no acute distress and patient oriented x3 Neck/C-Spine: COMMON NORMALS: no JVD GENERAL: Yes normal visual inspection CERVICAL SPINE: Yes pain with cervical ROM, No Cervical spine tenderness, Yes Paracervical muscle tenderness, Yes Paracervical spasm and Yes Trapezius muscle tenderness Resp: COMMON NORMALS: normal respiratory effort, No retractions, No use of accessory muscles and clear to auscultation bilaterally AUSCULTATION: clear to auscultation bilaterally Cardio: COMMON NORMALS: no JVD, regular rate, regular rhythm, S1 normal heart sound present and S2 normal heart sound present RATE: regular rate RHYTHM: regular rhythm HEART SOUNDS: S1 normal heart sound present and S2 normal heart sound present GI: COMMON NORMALS: Normal to inspection, nondistended, normoactive bowel sounds present and non-tender Back/Pelvis: LUMBAR SPINE/LOWER BACK: Yes normal to inspection, Yes ROM limited, Yes paraspinal muscle tenderness, Yes paraspinal muscle spasm, Yes straight leg raise positive right and Yes straight leg raise positive left O THER: Surgical site scar present lower lumbar spine L4 Neuro: COMMON NORMALS: patient oriented x3 Psych: COMMON NORMALS: mental status grossly normal Data 12/07/24 05:51 12/07/24 05:51 A&P Assessment and plan (1) Generalized anxiety disorder: (2) Bipolar 2 disorder: (3) Bilateral lower extremity edema: (4) Cognitive dysfunction: (5) Cervical spondylosis with myelopathy: (6) Intractable pain: Plan Intractable neck pain -No evidence of Guillain-Ignacio?, or ascending weakness, no trouble breathing -FINDINGS: Bones: The cervical spine demonstrates moderate degenerative changes at multiple levels. Bilateral facet joint arthropathy at C7-T1 with 5 mm anterolisthesis of C7 over T1, unchanged. No acute fracture. No compression deformity. 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 Do will be consulted for consideration of surgical intervention, n.p.o. midnight for possible surgical invention tomorrow -Due to intractable pain monitor closely as inpatient morphine 2 mg IV push every 4 hours -Lovenox for DVT prophylaxis -Full code Bilateral lower extremity edema, 2+ pitting edema -Component could be fluid overload we will give her 40 mg IV push Lasix once, with p.o. metolazone Anxiety disorder, fibromyalgia, PDMP PDMP Reviewed: Last Reviewed 12/06/24 16:46 by Jared Crook MD Attestations 2 Medical Necessity Statement*: Patient requires hospitalization for intractable neck pain, back pain, lower extremity edema Diagnoses Generalized anxiety disorder F41.1 Bipolar 2 disorder F31.81 Bilateral lower extremity edema R60.0 Cognitive dysfunction F09 Cervical spondylosis with myelopathy M47.12 Intractable pain R52
[2024-12-07] MEDS: metOLazone 5 MG Tablet 2.5 MG PO (11:39)
[2024-12-07] MEDS: estradiol 1 mg Tablet 0.5 MG PO (11:39)
[2024-12-07] MEDS: FUROsemide 10 mg/mL SDV 4mL 40 MG IVP (11:39)
--- NOTE | 2024-12-07 11:56 | PC.NURSE ---
Pt witnessed vaping and taking medication (per pt medication is Baclofen) from purse. Purse put into [facility] labeled with sticker.
[2024-12-07] MEDS: polyethylene glycol 3350 Pkt 17 gm PO (16:40)
[2024-12-07] MEDS: pantoprazole 40 mg SDV IVP (20:10)
[2024-12-07] MEDS: lamoTRIgine 100 mg Tablet 400 MG PO (20:10)
[2024-12-08] VITALS (27 sets, daily range): BP systolic 136–172; BP diastolic 68–96; PULSE 64–96; RESP 14–25; TEMP 36.1–36.8; O2SAT 92–98
[2024-12-08] MEDS: dexamethasone 10 mg/mL INJ 6 MG IVP ×2 (03:13→15:48)
[2024-12-08] MEDS: morphine 4 mg/mL SDV 1 mL 2 MG IVP ×4 (03:13→22:40)
--- NOTE | 2024-12-08 06:28 | PC.NURSE ---
Patient went down to surgery at 626
[2024-12-08 06:31] LABS: Basophils # 0.1 10^3/uL (0.0-0.1); Basophils % 0.5 %; Eosinophils % 0.2 %; Hematocrit 35.7 % (36-47); Lymphocytes # 1.5 10^3/uL (0.8-4.8); Lymphocytes % 13.5 %; Mean Corpuscular HGB Conc 30.5 g/dL (30-55); Mean Corpuscular Hemoglobin 28.9 pg (27-33); Mean Corpuscular Volume 94.7 fl (85-98); Mean Platelet Volume 8.8 fL (7.4-10.4); Monocytes # 0.7 10^3/uL (0.2-0.9); Monocytes % 6.2 %; Neutrophils # 8.47 10^3/uL (1.8-7.7); Neutrophils % 78.9 %; Nucleated Red Blood Cells % 0 %; Platelet Count 349 10^3/cmm (157-399); Red Blood Count 3.77 10^6/uL (3.85-5.65); Red Cell Distribution Width 14.3 % (12.1-15.1); White Blood Count 10.73 10^3/uL (3.29-11.43)
--- NOTE | 2024-12-08 06:41 | PM.CONSULT ---
Providers/Reason For Consult Consulting Physician/Specialty*: Hospitalist Reason for Consult*: Neck pain and arm pain Attending Physician: Jared Crook MD Primary Care Provider: Sukumar Gilman MD History of Present Illness History of Present Illness Guera Clement is a 58 year old female Patient has severe stenosis of her cervical spine back had an MRI that showed severe stenosis with myelopathy myelomalacia. At this point new MRI shows worsening of this. Clinically she has regressed significantly she is progressively following more and currently in a wheelchair. Plan at this point is to do a C5-T2 posterior spine fusion with decompression from see 6 down to T1. I had an open and honest discussion with the patient about the risks, benefits and alternatives to both surgical and nonsurgical treatment. The patient verbalized understanding of the inherent unpredictability associated with surgery. Risk of surgery were discussed including, but not limited to, infection, bleeding, temporary and permanent nerve damage, continued pain, stiffness, incomplete healing, need for revision surgery, blood clot and other complications. The patient verbalized understanding that there is spine is elective in nature and if they find any of these risks to be unacceptable then they should choose not to have the surgery. The patient verbalized understanding of these risks and elected to proceed with the surgery. Review of Systems Const: Denies: fever(s) or chills Card: Denies: chest pain Resp: Denies: dyspnea GI: Denies: abdominal pain : Denies: flank pain Musc: Reports: neck pain, back pain, limited range of motion and muscle weakness Neuro: Reports: weakness in extremities and difficulty walking; Denies: headache(s) Medications/Allergies Home Medications ?Medication ?Instructions ?Recorded ?Confirmed ?Last Taken ?Type cholecalciferol (vitamin D3) 250 10,000 unit PO DAILY 12/30/19 12/06/24 12/05/24 History mcg (10,000 unit) capsule psyllium husk 0.4 gram capsule 0.4 g PO DAILY 09/17/23 12/06/24 07/01/24 History (Metamucil) baclofen 10 mg tablet 10 mg PO Q6H PRN Muscle Spasm 10/05/23 12/06/24 12/06/24 History atorvastatin 10 mg tablet 10 mg PO DAILY #90 tabs 05/22/24 12/06/24 12/06/24 Rx atenolol 25 mg tablet 25 mg PO DAILY #90 tabs 08/11/24 12/06/24 12/06/24 Rx amitriptyline 100 mg tablet 200 mg (2 x 100 mg) PO DAILY #60 10/30/24 12/06/24 12/05/24 Rx tabs lamotrigine 200 mg tablet 400 mg (2 x 200 mg) PO BEDTIME #60 10/30/24 12/06/24 12/05/24 Rx (Lamictal) tabs ziprasidone HCl 60 mg capsule 60 mg PO BID #60 caps 10/30/24 12/06/24 12/05/24 Rx (Geodon) alprazolam 1 mg tablet (Xanax) 1 mg PO BID #60 tabs 11/06/24 12/06/24 12/06/24 Rx estradiol 0.5 mg tablet 0.5 mg PO DAILY 12/05/24 12/06/24 12/06/24 History venlafaxine 75 mg capsule,extended 75 mg PO QAM 12/06/24 12/06/24 Unknown History release 24 hr Allergies Allergy/AdvReac Type Severity Reaction Status Date / Time Penicillins Allergy Severe ADR-Diarrhe Verified 12/05/24 13:35 a Current Medications Generic Name Dose Route Start Last Admin Trade Name Freq PRN Reason Stop Dose Admin Albuterol/Ipratropium 3 ml 12/06/24 23:24 12/06/24 23:27 Ipratropium-Albuterol 3 Ml Neb INHALATION 3 ml Q6H PRN Administration SHORTNESS OF BREATH Alprazolam 1 mg 12/06/24 20:56 12/07/24 16:41 Alprazolam 0.5 Mg Tablet PO 1 mg BID MOSES Administration Amitriptyline HCl 200 mg 12/07/24 09:00 12/07/24 08:25 Amitriptyline 25 Mg Tablet PO 200 mg DAILY MOSES Administration Atenolol 25 mg 12/07/24 09:00 12/07/24 08:25 Atenolol 50 Mg Tablet PO 25 mg DAILY MOSES Administration Atorvastatin Calcium 10 mg 12/07/24 09:00 12/07/24 08:24 Atorvastatin 40 Mg Tablet PO 10 mg DAILY MOSES Administration Baclofen 10 mg 12/06/24 20:38 12/07/24 08:25 Baclofen 10 Mg Tablet PO 10 mg Q6H PRN Administration Muscle Spasm Bisacodyl 10 mg 12/06/24 20:38 12/07/24 08:24 Bisacodyl 5 Mg Tablet PO 10 mg DAILY MOSES Administration Dexamethasone 6 mg 12/07/24 04:00 12/08/24 03:13 Dexamethasone 10 Mg/Ml Inj IVP 6 mg Q12H MOSES Administration Estradiol 0.5 mg 12/07/24 09:00 12/07/24 11:39 Estradiol 1 Mg Tablet PO 0.5 mg DAILY MOSES Administration Lamotrigine 400 mg 12/06/24 21:00 12/07/24 20:10 Lamotrigine 100 Mg Tablet PO 400 mg BEDTIME MOSES Administration Morphine Sulfate 2 mg 12/06/24 20:38 12/08/24 03:13 Morphine 4 Mg/Ml Sdv 1 Ml IVP 2 mg Q4H PRN Administration SEVERE PAIN Pantoprazole Sodium 40 mg 12/06/24 20:38 12/07/24 20:10 Pantoprazole 40 Mg Sdv IVP 40 mg Q24H MOSES Administration Polyethylene Glycol 17 gm 12/07/24 18:00 12/07/24 16:40 Polyethylene Glycol 3350 Pkt 17 Gm PO 17 gm DAILY MOSES Administration Venlafaxine HCl 150 mg 12/07/24 09:00 12/07/24 08:25 Venlafaxine Er (24hr) 150 Mg Capsule PO 150 mg DAILY MOSES Administration Ziprasidone 60 mg 12/06/24 20:38 12/07/24 16:39 Ziprasidone Hcl 60 Mg Capsule PO 60 mg BID MOSES Administration PFSH Acute PFSH: Medical History Fibromyalgia Sensation disturbance of skin Renal cyst Bipolar 2 disorder Psychiatric care Hypothyroid Essential hypertension Generalized anxiety disorder Surgical History History of back surgery H/O: hysterectomy H/O tubal ligation History of foot surgery Family History Other CAD (coronary artery disease) Diabetes Hyperlipidemia Hypertension Social History Smoking and tobacco/nicotine status: unknown if used tobacco/nicotine 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 Vitals/I&O/Wt Last Vital Signs Temp 97.7 F 12/08/24 04:33 Pulse 96 12/08/24 05:03 Resp 18 12/08/24 04:33 BP 158/72 12/08/24 04:33 Pulse Ox 95 12/08/24 04:33 O2 Del Method Room Air 12/08/24 04:33 12/07/24 12/07/24 12/08/24 14:59 22:59 06:59 Intake Total 720 / 720 Balance 720 / 720 Weight last 48 hrs Weight 247 lb 8 oz Weight 235 lb 12.8 oz Weight 235 lb 11.2 oz Weight 233 lb 11.2 oz Weight 148 lb Physical Exam Narrative: Alert and oriented x 3 Head is normocephalic atraumatic Respirations are intact No evidence of any rashes or infection 4/5 strength in bilateral lower extremities Sensation intact in all extremities Deep tendon reflexes 1 out of 4 bilateral upper and lower extremities Data 12/08/24 05:52 12/07/24 05:51 A&P Assessment and plan (1) Cervical spondylosis with myelopathy: Patient has severe stenosis of her cervical spine back in May had an MRI that showed severe stenosis with myelopathy myelomalacia. At this point new MRI shows worsening of this. Clinically she has regressed significantly she is progressively following more and currently in a wheelchair. Plan at this point is to do a C5-T2 posterior spine fusion with decompression from see 6 down to T1. I had an open and honest discussion with the patient about the risks, benefits and alternatives to both surgical and nonsurgical treatment. The patient verbalized understanding of the inherent unpredictability associated with surgery. Risk of surgery were discussed including, but not limited to, infection, bleeding, temporary and permanent nerve damage, continued pain, stiffness, incomplete healing, need for revision surgery, blood clot and other complications. The patient verbalized understanding that there is spine is elective in nature and if they find any of these risks to be unacceptable then they should choose not to have the surgery. The patient verbalized understanding of these risks and elected to proceed with the surgery. PDMP PDMP Reviewed: Not Reviewed Coding Level of Care Code Acute Code for [facility] Diagnoses Cervical spondylosis with myelopathy M47.12
[2024-12-08 06:48] LABS: Alanine Aminotransferase 24 U/L (0-33); Albumin Level 3.8 g/dL (3.5-5.2); Alkaline Phosphatase 137 U/L (35-105); Anion Gap 14.8 (5-19); Aspartate Amino Transferase 18 U/L (0-32); Blood Urea Nitrogen 24 mg/dL (6-20); Calcium 9.7 mg/dL (8.5-10.5); Carbon Dioxide 26 mmol/L (22-29); Chloride 100 mmol/L (98-107); Creatinine Clr Calc Pharmacy 91.2569; Globulin 2.6 g/dL (1.3-4.6); Glomerular Filtration Rate 73.4 mL/min (90-130); Glucose 127 mg/dL (65-115); Osmolality Calculated 290 mOsm/kg (285-295); Potassium 3.8 mmol/L (3.5-5.1); Sodium 137 mmol/L (136-145); Total Bilirubin 0.2 mg/dL (0.15-1.2); Total Protein 6.4 g/dL (6.6-8.7)
[2024-12-08] MEDS: sodium chloride 0.9% 1,000 ML 30 ML IV (07:02)
[2024-12-08] MEDS: clindamycin 600 MG/50 ML PREMIX 50 MG IV (07:15)
--- NOTE | 2024-12-08 08:19 | PC.OT ---
OT EVALUATION ORDERS RECEIVED. PATIENT SCHEDULED FOR SURGERY TODAY; HOLD
[2024-12-08] MEDS: lidocaine-epi 1% 20 mL INJ 10 ML INJECTION (08:33)
[2024-12-08] MEDS: VANCOMYCIN ADD-Vantage 1,000 MG VIAL 1000 MG XX (08:33)
--- NOTE | 2024-12-08 09:59 | PC.CHAP ---
Pastoral Care Encounter/Spiritual Assessment Type of Contact [] Declined clay house worker visit [] Patient/Family/Request visit [] Outpatient visit [] Follow-up visit [] Physician referral [] Code/Alert [x] Routine visit [] Staff referral [] Actively dying [] Patient sleeping [] Family support [] [x] Out of room [] Palliative care [] [] Receiving care in room [] Pre-surgical visit [] Trauma [] Long length of stay [] ICU visit [] Other: Relational/Emotional Strength [] Patient feels connected with others/family/visitors/staff [] Distress [] Loneliness/isolation [] Abandonment Spirituality of Patient [] Person of Essie [] Attends Advent of their Essie [] Believes in Prayer [] Reads Bible or Advent materials [] There are Spiritual issues to be addressed Rotary Derrick Operator Interventions [] Prayer [] Active listening [] Non-anxious presence [] Spiritual/emotional support [] Crisis/trauma care [] Spiritual counseling [] Bereavement support [] Provided bereavement packet [] Provided Bible/devotional materials [] Provided toy/stuffed animal, coloring book to patient or family member [] Provided Communion [] Anointing/[place] [] Salvation [] Completed spiritual assessment [] Other: Impact on Illness or Injury [] Angry [] Fearful [] Anxious [] Often cries [] Exhaustion [] Unable to work [] Unable to attend scientologist [] Unable to walk/stand [] Unable to read [] Unable to drive [] Unable to eat/drink [] Unable to sleep [] Unable to be with family [] Patient intubated [] Other: Summary Time spent with patient
--- NOTE | 2024-12-08 10:31 | XR_ITS ---
WS: [id number] XR lumbar spine 2-3V* [id number] REASON FOR EXAM: OR PICS FINDINGS: AP view only. Posterior decompression with posterior pedicle screws and interconnecting rods C5-T2. Surgical appliances are intact and appear in proper position and alignment. XR/XR lumbar spine 2-3V* [id number] IMPRESSION: Posterior cervical fusion as above.
--- NOTE | 2024-12-08 10:32 | P.OP_ITS ---
Operative Report Date of procedure: December 08, 2024 Pre-op diagnosis: Cervical stenosis with myelopathy and radiculopathy Post-op diagnosis: same Procedure done: 1. C5-T2 posterior spine fusion 2. C5-T2 posterior spine instrumentation 3. C6-7 laminectomy with partial facetectomies 4. C7-T1 laminectomy with partial facetectomies 5. T1/T2 laminectomy with partial facetectomies 6. Use of computer navigation 7. Use of allograft Surgeon: Nehemias Do DO Estimated blood loss (mL): 200 Procedure: 1. C5-T2 posterior spine fusion 2. C5-T2 posterior spine instrumentation 3. C6-7 laminectomy with partial facetectomies 4. C7-T1 laminectomy with partial facetectomies 5. T1/T2 laminectomy with partial facetectomies 6. Use of computer navigation 7. Use of allograft Patient brought the operative suite after an Gonasi was placed in the prone position. All areas appear well-padded. Patient's prepped draped sterile fashion. Skin incision made over the C5-T2 levels. Cervical fascia split and subperiosteal dissection was made out to the transverse processes and lateral ma sses of C5 down to T2. Once the exposure was complete attention was then brought to placing the fiducial for computer navigation. The fiducial was placed on the T2 spinous process. The C-arm was then brought in and spun around the patient. The information from serum was then loaded the computer for later use with the placing of the pedicle screws. Attention was first brought to placing the pedicle screws. This was done using the computer navigated probe would find the pedicle pedicle feeler and then ensure that it pedicle was not breached and then a pedicle screws placed using the computer navigated screwdriver. This was done at T1 bilaterally and T2 bilaterally. Next tension was brought to placing the lateral masses. This was done by drilling with a high-speed bur followed by the drill was drilled to 12 mm. And then a 14 mm screw was placed. At this was done at C5 bilaterally and C6 bilaterally. Extenders brought to placing the rods. Rods were placed from C5-T2. The screw caps were then placed and torqued down in position. This was done bilaterally. It was brought to performing laminectomies. This was done by taking down the T1 lamina. This is done using a rongeur followed by a drill followed by the Florentin rongeur. The ligamentum was taken down. And then the medial aspects of the T1-T2 lateral masses were taken down. Next attention was brought to the C7-T1 level. This was done by taking down the lamina of C7 with a rongeur followed by high-speed bur followed by Kerrison rongeur taken down the ligamentum flavum from C7-T1. Next the C6-7 level was done this was done by taking down the C6 lamina as well as medial aspect of the facet joints at C6-7 and C7 and T1. Ligamentum flavum was taken down from C6 down to C7. The dura from C6 down to T1 was completely opened. Was significantly tight before there is in good repair. Next tension was brought to decorticating the the lateral masses and transverse processes and the facet joints. After this was completed then the ostial amp bone graft was packed. And then deep drain was placed vancomycin powder was used and the wound was closed in a layered fashion with 0 Vicryl 2-0 Vicryl Monocryl suture. Sterile dressings were applied patient transferred to the PACU in stable condition.
--- NOTE | 2024-12-08 11:25 | ANE.PACU2 ---
Inpatient post-anesthesia follow up: Airway intact: Yes Vital signs: Temperature 97.4 F Pulse Rate 77 Respiratory Rate 16 Blood Pressure 163/88 Pulse Oximetry 95 Oxygen Delivery Me thod Room Air Oxygen Flow Rate 3 Fraction of Inspir ed Oxygen Hydration adequate: Yes Nausea and vomiting: No Pain level: 1 Mental status: Baseline
--- NOTE | 2024-12-08 11:33 | PC.NURSE ---
1135 - accepted into room 259-2 with Isabel RN - pt a&o with c collar in place - hemovac compressed - no distress noted BP 163/86 - pulse 67 94% 02 NC temp 97.4
[2024-12-08] MEDS: lactated ringers 1,000 ML 90 ML IV ×2 (11:53→22:40)
[2024-12-08] MEDS: HYDROcodone-acetaminophen 5-325 mg Tablet PO (13:49)
[2024-12-08] MEDS: clindamycin 600 MG/50 ML PREMIX 100 MG IV ×2 (13:49→22:40)
[2024-12-08] MEDS: ipratropium-albuterol 3 mL Neb INHALATION (14:37)
[2024-12-08] MEDS: ALPRAZolam 0.5 mg Tablet 1 MG PO (15:48)
[2024-12-08] MEDS: ketorolac 30 mg/mL INJ IVP ×2 (15:48→21:41)
[2024-12-08] MEDS: docusate sodium 100 mg Capsule PO (17:03)
[2024-12-08] MEDS: ziprasidone hcl 60 mg Capsule PO (17:03)
[2024-12-08] MEDS: oxyCODONE 10 mg ER (12 HR) Tablet PO (18:43)
--- NOTE | 2024-12-08 19:55 | P.PN_ITS ---
Subjective 2 Subjective: - The patient describes some discomfort with the cervical collar and ongoing pain. She requested morphine for pain control, noting a prior regimen of MS Contin up to 45 mg daily. Currently, she is receiving intravenous morphine. - The patient also expressed a desire to discuss discharge planning with a licensed master social worker. Vitals/I&O/Wt Last Vital Signs Temp 97.6 F 12/08/24 14:30 Pulse 77 12/08/24 14:37 Resp 18 12/08/24 18:43 BP 172/96 12/08/24 14:30 Pulse Ox 95 12/08/24 14:37 O2 Del Method Room Air 12/08/24 14:37 O2 Flow Rate 3 12/08/24 11:22 12/08/24 12/08/24 12/08/24 06:59 14:59 22:59 Intake Total 410 / 410 120 / 530 Output Total 450 / 450 1180 / 1630 Balance -40 / -40 -1060 / -1100 Weight last 48 hrs Weight 112.264 kg Weight 106.957 kg Weight 106.912 kg Weight 106.005 kg Physical Exam 2 Narrative: Alert and oriented x 3 Head is normocephalic atraumatic - cervical collar Respirations are intact No evidence of any rashes or infection 4/5 strength in bilateral lower extremi ties Sensation intact in all extremities Deep tendon reflexes 1 out of 4 bilateral upper and lower extremities Urinary Catheter Management: Alcaraz: Cath Placed During This Visit: yes Reason for Continuing Indwelling Catheter: Perioperative Use in Selected Surgeries Urinary Catheter Date of Insertion: 12/08/24 Urinary Catheter Time of Insertion: 07:28 Data 12/08/24 05:52 12/08/24 05:52 A&P Assessment and plan (1) Cervical spondylosis with myelopathy: (2) Fibromyalgia: (3) Generalized anxiety disorder: (4) Essential hypertension: (5) Hypothyroid: Qualifiers: Hypothyroidism type: acquired Qualified Code(s): E03.9 - Hypothyroidism, unspecified Plan Cervical Stenosis with Myelopathy and Radiculopathy - S/P C5-T2 Posterior Spine Fusion and Instrumentation, C6-C7 Laminectomy with Partial Facetectomies - Postoperative course to be managed by orthopedic surgery, focusing on pain control and physical/occupational therapy. - Rehabilitation assessment may be necessary. - Plan: 1. Continue cervical collar with adjustments for comfort as needed. 2. Titrate intravenous morphine for adequate pain control, consider transitioning to oral analgesics when tolerated. 3. Consult social work for discharge planning and potential rehabilitation needs. 4. Maintain Lovenox for DVT prophylaxis. 5. Neuro-checks 6. Repeat cbc/bmp in am Hypertension - Noted on atenolol 25 mg daily. - Plan: 1. Continue current antihypertensive regimen. Dyslipidemia - Noted on Lipitor 10 mg daily. - Plan: 1. Continue statin Bipolar Disorder - Noted on Lamictal 400 mg at bedtime, venlafaxine 150 mg daily, and Geodon 60 mg twice daily. - Plan: 1. Continue current psychiatric medications at prescribed doses. PDMP PDMP Reviewed: Not Reviewed Attestations 2 Medical Necessity Statement*: will need ongong hospitalization for post operative care Coding Level of Care Code Acute Code for Chg Fwd Diagnoses Cervical spondylosis with myelopathy M47.12 Fibromyalgia M79.7 Generalized anxiety disorder F41.1 Essential hypertension I10 Acquired hypothyroidism E03.9 Hypothyroidism type: acquired
[2024-12-08] MEDS: lamoTRIgine 100 mg Tablet 400 MG PO (21:21)
[2024-12-08] MEDS: pantoprazole 40 mg SDV IVP (21:22)
[2024-12-08] MEDS: HYDROcodone-acetaminophen 10-325 mg Tablet PO (21:23)
[2024-12-09] VITALS (13 sets, daily range): BP systolic 110–126; BP diastolic 68–75; PULSE 68–80; RESP 16–18; TEMP 36.4–36.8; O2SAT 93–96
[2024-12-09] MEDS: HYDROcodone-acetaminophen 10-325 mg Tablet PO ×4 (01:52→21:01)
[2024-12-09] MEDS: baclofen 10 mg Tablet PO (02:02)
[2024-12-09] MEDS: ALPRAZolam 0.5 mg Tablet 1 MG PO ×2 (03:25→16:49)
[2024-12-09] MEDS: morphine 4 mg/mL SDV 1 mL 2 MG IVP ×2 (03:25→07:49)
[2024-12-09] MEDS: ketorolac 30 mg/mL INJ IVP (03:25)
[2024-12-09] MEDS: clindamycin 600 MG/50 ML PREMIX 100 MG IV ×3 (06:00→22:28)
[2024-12-09 06:18] LABS: Basophils % 0.2 %; Hematocrit 31.6 % (36-47); Lymphocytes # 2.3 10^3/uL (0.8-4.8); Lymphocytes % 12.4 %; Mean Corpuscular Hemoglobin 30.1 pg (27-33); Mean Corpuscular Volume 94.3 fl (85-98); Mean Platelet Volume 8.8 fL (7.4-10.4); Monocytes # 2.1 10^3/uL (0.2-0.9); Monocytes % 11.3 %; Neutrophils # 13.88 10^3/uL (1.8-7.7); Neutrophils % 75.1 %; Nucleated Red Blood Cells % 0 %; Platelet Count 322 10^3/cmm (157-399); Red Blood Count 3.35 10^6/uL (3.85-5.65); Red Cell Distribution Width 13.8 % (12.1-15.1); White Blood Count 18.48 10^3/uL (3.29-11.43)
[2024-12-09 06:37] LABS: Alanine Aminotransferase 21 U/L (0-33); Albumin Level 3.2 g/dL (3.5-5.2); Alkaline Phosphatase 114 U/L (35-105); Anion Gap 16.5 (5-19); Aspartate Amino Transferase 20 U/L (0-32); Blood Urea Nitrogen 22 mg/dL (6-20); Calcium 9.4 mg/dL (8.5-10.5); Carbon Dioxide 25 mmol/L (22-29); Chloride 99 mmol/L (98-107); Globulin 2.3 g/dL (1.3-4.6); Glomerular Filtration Rate 85.6 mL/min (90-130); Glucose 106 mg/dL (65-115); Osmolality Calculated 286 mOsm/kg (285-295); Potassium 4.5 mmol/L (3.5-5.1); Sodium 136 mmol/L (136-145); Total Bilirubin 0.2 mg/dL (0.15-1.2); Total Protein 5.5 g/dL (6.6-8.7)
[2024-12-09] MEDS: estradiol 1 mg Tablet 0.5 MG PO (07:39)
[2024-12-09] MEDS: amitriptyline 25 mg Tablet 200 MG PO (07:39)
[2024-12-09] MEDS: polyethylene glycol 3350 Pkt 17 gm PO (07:41)
[2024-12-09] MEDS: bisacodyl 5 mg Tablet 10 MG PO (07:41)
[2024-12-09] MEDS: atenolol 50 mg Tablet 25 MG PO (07:41)
[2024-12-09] MEDS: venlafaxine ER (24HR) 150 mg Capsule PO (07:41)
[2024-12-09] MEDS: oxyCODONE 10 mg ER (12 HR) Tablet PO ×2 (07:44→16:49)
[2024-12-09] MEDS: ziprasidone hcl 60 mg Capsule PO ×2 (07:44→16:49)
[2024-12-09] MEDS: docusate sodium 100 mg Capsule PO ×2 (07:45→16:49)
[2024-12-09] MEDS: diclofenac 1% Topical Gel 100 gm 1 APPLIC TOPICAL (07:51)
[2024-12-09] MEDS: atorvastatin 40 mg Tablet 10 MG PO (07:54)
--- NOTE | 2024-12-09 09:53 | PC.CHAP ---
Pastoral Care Encounter/Spiritual Assessment Type of Contact [] Declined vice president pharmacy visit [] Patient/Family/Request visit [] Outpatient visit [] Follow-up visit [] Physician referral [] Code/Alert [x] Routine visit [] Staff referral [] Actively dying [] Patient sleeping [] Family support [] [] Out of room [] Palliative care [] [] Receiving care in room [] Pre-surgical visit [] Trauma [] Long length of stay [] ICU visit [] Other: Relational/Emotional Strength [x] Patient feels connected with others/family/visitors/staff [x] Distress [] Loneliness/isolation [] Abandonment Spirituality of Patient [x] Person of Essie [] Attends Druze of their Essie [x] Believes in Prayer [] Reads Bible or Congregational materials [] There are Spiritual issues to be addressed Machine Plaster Mixer Interventions [x] Prayer [x] Active listening [x] Non-anxious presence [x] Spiritual/emotional support [] Crisis/trauma care [] Spiritual counseling [] Bereavement support [] Provided bereavement packet [] Provided Bible/devotional materials [] Provided toy/stuffed animal, coloring book to patient or family member [] Provided Communion [] Anointing/[place] [] Salvation [x] Completed spiritual assessment [] Other: Impact on Illness or Injury [] Angry [] Fearful [] Anxious [] Often cries [] Exhaustion [] Unable to work [] Unable to attend hoahaoism [] Unable to walk/stand [] Unable to read [] Unable to drive [] Unable to eat/drink [] Unable to sleep [] Unable to be with family [] Patient intubated [] Other: Summary Time spent with patient 5 min
--- NOTE | 2024-12-09 15:02 | P.PN_ITS ---
Subjective 2 Subjective: Noted difficulty using walker and ambulating. They report the walker handles are too high and cannot be lowered further. Requesting a lower height walker. The patient is able to walk and was able to ambulate 15 feet with physical therapy. No fever, chills, nausea or vomiting. Vitals/I&O/Wt Last Vital Signs Temp 97.8 F 12/09/24 11:53 Pulse 68 12/09/24 13:25 Resp 18 12/09/24 11:53 BP 126/75 12/09/24 11:53 Pulse Ox 95 12/09/24 11:53 O2 Del Method Room Air 12/09/24 11:53 O2 Flow Rate 3 12/08/24 11:22 12/09/24 12/09/24 12/09/24 06:59 14:59 22:59 Intake Total 100 / 4260.5 1180 / 1180 Output Total 600 / 2380 Balance -500 / 1880.5 1180 / 1180 Weight last 48 hrs Weight 108.59 kg Weight 112.264 kg Physical Exam 2 Narrative: Alert and oriented x 3 Head is normocephalic atraumatic - cervical collar Respirations are intact No evidence of any rashes or infection 4/5 strength in bilateral lower extremi ties Sensation intact in all extremities Deep tendon reflexes 1 out of 4 bilateral upper and lower extremities Urinary Catheter Management: Alcaraz: Cath Placed During This Visit: yes, but has since been removed by the nurse Reason for Continuing Indwelling Catheter: Perioperative Use in Selected Surgeries Urinary Catheter Date of Insertion: 12/08/24 Urinary Catheter Time of Insertion: 07:28 Date Urinary Catheter Removed: 12/09/24 Time Urinary Catheter Discontinued: 08:49 Data 12/09/24 05:39 12/09/24 05:39 A&P Assessment and plan (1) Cervical spondylosis with myelopathy: (2) Fibromyalgia: (3) Generalized anxiety disorder: (4) Essential hypertension: (5) Hypothyroid: Qualifiers: Hypothyroidism type: acquired Qualified Code(s): E03.9 - Hypothyroidism, unspecified Plan Cervical Stenosis with Myelopathy and Radiculopathy - S/P C5-T2 Posterior Spine Fusion and Instrumentation, C6-C7 Laminectomy with Partial Facetectomies - Postoperative course to be managed by orthopedic surgery, focusing on pain control and physical/occupational therapy. - Rehabilitation assessment may be necessary. - Has been on Clindamycin per ortho as well - Plan: 1. Continue cervical collar with adjustments for comfort as needed. 2. Clindamycin per ortho 3. Social work for discharge planning and potential rehabilitation needs. 4. Maintain Lovenox for DVT prophylaxis. 5. Repeat cbc/bmp in am 6. Discontinue Decadron Leukocytosis - WBC increased to 18 today - Likely due to decadron Plan: 1. Will repeat cbc in am Hypertension - Noted on atenolol 25 mg daily. - Plan: 1. Continue current antihypertensive regimen. Dyslipidemia - Noted on Lipitor 10 mg daily. - Plan: 1. Continue statin Bipolar Disorder - Noted on Lamictal 400 mg at bedtime, venlafaxine 150 mg daily, and Geodon 60 mg twice daily. - Plan: 1. Continue current psychiatric medications at prescribed doses. PDMP PDMP Reviewed: Not Reviewed Attestations 2 Medical Necessity Statement*: will need ongong hospitalization for post operative care Coding Level of Care Code Acute Code for Chg Fwd Diagnoses Cervical spondylosis with myelopathy M47.12 Fibromyalgia M79.7 Generalized anxiety disorder F41.1 Essential hypertension I10 Acquired hypothyroidism E03.9 Hypothyroidism type: acquired
[2024-12-09] MEDS: lamoTRIgine 100 mg Tablet 400 MG PO (21:01)
[2024-12-10] VITALS (7 sets, daily range): BP systolic 123–149; BP diastolic 67–80; PULSE 83–98; RESP 16–22; TEMP 36.6–37.3; O2SAT 93–97
[2024-12-10] MEDS: HYDROcodone-acetaminophen 10-325 mg Tablet PO ×3 (01:54→11:31)
[2024-12-10] MEDS: diclofenac 1% Topical Gel 100 gm 1 APPLIC TOPICAL (01:55)
[2024-12-10] MEDS: ALPRAZolam 0.5 mg Tablet 1 MG PO (03:17)
[2024-12-10] MEDS: oxyCODONE 10 mg ER (12 HR) Tablet PO (03:17)
[2024-12-10] MEDS: morphine 4 mg/mL SDV 1 mL 2 MG IVP (04:53)
[2024-12-10] MEDS: clindamycin 600 MG/50 ML PREMIX 100 MG IV (06:00)
[2024-12-10 06:04] LABS: Anion Gap 12.7 (5-19); Blood Urea Nitrogen 26 mg/dL (6-20); Calcium 9.5 mg/dL (8.5-10.5); Carbon Dioxide 27 mmol/L (22-29); Chloride 102 mmol/L (98-107); Creatinine Clr Calc Pharmacy 103.7979; Glomerular Filtration Rate 85.6 mL/min (90-130); Glucose 104 mg/dL (65-115); Osmolality Calculated 289 mOsm/kg (285-295); Potassium 4.7 mmol/L (3.5-5.1); Sodium 137 mmol/L (136-145)
[2024-12-10] MEDS: polyethylene glycol 3350 Pkt 17 gm PO (09:13)
[2024-12-10] MEDS: docusate sodium 100 mg Capsule PO (09:14)
[2024-12-10] MEDS: ziprasidone hcl 60 mg Capsule PO (09:14)
[2024-12-10] MEDS: amitriptyline 25 mg Tablet 200 MG PO (09:14)
[2024-12-10] MEDS: venlafaxine ER (24HR) 150 mg Capsule PO (09:14)
[2024-12-10] MEDS: bisacodyl 5 mg Tablet 10 MG PO (09:14)
[2024-12-10] MEDS: estradiol 1 mg Tablet 0.5 MG PO (09:15)
[2024-12-10] MEDS: atorvastatin 40 mg Tablet 10 MG PO (09:15)
[2024-12-10] MEDS: atenolol 50 mg Tablet 25 MG PO (09:24)
--- NOTE | 2024-12-10 11:41 | P.PN_ITS ---
Subjective 2 Subjective: Patient has some left shoulder pain. But has been up with physical therapy when she gets up she does pretty well with physical therapy. Vitals/I&O/Wt Last Vital Signs Temp 99.2 F 12/10/24 08:37 Pulse 98 12/10/24 08:38 Resp 22 H 12/10/24 08:38 BP 149/78 12/10/24 08:37 Pulse Ox 97 12/10/24 08:38 O2 Del Method Room Air 12/10/24 08:37 O2 Flow Rate 3 12/08/24 11:22 12/09/24 12/10/24 12/10/24 22:59 06:59 14:59 Intake Total 1570 / 2750 1380 / 4130 1800 / 1800 Output Total 275 / 275 Balance 1295 / 2475 1380 / 3855 1800 / 1800 Weight last 48 hrs Weight 245 lb 8 oz Weight 239 lb 6.4 oz Physical Exam 2 Narrative: Complaining of left shoulder pain. Urinary Catheter Management: Alcaraz: Cath Placed During This Visit: yes, but has since been removed by the nurse Reason for Continuing Indwelling Catheter: Perioperative Use in Selected Surgeries Urinary Catheter Date of Insertion: 12/08/24 Urinary Catheter Time of Insertion: 07:28 Date Urinary Catheter Removed: 12/09/24 Time Urinary Catheter Discontinued: 08:49 Data 12/09/24 05:39 12/10/24 05:18 A&P Assessment and plan (1) Status post cervical spinal fusion: Follow-up in 1 week in Ortho clinic PDMP PDMP Reviewed: Last Reviewed 12/10/24 12:38 EST by Nehemias Do DO Attestations 2 Medical Necessity Statement*: Discharge today Coding Level of Care Code Acute Code for Chg Fwd Diagnoses Status post cervical spinal fusion Z98.1
[2024-12-10] MEDS: lidocaine 5% Patch 1 PATCH TOPICAL (12:03)
[2024-12-10 12:58] LABS: Basophils # 0.1 10^3/uL (0.0-0.1); Basophils % 0.4 %; Eosinophils # 0.1 10^3/uL (0.0-0.8); Eosinophils % 0.6 %; Hematocrit 34.7 % (36-47); Lymphocytes # 2.1 10^3/uL (0.8-4.8); Lymphocytes % 12.5 %; Mean Corpuscular HGB Conc 31.1 g/dL (30-55); Mean Corpuscular Hemoglobin 29.1 pg (27-33); Mean Corpuscular Volume 93.5 fl (85-98); Mean Platelet Volume 8.8 fL (7.4-10.4); Monocytes # 2.1 10^3/uL (0.2-0.9); Monocytes % 12.2 %; Neutrophils # 12.46 10^3/uL (1.8-7.7); Nucleated Red Blood Cells % 0 %; Platelet Count 312 10^3/cmm (157-399); Red Blood Count 3.71 10^6/uL (3.85-5.65); Red Cell Distribution Width 14.1 % (12.1-15.1); White Blood Count 17.07 10^3/uL (3.29-11.43)
--- NOTE | 2024-12-10 16:06 | P.DS_ITS ---
Discharge Providers Date of Admission: 12/06/24 16:09 Date of Discharge: December 10, 2024 Attending Provider at Admission: Jared Crook MD Attending Provider at Discharge: Michael Hansen Primary Care Provider: Sukumar Gilman MD Diagnoses at Discharge Discharge Diagnosis (1) Status post cervical spinal fusion: Status: Acute Reason for Visit Reason for Visit: back pain Hospital Course Hospital Course 58 year old female with a past medical history of hypertension, fibromyalgia, bipolar disorder, generalized anxiety disorder, who presents [facility] due to weakness, difficulty ambulating, neck pain, low back pain. Patient reports that she has pain in her neck, pain with range of motion of bilateral upper extremities above 90 degree arc, neck pain with range of motion, weakness of bilateral upper extremity, she is also complaining of lower back pain, difficulty ambulating due to severe back pain, pain with range of motion, no urinary continence, no bowel incontinence, no saddle perineal anesthesia, she was seen by Dr. Do as outpatient with plans of surgery on Sunday but due to persistent pain in her neck and her back, pain with range of motion, weakness she came to the emergency room. She tells me that she has severe back pain and weakness that she has been crawling on the floor to ambulate, no urinary continence no bowel incontinence no saddle or perineal anesthesia, no ascending weakness, no fevers, no chills. She has bilateral lower extremity 2+ pitting edema, when asked her about that she tells me she does not have heart failure she had an echocardiogram done and told that she does not have heart failure, she was taken off her lisinopril and her spironolactone, and placed on compression stockings and compression wraps has she was told by Dr. Maryann Casper that her problem is lymphedema, so she has been using lymphedema wraps for the last few weeks, however now her edema is under bilateral lower extremities and she does not understand why, she is frustrated. Cervical Stenosis with Myelopathy and Radiculopathy - S/P C5-T2 Posterior Spine Fusion and Instrumentation, C6-C7 Laminectomy with Partial Facetectomies - Has been on Clindamycin post op. - Plan: 1. Continue cervical collar with adjustments for comfort as needed. Per ortho ok to take off while in bed 2. Patient refused rehab. Wanting to go home with home health 3. Was noted to have leukocytosis which was likley due to steroids 4. Outpatient follow up was arranged. Physical Exam Narrative: Alert and oriented x 3 Head is normocephalic atraumatic - cervical collar Respirations are intact No evidence of any rashes or infection 4/5 strength in bilateral lower extremi ties Sensation intact in all extremities Deep tendon reflexes 1 out of 4 bilateral upper and lower extremities Urinary Catheter Management: Alcaraz: Cath Placed During This Visit: yes, but has since been removed by the nurse Reason for Continuing Indwelling Catheter: Perioperative Use in Selected Surgeries Urinary Catheter Date of Insertion: 12/08/24 Urinary Catheter Time of Insertion: 07:28 Date Urinary Catheter Removed: 12/09/24 Time Urinary Catheter Discontinued: 08:49 Discharge Data Studies Completed and Pending Completed Studies During Hospitalization Category Date Time Status CT cervical spin wo con* [id number] Stat Cat Scan 12/06/24 14:[address] head wo con* [id number] Stat Cat Scan 12/06/24 14:[address] lumbar spine wo con* [id number] Stat Cat Scan 12/06/24 14:21 Completed XR lumbar spine 2-3V* [id number] Routine Exams 12/08/24 10:31 Completed US venous duplex lower extremity bilat [CV venous Ultrasound 12/07/24 06:00 [place] [id number]] Routine Pending at discharge Category Date Time Status Basic Metabolic Panel AM LABS Lab 12/11/24 04:00 Ordered Radiology Impressions Lumbar Spine CT 12/06/24 14:21 IMPRESSION: No acute posttraumatic changes in the lumbar spine. Head CT 12/06/24 14:22 IMPRESSION: No acute intracranial posttraumatic changes. Cervical Spine CT 12/06/24 14:23 IMPRESSION: No acute posttraumatic changes in the cervical spine. Venous Duplex 12/07/24 06:00 IMPRESSION: No evidence of deep vein thrombosis. Lumbar Spine X-Ray 12/08/24 10:31 IMPRESSION: Posterior cervical fusion as above. Laboratory Results WBC 17.07 10^3/uL (3.29-11.43) H 12/10/24 12:46 RBC 3.71 10^6/uL (3.85-5.65) L 12/10/24 12:46 Hgb 10.80 g/dL (11.27-16.99) L 12/10/24 12:46 Hct 34.7 % (36-47) L 12/10/24 12:46 MCV 93.5 fl (85-98) 12/10/24 12:46 MCH 29.1 pg (27-33) 12/10/24 12:46 MCHC 31.1 g/dL (30-55) 12/10/24 12:46 RDW 14.1 % (12.1-15.1) 12/10/24 12:46 Plt Count 312 10^3/cmm (157-399) 12/10/24 12:46 MPV 8.8 fL (7.4-10.4) 12/10/24 12:46 Neut % (Auto) 73.0 % 12/10/24 12:46 Lymph % (Auto) 12.5 % 12/10/24 12:46 [place] % (Auto) 12.2 % 12/10/24 12:46 Eos % (Auto) 0.6 % 12/10/24 12:46 Baso % (Auto) 0.4 % 12/10/24 12:46 Neut # (Auto) 12.46 10^3/uL (1.8-7.7) H 12/10/24 12:46 Lymph # (Auto) 2.1 10^3/uL (0.8-4.8) 12/10/24 12:46 [place] # (Auto) 2.1 10^3/uL (0.2-0.9) H 12/10/24 12:46 Eos # (Auto) 0.1 10^3/uL (0.0-0.8) 12/10/24 12:46 Baso # (Auto) 0.1 10^3/uL (0.0-0.1) 12/10/24 12:46 Nucleated RBC % (auto) 0 % 12/10/24 12:46 Nucleated RBCs # 0.0 /100WBC 12/10/24 12:46 Sodium 137 mmol/L (136-145) 12/10/24 05:18 Potassium 4.7 mmol/L (3.5-5.1) 12/10/24 05:18 Chloride 102 mmol/L (98-107) 12/10/24 05:18 Carbon Dioxide 27 mmol/L (22-29) 12/10/24 05:18 Anion Gap 12.7 (5-19) 12/10/24 05:18 BUN 26 mg/dL (6-20) H 12/10/24 05:18 Creatinine 0.7 mg/dL (0.5-0.9) 12/10/24 05:18 GFR Calculation 85.6 mL/min (90-130) L 12/10/24 05:18 Glucose 104 mg/dL (65-115) 12/10/24 05:18 Estimat Average Glucose 114 12/06/24 14:35 Hemoglobin A1c 5.6 % (4.0-6.0) 12/06/24 14:35 Calculated Osmolality 289 mOsm/kg (285-295) 12/10/24 05:18 Calcium 9.5 mg/dL (8.5-10.5) 12/10/24 05:18 Total Bilirubin 0.2 mg/dL (0.15-1.2) 12/09/24 05:39 AST 20 U/L (0-32) 12/09/24 05:39 ALT 21 U/L (0-33) 12/09/24 05:39 Alkaline Phosphatase 114 U/L (35-105) H 12/09/24 05:39 NT-Pro-B Natriuret Pep 106 pg/mL (0-125) 12/06/24 14:35 Total Protein 5.5 g/dL (6.6-8.7) L 12/09/24 05:39 Albumin 3.2 g/dL (3.5-5.2) L 12/09/24 05:39 Globulin 2.3 g/dL (1.3-4.6) 12/09/24 05:39 Triglycerides 83 mg/dL (0-150) 12/06/24 14:35 Cholesterol 152 mg/dL (0-200) 12/06/24 14:35 LDL Cholesterol, Calc 82 mg/dL (50-129) 12/06/24 14:35 HDL Cholesterol 53 mg/dL (60-100) L 12/06/24 14:35 LDL/HDL Ratio 1.55 RATIO (0.00-3.22) 12/06/24 14:35 Cholesterol/HDL Ratio 2.87 mg/dL (0.0-4.40) 12/06/24 14:35 TSH 0.29 uIU/mL (0.27-4.20) 12/06/24 22:44 Urine Color Yellow (Yellow) 12/06/24 02:05 Urine Appearance Clear (CLEAR) 12/06/24 02:05 Urine pH 6.5 (5-7) 12/06/24 02:05 Ur Specific [place] 1.011 (1.005-1.030) 12/06/24 02:05 Urine Protein Negative (Negative) 12/06/24 02:05 Urine Glucose (UA) Negative (Normal) 12/06/24 02:05 Urine Ketones Negative (Negative) 12/06/24 02:05 Urine Blood Negative (Negative) 12/06/24 02:05 Urine Nitrate Negative (Negative) 12/06/24 02:05 Urine Bilirubin Negative (Negative) 12/06/24 02:05 Urine Urobilinogen 0.2 mg/dL (Negative) 12/06/24 02:05 Ur Leukocyte Esterase Negative (Negative) 12/06/24 02:05 Urine RBC 0-2 /hpf (0-2) 12/06/24 02:05 Urine WBC 0-5 /hpf (0-5) 12/06/24 02:05 Ur Squamous Epith Cells 0-5 /hpf (0-5) 12/06/24 02:05 Amorphous Sediment Not Reportable 12/06/24 02:05 Urine Bacteria 4+ /hpf (NONE) H 12/06/24 02:05 Hyaline Casts 0.40 /lpf 12/06/24 02:05 Vitals Last Vital Signs Temp 98.1 F 12/10/24 12:48 Pulse 85 12/10/24 12:48 Resp 17 12/10/24 12:48 BP 146/80 12/10/24 12:48 Pulse Ox 93 12/10/24 12:48 O2 Del Method Room Air 12/10/24 12:48 O2 Flow Rate 3 12/08/24 11:22 Discharge Plan Discharge Patient Disposition: Home Condition: Stable Prescriptions: Continued cholecalciferol (vitamin D3) 10,000 unit capsule 10,000 unit PO DAILY atorvastatin 10 mg tablet 10 mg PO DAILY Qty: 90 0RF atenolol 25 mg tablet 25 mg PO DAILY Qty: 90 1RF amitriptyline 100 mg tablet 200 mg PO DAILY Qty: 60 2RF Rx Instructions: TAKE TWO TABLETS BY MOUTH ONCE DAILY Lamictal 200 mg tablet 400 mg PO BEDTIME Qty: 60 2RF ziprasidone HCl [Geodon] 60 mg capsule 60 mg PO BID Qty: 60 2RF Rx Instructions: give with food (meal/snack) psyllium husk [Metamucil] 0.4 gram Capsule 0.4 g PO DAILY estradiol 0.5 mg tablet 0.5 mg PO DAILY Rx Instructions: TAKE ONE TABLET BY MOUTH ONCE DAILY venlafaxine 75 mg capsule,extended release 24hr 75 mg PO QAM baclofen 10 mg tablet 10 mg PO Q6H PRN (Reason: Muscle Spasm) Discontinued alprazolam [Xanax] 1 mg tablet 1 mg PO BID Qty: 60 0RF Rx Instructions: Must last 30 days. No Action oxycodone 10 mg tablet 10 mg PO Q4H PRN (Reason: pain) 7 Days Qty: 42 0RF Discharge Orders: Discharge Order (Routine); Ordered 12/10/24 Ordered By: Nehemias Do Referrals: Nehemias Do DO [Physician] - 12/23/24 2:30 pm Sukumar Gilman MD [Primary Care Provider] - 12/15/24 2:20 pm (this appointment will be at [facility] in [facility]) Discharge Diet: Advance as tolerated Discharge Activity: Limit activity as instructed Patient Instructions: Hydrocodone/Acetaminophen (By mouth), Oxycodone/Acetaminophen (By mouth), Acute Wound Care (DC), Opioid Safety, Post Anesthesia Care Activity Restrictions/Additional Instructions: Okay to restart Xanax when you get home Thank you for choosing [facility] for your care! The following is a list of instructions, from your provider, to follow upon your discharge to ensure you have the optimal recovery from your recent injury or surgery. WHat to Expect at Home Your Recovery Follow-up care is a perez part of your treatment and safety. Be sure to make and go to all appointments, and call your doctor if you are having problems. If you do not already have a follow-up appointment made, call office in the next 1-3 days to make follow up appointment for 2 weeks at [phone]. It is also a good idea to know your test results and keep a list of the medicines you take. You can expect your neck to feel stiff or sore after surgery. This should improve in the weeks after surgery. But it may take 4 to 6 months for you to get better completely. You may have trouble sitting or standing in one position for very long and may need pain medicine in the weeks after your surgery. It may take 4 to 6 weeks to get back to your usual activities, but it may depend on what kind of surgery you had. Your throat will feel sore and it may be difficult to swallow for the first 3 days after your surgery. As long as you can get liquids down without difficulty, this should slowly improve, otherwise call our office or seek medical attention if it becomes increasingly difficult to get anything down including liquids. Avoid hot liquids for first 3-5 days. Soothing foods/liquids such as jello, pudding, and luke warm soups are recommended until swallowing improves. Staying elevated will also help, it's advised you keep propped up at while sleeping to help reduce the swelling. You may use an ice pack directly on your incision or around it on the front of your neck, using a cloth to protect your skin; and a heating pad to the back of your neck as needed. Do not use over the counter anti-inflammatory medications (Ibuprofen, Motrin, Aleve, Advil, etc) Taking these meds after having a fusion can delay fusion rates, we recommend you avoid them for the first 3 months after your surgery[address] Dr. Do may advise you to work with a physical therapist to strengthen the muscles around your neck and back - this will be discussed at your follow - up appointments. The pain or numbness you were having in your arms before surgery should get better or go away completely. This care sheet gives you a general idea about how long it will take for you to recover. But each person recovers at a different pace. Follow the steps below to get better as quickly as possible. How can you care for yourself at home? Activity ? Rest when you feel tired. Getting enough sleep will help you recover. ? Try to walk each day. Start by walking a little more than you did the day before. Bit by bit, increase the amount you walk. Walking boosts blood flow and helps prevent pneumonia and constipation. Walking may also decrease your muscle soreness after surgery. ? No lifting anything that is more that 5 pounds. This may include heavy grocery bags and milk containers, a heavy briefcase or backpack, cat litter or dog food bags, a child, or a vacuum catch basin cleaner. ? Avoid strenuous activities, such as bicycle riding, jogging, weightlifting, or aerobic exercise, until your doctor says it is okay. ? Do not drive until your follow-up visit after your surgery, or until your doctor says it isokay. ? Avoid taking long car trips for 2 to 4 weeks after surgery. Your neck may become tired and painful from sitting too long in one position. ? You will probably need to take 4 to 6 weeks off from work. It depends on the type of work you do and how you feel. ? You may have sex as soon as you feel able, but avoid positions that put stress on your neck or cause pain. Diet ? You can eat your normal diet. If your stomach is upset, try bland, low-fat foods like plain rice, broiled chicken, toast, and yogurt ? Drink plenty of fluids. If you have kidney, heart, or liver disease and have to limit fluids, talk with your doctor before you increase the amount of fluids you drink. ? You may notice that your bowel movements are not regular right after your surgery. This is common. Try to avoid constipation and straining with bowel movements. You may want to take a fiber supplement every day. If you have not had a bowel movement after a couple of days, ask your doctor about taking a mild laxative. Medicines ? Take pain medicines exactly as directed. 1. If Dr. Do gave you a prescription medicine for pain, take lt as prescribed. 2. Do not take two or more pain medicines at the same time unless the doctor told you to. Many pain medicines have acetaminophen, which is Tylenol. Too much acetaminophen {Tylenol) can be harmful. 3. If you think your pain pill is making you sick to your stomach: 4. Take your pills after meals (unless your doctor has told you not to). 5. Ask your Dr. for a different pain pill. Incisioncare ? Remove your dressing 48hours after your surgery. Ok to shower and get the incision wet. Do not overtly wash your incision. When done, pad dry, leave open to air thereafter. Avoid creams and ointments directly on your incision. ? Your sutures in the incision will dissolve and fall out on their own. ? Keep the area clean and dry. You may cover it with a gauze bandage if it weeps or rubs against clothing; if you choose to do this, change the dressing everyday. Other instructions ? Use a heating pad, hot water bottle, or gentle massage on your back to reduce stiffness. Avoid putting heat on your incision When should you call for help? ? Call 911 anytime you think you may need emergency care. For example, call if: ? You pass out (lose consciousness). ? You have sudden chest pain and shortness of breath, or you cough upblood. ? You cannot swallow. ? You have severe pain in your neck or back. ? Call your Dr. or seek immediate medical care if: ? You have pain that does not get better after you take pain pills. ? You have loose stitches, or your incision comes open. ? You have blood or fluid draining from the incision. ? You have signs of infection, such as: 1. Increased pain, swelling, warmth, or redness. 2. Red streaks leading from the site. 3. Pus draining from the site. 4. Swollen lymph nodes in your neck or armpits. 5. A fever. ? You have severe pain in your arms. ? You have new or increased weakness or numbness in your arms. ? Watch closely for any changes in your health, and be sure to contact your doctor if: ? You do not have a bowel movement after taking a laxative. Discharge Attestations Time Spent in Discharge Care*: greater than 30 min Status at Discharge: Cognitive status at discharge: cognitively intact , Behavioral status at discharge: cooperative , Functional status at discharge: other assisted ambulation , Overall status at discharge: patient is progressing back to baseline Quality Metrics Clinical Quality Measures [ No reported AMI, CVA or VTE this stay] Coding Level of Care Code Acute Code for Chg Fwd Diagnoses Status post cervical spinal fusion Z98.1
== END 2024-12-10 16:30 | disposition home or self-care (01) | DRG 451 ==
LOC: ER 14:25 → ER IP 16:42 → MEDSURG 18:31
PROVIDERS: Orthopaedic Surgery; Admitting Provider Family Medicine; Emergency Provider Family Medicine; Visit Provider Hospitalist
PROC: 0RG60K1 Fusion of Thoracic Vertebral Joint with Nonautologous Tissue Substitute, Posterior Approach, Posterior Column, Open Approach (ICD-10-PCS; principal; 2024-12-08 07:00)
PROC: 0RG60K1 Fusion of Thoracic Vertebral Joint with Nonautologous Tissue Substitute, Posterior Approach, Posterior Column, Open Approach (ICD-10-PCS; CPT 63005; 2024-12-08 07:00)
DX: M47.12 Other spondylosis with myelopathy, cervical region (principal); F31.81 Bipolar II disorder; M47.22 Other spondylosis with radiculopathy, cervical region; M48.02 Spinal stenosis, cervical region; I10 Essential (primary) hypertension; M79.7 Fibromyalgia; F41.1 Generalized anxiety disorder; E03.9 Hypothyroidism, unspecified; Z79.890 Hormone replacement therapy; Z90.710 Acquired absence of both cervix and uterus
CPT/HCPCS: 36415; 51702; 70450; 72100; 72125; 72131; 76000; 80048; 80053; 80061; 81001; 83036; 83880; 84443; 85025; 93005; 93970; 94640; 94664; 96372; 96374; 96375; 97116; 97161; 97167; 97530; 97535; 99285; A9281; C1713 ×2; J1100; J1650; J1885; J1940; J2270; J2360; J2405; J2470; J3370; J3490; J7030; J7120; J8499

== ENCOUNTER → 2024-12-23 14:12 | Outpatient (BNVA) | payer MEDICAID, SELFPAY | PROVIDERS: Visit Provider Orthopaedic Surgery | DX: Z98.1 Arthrodesis status (principal) | CPT/HCPCS: 99024 ==

== ENCOUNTER 2024-12-27 17:00 | Emergency (ER) | payer MEDICAID, SELFPAY ==
[2024-12-27 17:01] VITALS: BP 130/71; PULSE 103; RESP 20; TEMP 36.6; O2SAT 96
[2024-12-27 17:39] VITALS: BP 138/81; PULSE 100; O2SAT 98
--- NOTE | 2024-12-27 17:40 | CTR_ITS ---
PROCEDURE INFORMATION: Exam: CT Thoracic Spine Without Contrast Exam date and time: 12/27/2024 5:55 PM Age: 59 years old Clinical indication: Pain in thoracic spine; Without myelpathy or radiculopathy; Prior surgery; Surgery date: <1 month; Surgery type: Thoracolumbar fusion; Additional info: Pain post op TECHNIQUE: Imaging protocol: Computed tomography of the thoracic spine without contrast. Radiation optimization: All CT scans at this facility use at least one of these dose optimization techniques: automated exposure control; mA and/or kV adjustment per patient size (includes targeted exams where dose is matched to clinical indication); or iterative reconstruction. COMPARISON: 1. CT cervical spin wo con* [id number] 12/27/2024 5:[address] lumbar spine wo con* [id number] 07/20/2024 2:32 PM 3. MR lumbar spine wo con* [id number] 06/02/2024 1:[address] abdomen pelvis wo/w [id number] 03/27/2024 2:43 PM RADIATION DOSE METRICS: Total DLP (mGy-cm): 1162.71 FINDINGS: Bones/joints: Posterior cervicothoracic fusion hardware is partially imaged. Hardware appears intact within the field of view. Areas of posterior decompression in the lower cervical and upper thoracic spine. No acute fracture. Vertebral body heights are maintained throughout the thoracic spine. Thoracolumbar fusion hardware partially imaged. Patchy sclerosis within the T10 vertebral body appears new from 03/27/2024. Soft tissues: Ill-defined fluid density is seen in the posterior paraspinal soft tissues of the lower cervical and upper thoracic spine. Lymph nodes: Calcified mediastinal/hilar lymph nodes from prior granulomatous disease. Lungs: A few calcified granulomas are seen within the visualized lungs. CT/CT thoracic spin wo con* [id number] IMPRESSION: 1. No acute osseous findings. 2. Partially imaged posterior cervicothoracic fusion. Hardware appears intact within the field of view. Ill-defined fluid in the posterior paraspinal soft tissues may be postsurgical. 3. Posterior thoracolumbar fusion hardware partially imaged. Hardware appears intact within field of view. 4. Patchy sclerosis within the T10 vertebral body appears new from 03/27/2024 and could be related to postsurgical changes. Findings are nonspecific. This could be further assessed with nonemergent CT thoracic spine with contrast possibly MRI thoracic spine without and with contrast if warranted.
--- NOTE | 2024-12-27 17:40 | USR_ITS ---
PROCEDURE INFORMATION: Exam: US Duplex Lower Extremity Veins, Bilateral Exam date and time: 12/27/2024 6:34 PM Age: 59 years old Clinical indication: Pain; Edema, localized; Lower extremity, bilateral; Leg, lower; Additional info: Pain swelling post op TECHNIQUE: Imaging protocol: Real-time duplex ultrasound of the bilateral extremities with 2-D sarah scale, color Doppler flow and spectral waveform analysis including responses to compression and other maneuvers (when performed) with image documentation. Complete exam focused on the lower extremity veins. COMPARISON: [place] [id number] 12/07/2024 9:04 AM FINDINGS: Right deep veins: Unremarkable. The common femoral, femoral, proximal profunda femoral and popliteal veins are patent without thrombus. Normal Doppler waveforms. Normal compressibility and/or augmentation response. Left deep veins: Unremarkable. The common femoral, femoral, proximal profunda femoral and popliteal veins are patent without thrombus. Normal Doppler waveforms. Normal compressibility and/or augmentation response. Superficial veins: Greater saphenous veins at the saphenofemoral junctions are patent bilaterally without thrombus. Soft tissues: Areas of trace subcutaneous soft tissue edema are seen bilaterally. US/[place] [id number] IMPRESSION: No evidence of deep vein thrombosis.
--- NOTE | 2024-12-27 17:40 | CTR_ITS ---
PROCEDURE INFORMATION: Exam: CT Cervical Spine Without Contrast Exam date and time: 12/27/2024 5:52 PM Age: 59 years old Clinical indication: Neck pain; Prior surgery; Surgery date: <1 month; Surgery type: Cervical fusion; Additional info: Pain post op/fall TECHNIQUE: Imaging protocol: Computed tomography of the cervical spine without contrast. Radiation optimization: All CT scans at this facility use at least one of these dose optimization techniques: automated exposure control; mA and/or kV adjustment per patient size (includes targeted exams where dose is matched to clinical indication); or iterative reconstruction. COMPARISON: CT cervical spin wo con* [id number] 12/06/2024 2:57 PM RADIATION DOSE METRICS: Total DLP (mGy-cm): 249.87 FINDINGS: Bones: Interval posterior cervicothoracic fusion is partially imaged. Posterior decompression at multiple levels in the lower cervical and upper thoracic spine. Similar moderate degenerative changes at multiple levels throughout the cervical spine. Similar grade 1 anterolisthesis of C7 on T1. No acute fracture. Vertebral body heights are maintained. Mild reversal of cervical lordosis. Lungs: Lung apices are normal. Soft tissues: Ill-defined fluid density throughout the posterior paraspinal soft tissues of the cervical and upper thoracic spine. CT/CT cervical spin wo con* [id number] IMPRESSION: 1. No acute osseous findings. 2. Partially imaged posterior cervicothoracic fusion. 3. Ill-defined fluid in the posterior paraspinal soft tissues may be postsurgical in nature. If there is concern for infection, consider follow-up CT with contrast.
--- NOTE | 2024-12-27 17:42 | W.ED.BACK ---
Documented by User: Bc Virk DO 12/29/24 06:32 HPI - Back Pain/Injury General: Chief Complaint: Back Pain/Injury Stated Complaint: back pain Time Seen by Provider: 12/27/24 17:01 History of Present Illness: 59-year-old female presents emergency room complaint of neck and upper back pain. On December 08 patient was admitted to the hospital and had a cervical and upper thoracic spinal fusion laminectomy. She fell yesterday and then again this morning while getting out of bed she did not strike her back directly she did feel like it honorio she did not have any worsening pain in her arms she does have swelling though in her legs she denies any chest pain or shortness of breath has not had any fever sweats or chills. She is concerned the falls may have harmed the surgical site Associated symptoms: Deny abdominal pain, chills, dysuria, fever(s) or urinary urgency Related Data Home Medications ?Medication ?Instructions ?Recorded ?Confirmed cholecalciferol (vitamin D3) 250 10,000 unit PO DAILY 12/30/19 12/23/24 mcg (10,000 unit) capsule psyllium husk 0.4 gram capsule 0.4 g PO DAILY 09/17/23 12/23/24 (Metamucil) estradiol 0.5 mg tablet 0.5 mg PO DAILY 12/05/24 12/23/24 venlafaxine 75 mg capsule,extended 75 mg PO QAM 12/06/24 12/23/24 release 24 hr Previous Rx's ?Medication ?Instructions ?Recorded atorvastatin 10 mg tablet 10 mg PO DAILY #90 tabs 05/22/24 atenolol 25 mg tablet 25 mg PO DAILY #90 tabs 08/11/24 amitriptyline 100 mg tablet 200 mg (2 x 100 mg) PO DAILY #60 10/30/24 tabs lamotrigine 200 mg tablet 400 mg (2 x 200 mg) PO BEDTIME #60 10/30/24 (Lamictal) tabs ziprasidone HCl 60 mg capsule 60 mg PO BID #60 caps 10/30/24 (Geodon) Bone Growth Stimulator #1 ea 12/18/24 doxycycline hyclate 100 mg capsule 100 mg PO BID 10 days #20 caps 12/27/24 metolazone 5 mg tablet 5 mg PO DAILY #14 tabs 12/27/24 oxycodone 10 mg tablet 10 mg PO Q4H PRN pain 30 days #5 12/27/24 tabs Allergies Allergy/AdvReac Type Severity Reaction Status Date / Time Penicillins Allergy Severe ADR-Diarrhe Verified 12/23/24 14:27 a Review of Systems Const: Denies: fever(s) or chills Card: Reports: edema (Bilateral to the level of the knees); Denies: chest pain, dyspnea on exertion or orthopnea Resp: Denies: dyspnea GI: Denies: abdominal pain : Denies: dysuria, urinary frequency or urinary urgency Musc: Reports: neck pain; Denies: back pain Skin/Breast: Denies: rash PFSH ED PFSH: Medical History Fibromyalgia Sensation disturbance of skin Renal cyst Bipolar 2 disorder Psychiatric care Hypothyroid Essential hypertension Generalized anxiety disorder Surgical History History of back surgery H/O: hysterectomy H/O tubal ligation History of foot surgery Family History Other CAD (coronary artery disease) Diabetes Hyperlipidemia Hypertension Social History Smoking and tobacco/nicotine status: current every day tobacco/nicotine user e-cigarettes E-Cigarette Details: vaporizer device 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 Current occupation: disabled Physical Exam Const: GENERAL APPEARANCE: cooperative ORIENTATION/CONSCIOUSNESS: Yes awake, Yes oriented to person, Yes oriented to place and Yes oriented to time HENMT: COMMON NORMALS: normocephalic, atraumatic and hearing grossly normal bilaterally HEAD & SCALP: normocephalic and atraumatic Resp: COMMON NORMALS: normal respiratory effort, No retractions, No use of accessory muscles and clear to auscultation bilaterally AUSCULTATION: clear to auscultation bilaterally Cardio: COMMON NORMALS: regular rate, regular rhythm and No murmurs present (Cardio) RATE: regular rate RHYTHM: regular rhythm GI: COMMON NORMALS: Soft to palpation and No hepatosplenomegaly present AUSCULTATION: Yes normoactive bowel sounds PALPATION: Yes Soft to palpation, No Tenderness to palpation present (GI), No Guarding due to palpation present (GI) and Yes No hepatosplenomegaly present Extremity: COMMON NORMALS: normal to inspection, capillary refill normal, no clubbing, cyanosis or edema, no calf tenderness and no pedal edema Neuro: SENSORIUM/ORIENTATION: Yes oriented to person, Yes oriented to place and Yes oriented to time Skin: COMMON NORMALS: no rashes or lesions noted GENERAL SKIN EXAM: no rashes or lesions noted Course Vital Signs: Vital signs: Vital Signs Temperature 97.9 F 12/27/24 17: Pulse Rate 92 12/27/24 23: Respiratory Rate 16 12/27/24 23: Blood Pressure 154/77 12/27/24 23:01 Pulse Oximetry 96 12/27/24 23:01 Oxygen Delivery Me thod Room Air 12/27/24 22:08 MDM - Back Pain/Injury Medical Decision Making Care signed out to Dr. Rich at change of shift. See final notes for diagnosis and disposition. 59-year-old female checked out to me at shift change. This lady had an increase in pain after fall today. She also complained of leg swelling. CT shows a seroma, no other complication. White blood cell count is 10. Hemoglobin is stable. Venous duplex is negative for DVT. She will be allowed home. She has walked in the ER after being given morphine and Toradol. On my reexamination, she complains to me of continued leg swelling and pain. She has soft tissue swelling/edema in the bilateral lower extremities, with redness and warmth. Again, deep scans for DVT are negative. She shows me pictures of lymphedematous legs, that appear worse than hers currently, but they do remain swollen. She states that when she was in the hospital before, she was given a pill that seemed to resolve the swelling rather quickly. On my research, it appears to be metolazone. She is given Bumex here, and will be placed on metolazone. Close outpatient follow-up. Will cover with doxycycline for cellulitis. Medical Records I reviewed the patient's medical records. Labs I reviewed the patient's lab results. 12/27/24 17:49 12/27/24 17:49 Radiology Impressions Cervical Spine CT 12/27/24 17:40 IMPRESSION: 1. No acute osseous findings. 2. Partially imaged posterior cervicothoracic fusion. 3. Ill-defined fluid in the posterior paraspinal soft tissues may be postsurgical in nature. If there is concern for infection, consider follow-up CT with contrast. Thoracic Spine CT 12/27/24 17:40 IMPRESSION: 1. No acute osseous findings. 2. Partially imaged posterior cervicothoracic fusion. Hardware appears intact within the field of view. Ill-defined fluid in the posterior paraspinal soft tissues may be postsurgical. 3. Posterior thoracolumbar fusion hardware partially imaged. Hardware appears intact within field of view. 4. Patchy sclerosis within the T10 vertebral body appears new from 03/27/2024 and could be related to postsurgical changes. Findings are nonspecific. This could be further assessed with nonemergent CT thoracic spine with contrast possibly MRI thoracic spine without and with contrast if warranted. Venous Duplex 12/27/24 17:40 IMPRESSION: No evidence of deep vein thrombosis. Laboratory Results WBC 10.18 10^3/uL (3.29-11.43) 12/27/24 17:49 RBC 3.67 10^6/uL (3.85-5.65) L 12/27/24 17:49 Hgb 10.30 g/dL (11.27-16.99) L 12/27/24 17:49 Hct 34.3 % (36-47) L 12/27/24 17:49 MCV 93.5 fl (85-98) 12/27/24 17:49 MCH 28.1 pg (27-33) 12/27/24 17:49 MCHC 30.0 g/dL (30-55) 12/27/24 17:49 RDW 14.2 % (12.1-15.1) 12/27/24 17:49 Plt Count 360 10^3/cmm (157-399) 12/27/24 17:49 MPV 8.4 fL (7.4-10.4) 12/27/24 17:49 Neut % (Auto) 63.9 % 12/27/24 17:49 Lymph % (Auto) 20.2 % 12/27/24 17:49 [place] % (Auto) 10.3 % 12/27/24 17:49 Eos % (Auto) 4.5 % 12/27/24 17:49 Baso % (Auto) 0.7 % 12/27/24 17:49 Neut # (Auto) 6.50 10^3/uL (1.8-7.7) 12/27/24 17:49 Lymph # (Auto) 2.1 10^3/uL (0.8-4.8) 12/27/24 17:49 [place] # (Auto) 1.1 10^3/uL (0.2-0.9) H 12/27/24 17:49 Eos # (Auto) 0.5 10^3/uL (0.0-0.8) 12/27/24 17:49 Baso # (Auto) 0.1 10^3/uL (0.0-0.1) 12/27/24 17:49 Nucleated RBC % (auto) 0 % 12/27/24 17:49 Nucleated RBCs # 0.0 /100WBC 12/27/24 17:49 Sodium 141 mmol/L (136-145) 12/27/24 17:49 Potassium 3.9 mmol/L (3.5-5.1) 12/27/24 17:49 Chloride 103 mmol/L (98-107) 12/27/24 17:49 Carbon Dioxide 27 mmol/L (22-29) 12/27/24 17:49 Anion Gap 14.9 (5-19) 12/27/24 17:49 BUN 12 mg/dL (8-23) 12/27/24 17:49 Creatinine 0.7 mg/dL (0.5-0.9) 12/27/24 17:49 GFR Calculation 85.4 mL/min (90-130) L 12/27/24 17:49 Glucose 98 mg/dL (65-115) 12/27/24 17:49 Calculated Osmolality 292 mOsm/kg (285-295) 12/27/24 17:49 Calcium 10.3 mg/dL (8.5-10.5) 12/27/24 17:49 Total Bilirubin 0.2 mg/dL (0.15-1.2) 12/27/24 17:49 AST 16 U/L (0-32) 12/27/24 17:49 ALT 18 U/L (0-33) 12/27/24 17:49 Alkaline Phosphatase 175 U/L (35-105) H 12/27/24 17:49 C-Reactive Protein 45.5 mg/L (0.0-4.9) H 12/27/24 17:49 Total Protein 6.8 g/dL (6.6-8.7) 12/27/24 17:49 Albumin 3.9 g/dL (3.5-5.2) 12/27/24 17:49 Globulin 2.9 g/dL (1.3-4.6) 12/27/24 17:49 Urine Color Yellow (Yellow) 12/27/24 17:39 Urine Appearance Clear (CLEAR) 12/27/24 17:39 Urine pH 7.0 (5-7) 12/27/24 17:39 Ur Specific [place] 1.004 (1.005-1.030) L 12/27/24 17:39 Urine Protein Negative (Negative) 12/27/24 17:39 Urine Glucose (UA) Negative (Normal) 12/27/24 17:39 Urine Ketones Negative (Negative) 12/27/24 17:39 Urine Blood Negative (Negative) 12/27/24 17:39 Urine Nitrate Negative (Negative) 12/27/24 17:39 Urine Bilirubin Negative (Negative) 12/27/24 17:39 Urine Urobilinogen 0.2 mg/dL (Negative) 12/27/24 17:39 Ur Leukocyte Esterase Negative (Negative) 12/27/24 17:39 Urine RBC 0-4 /hpf (0-2) H 12/27/24 17:39 Urine WBC 0-4 /hpf (0-5) H 12/27/24 17:39 Ur Squamous Epith Cells 0-4 /hpf (0-5) H 12/27/24 17:39 Amorphous Sediment Not Reportable 12/27/24 17:39 Urine Bacteria Trace /hpf (NONE) 12/27/24 17:39 Discharge Plan Discharge Patient Disposition: Home Clinical Impression: Status post cervical spinal fusion, Upper back pain, Seroma after procedure Condition: Stable Prescriptions: New metolazone 5 mg tablet 5 mg PO DAILY Qty: 14 0RF doxycycline hyclate 100 mg capsule 100 mg PO BID 10 Days Qty: 20 0RF Continued oxycodone 10 mg tablet 10 mg PO Q4H PRN (Reason: pain) 30 Days Qty: 5 0RF No Action cholecalciferol (vitamin D3) 10,000 unit capsule 10,000 unit PO DAILY atorvastatin 10 mg tablet 10 mg PO DAILY Qty: 90 0RF atenolol 25 mg tablet 25 mg PO DAILY Qty: 90 1RF amitriptyline 100 mg tablet 200 mg PO DAILY Qty: 60 2RF Rx Instructions: TAKE TWO TABLETS BY MOUTH ONCE DAILY Lamictal 200 mg tablet 400 mg PO BEDTIME Qty: 60 2RF ziprasidone HCl [Geodon] 60 mg capsule 60 mg PO BID Qty: 60 2RF Rx Instructions: give with food (meal/snack) (DME) Bone Growth Stimulator See Rx Instructions .Route .MEDSUPPLY Qty: 1 0RF Rx Instructions: As directed psyllium husk [Metamucil] 0.4 gram Capsule 0.4 g PO DAILY estradiol 0.5 mg tablet 0.5 mg PO DAILY Rx Instructions: TAKE ONE TABLET BY MOUTH ONCE DAILY venlafaxine 75 mg capsule,extended release 24hr 75 mg PO QAM Discharge Orders: Discharge ED (Routine); Ordered 12/27/24 Ordered By: Scott Rich Referrals: Sukumar Gilman MD [Primary Care Provider] - 1-3 days Patient Instructions: Back Pain (ED), Opioid Safety, Pain Management Activity Restrictions/Additional Instructions: Return for fever, increasing weakness despite treatment, other concerning symptoms. Call your spine surgeon on Sunday for a follow-up appointment. Print Language: Czech Coding Level of Care Code ED [employer] for [employer] Documented by User: Scott Rich DO 12/28/24 02:34 HPI - Back Pain/Injury General: Chief Complaint: Back Pain/Injury Stated Complaint: back pain Time Seen by Provider: 12/27/24 17:01 Related Data Home Medications ?Medication ?Instructions ?Recorded ?Confirmed cholecalciferol (vitamin D3) 250 10,000 unit PO DAILY 12/30/19 12/23/24 mcg (10,000 unit) capsule psyllium husk 0.4 gram capsule 0.4 g PO DAILY 09/17/23 12/23/24 (Metamucil) estradiol 0.5 mg tablet 0.5 mg PO DAILY 12/05/24 12/23/24 venlafaxine 75 mg capsule,extended 75 mg PO QAM 12/06/24 12/23/24 release 24 hr Previous Rx's ?Medication ?Instructions ?Recorded atorvastatin 10 mg tablet 10 mg PO DAILY #90 tabs 05/22/24 atenolol 25 mg tablet 25 mg PO DAILY #90 tabs 08/11/24 amitriptyline 100 mg tablet 200 mg (2 x 100 mg) PO DAILY #60 10/30/24 tabs lamotrigine 200 mg tablet 400 mg (2 x 200 mg) PO BEDTIME #60 10/30/24 (Lamictal) tabs ziprasidone HCl 60 mg capsule 60 mg PO BID #60 caps 10/30/24 (Geodon) Bone Growth Stimulator #1 ea 12/18/24 doxycycline hyclate 100 mg capsule 100 mg PO BID 10 days #20 caps 12/27/24 metolazone 5 mg tablet 5 mg PO DAILY #14 tabs 12/27/24 oxycodone 10 mg tablet 10 mg PO Q4H PRN pain 30 days #5 12/27/24 tabs Allergies Allergy/AdvReac Type Severity Reaction Status Date / Time Penicillins Allergy Severe ADR-Diarrhe Verified 12/23/24 14:27 a [facility] ED PFSH: Medical History Fibromyalgia Sensation disturbance of skin Renal cyst Bipolar 2 disorder Psychiatric care Hypothyroid Essential hypertension Generalized anxiety disorder Surgical History History of back surgery H/O: hysterectomy H/O tubal ligation History of foot surgery Family History Other CAD (coronary artery disease) Diabetes Hyperlipidemia Hypertension Social History Smoking and tobacco/nicotine status: current every day tobacco/nicotine user e-cigarettes E-Cigarette Details: vaporizer device 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 This lady had an increase in pain after fall today. She also complained of leg swelling. CT shows a seroma, no other complication. White blood cell count is 10. Hemoglobin is stable. Venous duplex is negative for DVT. She will be allowed home. She has walked in the ER after being given morphine and Toradol. On my reexamination, she complains to me of continued leg swelling and pain. She has soft tissue swelling/edema in the bilateral lower extremities, with redness and warmth. Again, deep scans for DVT are negative. She shows me pictures of lymphedematous legs, that appear worse than hers currently, but they do remain swollen. She states that when she was in the hospital before, she was given a pill that seemed to resolve the swelling rather quickly. On my research, it appears to be metolazone. She is given Bumex here, and will be placed on metolazone. Close outpatient follow-up. Will cover with doxycycline for cellulitis. Labs 12/27/24 17:49 12/27/24 17:49 Radiology Impressions Cervical Spine CT 12/27/24 17:40 IMPRESSION: 1. No acute osseous findings. 2. Partially imaged posterior cervicothoracic fusion. 3. Ill-defined fluid in the posterior paraspinal soft tissues may be postsurgical in nature. If there is concern for infection, consider follow-up CT with contrast. Thoracic Spine CT 12/27/24 17:40 IMPRESSION: 1. No acute osseous findings. 2. Partially imaged posterior cervicothoracic fusion. Hardware appears intact within the field of view. Ill-defined fluid in the posterior paraspinal soft tissues may be postsurgical. 3. Posterior thoracolumbar fusion hardware partially imaged. Hardware appears intact within field of view. 4. Patchy sclerosis within the T10 vertebral body appears new from 03/27/2024 and could be related to postsurgical changes. Findings are nonspecific. This could be further assessed with nonemergent CT thoracic spine with contrast possibly MRI thoracic spine without and with contrast if warranted. Venous Duplex 12/27/24 17:40 IMPRESSION: No evidence of deep vein thrombosis. Laboratory Results WBC 10.18 10^3/uL (3.29-11.43) 12/27/24 17:49 RBC 3.67 10^6/uL (3.85-5.65) L 12/27/24 17:49 Hgb 10.30 g/dL (11.27-16.99) L 12/27/24 17:49 Hct 34.3 % (36-47) L 12/27/24 17:49 MCV 93.5 fl (85-98) 12/27/24 17:49 MCH 28.1 pg (27-33) 12/27/24 17:49 MCHC 30.0 g/dL (30-55) 12/27/24 17:49 RDW 14.2 % (12.1-15.1) 12/27/24 17:49 Plt Count 360 10^3/cmm (157-399) 12/27/24 17:49 MPV 8.4 fL (7.4-10.4) 12/27/24 17:49 Neut % (Auto) 63.9 % 12/27/24 17:49 Lymph % (Auto) 20.2 % 12/27/24 17:49 [place] % (Auto) 10.3 % 12/27/24 17:49 Eos % (Auto) 4.5 % 12/27/24 17:49 Baso % (Auto) 0.7 % 12/27/24 17:49 Neut # (Auto) 6.50 10^3/uL (1.8-7.7) 12/27/24 17:49 Lymph # (Auto) 2.1 10^3/uL (0.8-4.8) 12/27/24 17:49 [place] # (Auto) 1.1 10^3/uL (0.2-0.9) H 12/27/24 17:49 Eos # (Auto) 0.5 10^3/uL (0.0-0.8) 12/27/24 17:49 Baso # (Auto) 0.1 10^3/uL (0.0-0.1) 12/27/24 17:49 Nucleated RBC % (auto) 0 % 12/27/24 17:49 Nucleated RBCs # 0.0 /100WBC 12/27/24 17:49 Sodium 141 mmol/L (136-145) 12/27/24 17:49 Potassium 3.9 mmol/L (3.5-5.1) 12/27/24 17:49 Chloride 103 mmol/L (98-107) 12/27/24 17:49 Carbon Dioxide 27 mmol/L (22-29) 12/27/24 17:49 Anion Gap 14.9 (5-19) 12/27/24 17:49 BUN 12 mg/dL (8-23) 12/27/24 17:49 Creatinine 0.7 mg/dL (0.5-0.9) 12/27/24 17:49 GFR Calculation 85.4 mL/min (90-130) L 12/27/24 17:49 Glucose 98 mg/dL (65-115) 12/27/24 17:49 Calculated Osmolality 292 mOsm/kg (285-295) 12/27/24 17:49 Calcium 10.3 mg/dL (8.5-10.5) 12/27/24 17:49 Total Bilirubin 0.2 mg/dL (0.15-1.2) 12/27/24 17:49 AST 16 U/L (0-32) 12/27/24 17:49 ALT 18 U/L (0-33) 12/27/24 17:49 Alkaline Phosphatase 175 U/L (35-105) H 12/27/24 17:49 C-Reactive Protein 45.5 mg/L (0.0-4.9) H 12/27/24 17:49 Total Protein 6.8 g/dL (6.6-8.7) 12/27/24 17:49 Albumin 3.9 g/dL (3.5-5.2) 12/27/24 17:49 Globulin 2.9 g/dL (1.3-4.6) 12/27/24 17:49 Urine Color Yellow (Yellow) 12/27/24 17:39 Urine Appearance Clear (CLEAR) 12/27/24 17:39 Urine pH 7.0 (5-7) 12/27/24 17:39 Ur Specific [place] 1.004 (1.005-1.030) L 12/27/24 17:39 Urine Protein Negative (Negative) 12/27/24 17:39 Urine Glucose (UA) Negative (Normal) 12/27/24 17:39 Urine Ketones Negative (Negative) 12/27/24 17:39 Urine Blood Negative (Negative) 12/27/24 17:39 Urine Nitrate Negative (Negative) 12/27/24 17:39 Urine Bilirubin Negative (Negative) 12/27/24 17:39 Urine Urobilinogen 0.2 mg/dL (Negative) 12/27/24 17:39 Ur Leukocyte Esterase Negative (Negative) 12/27/24 17:39 Urine RBC 0-4 /hpf (0-2) H 12/27/24 17:39 Urine WBC 0-4 /hpf (0-5) H 12/27/24 17:39 Ur Squamous Epith Cells 0-4 /hpf (0-5) H 12/27/24 17:39 Amorphous Sediment Not Reportable 12/27/24 17:39 Urine Bacteria Trace /hpf (NONE) 12/27/24 17:39 All radiology interpretation(s) finalized by discharge Discharge Plan Discharge Patient Disposition: Home Clinical Impression: Status post cervical spinal fusion, Upper back pain, Seroma after procedure Condition: Stable Prescriptions: New metolazone 5 mg tablet 5 mg PO DAILY Qty: 14 0RF doxycycline hyclate 100 mg capsule 100 mg PO BID 10 Days Qty: 20 0RF Continued oxycodone 10 mg tablet 10 mg PO Q4H PRN (Reason: pain) 30 Days Qty: 5 0RF No Action cholecalciferol (vitamin D3) 10,000 unit capsule 10,000 unit PO DAILY atorvastatin 10 mg tablet 10 mg PO DAILY Qty: 90 0RF atenolol 25 mg tablet 25 mg PO DAILY Qty: 90 1RF amitriptyline 100 mg tablet 200 mg PO DAILY Qty: 60 2RF Rx Instructions: TAKE TWO TABLETS BY MOUTH ONCE DAILY Lamictal 200 mg tablet 400 mg PO BEDTIME Qty: 60 2RF ziprasidone HCl [Geodon] 60 mg capsule 60 mg PO BID Qty: 60 2RF Rx Instructions: give with food (meal/snack) (DME) Bone Growth Stimulator See Rx Instructions .Route .MEDSUPPLY Qty: 1 0RF Rx Instructions: As directed psyllium husk [Metamucil] 0.4 gram Capsule 0.4 g PO DAILY estradiol 0.5 mg tablet 0.5 mg PO DAILY Rx Instructions: TAKE ONE TABLET BY MOUTH ONCE DAILY venlafaxine 75 mg capsule,extended release 24hr 75 mg PO QAM Discharge Orders: Discharge ED (Routine); Ordered 12/27/24 Ordered By: Scott Rich Referrals: Sukumar Gilman MD [Primary Care Provider] - 1-3 days Patient Instructions: Back Pain (ED), Opioid Safety, Pain Management Activity Restrictions/Additional Instructions: Return for fever, increasing weakness despite treatment, other concerning symptoms. Call your spine surgeon on Sunday for a follow-up appointment. Print Language: Czech Coding Level of Care Code ED [employer] for [place]
[2024-12-27 18:01] LABS: Basophils # 0.1 10^3/uL (0.0-0.1); Basophils % 0.7 %; Eosinophils # 0.5 10^3/uL (0.0-0.8); Eosinophils % 4.5 %; Hematocrit 34.3 % (36-47); Lymphocytes # 2.1 10^3/uL (0.8-4.8); Lymphocytes % 20.2 %; Mean Corpuscular Hemoglobin 28.1 pg (27-33); Mean Corpuscular Volume 93.5 fl (85-98); Mean Platelet Volume 8.4 fL (7.4-10.4); Monocytes # 1.1 10^3/uL (0.2-0.9); Monocytes % 10.3 %; Neutrophils % 63.9 %; Nucleated Red Blood Cells % 0 %; Platelet Count 360 10^3/cmm (157-399); Red Blood Count 3.67 10^6/uL (3.85-5.65); Red Cell Distribution Width 14.2 % (12.1-15.1); White Blood Count 10.18 10^3/uL (3.29-11.43)
[2024-12-27 18:11] LABS: Bilirubin Urine Negative (Negative); Blood Urine Negative (Negative); Glucose Urine UA Negative (Normal); Ketones Urine Negative (Negative); Leukocyte Esterase Urine Negative (Negative); Nitrate Urine Negative (Negative); Protein Urine Negative (Negative); Specific Gravity, Urine 1.004 (1.005-1.030); Urine Appearance Clear (CLEAR); Urine Color Yellow (Yellow); Urobilinogen Urine 0.2 mg/dL (Negative)
[2024-12-27 18:19] LABS: Alanine Aminotransferase 18 U/L (0-33); Albumin Level 3.9 g/dL (3.5-5.2); Alkaline Phosphatase 175 U/L (35-105); Anion Gap 14.9 (5-19); Aspartate Amino Transferase 16 U/L (0-32); Blood Urea Nitrogen 12 mg/dL (8-23); C Reactive Protein 45.5 mg/L (0.0-4.9); Calcium 10.3 mg/dL (8.5-10.5); Carbon Dioxide 27 mmol/L (22-29); Chloride 103 mmol/L (98-107); Globulin 2.9 g/dL (1.3-4.6); Glomerular Filtration Rate 85.4 mL/min (90-130); Glucose 98 mg/dL (65-115); Osmolality Calculated 292 mOsm/kg (285-295); Potassium 3.9 mmol/L (3.5-5.1); Sodium 141 mmol/L (136-145); Total Bilirubin 0.2 mg/dL (0.15-1.2); Total Protein 6.8 g/dL (6.6-8.7)
[2024-12-27 18:23] VITALS: RESP 18
[2024-12-27] MEDS: morphine 4 mg/mL SDV 1 mL IVP (18:23)
[2024-12-27] MEDS: ketorolac 30 mg/mL INJ IVP (18:23)
[2024-12-27 18:25] LABS: Add Urine Culture? No; Add Urine Microscopic? YES; Bacteria Urine TRACE /hpf; RBC Urine 0-4 /hpf (0-2); Squamous Epithelial Cell Urine 0-4 /hpf (0-5); WBC Urine 0-4 /hpf (0-5)
[2024-12-27] MEDS: bumetanide 0.25 mg/mL SDV 4 mL 2 MG IVP (21:51)
[2024-12-27 22:08] VITALS: BP 154/77; PULSE 95; RESP 18; O2SAT 94
[2024-12-27 23:01] VITALS: BP 154/77; PULSE 92; RESP 16; O2SAT 96
== END 2024-12-27 23:04 | disposition home or self-care (01) ==
PROVIDERS: Family Medicine; Emergency Provider Emergency Medicine
DX: M54.89 Other dorsalgia (principal); M43.22 Fusion of spine, cervical region; M96.843 Postprocedural seroma of a musculoskeletal structure following other procedure; F17.290 Nicotine dependence, other tobacco product, uncomplicated; I10 Essential (primary) hypertension
CPT/HCPCS: 36415; 72125; 72128; 80053; 81001; 85025; 86140; 93970; 96374; 96375; 99285; J1885; J2270; J3490

== ENCOUNTER → 2025-01-01 13:35 | Outpatient (BNVA) | payer MEDICAID, SELFPAY | PROVIDERS: Visit Provider Orthopaedic Surgery | DX: Z98.1 Arthrodesis status (principal) | CPT/HCPCS: 99024 ==

== ENCOUNTER → 2025-01-22 13:28 | Outpatient (BNVA) | payer MEDICAID, SELFPAY | PROVIDERS: Visit Provider Orthopaedic Surgery | DX: Z98.1 Arthrodesis status (principal) | CPT/HCPCS: 72040; 99024 ==

== ENCOUNTER → 2025-02-03 14:59 | Outpatient (BNVA) | payer MEDICAID, SELFPAY | PROVIDERS: Referring Provider Orthopaedic Surgery; Visit Provider Psychiatry & Neurology Neurology | DX: Z98.1 Arthrodesis status (principal); M47.12 Other spondylosis with myelopathy, cervical region; G62.9 Polyneuropathy, unspecified | CPT/HCPCS: 95885; 95913 ==

== ENCOUNTER → 2025-03-12 14:31 | Outpatient (BNVA) | payer MEDICAID, SELFPAY | PROVIDERS: Visit Provider Orthopaedic Surgery | DX: M54.2 Cervicalgia (principal); Z98.1 Arthrodesis status | CPT/HCPCS: 72040; 99024 ==

== ENCOUNTER → 2025-05-14 13:14 | Outpatient (BNVA) | payer MEDICAID, SELFPAY | PROVIDERS: Referring Provider Orthopaedic Surgery; Visit Provider Psychiatry & Neurology Neurology | DX: G62.9 Polyneuropathy, unspecified (principal); Z98.1 Arthrodesis status | CPT/HCPCS: 95885; 95909; 95910 ==

== ENCOUNTER → 2025-06-18 12:47 | Outpatient (BNVA) | payer MEDICAID, SELFPAY | PROVIDERS: PCP Family Medicine; Visit Provider Orthopaedic Surgery | DX: Z98.1 Arthrodesis status (principal); M54.9 Dorsalgia, unspecified | CPT/HCPCS: 72040; 72072; 72100; 99213 ==

== ENCOUNTER 2025-07-09 12:22 | Outpatient (CLI) | payer MEDICAID, SELFPAY ==
--- NOTE | 2025-07-09 12:29 | MM_ITS ---
WS: [id number] SCREENING DIGITAL BREAST TOMOSYNTHESIS MAMMOGRAM WITH CAD HISTORY: SCREENING COMPARISON: 06/13/2024, 04/24/2023 Bilateral CC and MLO with tomosynthesis and synthetic mammography submitted. Computer aided detection analyzed. Breast composition: There are scattered areas of fibroglandular density. New high density ovoid mass RIGHT breast near 10:00 at a middle depth measures 4 x 10 x 7 mm. There are a few additional benign calcifications within each breast. No cyst or architectural distortion. MM/MM [facility] tomosynthesis [id number] IMPRESSION: BI-RADS: 0 - Incomplete: Need additional imaging evaluation. FOLLOW UP: Need Additional Imaging Recommendation: RIGHT breast ultrasound, limited.
== END 2025-07-09 12:23 | disposition home or self-care (01) ==
LOC: RAD 12:23
PROVIDERS: PCP Family Medicine; Visit Provider Family Medicine
DX: Z12.31 Encounter for screening mammogram for malignant neoplasm of breast (principal); R92.321 Mammographic fibroglandular density, right breast; N63.11 Unspecified lump in the right breast, upper outer quadrant
CPT/HCPCS: 77063; 77067

== ENCOUNTER 2025-09-07 11:13 | Outpatient (CLI) | payer MEDICAID, SELFPAY ==
--- NOTE | 2025-09-07 11:22 | US_ITS ---
WS: [id number] ULTRASOUND RIGHT BREAST, limited HISTORY: Dense mass upper outer quadrant RIGHT breast seen on mammogram. COMPARISON: Mammogram 07/09/2025. TECHNIQUE: 2-D and Doppler. There is a cyst in the upper outer quadrant RIGHT breast at 10:00, 2 cm from the nipple. Cyst is slightly ovoid in shape. The configuration matches the mammographic abnormality. Cyst measures 6 x 4 x 3 mm. There are a few areas of shadowing from calcifications. No solid mass identified. US/US breast RT limited* [id number] IMPRESSION: BI-RADS: 2- Benign FOLLOW-UP: 1 Year Follow-up Benign cyst RIGHT breast at 10:00. Return to annual screening mammography.
== END 2025-09-07 11:14 | disposition home or self-care (01) ==
LOC: RAD 11:15
PROVIDERS: PCP Family Medicine; Visit Provider Family Medicine
DX: R92.8 Other abnormal and inconclusive findings on diagnostic imaging of breast (principal); N60.01 Solitary cyst of right breast; R92.1 Mammographic calcification found on diagnostic imaging of breast
CPT/HCPCS: 76642

== ENCOUNTER → 2025-10-27 15:56 | Outpatient (BNVA) | payer MEDICAID, SELFPAY | PROVIDERS: PCP Family Medicine; Visit Provider Orthopaedic Surgery | DX: M54.9 Dorsalgia, unspecified (principal); Z98.1 Arthrodesis status; Z47.89 Encounter for other orthopedic aftercare | CPT/HCPCS: 72040; 72072; 72100; 99213 ==